=== PATIENT | female | born 1935 | race Caucasian/White ===

== ENCOUNTER → 2016-12-27 | Outpatient (CLI) | payer OTHER ==
[~2016-12-27] MED LIST: ASPI81TA28 PO; CALC500C3 PO; CALC500C73 PO; CEPH500C2 PO; CITA10SO PO; CYAN500T13 PO; FIBER PO; LANS30TA3 PO; LEVO100T7 PO; LEVO112T4 PO; MULT1CHW18 PO; PANT40TA PO; POLY335019 PO; [UNRECOGNIZED DRUG - OTHER] PO
== END | disposition home or self-care (01) ==
LOC: C.LABSPEC 12:51
PROVIDERS: ATTEND Dermatology
DX: H61.001 Unspecified perichondritis of right external ear (principal)

== ENCOUNTER → 2017-01-01 | Outpatient (CLI) | payer OTHER ==
[2017-01-01 17:48] LABS: ALB/GLOB RATIO 0.9 (0.9-2); ALKALINE PHOSPHATASE 86 U/L (45-117); ALT/SGPT 33 U/L (12-78); AST/SGOT 24 U/L (15-37); BLOOD UREA NITROGEN 14 mg/dl (7-18); BUN/CREATININE RATIO 16.1 (10-20); CALCIUM 9.2 mg/dl (8.5-10.1); CARBON DIOXIDE 31 mmol/L (21-32); CHLORIDE 103 mmol/L (98-107); CREATININE 0.89 mg/dl (0.60-1.20); GLUCOSE 82 mg/dl (70-99); HDL CHOLESTEROL 47 mg/dl; POTASSIUM 4.1 mmol/L (3.5-5.1); SODIUM 140 mmol/L (136-145)
[2017-01-01 18:00] LABS: CHOLESTEROL 200 mg/dl (0-200); CHOLESTEROL/HDL RATIO 4.3; LDL CHOLESTEROL CALCULATED 111 mg/dl; THYROID STIMULATING HORMONE 0.716 uIu/ml (0.300-4.500); TRIGLYCERIDES 208 mg/dl (0-150); VERY LOW DENSITY LIPOPROT CALC 42 mg/dl
[2017-01-02 06:46] LABS: ESTIMATED AVERAGE GLUCOSE 123 mg/dl; HA1C FLAG Normal (Normal)
== END | disposition home or self-care (01) ==
LOC: C.LABBFT 14:17
PROVIDERS: ATTEND Internal Medicine
DX: E03.9 Hypothyroidism, unspecified (principal); Z13.220 Encounter for screening for lipoid disorders; R20.0 Anesthesia of skin; I65.29 Occlusion and stenosis of unspecified carotid artery; R73.01 Impaired fasting glucose; Z13.6 Encounter for screening for cardiovascular disorders

== ENCOUNTER 2017-02-16 08:42 | Emergency (ER) | payer OTHER ==
[~2017-02-16] VITALS: Ht 154.9 cm; Wt 69.0 kg
[~2017-02-16 08:42] MED LIST changes: -CALC500C73 PO; -CEPH500C2 PO; -FIBER PO; -LEVO100T7 PO; -POLY335019 PO
[2017-02-16 08:49] VITALS: TEMP 36.5; Ht 154.9 cm; Wt 69.0 kg
[2017-02-16] MEDS ORDERED: POLY335019 PO (09:17)
[2017-02-16] MEDS ORDERED: CALC500C73 PO (09:17)
[2017-02-16] MEDS ORDERED: LEVO100T7 PO (09:17)
[2017-02-16] MEDS ORDERED: FIBER PO (09:17)
[2017-02-16 09:40] LABS: BASO % 0.3 %; BASO ABS # 0.02 K/uL (0-0.2); COMPLETE YES; EOS % 0.7 %; HEMATOCRIT 38.6 % (37-47); IG% 0.4 %; LYMPH ABS # 1.43 K/uL (1.2-3.4); MEAN CELL VOLUME 90.8 fL (80-100); MEAN CORPUSCULAR HEMOGLOBIN 30.8 pg (25-34); MEAN CORPUSCULAR HGB CONC 33.9 g/dl (32-36); MEAN PLATELET VOLUME 10.1 fL (7.4-10.4); MONO % 8.1 %; NEUT % 70.5 %; PLATELET COUNT 246 K/uL (130-400); RED BLOOD COUNT 4.25 M/uL (4.2-5.4); WHITE BLOOD COUNT 7.15 K/uL (4.8-10.8)
--- NOTE | 2017-02-16 09:48 | DIAGNOSTIC IMAGING REPORT ---
RIGHT ANKLE 3 VIEWS HISTORY: R ankle pain and swelling Right COMPARISON: None. FINDINGS: There is no fracture or dislocation. Lateral soft tissue swelling. No radiopaque foreign bodies. IMPRESSION: No fractures. Electronically signed by: Omkar Oscar M.D. 02/16/2017 9:47 AM Dictated Date/Time: 02/16/2017 9:46 AM
[2017-02-16 09:57] LABS: BUN/CREATININE RATIO 15.5 (10-20); C-REACTIVE PROTEIN 0.52 mg/dl (0-0.29); CREATININE 0.94 mg/dl (0.60-1.20); POTASSIUM 3.9 mmol/L (3.5-5.1); URIC ACID 4.5 mg/dl (2.6-7.2)
[2017-02-16 10:01] LABS: CALCIUM 9.1 mg/dl (8.5-10.1)
[2017-02-16] MEDS ORDERED: CEPH500C2 PO (10:31)
[2017-02-16 10:49] VITALS: BP 123/73; PULSE 92; O2SAT 95
--- NOTE | 2017-02-16 16:58 | EMERGENCY ROOM VISIT NOTE ---
ED Visit Note First contact with patient: 09:02 Chief Complaint: Right ankle pain. History of Present Illness: Ms. Carter is an 81-year-old white female who ambulates into the ED accompanied by her daughter complaining of right lateral ankle pain. Historically patient reports she has lower extremity neuropathy for many years. Patient reports she noticed some mild discomfort over the lateral aspect of the right ankle yesterday and noted some mild swelling. Today she reports she woke and the pain was much more severe, the swelling has increased and now the lateral ankle is erythematous. She has difficulty describing her pain but reports there is a base pain that worsens with weightbearing and ambulation. At rest she rates her discomfort 5/10 and with weightbearing ambulation she rates her discomfort 9/10. Her pain is nonradiating. Additionally her pain worsens with palpation over the lateral malleolus. She has not identified any alleviating factors related to the pain. She has not taken any medications for pain prior to arrival at the hospital. She has no worsening of her neuropathy in the foot. She denies any recent trauma to the best of her knowledge and she has not had no significant injuries, surgeries or diseases of her ankle. She denies fevers, chills, sweats, other skin eruptions, other skin color changes, upper respiratory tract symptoms, cough, wheezing, shortness of breath , chest pain, palpitations, orthopnea, decreased appetite, nausea, vomiting, abdominal pain, other extremity pain, previous clots, claudication, cramping, palpitations, recent surgery/inactivity/extended travel. Review of Systems: As noted above in history of present illness. All body systems were reviewed and found to be negative as noted above. Past Medical History: Unspecified stomach disorder, frequent urination, status post tonsillectomy, appendectomy, cholecystectomy and cervical cancer. Current Medications: Medications Dose Route/Sig Max Daily Dose Days Date Category Dose Instructions Miralax (Polyethylene Glycol 3350) 1 Pow Pow 17 Gm PO ONCE-TWICE DAILY 02/16/17 Reported Fiber Laxative (Fiber) Ea 1 Tab PO DAILY 02/16/17 Reported Levothyroxine Sodium 100 Mcg Tab 100 Mcg PO 4XWK 02/16/17 Reported Calcium (Calcium Carbonate) 500 Mg Chw 500 Mg PO DAILY 02/16/17 Reported Prevacid Solutab (Lansoprazole) 30 Mg Tab 30 Mg PO DAILY 11/15/15 Rx Vitamin B12 500MCG (Cyanocobalamin) 500 Mcg Tab 500 Mcg PO DAILY 11/15/15 Reported Levothyroxine Sodium 112 Mcg Tab 1 Tab PO 3XWK 90 11/15/15 Reported FRIDAY, FRIDAY, AND FRIDAY Aspirin Ec (Aspirin) 81 Mg Tab 81 Mg PO DAILY 11/15/15 Reported Multivitamin Gummies Adul (Multiple Vitamins W/ Minerals) 1 Chw Chw 1 Cplt PO DAILY 05/12/14 Reported Citalopram Hydrobromide 10 Mg/5 Ml Olive 2.5 Ml PO HS 05/12/14 Reported Allergies to Medications: Erythromycin. Social History: Patient is not currently employed; she feels safe in her home environment; she denies tobacco and alcohol use. Physical Examination: Vital Signs: Date Time Temp Pulse Resp B/P (MAP) Pulse Ox O2 Delivery O2 Flow Rate FiO2 02/16/17 10:49 92 18 123/73 95 02/16/17 08:49 36.5 91 17 127/72 95 Room Air GENERAL: 81-year-old female in mild to moderate distress due to pain, nontoxic- appearing, afebrile and hemodynamically stable. NEUROLOGICAL: Awake, alert and oriented to person, place and time. Answering questions appropriately and following commands. Good hand eye coordination. SKIN: Warm, dry and pink. HEENT: Atraumatic and normocephalic. PERRLA. Sclera white and conjunctiva pink. No drainage from naris. Oral cavity moist and pink. Pharynx is nonerythematous or edematous. Speech normal. No lymphadenopathy. Trachea midline. No jugular venous distention. BACK: No tenderness over the bony spine. No CVA tenderness. THORAX: Lungs sounds are clear to auscultation and equal bilaterally with symmetrical chest wall. No wheezing, rales or rhonchi. No crepitus, tenderness , subcutaneous air or deformities noted. HEART: Regular rate and rhythm. No gallops, rubs or murmurs are appreciated. ABDOMEN: Flat, soft and nontender. Positive bowel sounds in all quadrants. No guarding, rigidity or organomegaly. RIGHT LOWER EXTREMITY: No gross bony deformity. No tenderness in the hip, thigh , knee or lower leg. Moderate tenderness over the lateral malleolus with erythema and edema. Minimal tenderness over the ligamentous structures inferior and posterior to the malleolus. In the patient's area of erythema the foot does feel hot but didn't skin does not appear cellulitic. There is no lymphangitis. Decreased range of motion primarily with dorsiflexion due to pain. No ligamentous laxity was noted but she had a significant amount of pain with inversion. Skin was warm and pink and capillary refill is brisk. Distal pulses were intact. She had difficulty recognizing light touch because of her neuropathy. No calf tenderness or cords. ED Course: Patient is assessed as noted above. Patient's medication list was reviewed by myself. Laboratory Testing: Test 02/16/17 09:25 Range/Units White Blood Count 7.15 4.8-10.8 K/uL Red Blood Count 4.25 4.2-5.4 M/uL Hemoglobin 13.1 12.0-16.0 g/dL Hematocrit 38.6 37-47 % Mean Corpuscular Volume 90.8 80-100 fL Mean Corpuscular Hemoglobin 30.8 25-34 pg Mean Corpuscular Hemoglobin Concent 33.9 32-36 g/dl Platelet Count 246 130-400 K/uL Mean Platelet Volume 10.1 7.4-10.4 fL Neutrophils (%) (Auto) 70.5 % Lymphocytes (%) (Auto) 20.0 % Monocytes (%) (Auto) 8.1 % Eosinophils (%) (Auto) 0.7 % Basophils (%) (Auto) 0.3 % Neutrophils # (Auto) 5.04 1.4-6.5 K/uL Lymphocytes # (Auto) 1.43 1.2-3.4 K/uL Monocytes # (Auto) 0.58 0.11-0.59 K/uL Eosinophils # (Auto) 0.05 0-0.5 K/uL Basophils # (Auto) 0.02 0-0.2 K/uL RDW Standard Deviation 42.0 36.4-46.3 fL RDW Coefficient of Variation 12.7 11.5-14.5 % Immature Granulocyte % (Auto) 0.4 % Immature Granulocyte # (Auto) 0.03 0.00-0.02 K/uL Erythrocyte Sedimentation Rate 14 0-21 mm/hr Sodium Level 139 136-145 mmol/L Potassium Level 3.9 3.5-5.1 mmol/L Chloride Level 104 98-107 mmol/L Carbon Dioxide Level 28 21-32 mmol/L Anion Gap 7.0 3-11 mmol/L Blood Urea Nitrogen 15 7-18 mg/dl Creatinine 0.94 0.60-1.20 mg/dl Est Creatinine Clear Calc Drug Dose 41.0 ml/min Estimated GFR () 65.5 Estimated GFR (Non- 56.5 BUN/Creatinine Ratio 15.5 10-20 Random Glucose 128 70-99 mg/dl Uric Acid 4.5 2.6-7.2 mg/dl Calcium Level 9.1 8.5-10.1 mg/dl C-Reactive Protein 0.52 0-0.29 mg/dl Right Ankle X-Rays: Was read by myself and the radiologist and shows no acute fractures or dislocations. No foreign body. Mild soft tissue swelling over the lateral aspect of the ankle. Patient was offered pain medications and refused. Patient was reassessed multiple times during her stay in the emergency department. Patient's redness and swelling were demarcated with a pen line Patient was placed in a postop shoe and instructed on achieves. Patient's case was reviewed with Dr. Chan; we agreed on diagnostic approach, treatment, disposition and plan. Patient and daughter were educated about mor's findings and instructed on her treatment plan; they verbalizes understanding and agreement with this plan. Clinical Impression: Right ankle swelling and erythema. Possible cellulitis. Decision-Making: Initially my differential diagnosis I considered cellulitis, ankle sprain, gout, early contusion, fracture and other causes. Disposition: Patient discharged home in stable condition accompanied by her daughter; prior to departure she was reassessed and subjectively reported she was feeling better and rated her discomfort 4/10. Plan: Patient was encouraged use 600 mg of ibuprofen every 6 hours as needed for pain ; she was encouraged to take this medication with food and stop for stomach pain or indigestion. Patient was prescribed Keflex 500 mg 4 times a day for 10 days. Comfort measures were discussed with the patient including full elevation, postop shoe use. Patient was encouraged to follow-up with her PCP for recheck in 36-48 hours; she was encouraged return the ED if she was not able to obtain a follow-up visit and that time. PA Patient return the ED sooner for worsening pain, increasing redness/swelling, red streaking, fevers or any new/concerning symptoms.
== END 2017-02-16 10:51 | disposition home or self-care (01) ==
LOC: C.EDB 08:43 → C.EDA 10:51
DX: M25.471 Effusion, right ankle (principal); G62.9 Polyneuropathy, unspecified; Z90.49 Acquired absence of other specified parts of digestive tract; Z85.41 Personal history of malignant neoplasm of cervix uteri; Z79.82 Long term (current) use of aspirin; Z79.899 Other long term (current) drug therapy; L53.9 Erythematous condition, unspecified

== ENCOUNTER → 2017-04-08 | Outpatient (CLI) | payer OTHER ==
[~2017-04-08] MED LIST changes: -CALC500C3 PO; +CALC500C73 PO; +FIBER PO; +LEVO100T7 PO; -PANT40TA PO; +POLY335019 PO; -[UNRECOGNIZED DRUG - OTHER] PO
--- NOTE | 2017-04-08 09:30 | DIAGNOSTIC IMAGING REPORT ---
LEFT HAND MIN 3 VIEWS ROUTINE, LEFT WRIST MIN 3 VIEWS ROUTINE CLINICAL HISTORY: S69.92XA Injury of wrist, [id number]. Left hand and left wrist pain. COMPARISON STUDY: None. FINDINGS: Soft tissue swelling within the left wrist. The bones are osteopenic. Severe degenerative changes at the STT and first carpometacarpal joints. Mild osteoarthritis within the DIP and PIP joints. No fracture or dislocation. IMPRESSION: Soft tissue swelling within the left wrist. No acute fracture or dislocation within the left hand or left wrist. Electronically signed by: Omkar Oscar M.D. 04/08/2017 9:28 AM Dictated Date/Time: 04/08/2017 9:26 AM
--- NOTE | 2017-04-08 09:30 | DIAGNOSTIC IMAGING REPORT ---
LEFT HAND MIN 3 VIEWS ROUTINE, LEFT WRIST MIN 3 VIEWS ROUTINE CLINICAL HISTORY: S69.92XA Injury of wrist, [id number]. Left hand and left wrist pain. COMPARISON STUDY: None. FINDINGS: Soft tissue swelling within the left wrist. The bones are osteopenic. Severe degenerative changes at the STT and first carpometacarpal joints. Mild osteoarthritis within the DIP and PIP joints. No fracture or dislocation. IMPRESSION: Soft tissue swelling within the left wrist. No acute fracture or dislocation within the left hand or left wrist. Electronically signed by: Omkar Oscar M.D. 04/08/2017 9:28 AM Dictated Date/Time: 04/08/2017 9:26 AM
== END | disposition home or self-care (01) ==
LOC: C.RAD1850 09:06
PROVIDERS: ATTEND Internal Medicine
DX: S69.92XA Unspecified injury of left wrist, hand and finger(s), initial encounter (principal); X58.XXXA Exposure to other specified factors, initial encounter

== ENCOUNTER 2017-07-11 10:08 | Emergency (ER) | payer OTHER ==
[~2017-07-11] VITALS: Ht 154.9 cm; Wt 66.4 kg
[2017-07-11 10:15] VITALS: O2SAT 94
[2017-07-11 10:26] VITALS: TEMP 36.4; Ht 154.9 cm; Wt 66.4 kg
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
[2017-07-11 11:06] LABS: BASO % 0.1 %; BASO ABS # 0.01 K/uL (0-0.2); COMPLETE YES; EOS % 0.6 %; HEMATOCRIT 38.6 % (37-47); IG% 0.4 %; LYMPH % 12.2 %; LYMPH ABS # 1.04 K/uL (1.2-3.4); MEAN CORPUSCULAR HEMOGLOBIN 30.7 pg (25-34); MEAN CORPUSCULAR HGB CONC 33.7 g/dl (32-36); MEAN PLATELET VOLUME 9.6 fL (7.4-10.4); NEUT % 80.7 %; PLATELET COUNT 231 K/uL (130-400); RED BLOOD COUNT 4.24 M/uL (4.2-5.4); WHITE BLOOD COUNT 8.49 K/uL (4.8-10.8)
[2017-07-11 11:28] LABS: BUN/CREATININE RATIO 17.1 (10-20); CALCIUM 9.1 mg/dl (8.5-10.1); CREATININE 0.78 mg/dl (0.60-1.20); POTASSIUM 4.2 mmol/L (3.5-5.1)
[2017-07-11 12:40] VITALS: BP 160/83; PULSE 66; O2SAT 98
== END 2017-07-11 12:41 | disposition home or self-care (01) ==
LOC: EDBD 10:08 → C.EDA 10:12
DX: G43.809 Other migraine, not intractable, without status migrainosus (principal); E86.0 Dehydration; K57.30 Diverticulosis of large intestine without perforation or abscess without bleeding; K58.9 Irritable bowel syndrome, unspecified; M81.0 Age-related osteoporosis without current pathological fracture; Z79.82 Long term (current) use of aspirin

== ENCOUNTER → 2017-07-18 | Outpatient (CLI) | payer OTHER ==
[2017-07-18 12:25] LABS: ESTIMATED AVERAGE GLUCOSE 114 mg/dl; HA1C FLAG Normal (Normal)
[2017-07-18 12:40] LABS: ALT/SGPT 23 U/L (12-78); AST/SGOT 18 U/L (15-37); BLOOD UREA NITROGEN 11 mg/dl (7-18); BUN/CREATININE RATIO 12.7 (10-20); CALCIUM 9.3 mg/dl (8.5-10.1); CARBON DIOXIDE 30 mmol/L (21-32); CHLORIDE 102 mmol/L (98-107); CREATININE 0.86 mg/dl (0.60-1.20); GLUCOSE 113 mg/dl (70-99); POTASSIUM 4.9 mmol/L (3.5-5.1); SODIUM 136 mmol/L (136-145)
[2017-07-18 12:50] LABS: ALKALINE PHOSPHATASE 81 U/L (45-117)
== END | disposition home or self-care (01) ==
LOC: C.LABBFT 10:15
PROVIDERS: ATTEND Internal Medicine
DX: Z00.00 Encounter for general adult medical examination without abnormal findings (principal); E03.9 Hypothyroidism, unspecified; R73.01 Impaired fasting glucose; R42 Dizziness and giddiness

== ENCOUNTER → 2017-08-22 | Outpatient (CLI) | payer OTHER ==
[~2017-08-22] MED LIST changes: +HYDR1SOL10 PO; +OPTIRAY 320 IV PRN; +PRLUDL5 PO
--- NOTE | 2017-08-22 13:15 | DIAGNOSTIC IMAGING REPORT ---
CT OF THE ABDOMEN AND PELVIS WITH CONTRAST CLINICAL HISTORY: Epigastric abdominal pain. COMPARISON STUDY: CT of the abdomen and pelvis November 15, 2015 per TECHNIQUE: Following IV administration of 93 mL of Optiray-320, axial images of the abdomen and pelvis were obtained from the lung bases to the proximal femurs. Images were reviewed in the axial, sagittal, and coronal planes. IV contrast was administered without complication. A dose lowering technique was utilized adhering to the principles of ALARA. CT DOSE: 353.55 mGy.cm FINDINGS: No pneumatosis, free air or portal venous gas is present. The heart is mildly enlarged. The liver, spleen, adrenal glands and pancreas are unremarkable as is the left kidney. There is a cyst within the upper pole the right kidney. There is no biliary ductal dilatation status post cholecystectomy. The appendix is surgically absent. There is no evidence for a bowel obstruction. This extensive sigmoid diverticulosis without evidence for acute diverticulitis. No ascites is present. There is no abscess. No abdominal or pelvic lymphadenopathy is present. There is moderate atherosclerotic plaque of the abdominal aorta. There is plaque at the origin of the celiac axis however this vessel appears patent. There is also plaque at the origin of the superior mesenteric artery with apparent severe stenosis at the origin of this vessel. The inferior mesenteric artery is patent. There is no aneurysmal dilatation. There is no dissection. IMPRESSION: 1. 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 No significant stenosis of the celiac axis. Patent BRO. A CTA of the abdomen could be obtained. 2. Extensive sigmoid diverticulosis without evidence for acute diverticulitis. 3. No bowel obstruction. No bowel wall thickening. Electronically signed by: Ean Quiroz M.D. 08/22/2017 1:13 PM Dictated Date/Time: 08/22/2017 10:00 AM
== END | disposition home or self-care (01) ==
LOC: C.CTS 09:21
PROVIDERS: ATTEND Internal Medicine
DX: R10.13 Epigastric pain (principal); I70.0 Atherosclerosis of aorta; K57.30 Diverticulosis of large intestine without perforation or abscess without bleeding

== ENCOUNTER 2017-09-01 17:39 | Emergency (ER) | payer OTHER ==
[~2017-09-01] VITALS: Ht 154.9 cm; Wt 66.8 kg
[~2017-09-01 17:39] MED LIST changes: -HYDR1SOL10 PO; -OPTIRAY 320 IV PRN; -PRLUDL5 PO
[2017-09-01 17:50] VITALS: TEMP 36.5; Ht 154.9 cm; Wt 66.8 kg
[2017-09-01] MEDS ORDERED: DEXAMETHASONE SOD INJ 4 MG/ML VIAL IM STA (18:03)
[2017-09-01] MEDS ORDERED: KETOROLAC TROMETHAMINE 60 MG/2 ML VIAL IM STA (18:03)
[2017-09-01] MEDS ORDERED: HYDROCODONE/APAP 2.5MG/108MG ELIX 5 ML UDP PO STA (18:03)
[2017-09-01] MEDS ORDERED: HYDROCODONE/APAP ELIX 60ML HOME PACK PO ONE (18:15)
--- NOTE | 2017-09-01 19:28 | DIAGNOSTIC IMAGING REPORT ---
CERVICAL SPINE 5 VIEWS CLINICAL HISTORY: Neck pain. FINDINGS: AP, lateral, bilateral oblique, and odontoid views of the cervical spine are compared to study dated 09/09/2011. The skeletal structures are osteopenic. There is no radiographic evidence of fracture or subluxation. The odontoid process and lateral masses appear intact on the open mouth view. Productive degenerative change is noted at the atlantodental articulation. The spinolaminar line is preserved. Vertebral body height is maintained throughout the cervical spine. There is straightening of cervical lordosis with mild reversal centered at C4-C5. Minimal anterolisthesis is seen at C4-C5. Alignment is otherwise preserved. Small anterior osteophytes are seen throughout. Advanced disc space narrowing with endplate sclerosis is seen at C5-C6. Mild to moderate disc space narrowing is seen at the remaining cervical levels. Tiny posterior disc osteophyte complexes at C4-C5 and C5-C6 may contribute to mild acquired compromise of the central canal. Multilevel facet arthropathy is noted. Mild multilevel neural foraminal stenosis is seen bilaterally. The prevertebral soft tissues are within normal limits. Partially imaged apical lung parenchyma appears clear. Atherosclerotic calcification is noted in the thoracic aorta. IMPRESSION: 1. No acute bony abnormality is seen involving the cervical spine. 2. Osteopenia and multilevel spondylosis as discussed above. Dictated: 09/01/2017 7:09 PM Transcribed: 09/01/2017 7:27 PM Joseluis Electronically signed by: Asael Espinoza M.D. 09/01/2017 7:33 PM Dictated Date/Time: 09/01/2017 7:09 PM
[2017-09-01] MEDS ORDERED: HYDR1SOL28 PO (19:51)
[2017-09-01] MEDS ORDERED: PRED1SOL12 PO (19:51)
[2017-09-01 19:53] VITALS: PULSE 75; O2SAT 95
[2017-09-01 20:03] VITALS: BP 160/89
--- NOTE | 2017-09-01 20:07 | EMERGENCY ROOM VISIT NOTE ---
History Report prepared by Clyde: Shanna Shah Under the Supervision of: Dr. Ramirez Kelley M.D. First contact with patient: 17:52 Chief Complaint: ARM PAIN Stated Complaint: PINCHED NERVE IN R ARM AND SHOULDER History of Present Illness The patient is a 82 year old female who presents to the Emergency Room with complaints of constant right arm pain beginning Friday, 5 days ago. The patients pain starts in her right hand and radiates to her right shoulder. She describes her pain as throbbing. The patient notes that when she tilts her head to the right her pain worsens and when she tilts her head to the left her pain is relieved. The patient denies any loss of strength. She denies any chest pain , shortness of breath, fevers, swelling to extremities, recent falls or injuries. The patient took children's ibuprofen about an two hours ago. She denies any numbness to her right arm. The patient states she cannot swallow any pills. Source of History: patient Onset: 5 days ago Position: arm (right) Quality: other (throbbing) Timing: constant Modifying Factors (Worsening): other (tilting head to right) Modifying Factors (Relieving): other (tilting head to left) Associated Symptoms: No fevers, No chest pain, No SOB, No weakness, No numbness Review of Systems See HPI for pertinent positives & negatives. A total of 10 systems reviewed and were otherwise negative. Past Medical & Surgical Medical Problems: (1) Diverticulosis Colon (W/O Ment Of Hemorrhage) (2) Irritable Bowel Syndrome (3) Multilevel degenerative disc disease (4) Osteoporosis Nos Family History Patient reports no known family medical history. Social History Smoking Status: Never Smoker Alcohol Use: none Marital Status: Housing Status: lives with family Occupation Status: retired Current/Historical Medications Scheduled Aspirin (Aspirin Ec), 81 MG PO DAILY Calcium Carbonate (Calcium), 500 MG PO DAILY Citalopram Hydrobromide (Citalopram Hydrobromide), 5 ML PO HS Cyanocobalamin (Vitamin B12 500MCG), 500 MCG PO DAILY Fiber Laxative (Fiber Laxative), 1 TAB PO DAILY Lansoprazole (Prevacid Solutab), 30 MG PO DAILY Levothyroxine Sodium (Levothyroxine Sodium), 1 TAB PO 3XWK Levothyroxine Sodium (Levothyroxine Sodium), 100 MCG PO 4XWK Multiple Vitamins W/ Minerals (Multivitamin Gummies Adul), 1 CPLT PO DAILY Polyethylene Glycol 3350 (Miralax), 17 GM PO Q2D Prednisolone (Prelone 15MG/5ML), 20 ML PO DAILY Scheduled PRN Hydrocodone-Acetaminophen (Hydrocodone/Acetami 7.5/325MG 15ML), 5 ML PO Q4 PRN for Pain Allergies Coded Allergies: Erythromycin (Verified Adverse Reaction, Unknown, MYCIN DRUGS-YEAST INFECTIONS, 09/01/17) Physical Exam Vital Signs Date Time Temp Pulse Resp B/P (MAP) Pulse Ox O2 Delivery O2 Flow Rate FiO2 09/01/17 19:53 75 18 176/105 95 Room Air 09/01/17 17:50 36.5 85 16 161/90 96 Room Air Physical Exam Constitutional: Vital signs reviewed. Eyes: Pupils are equal round reactive to light. Conjunctiva are noninjected. ENT: Pharynx is clear without erythema or exudate. Mucous membranes are moist. Neck supple without meningeal signs. No midline tenderness to Cervical spine. Respiratory: Clear to auscultation bilaterally. Breath sounds are equal bilaterally. Cardiovascular: Regular rate and rhythm. No rubs or gallops. GI: Soft, nondistended and nontender. Bowel sounds are present. Musculoskeletal: No swelling or erythema to right upper extremity. Positive Spurling test on the right side. Integumentary: No cyanosis. No erythema or signs of cellulitis to the right arm. Neurological: The patient is awake and alert. No focal deficits. Normal motor and sensation throughout all major nerve distribution in the upper extremities. Psychiatric: Normal affect. Medical Decision & Procedures ER Provider Diagnostic Interpretation: Radiology results as stated below per my review and the radiologist's interpretation: CERVICAL SPINE 5 VIEWS FINDINGS: AP, lateral, bilateral oblique, and odontoid views of the cervical spine are compared to study dated 09/09/2011. The skeletal structures are osteopenic. There is no radiographic evidence of fracture or subluxation. The odontoid process and lateral masses appear intact on the open mouth view. Productive degenerative change is noted at the atlantodental articulation. The spinolaminar line is preserved. Vertebral body height is maintained throughout the cervical spine. There is straightening of cervical lordosis with mild reversal centered at C4-C5. Minimal anterolisthesis is seen at C4-C5. Alignment is otherwise preserved. Small anterior osteophytes are seen throughout. Advanced disc space narrowing with endplate sclerosis is seen at C5-C6. Mild to moderate disc space narrowing is seen at the remaining cervical levels. Tiny posterior disc osteophyte complexes at C4-C5 and C5-C6 may contribute to mild acquired compromise of the central canal. Multilevel facet arthropathy is noted. Mild multilevel neural foraminal stenosis is seen bilaterally. The prevertebral soft tissues are within normal limits. Partially imaged apical lung parenchyma appears clear. Atherosclerotic calcification is noted in the thoracic aorta. IMPRESSION: 1. No acute bony abnormality is seen involving the cervical spine. 2. Osteopenia and multilevel spondylosis as discussed above. Dictated: 09/01/2017 7:09 PM Transcribed: 09/01/2017 7:27 PM Joseluis Electronically signed by: Asael Espinoza M.D. Medications Administered Medications (Trade) Dose Ordered Sig/Denise Route Start Time Stop Time Status Last Admin Dose Admin Dexamethasone Sodium Phosphate (Decadron Inj) 10 mg NOW STAT IM 09/01/17 18:03 09/01/17 18:05 DC 09/01/17 18:43 10 MG Ketorolac Tromethamine (Toradol Inj) 10 mg NOW STAT IM 09/01/17 18:03 09/01/17 18:05 DC 09/01/17 18:44 10 MG Acetaminophen/ Hydrocodone Bitart (Lortab Elixir) 5 ml ONE STAT PO 09/01/17 18:03 09/01/17 18:05 DC 09/01/17 18:45 5 ML Acetaminophen/ Hydrocodone Bitart (Hydrocod/Apap Elix 7.5/325MG/ 15ML Home Pack) 1 homepack UD ONCE PO 09/01/17 18:15 09/01/17 18:16 DC 09/01/17 18:45 1 HOMEPACK ED Course 1754: The patient was evaluated in room C4. A complete history and physical exam was performed. 1802: Ordered Lortab Elixir 5 ml PO, Toradol Inj 10 mg IM, Decadron Inj 10 mg IM. 1814: Ordered Hydrocodone Bitart/Acetaminophen 1 homepack PO. 1944: I reviewed the patient's test results and medication instructions with her. She is resting comfortably. 1958: Upon reevaluation, the patient appeared to have improvement of her symptoms. I discussed mor's findings with the patient. She verbalized agreement of the treatment plan. The patient was discharged home. Medical Decision This is an 82-year-old female presents with pain in her right arm and shoulder. Differential diagnosis includes intervertebral disc disease, cervical radiculopathy, strain, DVT, infection. I did perform a limited focused review of portions of the patient's old chart on the electronic medical record. The patient had an x-ray of her cervical spine in 2011 which showed multilevel intervertebral disc disease. I did evaluate the patient as noted above. The patient is presenting with pain from her right shoulder into her hand. She states it's worse when she flexes her neck to the right and better when she flexes away toward the left side. On examination she does have a positive Spurling test. Her symptoms are consistent with intervertebral disc disease with radicular symptoms. I did treat the patient with IM Toradol and Decadron. She was also given Lortab elixir as she is unable to swallow pills. I did order and personally review the patient's cervical spine x-rays as described above. She does have intervertebral disc disease as described above. I did reassess patient. She is feeling much better. I did discuss the test results with the patient. I did recommend follow with her doctor for further evaluation and referral to physical therapy. She was given a prescription for Prelone as well as Lortab elixir. She was given precautions regarding his medications. She was given return instructions as outlined below and discharged in good condition. [place] Drug Monitoring Program Search Results: patient reviewed within database, no issues identified Medication Reconcilliation Current Medication List: was personally reviewed by me Blood Pressure Screening Patient's blood pressure: Elevated blood pressure Blood pressure disposition: Referred to PCP Impression Primary Impression: Cervical radiculopathy Scribe Attestation The scribe's documentation has been prepared under my direct and personally reviewed by me in its entirety. I confirm that the note above accurately reflects all work, treatment, procedures, and medical decision making performed by me. Departure Information Dispostion Home / Self-Care Prescriptions Prednisolone (PRELONE 15MG/5ML) 15 Mg/5 Ml Syrp 20 ML PO DAILY for 5 Days, #100 ML Prov: Rmairez Kelley M.D. 09/01/17 Hydrocodone-Acetaminophen (HYDROCODONE/ACETAMI 7.5/325MG 15ML) 1 Olive Olive 5 ML PO Q4 Y for Pain, #150 ML Prov: Ramirez Kelley M.D. 09/01/17 Referrals Tammie Quiroz M.D. (PCP) Forms HOME CARE DOCUMENTATION FORM, IMPORTANT VISIT INFORMATION Patient Instructions ED Cervical Radiculopathy, [facility] Additional Instructions You have been examined and treated today on an emergency basis only. This is not a substitute for, or an effort to provide, complete comprehensive medical care. It is impossible to recognize and treat all injuries or illnesses in a single emergency department visit. It is therefore important that you follow up closely with your physician. Call as soon as possible for an appointment. Return for worsening symptoms or if you develop fever, chest pain, shortness of breath, loss of control of your bowel or bladder, numbness or weakness to your arms, or any other concerning symptoms.
[2018-02-08] MEDS ORDERED: MECL-91 PO (18:06)
== END 2017-09-01 20:04 | disposition home or self-care (01) ==
LOC: C.EDB 17:40 → C.EDC 20:04
DX: M54.12 Radiculopathy, cervical region (principal); M50.30 Other cervical disc degeneration, unspecified cervical region; K57.30 Diverticulosis of large intestine without perforation or abscess without bleeding; K58.9 Irritable bowel syndrome, unspecified; M81.0 Age-related osteoporosis without current pathological fracture; Z79.82 Long term (current) use of aspirin

== ENCOUNTER → 2017-09-17 | Outpatient (CLI) | payer OTHER ==
[~2017-09-17] MED LIST changes: +HYDR1SOL10 PO
[2017-09-17 17:43] LABS: BLOOD UREA NITROGEN 12 mg/dl (7-18); CREATININE 0.82 mg/dl (0.60-1.20)
== END | disposition home or self-care (01) ==
LOC: C.LABBFT 13:16
PROVIDERS: ATTEND Physician Assistant
DX: Z00.00 Encounter for general adult medical examination without abnormal findings (principal); I63.9 Cerebral infarction, unspecified; R42 Dizziness and giddiness

== ENCOUNTER → 2017-09-22 | Outpatient (CLI) | payer OTHER ==
[~2017-09-22] MED LIST changes: +GADAVIST IV PRN
--- NOTE | 2017-09-22 12:04 | DIAGNOSTIC IMAGING REPORT ---
MRA OF THE NECK WITH AND WITHOUT CONTRAST CLINICAL HISTORY: Lacunar infarction. Vertigo. Carotid artery plaque. COMPARISON STUDY: None. TECHNIQUE: Unenhanced and contrast-enhanced MRA of the neck was performed. Injection of 6.5 mL of Gadavist IV was uneventful. NASCET criteria were utilized to estimate the degree of carotid stenosis. FINDINGS: The origins of the great vessels are patent. There is tortuosity of the proximal left vertebral artery. There is no evidence for dissection within the major vasculature of the neck. The bilateral common carotid arteries are patent. The right internal carotid artery is patent. There is mild stenosis of approximately 30% at the origin of the left internal carotid. The vessel measures 3 mm in caliber at the vessel origin and 4 mm distally. IMPRESSION: 1. 30% stenosis of the proximal left internal carotid artery. 2. No additional stenoses within the major vessels of the neck. Electronically signed by: Ean Quiroz M.D. 09/22/2017 12:03 PM Dictated Date/Time: 09/22/2017 11:46 AM
== END | disposition home or self-care (01) ==
LOC: C.MRI 10:45
PROVIDERS: ATTEND Physician Assistant
DX: I65.29 Occlusion and stenosis of unspecified carotid artery (principal); I63.9 Cerebral infarction, unspecified; R42 Dizziness and giddiness

== ENCOUNTER 2017-11-27 16:59 | Inpatient (IN) | payer OTHER ==
[~2017-11-27] VITALS: Ht 154.9 cm; Wt 65.0 kg
[~2017-11-27 16:59] MED LIST changes: -GADAVIST IV PRN
[2017-11-27] MEDS ORDERED: VRP40 PO ×2 (17:30→17:32)
--- NOTE | 2017-11-27 17:36 | EMERGENCY ROOM VISIT NOTE ---
History Report prepared by Clyde: Eric Corrales Under the Supervision of: Dr. Suresh Hoover M.D. First contact with patient: 17:09 Chief Complaint: SYNCOPE Stated Complaint: PASSED OUT-DR LUNA REFFERED Nursing Triage Summary: patient to Ed via triage, referred by primary, reports syncopal episode this morning, states "they wanted maybe a heart monitor, and to check my left shoulder" History of Present Illness The patient is an 82 year old female who presents to the Emergency Room with complaints of a syncopal episode that occurred this morning. She states that she passed out while she was taking her medications at home, and she fell to the floor. The patient says that she did not hit her head on the fall, and denies any headaches. The patient states that did bang her left shoulder however. She says that she was told by Dr. Reyes of [facility] to come here for evaluation, as it may be heart related. The patient notes that she has been nauseous today. She denies any vomiting, chest pain, shortness of breath, or abdominal pain. The patient's family adds that the patient has been very unsteady recently, and has had multiple falls. The stated she had a similar syncopal episode in September but never sought any treatment for it. The patient says that she takes Verapamil, 81 mg Aspirin, and a thyroid medication daily. She is not on any other blood thinners. Per the patient's family, the patient has noticed left leg swelling for about a week or so ever since she started the Verapamil. She notes no cardiac history or any recent travels. The patient lives alone. Source of History: patient, family Onset: This morning Position: other (global) Quality: other (syncope) Timing: other (episode) Associated Symptoms: + LOC, + nausea, No headache, No chest pain, No SOB, No vomiting, No abdominal pain Note: Left leg swelling for a week or so. Review of Systems See HPI for pertinent positives and negatives. A total of ten systems were reviewed and were otherwise negative. Past Medical & Surgical Medical Problems: (1) Diverticulosis Colon (W/O Ment Of Hemorrhage) (2) Irritable Bowel Syndrome (3) Multilevel degenerative disc disease (4) Osteoporosis Nos Family History Patient reports no known family medical history. Social History Smoking Status: Never Smoker Alcohol Use: none Marital Status: Housing Status: lives with family Occupation Status: retired Current/Historical Medications Scheduled Aspirin (Aspirin Ec), 81 MG PO DAILY Calcium Carbonate (Calcium), 500 MG PO DAILY Cyanocobalamin (Vitamin B12 500MCG), 500 MCG PO DAILY Fiber Laxative (Fiber Laxative), 1 TAB PO DAILY Lansoprazole (Prevacid Solutab), 30 MG PO DAILY Levothyroxine Sodium (Levothyroxine Sodium), 1 TAB PO 3XWK Levothyroxine Sodium (Levothyroxine Sodium), 100 MCG PO 4XWK Multiple Vitamins W/ Minerals (Multivitamin Gummies Adul), 1 CPLT PO DAILY Polyethylene Glycol 3350 (Miralax), 17 GM PO Q2D Verapamil (Calan), 40 MG PO BID Allergies Coded Allergies: Erythromycin (Verified Adverse Reaction, Unknown, MYCIN DRUGS-YEAST INFECTIONS, 11/27/17) Physical Exam Vital Signs Date Time Temp Pulse Resp B/P (MAP) Pulse Ox O2 Delivery O2 Flow Rate FiO2 11/27/17 20:50 82 18 152/91 95 Room Air 11/27/17 20:47 76 20 161/97 95 Room Air 75 156/95 82 152/91 11/27/17 19:08 83 18 151/81 95 Room Air 11/27/17 18:01 72 11/27/17 17:05 36.7 79 20 154/80 95 Room Air Physical Exam Physical Exam GENERAL: She is oriented to person, place, and time. She appears well- developed and well-nourished. She does not appear distressed. ____ HENT: Exam performed. Head: Normocephalic and atraumatic. Right Ear: External ear normal. No mastoid tenderness. Left Ear: External ear normal. No mastoid tenderness. Mouth/Throat: The oropharynx is clear and moist. No trismus in the jaw. No dental abscesses or uvula swelling. No oropharyngeal exudate or tonsillar abscesses. ____ EYES: Conjunctivae and EOM are normal. Pupils are equal, round, and reactive to light. Right eye exhibits no discharge. Left eye exhibits no discharge. No scleral icterus. ____ NECK: Normal range of motion. Neck supple. No JVD present. No spinous process tenderness present. No carotid bruit present. No rigidity. No tracheal deviation and normal range of motion present. No Brudzinski's sign and no Kernig 's sign noted. ____ CV: Normal rate, regular rhythm, normal heart sounds and intact distal pulses. There is no peripheral edema. Palpable radial pulses bue. ____ PULM/CHEST: Effort normal and breath sounds normal. No respiratory distress. No stridor. She has no wheezes. She has no rales. Chest Wall: She exhibits no tenderness. ____ ABD: The abdomen is soft. Bowel sounds are normal. She has no distension. No mass is present. There is no tenderness. There is no rebound, no guarding, no Morales's sign and no tenderness at McBurney's point. Rovsig negative MUSC/SKEL: Normal range of motion. Swelling to left lower extremity, calf, and pain on palpation of left popliteal area. Palpable DP pulses bilateral lower extremities. LYMPH: No cervical adenopathy. ____ NEURO: She is alert and oriented to person, place, and time. She has normal strength. No cranial nerve deficit or sensory deficit. Coordination and gait normal. GCS eye subscore is 4. GCS verbal subscore is 5. GCS motor subscore is 6. Cerebellar tests wnl. ____ SKIN: Skin is warm and dry. She is not diaphoretic. ____ PSYCH: She has a normal mood and affect. She behavior is normal. Judgment and thought content normal. ____ Medical Decision & Procedures ER Provider Diagnostic Interpretation: Radiology results as stated below per my review and radiologist interpretation: L SHOULDER MIN 2 VIEWS ROUTINE CLINICAL HISTORY: 82 years-old Female presenting with L shoulder pain. TECHNIQUE: Internal rotation, external rotation, Grashey views of the left shoulder were obtained. COMPARISON: 05/23/2015. FINDINGS: Glenohumeral and acromioclavicular joints congruent. No advanced degenerative change. Calcification projects in the region of the rotator cuff tendon. No acute fracture or malalignment. No deformity of the humeral head. No radiographic soft tissue abnormality. Visualized portion of the thorax demonstrates atherosclerosis of the aortic arch. IMPRESSION: 1. No acute osseous injury. 2. Calcification in the region of the rotator cuff suggest calcific tendinitis. Electronically signed by: Kun James M.D. 11/27/2017 8:08 PM Dictated Date/Time: 11/27/2017 8:07 PM L VENOUS DOPP LOWER EXT UNILAT CLINICAL HISTORY: 82 years-old Female presenting with r/o dvt, chest pain, clinical concern for pulmonary embolus. TECHNIQUE: Real-time grayscale and color and spectral Doppler ultrasound imaging of the veins of the left lower extremity was performed. Compression and augmentation were also utilized. COMPARISON: None. FINDINGS: Left: Common femoral vein: Patent. Greater saphenous vein: Patent. Deep femoral vein: Patent. Femoral vein: Patent. Popliteal vein: Patent. Calf veins: Patent. Other: None. IMPRESSION: No evidence of deep venous thrombosis. Electronically signed by: Kun James M.D. 11/27/2017 7:50 PM Dictated Date/Time: 11/27/2017 7:49 PM HEAD WITHOUT CONTRAST (CT) CLINICAL HISTORY: 82 years-old Female presenting with syncope. TECHNIQUE: Multidetector CT imaging of the head was performed without the use of intravenous contrast. IV contrast: None. A dose lowering technique was used consistent with the principles of ALARA (as low as reasonably achievable). COMPARISON: 05/12/2014. CT DOSE (mGy.cm): The estimated cumulative dose is 638.56 mGycm. FINDINGS: Ironer Hand topogram: Unremarkable. Proportional ventricular and sulcal prominence, likely age-related parenchymal volume loss. Periventricular and subcortical white matter hypoattenuation, nonspecific but likely indicative of chronic small vessel ischemic change. No mass effect or midline shift. No hemorrhage or acute territorial infarct. No extra-axial fluid collection. Paranasal sinuses and mastoid air cells clear. Calvarium intact. IMPRESSION: 1. Chronic small vessel ischemic change. No acute intracranial abnormality. Electronically signed by: Kun James M.D. 11/27/2017 7:06 PM Dictated Date/Time: 11/27/2017 7:05 PM CHEST 2 VIEWS ROUTINE CLINICAL HISTORY: 82 years-old Female presenting with syncope. TECHNIQUE: PA and lateral views of the chest were obtained. COMPARISON: CTA of the chest performed earlier the same day. FINDINGS: Atherosclerosis of aortic arch. Cardiac silhouette mildly enlarged. No focal opacity. No large effusion or pneumothorax. Osteopenia suspected. Upper abdomen normal. IMPRESSION: 1. No acute cardiopulmonary disease. Electronically signed by: Kun James M.D. 11/27/2017 8:07 PM Dictated Date/Time: 11/27/2017 8:06 PM CERVICAL SPINE W/O CLINICAL HISTORY: 82 years-old Female presenting with syncope. TECHNIQUE: Multidetector CT of the cervical spine was performed without the use of intravenous contrast. IV contrast: None. A dose lowering technique was used consistent with the principles of ALARA (as low as reasonably achievable). COMPARISON: Plain radiographs of the cervical spine from 09/01/2017. One CT DOSE (mGy.cm): The estimated cumulative dose is 396.30 mGycm. FINDINGS: Ironer Hand topogram: Unremarkable. Straightening of normal cervical lordosis likely positional and related to degenerative change. No acute fracture or subluxation. Multilevel degenerative changes evidenced by disc osteophyte complexes at C4-5 through C6-7, most severe at C5-6. Facet arthropathy noted to varying degrees at multiple levels. No osseous spinal canal narrowing. Varying degrees of osseous neural foraminal narrowing most significantly at C5-6. Skull base intact. Paraspinal soft tissues within normal limits allowing for noncontrast technique. Lung bases clear. IMPRESSION: 1. No acute osseous injury of the cervical spine. 2. Multilevel degenerative changes. Electronically signed by: Kun James M.D. 11/27/2017 7:11 PM Dictated Date/Time: 11/27/2017 7:08 PM ABDOMEN LIMITED (US) CLINICAL HISTORY: 82 years-old Female presenting with syncope r/o AAA. TECHNIQUE: Real-time grayscale and color and spectral Doppler ultrasound imaging of the abdominal aorta and iliac arteries was performed. COMPARISON: CT from 08/22/2017. FINDINGS: Proximal aorta: Atherosclerosis. Transverse dimension 2.5 x 2.3 cm. Mid aorta: Atherosclerosis. Transverse dimension 2.0 x 2.0 cm. Distal aorta: Atherosclerosis. Transverse dimension 1.6 x 1.8 cm. Right iliac artery: Atherosclerosis. Transverse dimension 0.8 x 0.9 cm. Left iliac artery: Atherosclerosis. Transverse dimension 1.0 x 1.0 cm. IMPRESSION: 1. No evidence of abdominal aortic aneurysm. Electronically signed by: Kun James M.D. 11/27/2017 7:52 PM Dictated Date/Time: 11/27/2017 7:50 PM (CHEST FOR PE) ANGIO WITH CLINICAL HISTORY: 82 years-old Female presenting with chest pain, clinical concern for pulmonary embolus, syncope. TECHNIQUE: Multidetector CT angiography of the chest was performed after administration of intravenous contrast. 3-D volumetric and/or maximum intensity projection (MIP) images were subsequently reconstructed for review. IV contrast: 93 mL of Optiray 320. A dose lowering technique was used consistent with the principles of ALARA (as low as reasonably achievable). COMPARISON: None. CT DOSE (mGy.cm): The estimated cumulative dose is 519.38 mGycm. FINDINGS: Ironer Hand topogram: Cholecystectomy clips. Cardiomegaly. Pulmonary vasculature: The study is adequate for assessment of the pulmonary vascular tree. Eccentric pulmonary embolus in the distal right interlobar pulmonary artery, which extends into the segmental pulmonary arteries of the right lower lobe. This may be associated with a web. This has an appearance that is more consistent with a chronic embolus. Eccentric embolus also evident in several subsegmental branches to the left lower lobe. No convincing evidence of acute pulmonary emboli. Main pulmonary artery is not enlarged. No flattening of the interventricular septum. No intracardiac filling defect. Reflux of contrast into the intrahepatic IVC. Remaining chest: On soft tissue windows, normal thyroid and thoracic inlet. Few subcentimeter lymph nodes in the prevascular and precarinal regions of the mediastinum as well as subcentimeter lymph nodes in the bilateral jaylen, likely reactive. Atherosclerosis of the aorta. Significant irregularity of the origin of the left subclavian artery secondary to noncalcified atherosclerotic plaque are this results in less than 50% stenosis of the proximal 1 to 2 cm. Mild multichamber enlargement of the heart. Coronary artery calcification. No pericardial or pleural effusion. Suggestion of enlarged lymph nodes in the ester hepatis (series 4 image 1). On lung windows, Biapical reticular opacities likely scarring. Minimal scattered sites of scarring noted elsewhere. Minimal dependent changes likely atelectasis. Airways patent. On bone windows, degenerative changes of the spine. IMPRESSION: 1. 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 No CT evidence of right heart strain. No convincing evidence of acute pulmonary emboli. 2. Suggestion of upper abdominal lymphadenopathy. Further evaluation with contrast-enhanced CT of abdomen and pelvis recommended on a nonurgent basis. 3. Mild cardiomegaly. Electronically signed by: Kun James M.D. 11/27/2017 7:33 PM Dictated Date/Time: 11/27/2017 7:26 PM Laboratory Results 11/27/17 18:05 Red Blood Count 4.31, Mean Corpuscular Volume 89.6, Mean Corpuscular Hemoglobin 30.2, Mean Corpuscular Hemoglobin Concent 33.7, Mean Platelet Volume 9.8, Neutrophils (%) (Auto) 65.9, Lymphocytes (%) (Auto) 22.5, Monocytes (%) (Auto) 10.5, Eosinophils (%) (Auto) 0.5, Basophils (%) (Auto) 0.3, Neutrophils # (Auto ) 5.00, Lymphocytes # (Auto) 1.71, Monocytes # (Auto) 0.80, Eosinophils # (Auto ) 0.04, Basophils # (Auto) 0.02 11/27/17 18:05 Test 11/27/17 18:05 White Blood Count 7.59 K/uL (4.8-10.8) Red Blood Count 4.31 M/uL (4.2-5.4) Hemoglobin 13.0 g/dL (12.0-16.0) Hematocrit 38.6 % (37-47) Mean Corpuscular Volume 89.6 fL (80-100) Mean Corpuscular Hemoglobin 30.2 pg (25-34) Mean Corpuscular Hemoglobin Concent 33.7 g/dl (32-36) Platelet Count 259 K/uL (130-400) Mean Platelet Volume 9.8 fL (7.4-10.4) Neutrophils (%) (Auto) 65.9 % Lymphocytes (%) (Auto) 22.5 % Monocytes (%) (Auto) 10.5 % Eosinophils (%) (Auto) 0.5 % Basophils (%) (Auto) 0.3 % Neutrophils # (Auto) 5.00 K/uL (1.4-6.5) Lymphocytes # (Auto) 1.71 K/uL (1.2-3.4) Monocytes # (Auto) 0.80 K/uL (0.11-0.59) Eosinophils # (Auto) 0.04 K/uL (0-0.5) Basophils # (Auto) 0.02 K/uL (0-0.2) RDW Standard Deviation 40.5 fL (36.4-46.3) RDW Coefficient of Variation 12.4 % (11.5-14.5) Immature Granulocyte % (Auto) 0.3 % Immature Granulocyte # (Auto) 0.02 K/uL (0.00-0.02) Prothrombin Time 9.9 SECONDS (9.0-12.0) Prothromb Time International Ratio 0.9 (0.9-1.1) Activated Partial Thromboplast Time 22.9 SECONDS (21.0-31.0) Partial Thromboplastin Ratio 0.9 D-Dimer 1590 ug/L FEU (0-500) Anion Gap 6.0 mmol/L (3-11) Est Creatinine Clear Calc Drug Dose 40.7 ml/min Estimated GFR () 84.1 Estimated GFR (Non- 72.5 BUN/Creatinine Ratio 20.6 (10-20) Calcium Level 9.5 mg/dl (8.5-10.1) Troponin I < 0.015 ng/ml (0-0.045) Laboratory results reviewed by me ECG Per My Interpretation Indication: syncope Rate (beats per minute): 73 Rhythm: sinus rhythm Findings: other (WV, QRS, and QTC intervals within normal limits, no ST elevation or ST depression) ED Course 1726: The patient was evaluated in room C9. A complete history and physical exam was performed. 2030: EKG labs and imaging within normal limits. I reevaluated the patient and discussed with her and her family that the imaging is negative, and her labs are within normal limits. The patient, her family, and myself are concerned because this is the patient's second syncopal episode within the last few months. She has never had an echo or carotid US. She has also never had a cardiac workup. She is willing to stay in the hospital for a syncope workup, and will hospitalized to [facility]. They were notified about the patient. Medical Decision EKG labs and imaging within normal limits. I reevaluated the patient and discussed with her and her family that the imaging is negative, and her labs are within normal limits. The patient, her family, and myself are concerned because this is the patient's second syncopal episode within the last few months. She has never had an echo or carotid US. She has also never had a cardiac workup. She is willing to stay in the hospital for a syncope workup, and will hospitalized to the [facility] hospitalist service. They were notified about the patient. Medication Reconcilliation Current Medication List: was personally reviewed by me Blood Pressure Screening Patient's blood pressure: Elevated blood pressure Blood pressure disposition: Elevated BP felt to be situational Impression Primary Impression: Syncope Additional Impression: Collapse Scribe Attestation The scribe's documentation has been prepared under my direction and personally reviewed by me in its entirety. I confirm that the note above accurately reflects all work, treatment, procedures, and medical decision making performed by me. The chart was completed utilizing [employer] Speech voice recognition software. Grammatical errors, random word insertions, pronoun errors, and incomplete sentences are an occasional consequence of this system due to software limitations, ambient noise, and hardware issues. Any formal questions or concerns about the content, text, or information contained within the body of this dictation should be directly addressed to the physician for clarification. Departure Information Dispostion Being Evaluated By Hospitalist Referrals Tammie Quiroz M.D. (PCP) Patient Instructions My [facility] Health Problem Qualifiers Primary Impression: Syncope Syncope type: unspecified Qualified Codes: R55 - Syncope and collapse
[2017-11-27 18:19] LABS: BASO % 0.3 %; BASO ABS # 0.02 K/uL (0-0.2); EOS % 0.5 %; EOS ABS # 0.04 K/uL (0-0.5); HEMATOCRIT 38.6 % (37-47); IG# 0.02 K/uL (0.00-0.02); LYMPH % 22.5 %; LYMPH ABS # 1.71 K/uL (1.2-3.4); MEAN CELL VOLUME 89.6 fL (80-100); MEAN CORPUSCULAR HEMOGLOBIN 30.2 pg (25-34); MEAN CORPUSCULAR HGB CONC 33.7 g/dl (32-36); MEAN PLATELET VOLUME 9.8 fL (7.4-10.4); MONO % 10.5 %; NEUT % 65.9 %; PLATELET COUNT 259 K/uL (130-400); RED CELL DISTRIBUTION WIDTH CV 12.4 % (11.5-14.5); RED CELL DISTRIBUTION WIDTH SD 40.5 fL (36.4-46.3); WHITE BLOOD COUNT 7.59 K/uL (4.8-10.8)
[2017-11-27 18:38] LABS: INR 0.9 (0.9-1.1); PTT PATIENT 22.9 SECONDS (21.0-31.0)
[2017-11-27 18:41] LABS: BLOOD UREA NITROGEN 16 mg/dl (7-18); CALCIUM 9.5 mg/dl (8.5-10.1); CARBON DIOXIDE 27 mmol/L (21-32); CREATININE 0.76 mg/dl (0.60-1.20); GLUCOSE 96 mg/dl (70-99); POTASSIUM 4.1 mmol/L (3.5-5.1); SODIUM 135 mmol/L (136-145)
[2017-11-27] MEDS ORDERED: OPTIRAY 320 IV PRN (19:00)
--- NOTE | 2017-11-27 19:08 | DIAGNOSTIC IMAGING REPORT ---
HEAD WITHOUT CONTRAST (CT) CLINICAL HISTORY: 82 years-old Female presenting with syncope. TECHNIQUE: Multidetector CT imaging of the head was performed without the use of intravenous contrast. IV contrast: None. A dose lowering technique was used consistent with the principles of ALARA (as low as reasonably achievable). COMPARISON: 05/12/2014. CT DOSE (mGy.cm): The estimated cumulative dose is 638.56 mGycm. FINDINGS: Extrusion Press Supervisor topogram: Unremarkable. Proportional ventricular and sulcal prominence, likely age-related parenchymal volume loss. Periventricular and subcortical white matter hypoattenuation, nonspecific but likely indicative of chronic small vessel ischemic change. No mass effect or midline shift. No hemorrhage or acute territorial infarct. No extra-axial fluid collection. Paranasal sinuses and mastoid air cells clear. Calvarium intact. IMPRESSION: 1. Chronic small vessel ischemic change. No acute intracranial abnormality. Electronically signed by: Kun James M.D. 11/27/2017 7:06 PM Dictated Date/Time: 11/27/2017 7:05 PM
--- NOTE | 2017-11-27 19:12 | DIAGNOSTIC IMAGING REPORT ---
CERVICAL SPINE W/O CLINICAL HISTORY: 82 years-old Female presenting with syncope. TECHNIQUE: Multidetector CT of the cervical spine was performed without the use of intravenous contrast. IV contrast: None. A dose lowering technique was used consistent with the principles of ALARA (as low as reasonably achievable). COMPARISON: Plain radiographs of the cervical spine from 09/01/2017. One CT DOSE (mGy.cm): The estimated cumulative dose is 396.30 mGycm. FINDINGS: Auto Inspector topogram: Unremarkable. Straightening of normal cervical lordosis likely positional and related to degenerative change. No acute fracture or subluxation. Multilevel degenerative changes evidenced by disc osteophyte complexes at C4-5 through C6-7, most severe at C5-6. Facet arthropathy noted to varying degrees at multiple levels. No osseous spinal canal narrowing. Varying degrees of osseous neural foraminal narrowing most significantly at C5-6. Skull base intact. Paraspinal soft tissues within normal limits allowing for noncontrast technique. Lung bases clear. IMPRESSION: 1. No acute osseous injury of the cervical spine. 2. Multilevel degenerative changes. Electronically signed by: Kun James M.D. 11/27/2017 7:11 PM Dictated Date/Time: 11/27/2017 7:08 PM
--- NOTE | 2017-11-27 19:35 | DIAGNOSTIC IMAGING REPORT ---
ADDENDUM Corrected impression #2: No evidence of upper abdominal lymphadenopathy. The previously noted abnormality correlates with vascular structures when compared with contrast-enhanced CT of the abdomen and pelvis from 08/22/2017. This was discussed with the nurse practitioner over the phone. Electronically signed by: Kun James M.D. 12/01/2017 3:18 PM Dictated Date/Time: 12/01/2017 3:17 PM ORIGINAL REPORT (CHEST FOR PE) ANGIO WITH CLINICAL HISTORY: 82 years-old Female presenting with chest pain, clinical concern for pulmonary embolus, syncope. TECHNIQUE: Multidetector CT angiography of the chest was performed after administration of intravenous contrast. 3-D volumetric and/or maximum intensity projection (MIP) images were subsequently reconstructed for review. IV contrast: 93 mL of Optiray 320. A dose lowering technique was used consistent with the principles of ALARA (as low as reasonably achievable). COMPARISON: None. CT DOSE (mGy.cm): The estimated cumulative dose is 519.38 mGycm. FINDINGS: Logistics And Planning Manager topogram: Cholecystectomy clips. Cardiomegaly. Pulmonary vasculature: The study is adequate for assessment of the pulmonary vascular tree. Eccentric pulmonary embolus in the distal right interlobar pulmonary artery, which extends into the segmental pulmonary arteries of the right lower lobe. This may be associated with a web. This has an appearance that is more consistent with a chronic embolus. Eccentric embolus also evident in several subsegmental branches to the left lower lobe. No convincing evidence of acute pulmonary emboli. Main pulmonary artery is not enlarged. No flattening of the interventricular septum. No intracardiac filling defect. Reflux of contrast into the intrahepatic IVC. Remaining chest: On soft tissue windows, normal thyroid and thoracic inlet. Few subcentimeter lymph nodes in the prevascular and precarinal regions of the mediastinum as well as subcentimeter lymph nodes in the bilateral jaylen, likely reactive. Atherosclerosis of the aorta. Significant irregularity of the origin of the left subclavian artery secondary to noncalcified atherosclerotic plaque are this results in less than 50% stenosis of the proximal 1 to 2 cm. Mild multichamber enlargement of the heart. Coronary artery calcification. No pericardial or pleural effusion. Suggestion of enlarged lymph nodes in the ester hepatis (series 4 image 1). On lung windows, Biapical reticular opacities likely scarring. Minimal scattered sites of scarring noted elsewhere. Minimal dependent changes likely atelectasis. Airways patent. On bone windows, degenerative changes of the spine. IMPRESSION: 1. 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 No CT evidence of right heart strain. No convincing evidence of acute pulmonary emboli. 2. Suggestion of upper abdominal lymphadenopathy. Further evaluation with contrast-enhanced CT of abdomen and pelvis recommended on a nonurgent basis. 3. Mild cardiomegaly. Electronically signed by: Kun James M.D. 11/27/2017 7:33 PM Dictated Date/Time: 11/27/2017 7:26 PM
--- NOTE | 2017-11-27 19:51 | DIAGNOSTIC IMAGING REPORT ---
L VENOUS DOPP LOWER EXT UNILAT CLINICAL HISTORY: 82 years-old Female presenting with r/o dvt, chest pain, clinical concern for pulmonary embolus. TECHNIQUE: Real-time grayscale and color and spectral Doppler ultrasound imaging of the veins of the left lower extremity was performed. Compression and augmentation were also utilized. COMPARISON: None. FINDINGS: Left: Common femoral vein: Patent. Greater saphenous vein: Patent. Deep femoral vein: Patent. Femoral vein: Patent. Popliteal vein: Patent. Calf veins: Patent. Other: None. IMPRESSION: No evidence of deep venous thrombosis. Electronically signed by: Kun James M.D. 11/27/2017 7:50 PM Dictated Date/Time: 11/27/2017 7:49 PM
--- NOTE | 2017-11-27 19:53 | DIAGNOSTIC IMAGING REPORT ---
ABDOMEN LIMITED (US) CLINICAL HISTORY: 82 years-old Female presenting with syncope r/o AAA. TECHNIQUE: Real-time grayscale and color and spectral Doppler ultrasound imaging of the abdominal aorta and iliac arteries was performed. COMPARISON: CT from 08/22/2017. FINDINGS: Proximal aorta: Atherosclerosis. Transverse dimension 2.5 x 2.3 cm. Mid aorta: Atherosclerosis. Transverse dimension 2.0 x 2.0 cm. Distal aorta: Atherosclerosis. Transverse dimension 1.6 x 1.8 cm. Right iliac artery: Atherosclerosis. Transverse dimension 0.8 x 0.9 cm. Left iliac artery: Atherosclerosis. Transverse dimension 1.0 x 1.0 cm. IMPRESSION: 1. No evidence of abdominal aortic aneurysm. Electronically signed by: Kun James M.D. 11/27/2017 7:52 PM Dictated Date/Time: 11/27/2017 7:50 PM
--- NOTE | 2017-11-27 20:08 | DIAGNOSTIC IMAGING REPORT ---
CHEST 2 VIEWS ROUTINE CLINICAL HISTORY: 82 years-old Female presenting with syncope. TECHNIQUE: PA and lateral views of the chest were obtained. COMPARISON: CTA of the chest performed earlier the same day. FINDINGS: Atherosclerosis of aortic arch. Cardiac silhouette mildly enlarged. No focal opacity. No large effusion or pneumothorax. Osteopenia suspected. Upper abdomen normal. IMPRESSION: 1. No acute cardiopulmonary disease. Electronically signed by: Kun James M.D. 11/27/2017 8:07 PM Dictated Date/Time: 11/27/2017 8:06 PM
--- NOTE | 2017-11-27 20:10 | DIAGNOSTIC IMAGING REPORT ---
L SHOULDER MIN 2 VIEWS ROUTINE CLINICAL HISTORY: 82 years-old Female presenting with L shoulder pain. TECHNIQUE: Internal rotation, external rotation, Grashey views of the left shoulder were obtained. COMPARISON: 05/23/2015. FINDINGS: Glenohumeral and acromioclavicular joints congruent. No advanced degenerative change. Calcification projects in the region of the rotator cuff tendon. No acute fracture or malalignment. No deformity of the humeral head. No radiographic soft tissue abnormality. Visualized portion of the thorax demonstrates atherosclerosis of the aortic arch. IMPRESSION: 1. No acute osseous injury. 2. Calcification in the region of the rotator cuff suggest calcific tendinitis. Electronically signed by: Kun James M.D. 11/27/2017 8:08 PM Dictated Date/Time: 11/27/2017 8:07 PM
[2017-11-27] MEDS ORDERED: ACETAMINOPHEN 325 MG TAB PO PRN (23:00)
[2017-11-28] VITALS (7 sets, daily range): BP systolic 114–156; BP diastolic 62–78; PULSE 73–95; TEMP 36.3–36.8; O2SAT 94–96; Ht 154.9 cm; Wt 65.0 kg
[2017-11-28] MEDS ORDERED: ENOXAPARIN 60 MG/0.6 ML SYR SQ SCH (02:00)
--- NOTE | 2017-11-28 04:50 | History and Physical ---
History & Physical Date & Time of Service: Nov 28, 2017 at 04:31 Chief Complaint: Syncope Primary Care Physician: Tammie Quiroz M.D. History of Present Illness Source: patient Patient is an 82yo C female with history of TIA presenting with episode of syncope. She states that she was standing at the counter in her kitchen this AM around 0730 with a bottle of medication in her hands then she woke up on the floor. She denies CP/palpitations/SOB/AMS or weakness preceding or following the event. No tongue biting or incontinence. She did land on her left shoulder and elbow which is now bruised and painful. She thinks she was out maybe 5-10 minutes. She felt fine after the episode except some mild nausea. No additional complaints today. Past Medical/Surgical History Medical Problems: 1. Ocular migraine 2. TIA 3. Neuropathy Surgical Problems: (1) History of appendectomy (2) History of cholecystectomy (3) History of hysterectomy (4) History of tonsillectomy Family History Patient reports no known family medical history. Social History Smoking Status: Never Smoker Smokeless Tobacco Use: No Alcohol Use: none Drug Use: none Marital Status: Housing status: lives alone Occupational Status: retired Immunizations History of Tetanus Vaccine?: Yes History of Pneumococcal: Yes History of Hepatitis B Vaccine: No Allergies Coded Allergies: Erythromycin (Verified Adverse Reaction, Unknown, MYCIN DRUGS-YEAST INFECTIONS, 11/27/17) Home Medications Scheduled Aspirin (Aspirin Ec), 81 MG PO DAILY Calcium Carbonate (Calcium), 500 MG PO DAILY Cyanocobalamin (Vitamin B12 500MCG), 500 MCG PO DAILY Fiber Laxative (Fiber Laxative), 1 TAB PO DAILY Lansoprazole (Prevacid Solutab), 30 MG PO DAILY Levothyroxine Sodium (Levothyroxine Sodium), 1 TAB PO 3XWK Levothyroxine Sodium (Levothyroxine Sodium), 100 MCG PO 4XWK Multiple Vitamins W/ Minerals (Multivitamin Gummies Adul), 1 CPLT PO DAILY Polyethylene Glycol 3350 (Miralax), 17 GM PO Q2D Verapamil (Calan), 40 MG PO BID Review of Systems Constitutional: No fever, No chills, No sweats, No fatigue Eyes: No worsening of vision, No eye pain ENT: No tinnitus Respiratory: No cough, No sputum, No wheezing, No shortness of breath, No dyspnea on exertion Cardiovascular: No chest pain, No palpitations Abdomen: No pain, No nausea, No vomiting, No diarrhea Genitourinary - Female: No dysuria Neurologic: + balance problems, No memory loss, No paralysis, No weakness, No numbness/tingling Physical Exam Vital Signs Date Time Temp Pulse Resp B/P (MAP) Pulse Ox O2 Delivery O2 Flow Rate FiO2 11/28/17 03:39 36.6 95 19 129/77 (94) 96 Room Air 11/28/17 01:45 36.7 85 16 141/75 95 Room Air 11/28/17 01:43 36.7 85 16 141/75 11/28/17 01:05 77 15 137/69 95 11/28/17 00:29 77 15 137/69 95 Room Air 11/28/17 00:13 79 11/27/17 22:30 84 18 151/80 96 Room Air 11/27/17 20:50 82 18 152/91 95 Room Air 11/27/17 20:47 76 20 161/97 95 Room Air 75 156/95 82 152/91 11/27/17 19:08 83 18 151/81 95 Room Air 11/27/17 18:01 72 11/27/17 17:05 36.7 79 20 154/80 95 Room Air General Appearance: WD/WN, no apparent distress Head: normocephalic, atraumatic Eyes: normal inspection, PERRL, EOMI, sclerae normal ENT: normal ENT inspection, hearing grossly normal, pharynx normal Neck: supple, no adenopathy, thyroid normal, no JVD, no carotid bruits Respiratory/Chest: chest non-tender, lungs clear, normal breath sounds, no respiratory distress, no accessory muscle use Cardiovascular: regular rate, rhythm, no edema, no gallop, no JVD, no murmur Abdomen/GI: normal bowel sounds, non tender, soft, no organomegaly Extremities/Musculoskelatal: normal inspection, no calf tenderness Neurologic/Psych: paradi operator II-XII nml as tested, no motor/sensory deficits, alert, normal mood/affect, oriented x 3 Skin: normal color, warm/dry, no rash Diagnostics Laboratory Results Results Past 24 Hours Test 11/27/17 18:05 Range/Units White Blood Count 7.59 4.8-10.8 K/uL Red Blood Count 4.31 4.2-5.4 M/uL Hemoglobin 13.0 12.0-16.0 g/dL Hematocrit 38.6 37-47 % Mean Corpuscular Volume 89.6 80-100 fL Mean Corpuscular Hemoglobin 30.2 25-34 pg Mean Corpuscular Hemoglobin Concent 33.7 32-36 g/dl Platelet Count 259 130-400 K/uL Mean Platelet Volume 9.8 7.4-10.4 fL Neutrophils (%) (Auto) 65.9 % Lymphocytes (%) (Auto) 22.5 % Monocytes (%) (Auto) 10.5 % Eosinophils (%) (Auto) 0.5 % Basophils (%) (Auto) 0.3 % Neutrophils # (Auto) 5.00 1.4-6.5 K/uL Lymphocytes # (Auto) 1.71 1.2-3.4 K/uL Monocytes # (Auto) 0.80 0.11-0.59 K/uL Eosinophils # (Auto) 0.04 0-0.5 K/uL Basophils # (Auto) 0.02 0-0.2 K/uL RDW Standard Deviation 40.5 36.4-46.3 fL RDW Coefficient of Variation 12.4 11.5-14.5 % Immature Granulocyte % (Auto) 0.3 % Immature Granulocyte # (Auto) 0.02 0.00-0.02 K/uL Prothrombin Time 9.9 9.0-12.0 SECONDS Prothromb Time International Ratio 0.9 0.9-1.1 Activated Partial Thromboplast Time 22.9 21.0-31.0 SECONDS Partial Thromboplastin Ratio 0.9 D-Dimer 1590 0-500 ug/L FEU Sodium Level 135 136-145 mmol/L Potassium Level 4.1 3.5-5.1 mmol/L Chloride Level 102 98-107 mmol/L Carbon Dioxide Level 27 21-32 mmol/L Anion Gap 6.0 3-11 mmol/L Blood Urea Nitrogen 16 7-18 mg/dl Creatinine 0.76 0.60-1.20 mg/dl Est Creatinine Clear Calc Drug Dose 40.7 ml/min Estimated GFR () 84.1 Estimated GFR (Non- 72.5 BUN/Creatinine Ratio 20.6 10-20 Random Glucose 96 70-99 mg/dl Calcium Level 9.5 8.5-10.1 mg/dl Troponin I < 0.015 0-0.045 ng/ml Diagnostic Radiology (CHEST FOR PE) ANGIO WITH CLINICAL HISTORY: 82 years-old Female presenting with chest pain, clinical concern for pulmonary embolus, syncope. TECHNIQUE: Multidetector CT angiography of the chest was performed after administration of intravenous contrast. 3-D volumetric and/or maximum intensity projection (MIP) images were subsequently reconstructed for review. IV contrast: 93 mL of Optiray 320. A dose lowering technique was used consistent with the principles of ALARA (as low as reasonably achievable). COMPARISON: None. CT DOSE (mGy.cm): The estimated cumulative dose is 519.38 mGycm. FINDINGS: Motel Keeper topogram: Cholecystectomy clips. Cardiomegaly. Pulmonary vasculature: The study is adequate for assessment of the pulmonary vascular tree. Eccentric pulmonary embolus in the distal right interlobar pulmonary artery, which extends into the segmental pulmonary arteries of the right lower lobe. This may be associated with a web. This has an appearance that is more consistent with a chronic embolus. Eccentric embolus also evident in several subsegmental branches to the left lower lobe. No convincing evidence of acute pulmonary emboli. Main pulmonary artery is not enlarged. No flattening of the interventricular septum. No intracardiac filling defect. Reflux of contrast into the intrahepatic IVC. Remaining chest: On soft tissue windows, normal thyroid and thoracic inlet. Few subcentimeter lymph nodes in the prevascular and precarinal regions of the mediastinum as well as subcentimeter lymph nodes in the bilateral jaylen, likely reactive. Atherosclerosis of the aorta. Significant irregularity of the origin of the left subclavian artery secondary to noncalcified atherosclerotic plaque are this results in less than 50% stenosis of the proximal 1 to 2 cm. Mild multichamber enlargement of the heart. Coronary artery calcification. No pericardial or pleural effusion. Suggestion of enlarged lymph nodes in the ester hepatis (series 4 image 1). On lung windows, Biapical reticular opacities likely scarring. Minimal scattered sites of scarring noted elsewhere. Minimal dependent changes likely atelectasis. Airways patent. On bone windows, degenerative changes of the spine. IMPRESSION: 1. 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 No CT evidence of right heart strain. No convincing evidence of acute pulmonary emboli. 2. Suggestion of upper abdominal lymphadenopathy. Further evaluation with contrast-enhanced CT of abdomen and pelvis recommended on a nonurgent basis. 3. Mild cardiomegaly. Electronically signed by: Kun James M.D. 11/27/2017 7:33 PM Dictated Date/Time: 11/27/2017 7:26 PM ABDOMEN LIMITED (US) CLINICAL HISTORY: 82 years-old Female presenting with syncope r/o AAA. TECHNIQUE: Real-time grayscale and color and spectral Doppler ultrasound imaging of the abdominal aorta and iliac arteries was performed. COMPARISON: CT from 08/22/2017. FINDINGS: Proximal aorta: Atherosclerosis. Transverse dimension 2.5 x 2.3 cm. Mid aorta: Atherosclerosis. Transverse dimension 2.0 x 2.0 cm. Distal aorta: Atherosclerosis. Transverse dimension 1.6 x 1.8 cm. Right iliac artery: Atherosclerosis. Transverse dimension 0.8 x 0.9 cm. Left iliac artery: Atherosclerosis. Transverse dimension 1.0 x 1.0 cm. IMPRESSION: 1. No evidence of abdominal aortic aneurysm. [~ rep ct add3]] CERVICAL SPINE W/O CLINICAL HISTORY: 82 years-old Female presenting with syncope. TECHNIQUE: Multidetector CT of the cervical spine was performed without the use of intravenous contrast. IV contrast: None. A dose lowering technique was used consistent with the principles of ALARA (as low as reasonably achievable). COMPARISON: Plain radiographs of the cervical spine from 09/01/2017. One CT DOSE (mGy.cm): The estimated cumulative dose is 396.30 mGycm. FINDINGS: Motel Keeper topogram: Unremarkable. Straightening of normal cervical lordosis likely positional and related to degenerative change. No acute fracture or subluxation. Multilevel degenerative changes evidenced by disc osteophyte complexes at C4-5 through C6-7, most severe at C5-6. Facet arthropathy noted to varying degrees at multiple levels. No osseous spinal canal narrowing. Varying degrees of osseous neural foraminal narrowing most significantly at C5-6. Skull base intact. Paraspinal soft tissues within normal limits allowing for noncontrast technique. Lung bases clear. IMPRESSION: 1. No acute osseous injury of the cervical spine. 2. Multilevel degenerative changes. CHEST 2 VIEWS ROUTINE CLINICAL HISTORY: 82 years-old Female presenting with syncope. TECHNIQUE: PA and lateral views of the chest were obtained. COMPARISON: CTA of the chest performed earlier the same day. FINDINGS: Atherosclerosis of aortic arch. Cardiac silhouette mildly enlarged. No focal opacity. No large effusion or pneumothorax. Osteopenia suspected. Upper abdomen normal. IMPRESSION: 1. No acute cardiopulmonary disease. Electronically signed by: Kun James M.D. 11/27/2017 8:07 PM Dictated Date/Time: 11/27/2017 8:06 PM HEAD WITHOUT CONTRAST (CT) CLINICAL HISTORY: 82 years-old Female presenting with syncope. TECHNIQUE: Multidetector CT imaging of the head was performed without the use of intravenous contrast. IV contrast: None. A dose lowering technique was used consistent with the principles of ALARA (as low as reasonably achievable). COMPARISON: 05/12/2014. CT DOSE (mGy.cm): The estimated cumulative dose is 638.56 mGycm. FINDINGS: Motel Keeper topogram: Unremarkable. Proportional ventricular and sulcal prominence, likely age-related parenchymal volume loss. Periventricular and subcortical white matter hypoattenuation, nonspecific but likely indicative of chronic small vessel ischemic change. No mass effect or midline shift. No hemorrhage or acute territorial infarct. No extra-axial fluid collection. Paranasal sinuses and mastoid air cells clear. Calvarium intact. IMPRESSION: 1. Chronic small vessel ischemic change. No acute intracranial abnormality. L VENOUS DOPP LOWER EXT UNILAT CLINICAL HISTORY: 82 years-old Female presenting with r/o dvt, chest pain, clinical concern for pulmonary embolus. TECHNIQUE: Real-time grayscale and color and spectral Doppler ultrasound imaging of the veins of the left lower extremity was performed. Compression and augmentation were also utilized. COMPARISON: None. FINDINGS: Left: Common femoral vein: Patent. Greater saphenous vein: Patent. Deep femoral vein: Patent. Femoral vein: Patent. Popliteal vein: Patent. Calf veins: Patent. Other: None. IMPRESSION: No evidence of deep venous thrombosis. L SHOULDER MIN 2 VIEWS ROUTINE CLINICAL HISTORY: 82 years-old Female presenting with L shoulder pain. TECHNIQUE: Internal rotation, external rotation, Grashey views of the left shoulder were obtained. COMPARISON: 05/23/2015. FINDINGS: Glenohumeral and acromioclavicular joints congruent. No advanced degenerative change. Calcification projects in the region of the rotator cuff tendon. No acute fracture or malalignment. No deformity of the humeral head. No radiographic soft tissue abnormality. Visualized portion of the thorax demonstrates atherosclerosis of the aortic arch. IMPRESSION: 1. No acute osseous injury. 2. Calcification in the region of the rotator cuff suggest calcific tendinitis. EKG The study demonstrates normal sinus rhythm at 73bpm, normal axis and intervals, nonspecific TW changes Impression Assessment and Plan 82yo C female presenting after syncopal event at home. No prodrome. Workup negative thus far 1. Syncope - etiology unclear. -cardiac monitor technician -Echocardiogram -Carotid duplex ultrasound -Trend cardiac enzymes x 3 sets -Consideration of imaging posterior circulation - vertebrobasilar insufficiency -PT/OT evaluation 2. CT Chest consistent with chronic pulmonary embolism -Anticoagulation with Lovenox -Pulmonary consult in AM, will need outpatient workup 3. Hypothyroidism - stable -Continue Synthroid 4. Hyperlipidemia - stable -Continue Lipitor 5. F/E/N - Heplock. Monitor electrolytes and replete as needed. AHA diet as tolerated 6. Code - Full per discussion with patient 7. Ppx - patient on full dose Lovenox for chronic PE, Prevacid 8. Dispo - Admit Advanced Directives Existing Power of Rubber Press Operator: No Resuscitation Status Full VTE Prophylaxis Will order VTE Prophylaxis: Yes Reason for no VTE drug order: Treatment not indicated Reason no Mechanical VTE Order: Treatment not indicated
--- NOTE | 2017-11-28 06:37 | DIAGNOSTIC IMAGING REPORT ---
CAROTID DOPPLER NECK ART HISTORY: Mental status change syncope COMPARISON: None. TECHNIQUE: Real-time, grayscale, and color Doppler sonography of the carotid arteries was performed. Imaging reviewed in the transverse and longitudinal planes. All measurements were calculated based on NASCET criteria. FINDINGS: Antegrade flow is seen in the bilateral vertebral arteries. The brachial pressures are hemodynamically similar. Moderate plaque formation bilaterally The peak systolic velocity within the right ICA is 83. The right systolic ratio is 1.2. The peak systolic velocity within the left ICA is 77. The left systolic ratio is 0.9. IMPRESSION: No hemodynamically significant stenosis seen within the carotid arteries. Moderate plaque formation bilaterally. The above report was generated using voice recognition software. It may contain grammatical, syntax or spelling errors. Electronically signed by: Jacobo Burektt M.D. 11/28/2017 6:36 AM Dictated Date/Time: 11/28/2017 6:35 AM
[2017-11-28] MEDS ORDERED: LEVOTHYROXINE 112 MCG TAB PO SCH (07:00)
[2017-11-28] MEDS: LANSOPRAZOLE SOLUTAB 30 MG PO SCH (08:33)
[2017-11-28] MEDS: CITALOPRAM 20 MG TAB PO SCH (08:53)
[2017-11-28] MEDS: ATORVASTATIN 40 MG TAB PO SCH (08:54)
[2017-11-28] MEDS: CYANOCOBALAMIN 500 MCG TAB (VIT B-12) PO SCH (08:54)
[2017-11-28] MEDS: VERAPAMIL HCL 40 MG TAB PO SCH ×2 (08:55→21:22)
[2017-11-28] MEDS ORDERED: APIXABAN 2.5 MG TAB PO ONE (12:29)
--- NOTE | 2017-11-28 12:51 | ECHOCARDIOGRAM REPORT ---
*NOTICE TO RECEIVING CONSTITUTION PARTY AGENCY This information is strictly Confidential and protected under [place] law. [place] law prohibits you from making any further disclosure of this information unless further disclosure is expressly permitted by the written consent of the person to whom it pertains or is authorized by law. A general authorization for the release of medical or other information is not sufficient for this purpose. Hospital accepts no responsibility if the information is made available to any other person, INCLUDING THE PATIENT. Interpretation Summary * Name: REBECA SALINAS Study Date: 11/28/2017 11:04 AM BP: 156/77 mmHg * Patient Location: [facility]\S\N284\S\2 HR: 86 * : 1935 (M/d/yyyy) Gender: Female Height: 61 in * Age: 82 yrs Ethnicity: CA Weight: 145 lb * Ordering Physician: Jennifer Teixeira * Referring Physician: Aric Reyes. * Performed By: Mara Archer RCS * * Reason For Study: SYNCOPE * BSA: 1.6 m2 * -- Conclusions -- * The left ventricle is normal in size. * There is moderate concentric left ventricular hypertrophy. * The left ventricular wall motion is normal. * Ejection Fraction = 60-65%. * Grade I diastolic dysfunction, (abnormal relaxation pattern). * There is no significant valvular disease Procedure Details * A complete two-dimensional transthoracic echocardiogram was performed (2D, M-mode, Doppler and color flow Doppler). Left Ventricle * The left ventricle is normal in size. * There is moderate concentric left ventricular hypertrophy. * Left ventricular systolic function is normal. * Ejection Fraction = 60-65%. * The left ventricular wall motion is normal. Right Ventricle * The right ventricle is normal in size and function. Atria * The left atrial size is normal. * Right atrial size is normal. * No ASD detected; PFO is not assessed. Mitral Valve * The mitral valve anatomy is normal. * There is no mitral valve stenosis. * There is trace mitral regurgitation. Tricuspid Valve * The tricuspid valve anatomy is normal. * There is no tricuspid stenosis. * There is trace tricuspid regurgitation. * Doppler findings do not suggest pulmonary hypertension. Aortic Valve * The aortic valve is trileaflet. * No hemodynamically significant valvular aortic stenosis. * No aortic regurgitation is present. Pulmonic Valve * The pulmonic valve is not well visualized. Great Vessels * The aortic root is normal size. Pericardium/Pleural * There is no pericardial effusion. Great Vessels * Normal inferior vena cava diameter and respiratory variation suggests normal central venous pressure. Left Ventricular Diastolic Function * Grade I diastolic dysfunction, (abnormal relaxation pattern). MMode 2D Measurements and Calculations IVSd 1.3 cm IVSs 1.5 cm LVIDd 4.0 cm LVIDs 3.0 cm LVPWd 1.2 cm LVPWs 1.6 cm IVS/LVPW 1.1 FS 24.5 % EDV(Teich) 70.1 ml ESV(Teich) 35.7 ml EF(Teich) 49.1 % EDV(cubed) 64.1 ml ESV(cubed) 27.6 ml EF(cubed) 56.9 % % IVS thick 14.5 % % LVPW thick 37.4 % LV mass(C)d 175.8 grams LV mass(C)dI 106.7 grams/m\S\2 LV mass(C)s 171.4 grams LV mass(C)sI 104.0 grams/m\S\2 SV(Teich) 34.4 ml SI(Teich) 20.9 ml/m\S\2 SV(cubed) 36.5 ml SI(cubed) 22.1 ml/m\S\2 Ao root diam 3.1 cm Ao root area 7.6 cm\S\2 ACS 1.9 cm LA dimension 3.3 cm LA/Ao 1.1 LVOT diam 2.0 cm LVOT area 3.1 cm\S\2 LVAd ap4 28.3 cm\S\2 LVLd ap4 7.5 cm EDV(MOD-sp4) 88.8 ml EDV(sp4-el) 91.0 ml LVAs ap4 20.6 cm\S\2 LVLs ap4 6.9 cm ESV(MOD-sp4) 50.8 ml ESV(sp4-el) 52.0 ml EF(MOD-sp4) 42.8 % EF(sp4-el) 42.9 % LVAd ap2 24.0 cm\S\2 LVLd ap2 7.3 cm EDV(MOD-sp2) 65.6 ml EDV(sp2-el) 67.6 ml LVAs ap2 14.6 cm\S\2 LVLs ap2 6.1 cm ESV(MOD-sp2) 30.2 ml ESV(sp2-el) 29.8 ml EF(MOD-sp2) 53.9 % EF(sp2-el) 56.0 % LVLd %diff -3.33 % EDV(MOD-bp) 77.9 ml LVLs %diff -14.17 % ESV(MOD-bp) 41.6 ml EF(MOD-bp) 46.6 % SV(MOD-sp4) 38.0 ml SI(MOD-sp4) 23.1 ml/m\S\2 SV(MOD-sp2) 35.4 ml SI(MOD-sp2) 21.5 ml/m\S\2 SV(MOD-bp) 36.3 ml SI(MOD-bp) 22.1 ml/m\S\2 SV(sp4-el) 39.0 ml SI(sp4-el) 23.7 ml/m\S\2 SV(sp2-el) 37.8 ml SI(sp2-el) 23.0 ml/m\S\2 Doppler Measurements and Calculations MV E max sharon 42.1 cm/sec MV A max sharon 103.5 cm/sec MV E/A 0.41 MV P1/2t max sharon 53.5 cm/sec MV P1/2t 99.2 msec MVA(P1/2t) 2.2 cm\S\2 MV dec slope 157.9 cm/sec\S\2 MV dec time 0.51 sec Ao V2 max 101.7 cm/sec Ao max PG 4.1 mmHg Ao max PG (full) 2.4 mmHg JASMIN(V,A) 2.0 cm\S\2 JASMIN(V,D) 2.0 cm\S\2 LV V1 max PG 1.7 mmHg LV V1 max 65.8 cm/sec PA V2 max 92.3 cm/sec PA max PG 3.4 mmHg PI max sharon 185.5 cm/sec PI max PG 13.8 mmHg PI dec slope 206.3 cm/sec\S\2 PI P1/2t 263.3 msec TR max sharon 257.6 cm/sec
--- NOTE | 2017-11-28 13:06 | Hospitalist Progress Note ---
Hospitalist Progress Note Date of Service Nov 28, 2017. Subjective Pt evaluation today including: conversation w/ patient, conversation w/ family (son and daughter at bedside ), physical exam, lab review, review of studies, review of inpatient medication list Voiding: no voiding problems Patient sitting at bedside. Feeling well. Eating and drinking OK. Discussed PE finding on CT Patient/family agreeable to anticoagulation. States she has difficulty w/ swallowing pills. Verapamil is OK because it is tiny. Discussed w/ pharmacy, Eliquis same size. Patient willing to try Eliquis w/ applesauce. CM checked copay- < $40 per month, patient agreeable to cost. Does not remember syncopal episode yesterday. Woke up on kitchen floor. No bowel/bladder incontinence. No presyncopal s/s. Happened a few months ago. Thought to be due to low blood sugars. Patient states she has to wait to eat with taking Synthroid medications. 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 Patient denies any fever, chills, sweats, lightheadedness, dizziness, vision changes, CP, palpitations, edema, SOB, wheezing, cough, abdominal pain, nausea, vomiting, diarrhea, urinary symptoms, melena, numbness/tingling, weakness, muscle/joint pain, anxiety/depression, active bleeding, or new skin discoloration/changes. Medications Current Inpatient Medications Medications (Trade) Dose Ordered Sig/Denise Route Start Time Stop Time Status Last Admin Dose Admin Ioversol (Optiray 320) 111 ml UD PRN IV 11/27/17 19:00 12/01/17 18:59 Cyanocobalamin (Vitamin B-12 Tab) 500 mcg DAILY PO 11/28/17 09:00 12/28/17 08:59 Lansoprazole (Prevacid Solutab) 30 mg DAILY PO 11/28/17 09:00 12/28/17 08:59 11/28/17 08:33 30 MG Levothyroxine Sodium (Synthroid Tab) 100 mcg SuTuThSa@0700 PO 11/29/17 07:00 12/29/17 06:59 Levothyroxine Sodium (Synthroid Tab) 112 mcg MoWeFr@0700 PO 11/28/17 07:00 12/28/17 06:59 11/28/17 06:27 112 MCG Verapamil HCl (Isoptin Tab) 40 mg BID PO 11/28/17 09:00 12/28/17 08:59 11/28/17 08:55 40 MG Citalopram Hydrobromide (celeXA TAB) 10 mg QAM PO 11/28/17 09:00 12/28/17 08:59 Acetaminophen (Tylenol Tab) 650 mg Q4H PRN PO 11/27/17 23:00 12/27/17 22:59 Atorvastatin Calcium (Lipitor Tab) 40 mg QAM PO 11/28/17 09:00 12/28/17 08:59 Apixaban (Eliquis Tab) 5 mg BID PO 11/28/17 21:00 12/28/17 20:59 Objective Vital Signs Date Time Temp Pulse Resp B/P (MAP) Pulse Ox O2 Delivery O2 Flow Rate FiO2 11/28/17 12:26 Room Air 11/28/17 09:56 94 22 126/69 (88) 94 Room Air 86 114/73 (87) 76 120/74 (89) 156/77 (103) 11/28/17 08:59 Room Air 11/28/17 07:17 36.8 73 20 146/78 (100) 96 11/28/17 04:00 Room Air 11/28/17 03:39 36.6 95 19 129/77 (94) 96 Room Air 11/28/17 01:45 36.7 85 16 141/75 95 Room Air 11/28/17 01:43 36.7 85 16 141/75 11/28/17 01:05 77 15 137/69 95 11/28/17 00:29 77 15 137/69 95 Room Air 11/28/17 00:13 79 11/27/17 22:30 84 18 151/80 96 Room Air 11/27/17 20:50 82 18 152/91 95 Room Air 11/27/17 20:47 76 20 161/97 95 Room Air 75 156/95 82 152/91 11/27/17 19:08 83 18 151/81 95 Room Air 11/27/17 18:01 72 11/27/17 17:05 36.7 79 20 154/80 95 Room Air Physical Exam General Appearance: no apparent distress Eyes: normal inspection, PERRL ENT: hearing grossly normal Neck: supple Respiratory/Chest: lungs clear, normal breath sounds, no respiratory distress, no accessory muscle use Cardiovascular: regular rate, rhythm Abdomen: normal bowel sounds, non tender, soft Extremities: no pedal edema, no calf tenderness Neurologic/Psychiatric: no motor/sensory deficits, alert, normal mood/affect, oriented x 3 Skin: normal color, warm/dry, no rash Laboratory Results Last 24 Hours Test 11/27/17 18:05 11/28/17 04:47 11/28/17 10:40 White Blood Count 7.59 K/uL Red Blood Count 4.31 M/uL Hemoglobin 13.0 g/dL Hematocrit 38.6 % Mean Corpuscular Volume 89.6 fL Mean Corpuscular Hemoglobin 30.2 pg Mean Corpuscular Hemoglobin Concent 33.7 g/dl Platelet Count 259 K/uL Mean Platelet Volume 9.8 fL Neutrophils (%) (Auto) 65.9 % Lymphocytes (%) (Auto) 22.5 % Monocytes (%) (Auto) 10.5 % Eosinophils (%) (Auto) 0.5 % Basophils (%) (Auto) 0.3 % Neutrophils # (Auto) 5.00 K/uL Lymphocytes # (Auto) 1.71 K/uL Monocytes # (Auto) 0.80 K/uL Eosinophils # (Auto) 0.04 K/uL Basophils # (Auto) 0.02 K/uL RDW Standard Deviation 40.5 fL RDW Coefficient of Variation 12.4 % Immature Granulocyte % (Auto) 0.3 % Immature Granulocyte # (Auto) 0.02 K/uL Prothrombin Time 9.9 SECONDS Prothromb Time International Ratio 0.9 Activated Partial Thromboplast Time 22.9 SECONDS Partial Thromboplastin Ratio 0.9 D-Dimer 1590 ug/L FEU Sodium Level 135 mmol/L Potassium Level 4.1 mmol/L Chloride Level 102 mmol/L Carbon Dioxide Level 27 mmol/L Anion Gap 6.0 mmol/L Blood Urea Nitrogen 16 mg/dl Creatinine 0.76 mg/dl Est Creatinine Clear Calc Drug Dose 40.7 ml/min Estimated GFR () 84.1 Estimated GFR (Non- 72.5 BUN/Creatinine Ratio 20.6 Random Glucose 96 mg/dl Calcium Level 9.5 mg/dl Troponin I < 0.015 ng/ml < 0.015 ng/ml < 0.015 ng/ml Assessment and Plan 82 y/o C female presenting after syncopal event at home. No prodrome. 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, unknown etiology: - Admitted to tele for cardiac monitoring- episodes of sinus tach, PVCs/PACs - Trend cardiac enzymes- negative - ECHO- preserved EF, grade I diastolic dysfunction, no wall abnormalities - Carotid US- negative for stenosis - Head CT unremarkable - CXR negative for infection; UA pending - Orthostatic BPs negative - ?arrhythmia- consider outpatient cardiac monitoring CT Chest consistent w/ chronic pulmonary embolism: - Negative BLE Doppler - No evidence of R heart strain on CT or ECHO - Lovenox 50 mg SQ BID- transition to PO Eliquis 5 mg BID - Discussed risk/benefits with family/patient- agreeable to anticoagulation Vestibular migraines: Continue Verapamil Hypothyroidism- TSH WNL: Continue Synthroid HLD, h/o TIA: - Continue Lipitor - Will stop ASA w/ starting Eliquis Anxiety: Continue Citalopram daily GERD: Continue Prevacid DVT prophylaxis: Lovenox SQ BID Code status: LEVEL I, FULL Dispo: From home- PT/OT and CM consulted
--- NOTE | 2017-11-28 19:32 | DIAGNOSTIC IMAGING REPORT ---
MRI OF THE BRAIN COMBO CLINICAL HISTORY: Syncope. COMPARISON STUDY: CT of the brain dated 11/27/2017. TECHNIQUE: MRI of the brain was performed utilizing various T1 and T2-weighted sequences in the axial, sagittal, and coronal planes. Contrast-enhanced sequences were acquired following the administration of 6.5 cc of Gadavist. The examination is modestly degraded by motion artifact. FINDINGS: Brain parenchyma: There are age-related involutional changes noting moderate confluent subcortical and periventricular microangiopathic disease. There is no hemorrhage or mass effect. There is no restricted diffusion to suggest acute ischemia. No enhancing mass lesion is identified on the postcontrast images. Gonzalez-white matter differentiation is preserved. No extra-axial fluid collection is seen. The cerebellar tonsils are normal in configuration. Ventricles, sulci, and cisterns: Prominent secondary to involutional change. Pituitary and sella: Partially of the sella is incidentally noted. Intracranial vasculature: Normal flow voids are maintained at the skull base. Orbits: The bony orbits are grossly intact. Orbital contents are normal in appearance noting bilateral ocular lens implants. Sinuses and mastoids: Clear. Calvarium: Unremarkable. Cervical cord: Partially visualized cervical spinal cord is normal in morphology and signal intensity. IMPRESSION: Senescent changes as above with no acute intracranial abnormality. Electronically signed by: Asael Espinoza M.D. 11/28/2017 7:31 PM Dictated Date/Time: 11/28/2017 7:27 PM
[2017-11-28] MEDS: APIXABAN 2.5 MG TAB PO SCH (21:22)
[2017-11-28] MEDS: POLYETHYLENE (MIRALAX) 17 GM PACK PO SCH (22:07)
[2017-11-29] VITALS (7 sets, daily range): BP systolic 108–152; BP diastolic 63–76; PULSE 71–95; TEMP 36.5–37; O2SAT 94–97
[2017-11-29 06:31] LABS: ALBUMIN 3.2 gm/dl (3.4-5.0); CALCIUM 8.7 mg/dl (8.5-10.1); CREATININE 0.8 mg/dl (0.60-1.20); POTASSIUM 4.1 mmol/L (3.5-5.1)
[2017-11-29 06:34] LABS: TOTAL PROTEIN 6.5 gm/dl (6.4-8.2)
[2017-11-29] MEDS ORDERED: LEVOTHYROXINE 100 MCG TAB PO SCH (07:00)
[2017-11-29] MEDS: VERAPAMIL HCL 40 MG TAB PO SCH (08:02)
[2017-11-29] MEDS: POLYETHYLENE (MIRALAX) 17 GM PACK PO SCH (08:02)
[2017-11-29] MEDS: APIXABAN 2.5 MG TAB PO SCH (08:02)
[2017-11-29] MEDS: CYANOCOBALAMIN 500 MCG TAB (VIT B-12) PO SCH (08:02)
[2017-11-29] MEDS: LANSOPRAZOLE SOLUTAB 30 MG PO SCH (08:02)
[2017-11-29] MEDS: CITALOPRAM 20 MG TAB PO SCH (08:05)
[2017-11-29] MEDS: ATORVASTATIN 40 MG TAB PO SCH (08:06)
[2017-11-29] MEDS ORDERED: LPT40 PO (10:48)
[2017-11-29] MEDS ORDERED: ELQ25 PO (10:48)
[2017-11-29] MEDS ORDERED: CLX20 PO (10:48)
--- NOTE | 2017-11-29 10:50 | Discharge Instructions ---
Discharge Instructions Date of Service Nov 29, 2017. Admission Reason for Admission: Syncope Discharge Discharge Diagnosis / Problem: (1) Syncope VTE Date & Time Date of VTE Diagnosis: Nov 27, 2017 Time of VTE Diagnosis: 19:26 Discharge Goals Goal(s): Decrease discomfort, Improve function, Increase independence, Improve disease control, Improve nutritional status, Learn about illness, Diagnostic testing, Therapeutic intervention, Prevent Disease Progression, Specific goals Activity Recommendations Activity Limitations: resume your previous activity Lifting Limitations: none Exercise/Sports Limitations: none . Instructions / Follow-Up Instructions / Follow-Up you have Syncope, unknown etiology: you have chronic pulmonary embolism: you have hx of Vestibular migraines: Continue Verapamil your brain MRI unremarkable we are giving you Eliquis 5 mg BID, watch for signs of bleeding - you need to follow up with your primary care physician in 1 week, - take medication as instructed, never overdose or any misuse, or take with alcohol, because misuse of medicine may cause organ damage or , call your primary care physician if have questions of medicaitons. - call your primary care physician OR go to local emergency room if has any fever/chill, chest pain, shortness of breathing, nausea/vomiting/abdominal pain , facial droop/slurry speech/local weakness, or if has any questions. - fall precaution - diet as instructed - you need to follow up with your subspecialist Medication Instructions: Your condition is typically treated with an anticoagulant. Anticoagulants will thin your blood to help prevent new clots. * You should take her medication exactly as directed. * Never skip a dose. * Never take a double dose. If you miss a dose, take it as soon as you remember. Call your Primary Care doctor if you experience any of the following: * Swelling or Pain in your leg * Sudden, continuous pain deep in a muscle * Pain that worsens when you are active or when you stand still for a long time * Chest Pain * Sudden Shortness of Breath * Rapid or pounding heart beat * Fainting * Dizziness * Cough with blood or bloody sputum * Sweating more than normal * Bruises * Heavy or uncontrolled bleeding * Blood in your urine, stool or vomit * Black or tarry stools Caring for Your Self at Home: * Avoid sitting, standing or lying down for long periods without moving your legs and feet * When traveling by car, stop to get out and move around at least once every 3 hours * On long airplane, train or bus rides, get up and move around when possible * If you can't get up, wiggle your toes and tighten your calves to keep your blood moving Follow Up: It is important for you to keep your follow up appointments with your medical provider. Current Hospital Diet Patient's current hospital diet: Regular Diet Discharge Diet Recommended Diet: AHA Diet (Heart Healthy) Pending Studies Studies pending at discharge: no Laboratory Results Meds Administered (Past 24Hrs) Medications (Trade) Dose Ordered Sig/Denise Route Start Time Stop Time Status Last Admin Dose Admin Cyanocobalamin (Vitamin B-12 Tab) 500 mcg DAILY PO 11/28/17 09:00 12/28/17 08:59 11/29/17 08:02 500 MCG Lansoprazole (Prevacid Solutab) 30 mg DAILY PO 11/28/17 09:00 12/28/17 08:59 11/29/17 08:02 30 MG Levothyroxine Sodium (Synthroid Tab) 100 mcg SuTuThSa@0700 PO 11/29/17 07:00 12/29/17 06:59 11/29/17 06:37 100 MCG Levothyroxine Sodium (Synthroid Tab) 112 mcg MoWeFr@0700 PO 11/28/17 07:00 12/28/17 06:59 11/28/17 06:27 112 MCG Verapamil HCl (Isoptin Tab) 40 mg BID PO 11/28/17 09:00 12/28/17 08:59 11/29/17 08:02 40 MG Enoxaparin Sodium (Lovenox Inj) 50 mg Q12H SQ 11/28/17 02:00 11/28/17 12:34 DC 11/28/17 03:25 50 MG Apixaban (Eliquis Tab) 5 mg BID PO 11/28/17 21:00 12/28/17 20:59 11/29/17 08:02 5 MG Apixaban (Eliquis Tab) 5 mg 1229 ONCE PO 11/28/17 12:29 11/28/17 12:48 DC 11/28/17 14:24 5 MG Polyethylene (Miralax Powder Packet) 17 gm DAILY PO 11/29/17 09:00 12/29/17 08:59 11/28/17 22:07 17 GM Medical Emergencies . Who to Call and When: Medical Emergencies: If at any time you feel your situation is an emergency, please call 911 immediately. . Non-Emergent Contact Non-Emergency issues call your: Primary Care Provider . . "Provider Documentation" section prepared by Darren Harrison. .
--- NOTE | 2017-11-29 14:39 | Discharge Summary ---
Discharge Summary Date of Service Nov 29, 2017. Discharge Summary Admission Date: Nov 28, 2017 at 00:41 Discharge Date: Nov 29, 2017 Discharge Disposition: Home Principal Diagnosis: Syncope, subacute PE, Problems/Secondary Diagnoses: Asymptomatic tachycardia in the cardiac monitoring Immunizations: History of Tetanus Vaccine?: Yes History of Pneumococcal: Yes History of Hepatitis B Vaccine: No Medication Reconciliation New Medications: Apixaban (Eliquis) 2.5 Mg Tab 5 MG PO BID for 30 Days, #120 TAB Atorvastatin (Lipitor) 40 Mg Tab 40 MG PO QAM for 30 Days, #30 TAB Citalopram (Citalopram Hydrobromide) 20 Mg Tab 10 MG PO QAM for 30 Days, #15 TAB Continued Medications: Calcium Carbonate (Calcium) 500 Mg Chw 500 MG PO DAILY Cyanocobalamin (Vitamin B12 500MCG) 500 Mcg Tab 500 MCG PO DAILY, TAB Fiber Laxative (Fiber Laxative) Ea 1 TAB PO DAILY Lansoprazole (Prevacid Solutab) 30 Mg Tab 30 MG PO DAILY, #30 TAB 0 Refills Levothyroxine Sodium (Levothyroxine Sodium) 112 Mcg Tab 1 TAB PO 3XWK for 90 Days, TAB 3 Refills FRIDAY, FRIDAY, AND FRIDAY Levothyroxine Sodium (Levothyroxine Sodium) 100 Mcg Tab 100 MCG PO 4XWK, #90 Multiple Vitamins W/ Minerals (Multivitamin Gummies Adul) 1 Chw Chw 1 CPLT PO DAILY Polyethylene Glycol 3350 (Miralax) 1 Pow Pow 17 GM PO Q2D, #255 GM Verapamil (Calan) 40 Mg Tab 40 MG PO BID, TAB Discontinued Medications: Aspirin (Aspirin Ec) 81 Mg Tab 81 MG PO DAILY Discharge Exam Was having tachycardia episodes in nighttime and this morning when up to brushing Teeth, which was asymptomatic, Otherwise sitting up to chair, up and walk without any dizziness, no any episodes of syncope Review of Systems: Constitutional: No fever, No chills, No sweats, No weight loss, No weakness , No fatigue, No problem reported Eyes: No worsening of vision, No eye pain, No redness, No discharge, No diplopia, No problem reported ENT: No hearing loss, No unusual epistaxis, No nasal symptoms, No sore throat, No tinnitus, No dental problems, No trouble swallowing, No problem reported Respiratory: No cough, No sputum, No wheezing, No shortness of breath, No dyspnea on exertion, No dyspnea at rest, No hemoptysis, No problem reported Cardiovascular: No chest pain, No orthopnea, No PND, No edema, No claudication, No palpitations, No problem reported Abdomen: No pain, No nausea, No vomiting, No diarrhea, No constipation, No GI bleeding, No problem reported Musculoskeletal: No joint pain, No muscle pain, No swelling, No calf pain, No problem reported Genitourinary - Female: No dysuria, No urinary frequency, No urinary urgency , No urinary incontinence, No urinary retention, No hematuria, No dysmenorrhea, No menorrhagia, No metrorrhagia, No rash, No vaginal bleeding, No vaginal discharge, No vaginal itching, No vulvodynia, No , No problem reported Neurologic: No memory loss, No paralysis, No weakness, No numbness/tingling , No vertigo, No balance problems, No problem reported Endocrine: No fatigue, No excessive thirst, No excessive urination, No problem reported Hematologic / Lymphatic: No abnormal bleeding/bruising, No clotting problems , No swollen lymph nodes, No night sweats, No problem reported Integumentary: No rash, No itch, No new/changing skin lesions, No color change, No bleeding, No problem reported Physical Exam: General Appearance: WD/WN, no apparent distress Eyes: normal inspection, PERRL ENT: normal ENT inspection, hearing grossly normal Neck: supple, no adenopathy Respiratory/Chest: chest non-tender, no respiratory distress, no accessory muscle use, + decreased breath sounds Cardiovascular: regular rate, rhythm, no edema, no gallop, no JVD, no murmur , normal peripheral pulses Abdomen / GI: normal bowel sounds, non tender, soft, no organomegaly, no pulsatile mass Extremities: normal inspection, no calf tenderness, normal capillary refill , no pedal edema, normal range of motion Neurologic/Psychiatric: integrity analyst II-XII nml as tested, no motor/sensory deficits , alert, normal mood/affect, normal reflexes, oriented x 3 Skin: normal color, warm/dry, no rash Hospital Course 82 y/o C female presenting after syncopal event at home. No prodrome. 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, CT Chest consistent w/ chronic pulmonary embolism: hx of Vestibular migraines: Continue Verapamil hx of Hypothyroidism- TSH WNL: Continue Synthroid Continue telemetry, Trend cardiac enzymes- negative , ECHO- preserved EF, grade I diastolic dysfunction, no wall abnormalities , Carotid US- negative for stenosis, Head CT unremarkable, CXR negative for infection; UA pending, Orthostatic BPs negative, Brain MRI studies was unremarkable change Lovenox 50 mg SQ BID to PO Eliquis 5 mg BID, Discussed risk/benefits with family/patient- agreeable to anticoagulation , Has detailed discussion with patient and daughter about the etiology of syncope , could be cardiac related, echo was done there was some mild changes such as grade I diastolic dysfunction, no wall abnormalities , etc, I recommended to follow-up with PCP in 3-5 days, Holter monitor if needed and referral to cardiology if needed, I told patient not drive before seen and cleared by primary care physician, fall precaution, they understand and agreed Instructions / Follow-Up you have Syncope, unknown etiology: you have chronic pulmonary embolism: you have hx of Vestibular migraines: Continue Verapamil your brain MRI unremarkable we are giving you Eliquis 5 mg BID, watch for signs of bleeding - you need to follow up with your primary care physician in 1 week, - take medication as instructed, never overdose or any misuse, or take with alcohol, because misuse of medicine may cause organ damage or , call your primary care physician if have questions of medicaitons. - call your primary care physician OR go to local emergency room if has any fever/chill, chest pain, shortness of breathing, nausea/vomiting/abdominal pain , facial droop/slurry speech/local weakness, or if has any questions. - fall precaution - diet as instructed - you need to follow up with your subspecialist you was having tachycardia in the cardiac monitoring, your echocardiogram showed : " There is moderate concentric left ventricular hypertrophy." and "Grade I diastolic dysfunction" I recommend to be see by PCP in 3-5 days, and referral applications processor for Holter monitor and further eval and treatment, don't drive before seeing by pcp. Total Time Spent: Greater than 30 minutes This includes examination of the patient, discharge planning, medication reconciliation, and communication with other providers. Discharge Instructions Please refer to the electronic Patient Visit Report (Discharge Instructions) for additional information. Additional Copies To Tammie Quiroz M.D.
== END 2017-11-29 13:02 | disposition home or self-care (01) | DRG 176 ==
LOC: C.EDB 17:01 → C.MED 11-28 00:41 → ENRESERV 11-28 00:54
PROVIDERS: ADMIT Internal Medicine; ATTEND Internal Medicine
DX: I27.82 Chronic pulmonary embolism (principal); R55 Syncope and collapse; S40.012A Contusion of left shoulder, initial encounter; R00.0 Tachycardia, unspecified; I51.7 Cardiomegaly; R44.9 Unspecified symptoms and signs involving general sensations and perceptions; E03.9 Hypothyroidism, unspecified; E78.5 Hyperlipidemia, unspecified; G43.809 Other migraine, not intractable, without status migrainosus; F41.9 Anxiety disorder, unspecified; M81.0 Age-related osteoporosis without current pathological fracture; Z51.81 Encounter for therapeutic drug level monitoring; Z79.899 Other long term (current) drug therapy; Z79.82 Long term (current) use of aspirin; Z91.81 History of falling; Z86.73 Personal history of transient ischemic attack (TIA), and cerebral infarction without residual deficits; Z87.19 Personal history of other diseases of the digestive system; Z88.1 Allergy status to other antibiotic agents; W18.39XA Other fall on same level, initial encounter; Y92.000 Kitchen of unspecified non-institutional (private) residence as the place of occurrence of the external cause; Y99.8 Other external cause status

== ENCOUNTER 2018-01-16 17:33 | Emergency (ER) | payer OTHER ==
[~2018-01-16] VITALS: Ht 152.4 cm; Wt 68.0 kg
[~2018-01-16 17:33] MED LIST changes: -ASPI81TA28 PO; -CITA10SO PO; +CLX20 PO; +ELQ25 PO; -HYDR1SOL10 PO; +LPT40 PO; +VRP40 PO
[2018-01-16 17:37] VITALS: TEMP 36.4; Ht 152.4 cm; Wt 68.0 kg
--- NOTE | 2018-01-16 17:51 | EMERGENCY ROOM VISIT NOTE ---
History Report prepared by Clyde: Jim Love Under the Supervision of: Dr. Suresh Hoover M.D. First contact with patient: 17:41 Chief Complaint: HEAD INJURY (MINOR) Stated Complaint: FELL-BUMP ON HEAD History of Present Illness The patient is a 82 year old female who presents to the Emergency Room with complaints of an episode of a head injury that occurred prior to arrival. The patient states that she was weeding when she tripped and fell on the stone on the ground. She states that she did hit her head. 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 She denies syncope, head pain, neck pain, nausea, vomiting, blurry vision, chest pain, and shortness of breath. 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 A total of ten systems were reviewed and were otherwise negative. Past Medical & Surgical Medical Problems: (1) Diverticulosis Colon (W/O Ment Of Hemorrhage) (2) Irritable Bowel Syndrome (3) Multilevel degenerative disc disease (4) Osteoporosis Nos Family History Patient reports no known family medical history. Social History Smoking Status: Former Smoker Alcohol Use: none Drug Use: none Marital Status: Housing Status: lives with family Occupation Status: retired Current/Historical Medications Scheduled Apixaban (Eliquis), 5 MG PO BID Atorvastatin (Lipitor), 40 MG PO QAM Calcium Carbonate (Calcium), 500 MG PO DAILY Citalopram (Citalopram Hydrobromide), 10 MG PO QAM Cyanocobalamin (Vitamin B12 500MCG), 500 MCG PO DAILY Fiber Laxative (Fiber Laxative), 1 TAB PO DAILY Lansoprazole (Prevacid Solutab), 30 MG PO DAILY Levothyroxine Sodium (Levothyroxine Sodium), 1 TAB PO 3XWK Levothyroxine Sodium (Levothyroxine Sodium), 100 MCG PO 4XWK Multiple Vitamins W/ Minerals (Multivitamin Gummies Adul), 1 CPLT PO DAILY Polyethylene Glycol 3350 (Miralax), 17 GM PO Q2D Verapamil (Calan), 40 MG PO BID Allergies Coded Allergies: Erythromycin (Verified Adverse Reaction, Unknown, MYCIN DRUGS-YEAST INFECTIONS, 11/27/17) Physical Exam Vital Signs Date Time Temp Pulse Resp B/P (MAP) Pulse Ox O2 Delivery O2 Flow Rate FiO2 01/16/18 19:02 82 18 161/85 97 01/16/18 17:37 36.4 89 18 154/87 97 Room Air Physical Exam Physical Exam GENERAL: She is oriented to person, place, and time. She appears well- developed and well-nourished. She does not appear distressed. ____ HENT: Exam performed. Head: Normocephalic and atraumatic. Right Ear: External ear normal. No mastoid tenderness. Left Ear: External ear normal. No mastoid tenderness. Mouth/Throat: The oropharynx is clear and moist. No trismus in the jaw. No dental abscesses or uvula swelling. No oropharyngeal exudate or tonsillar abscesses. ____ EYES: Conjunctivae and EOM are normal. Pupils are equal, round, and reactive to light. Right eye exhibits no discharge. Left eye exhibits no discharge. No scleral icterus. ____ NECK: Normal range of motion. Neck supple. No JVD present. No spinous process tenderness present. No carotid bruit present. No rigidity. No tracheal deviation and normal range of motion present. No Brudzinski's sign and no Kernig 's sign noted. ____ CV: Normal rate, regular rhythm, normal heart sounds and intact distal pulses. There is no peripheral edema. Palpable radial pulses bue. ____ PULM/CHEST: Effort normal and breath sounds normal. No respiratory distress. No stridor. She has no wheezes. She has no rales. Chest Wall: She exhibits no tenderness. ____ ABD: The abdomen is soft. Bowel sounds are normal. She has no distension. No mass is present. There is no tenderness. There is no rebound, no guarding, no Morales's sign and no tenderness at McBurney's point. Rovsig negative MUSC/SKEL: Normal range of motion. There is no peripheral edema, tenderness or deformity. LYMPH: No cervical adenopathy. ____ NEURO: She is alert and oriented to person, place, and time. She has normal strength. No cranial nerve deficit or sensory deficit. Coordination and gait normal. GCS eye subscore is 4. GCS verbal subscore is 5. GCS motor subscore is 6. Cerebellar tests wnl. ____ SKIN: Skin is warm and dry. She is not diaphoretic. ____ PSYCH: She has a normal mood and affect. Her behavior is normal. Judgment and thought content normal. ____ Medical Decision & Procedures ER Provider Diagnostic Interpretation: Radiology results as stated below per my review and radiologist interpretation: CT HEAD WITHOUT CONTRAST (CT) CLINICAL HISTORY: Head trauma. Patient on anticoagulants. COMPARISON STUDY: 11/27/2017 TECHNIQUE: Axial CT of the brain is performed from the vertex to the skull base. IV contrast was not administered for this examination. A dose lowering technique was utilized adhering to the principles of ALARA. CT DOSE: 537.48 mGy.cm FINDINGS: No intra or extra-axial mass lesions are visualized. There is no CT evidence of acute cortical infarction. There is no evidence of midline shift. There is no acute hemorrhage. No calvarial fractures are visualized. There are patchy white matter hypodensities likely on a small vessel basis. There is no evidence of pathologic ventricular dilatation. There is no evidence of acute sinusitis IMPRESSION: No acute intracranial findings Electronically signed by: Herman Powell M.D. 01/16/2018 6:31 PM Dictated Date/Time: 01/16/2018 6:30 PM ED Course 1741: The patient was evaluated in room C03. A complete history and physical exam was performed. 1900: I reevaluated the patient. She is stable. She is not complaining of a headache, nausea, or vomiting. Her exam and CT were WNL. The patient is discharged on stable condition. I instructed the patient to hold off on her Eliquis tonight and to continue her medication tomorrow morning. DISCHARGE - Plan of care discussed with patient and questions answered. The patient was given both verbal and printed discharge instructions. The patient verbalized understanding and ability to comply. The patient is to seek outpatient follow up as noted in the discharge instructions. The patient verbalized understanding and ability to comply. The patient is discharged in stable condition. The patient was instructed to return for worsening symptoms. Medical Decision She is stable. She is not complaining of a headache, nausea, or vomiting. Her exam and CT were WNL. The patient is discharged on stable condition. I instructed the patient to hold off on her Eliquis tonight and to continue her medication tomorrow morning. DISCHARGE - Plan of care discussed with patient and questions answered. The patient was given both verbal and printed discharge instructions. The patient verbalized understanding and ability to comply. The patient is to seek outpatient follow up as noted in the discharge instructions. The patient verbalized understanding and ability to comply. The patient is discharged in stable condition. The patient was instructed to return for worsening symptoms. Medication Reconcilliation Current Medication List: was personally reviewed by me Blood Pressure Screening Patient's blood pressure: Elevated blood pressure Blood pressure disposition: Referred to PCP Impression Primary Impression: Closed head injury Additional Impression: Fall Scribe Attestation The scribe's documentation has been prepared under my direction and personally reviewed by me in its entirety. I confirm that the note above accurately reflects all work, treatment, procedures, and medical decision making performed by me. The chart was completed utilizing [employer] Speech voice recognition software. Grammatical errors, random word insertions, pronoun errors, and incomplete sentences are an occasional consequence of this system due to software limitations, ambient noise, and hardware issues. Any formal questions or concerns about the content, text, or information contained within the body of this dictation should be directly addressed to the physician for clarification. Departure Information Dispostion Home / Self-Care Referrals Tammie Quiroz M.D. (PCP) Forms HOME CARE DOCUMENTATION FORM, IMPORTANT VISIT INFORMATION Patient Instructions ED Head Injury Closed, Falls Prevent Home, My [facility] Additional Instructions Hold your evening dose of Eliquis tonight. Return to the emergency department if you develop fever greater than 100.4, severe headache, nausea, change in vision, vomiting. Problem Qualifiers Primary Impression: Closed head injury Encounter type: initial encounter Qualified Codes: S09.90XA - Unspecified injury of head, initial encounter Additional Impression: Fall Encounter type: initial encounter Qualified Codes: W19.XXXA - Unspecified fall, initial encounter
--- NOTE | 2018-01-16 18:32 | DIAGNOSTIC IMAGING REPORT ---
CT HEAD WITHOUT CONTRAST (CT) CLINICAL HISTORY: Head trauma. Patient on anticoagulants. COMPARISON STUDY: 11/27/2017 TECHNIQUE: Axial CT of the brain is performed from the vertex to the skull base. IV contrast was not administered for this examination. A dose lowering technique was utilized adhering to the principles of ALARA. CT DOSE: 537.48 mGy.cm FINDINGS: No intra or extra-axial mass lesions are visualized. There is no CT evidence of acute cortical infarction. There is no evidence of midline shift. There is no acute hemorrhage. No calvarial fractures are visualized. There are patchy white matter hypodensities likely on a small vessel basis. There is no evidence of pathologic ventricular dilatation. There is no evidence of acute sinusitis IMPRESSION: No acute intracranial findings Electronically signed by: Herman Powell M.D. 01/16/2018 6:31 PM Dictated Date/Time: 01/16/2018 6:30 PM
[2018-01-16 19:02] VITALS: BP 161/85; PULSE 82; O2SAT 97
== END 2018-01-16 19:00 | disposition home or self-care (01) ==
LOC: C.EDB 17:35 → C.EDC 19:00
DX: S09.90XA Unspecified injury of head, initial encounter (principal); W18.09XA Striking against other object with subsequent fall, initial encounter; Y93.H2 Activity, gardening and landscaping; K58.9 Irritable bowel syndrome, unspecified; M81.0 Age-related osteoporosis without current pathological fracture; Z87.891 Personal history of nicotine dependence; Z79.01 Long term (current) use of anticoagulants; Z79.899 Other long term (current) drug therapy; Z88.1 Allergy status to other antibiotic agents

== ENCOUNTER → 2018-04-23 | Outpatient (CLI) | payer OTHER ==
[~2018-04-23] MED LIST changes: -LPT40 PO; +MECL-91 PO; -VRP40 PO
--- NOTE | 2018-04-23 13:04 | DIAGNOSTIC IMAGING REPORT ---
L-SPINE MIN 4 VIEWS ROUTINE CLINICAL HISTORY: 82 years-old Female presenting with LOW BACK PAIN. TECHNIQUE: Frontal, bilateral oblique, lateral, and coned in lateral views of the lumbar spine were obtained. COMPARISON: 03/25/[address] of the abdomen and pelvis from 08/22/2017. FINDINGS: No scoliosis. Vertebral bodies maintain normal height and alignment. Mild multilevel intervertebral disc height loss. Vacuum disc phenomenon may be present at L3-4 and L4-5. Anterior and posterior osteophytosis noted primarily in the mid to lower lumbar spine. Facet arthropathy noted in the mid to lower lumbar spine with suspected osseous neural foraminal narrowing from L2-3 through L5-S1. No compression deformity or subluxation. Hemangioma again suggested in the L3 vertebral body. Cholecystectomy clips. Nonobstructive bowel gas pattern. IMPRESSION: 1. Multilevel degenerative changes of the lumbar spine with multilevel osseous neural foraminal narrowing suspected. 2. No radiographic evidence of acute osseous injury. Electronically signed by: Kun James M.D. 04/23/2018 1:03 PM Dictated Date/Time: 04/23/2018 12:57 PM
== END | disposition home or self-care (01) ==
LOC: C.RAD1850 12:20
PROVIDERS: ATTEND Internal Medicine
DX: M54.5 Low back pain (principal)

== ENCOUNTER 2019-09-11 15:18 | Inpatient (IN) ==
[2019-09-11] MEDS ORDERED: LIDOCAINE 5% 1 PATCH TD STA (15:49)
[2019-09-11] MEDS ORDERED: ONDANSETRON INJ 2 MG/ML 2 ML VIAL IV STA (15:51)
[2019-09-11] MEDS: HYDROmorphone INJ 0.5 MG/0.5 ML SYR IV PRN ×2 (16:21→18:14)
--- NOTE | 2019-09-11 16:22 | XRay Report ---
XR chest 1V portable CLINICAL HISTORY: weakness COMPARISON STUDY: Chest CT May 13, 2019. Chest radiograph July 18, 2019. FINDINGS: Incidental note is made of suspected calcific tendinitis the right rotator cuff. The lung v olumes are diminished. Mild bibasilar opacity favors atelectasis. There is no pneumothorax or pleural effusion. There is mild enlargement of the cardiac silhouette which is accentuated on this exam. The re is no evidence for pulmonary edema. IMPRESSION: Low lung volumes. Bibasilar opacities favor atelectasis. ACT 112: Negative or not required by law. Electronically signed by: Ean Quiroz M.D. 09/11/2019 4:21 PM
[2019-09-11 16:39] LABS: Basophils # (auto) 0.02 K/uL (0-0.2); Basophils % (auto) 0.3 %; Eosinophils # (auto) 0.06 K/uL (0-0.5); Eosinophils % (auto) 0.9 %; Hematocrit (blood only) 35.3 % (37-47); Hemoglobin 11.8 g/dL (12.0-16.0); Immature Granulocytes # (auto) 0.05 K/uL (0.00-0.02); Immature Granulocytes % (auto) 0.8 %; Lymphocytes # (auto) 1.25 K/uL (1.2-3.4); Lymphocytes % (auto) 18.9 %; Mean Corpuscular Hemoglobin 30.3 pg (25-34); Mean Corpuscular Hgb Conc 33.4 g/dL (32-36); Mean Corpuscular Volume 90.5 fL (80-100); Mean Platelet Volume 9.2 fL (7.4-10.4); Monocytes % (auto) 10.6 %; Neutrophils # (auto) 4.54 K/uL (1.4-6.5); Neutrophils % (auto) 68.5 %; Platelet Count 314 K/uL (130-400); RDW Coefficient of Variation 13.7 % (11.5-14.5); RDW Standard Deviation 44.8 fL (36.4-46.3); White Blood Count 6.62 K/uL (4.8-10.8)
[2019-09-11 16:43] LABS: Alanine Aminotransferase 27 U/L (12-78); Albumin Level 3.1 gm/dl (3.4-5.0); Aspartate Aminotransferase 20 U/L (15-37); Blood Urea Nitrogen 10 mg/dl (7-18); Calcium 9.1 mg/dl (8.5-10.1); Carbon Dioxide 29 mmol/L (21-32); Chloride 95 mmol/L (98-107); Est GFR (African American) 81.6; Est GFR (Non-African American) 70.4; Glucose 142 mg/dl (70-99); Potassium 4.1 mmol/L (3.5-5.1); Sodium 130 mmol/L (136-145)
--- NOTE | 2019-09-11 16:45 | CT Scan Report ---
CT OF THE LUMBAR SPINE CLINICAL HISTORY: T12 pain, L5 pain COMPARISON STUDY: Lumbar spine CT September 02, 2019. TECHNIQUE: Helical axial images of the lumbar spine were obtained. Sagittal and coronal reconstruct ions were viewed. Automated exposure control was utilized for the study. A dose lowering technique was utilized adhering to the principles of ALARA. FINDINGS: For purposes of numbering on this exam, the L5-S1 disc space is assigned to axial image 289 of 262. Note is made of a T12 compression fracture which was shown on CT of September 02, 2019. Vertebr al body height loss has mildly increased, now 30%. There is 3 mm of retropulsion. No additional fract ures are identified on this exam. Hematoma within L3 is again noted. Moderate to severe multilevel de generative disc disease and severe multilevel facet arthrosis is noted. The central canal and neural foramen are suboptimally assessed by CT. Mild prevertebral infiltration at the T12 level is again not ed. There is no hydronephrosis. The sacroiliac joints are intact. IMPRESSION: 1. No acute lumbar spine fracture or subluxation. 2. Redemonstration of a T12 compression fracture, shown on CT of September 02, 2019. Mild increase in ve rtebral body height loss with minimal retropulsion. 3. Moderate multilevel degenerative changes within the lumbar spine. ACT 112: Negative or not required by law. Electronically signed by: Ean Quiroz M.D. 09/11/2019 4:43 PM
--- NOTE | 2019-09-11 16:48 | CT Scan Report ---
CT pelvis wo con CLINICAL HISTORY: Low back pain. COMPARISON STUDY: CT of the abdomen and pelvis September 02, 2019. TECHNIQUE: Axial images of the pelvis were obtained without IV contrast. Sagittal and coronal reconst ructions were viewed. Automated exposure control was utilized for the study. A dose lowering techniq ue was utilized adhering to the principles of ALARA. FINDINGS: The sacroiliac joints and symphysis pubis are intact. There is no acute fracture or osseous lesion within the pelvis or the hips. No pelvic hematoma is present. There is no lymphadenopathy wit hin the pelvis. There is extensive sigmoid diverticulosis. There is no evidence for acute diverticuli tis within visualized portions of the colon. IMPRESSION: No acute fracture within the pelvis or hips. ACT 112: Negative or not required by law. Electronically signed by: Ean Quiroz M.D. 09/11/2019 4:47 PM
[2019-09-11 16:54] LABS: Albumin Globulin Ratio 0.8 (0.9-2); Alkaline Phosphatase 111 U/L (45-117); Bilirubin,Total 0.4 mg/dl (0.2-1); Creatine Kinase 100 U/L (26-192); Globulin 3.8 gm/dl (2.5-4.0); Total Protein 6.9 gm/dl (6.4-8.2); Troponin I < 0.015 ng/ml (0-0.045)
[2019-09-11 17:06] LABS: T4 Free Thyroxine 1.41 ng/dl (0.8-1.6)
[2019-09-11] MEDS ORDERED: ACETAMINOPHEN 500 MG TAB PO STA (18:02)
--- NOTE | 2019-09-11 18:44 | History & Physical Report ---
Date of Service September 11, 2019 Assessment & Plan (1) Ambulatory dysfunction: (2) Intractable back pain: (3) T12 compression fracture: Mrs. 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 Admit to tele continue pain management with Tylenol #3 (pt taking 1/2 tab at home and tolerating w/o vestibular sx will try full tab) lidocaine patch ICE TID IV dilaudid 0.25 q4hr prn SEVERE pain only - tolerated in ED consult PT/OT, case management consult Dr. Prabhakar to discuss further management due to worsening of sx/comp fx She does have pain management appt with Dr. Russell 09/14/2019 hold PPI for now in setting of recent comp fx/low sodium obtain vit D in am (4) Superior mesenteric artery stenosis: POD #2 IR arteriogram with stent placement in superior mesenteric artery secondary to stenosis on 09/09/[address] Cartagena continue plavix (5) Hyponatremia: Na 130 today check urine/serum NA studies to determine etiology ? if med related, not on diuretic, possible PPI (6) Hypothyroidism: Continue levothyroxine (7) Vestibular migraine: Continue verapamil Currently denies dizziness or vertigo sensation (8) Oropharyngeal dysphagia: Chronic No acute issue Patient can tolerate regular diet, bite size (9) DVT prophylaxis: Eliquis Disposition: Admit to telemetry, patient likely need acute rehab or subacute rehab placement Follow-up: PCP Dr. Schwartz upon discharge Patient was seen and examined in collaboration Dr. Dumont, please see addendum History of Present Illness Chief Complaint: Intractable back pain x1 day. Primary Care Provider: Larry Schwartz Mrs. 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 Daughter is at bedside. She was last seen in ED on 09/02/2019 status post fall and was found to have subsequent T12 compression fracture. She noted that she was trying to come down some stairs when she missed the last step falling down, striking back of head. Since being seen at ED she was hospitalized at [facility] on 09/09/2019 for elective IR arteriogram with stent placement in superior mesenteric artery due to mesenteric artery stenosis. She remains on Plavix and Eliquis post surgery, otherwise tolerated procedure well. Since being discharged home she been complaining of intractable back pain, difficulty ambulating due to pain. She was prescribed Tylenol 3 which mildly improved symptoms. Pain is located in lower back, directly in the middle, nonradiating, described as a, "constant ache." Denies any improvement with heat and/or ice. Overall feels symptoms have been worsening since initial presentation. No further falls. She denies any numbness or tingling in lower extremities, weakness of lower extremities, bowel or bladder incontinence. She denies any fever, chills, sweats, lightheadedness, dizziness, chest pain, shortness of breath or palpitation, cough, hemoptysis, nausea, vomiting, abdominal pain. She has been taking MiraLAX daily to avoid constipation in fear of back pain. Due to history of vestibular migraine she has difficulty tolerating narcotics. Specifically she knows she does not tolerate tramadol and oxycodone. Denies any difficulty with Tylenol 3 or IV Dilaudid this been given in ED so far. Per daughter she is scheduled to see pain management Dr. russell on 09/14/2019. In ED lumbar spine CT did reveal prior T12 compression fracture with increase in vertebral height loss and minimal retropulsion, moderate DDD. Pelvis CT was unremarkable. Chest x-ray revealed bibasilar atelectasis but otherwise no acute abnormality. Lab work notable for H&H 11.8 and 35.3, sodium 130, glucose 122, TSH 8.56, free T4 WNL. She did receive IV Dilaudid and lidocaine patch while in ED. Mild improvement in symptoms. Allergies Allergy/AdvReac Type Severity Reaction Status Date / Time erythromycin base AdvReac Intermediate MYCIN Verified 09/11/19 17:23 DRUGS-YEAST INFECTIONS tramadol AdvReac Intermediate vestibular Verified 09/11/19 18:51 sx adhesive tape AdvReac PEELING OF Unverified 09/11/19 17:23 SKIN Home Medications Home Medications Medication Instructions Recorded Confirmed Type cyanocobalamin (vitamin B-12) 500 mcg PO QAM 10/05/18 09/11/19 History [Vitamin B-12] levothyroxine 100 mcg PO SUTUTHSA 10/05/18 09/11/19 History levothyroxine 112 mcg PO MOWEFR 10/05/18 09/11/19 History verapamil 40 mg PO QID 12/06/18 09/11/19 History cholecalciferol (vitamin D3) 2,000 unit PO QAM 05/03/19 09/11/19 History [Vitamin D3] apixaban 2.5 mg tablet 2.5 mg PO BID #60 tab 05/07/19 09/11/19 Rx polyethylene glycol 3350 [Miralax] 17 g PO HS 06/24/19 09/11/19 History acetaminophen [Children's Tylenol] 160 mg PO QID PRN 08/08/19 09/11/19 History acetaminophen-codeine 1 tab PO Q4H PRN 09/02/19 09/11/19 History calcium carbonate-vitamin D3 1 tab PO DAILY 09/02/19 09/11/19 History clopidogrel 75 mg PO QAM 09/02/19 09/11/19 History pantoprazole 40 mg PO QAM 09/02/19 09/11/19 History lidocaine 1 patch TOPICAL DAILY 09/11/19 09/11/19 History Past Med/Surg History Medical History (Updated 09/11/19 @ 21:07 by Sae Paige MD) Abdominal pain (Acute) Anxiety Cervical cancer at age 29--sx Depression Difficulty swallowing History of gastric ulcer Hypothyroidism On anticoagulant therapy eliquis daily Oropharyngeal dysphagia Osteoarthritis Pulmonary embolism reason for eliquis Tinnitus of both ears Transient ischemic attack (TIA) 2013--follows with Dr. Zapata--no deficits Vertigo (Acute) Vestibular migraine reason for verapamil Surgical History History of adenoidectomy History of appendectomy (Acute) History of bilateral cataract extraction History of cholecystectomy (Acute) History of colonoscopy History of hysterectomy (Acute) History of tonsillectomy History of tooth extraction Family History Son Family history of diabetes mellitus Social History Preferred Language: [place] Communication Ability: Effective Cleaning Matron Required: No Beliefs That Will Affect Care: None marital status: / Current Living Situation: Alone current occupational status: retired Feels Safe at Home: Yes Safety Concerns: Feels Safe At This Time Smoking Status: Never smoker Second Hand Exposure: Yes ( smoked/father smoked) ; Hx Alcohol Use: No Hx Substance Use: No Review of Systems Review of Systems: All systems reviewed & are unremarkable except as noted in HPI & below Physical Exam Physical Exam: Constitutional: WD/WN, elderly, female, lying in left lateral decubitus position, vitals as above, and noticeable pain, pleasant, conversing easily Head: Normocephalic, Atraumatic Eyes: PERRL, conjunctivae normal, anicteric sclerae ENMT: external ear and nose normal, oropharynx normal Neck: trachea midline, no thyromegaly normal visual inspection Respiratory: Decreased inspiratory effort secondary to pain, lungs clear to auscultation, with bibasilar crackles, no wheeze or rhonchi. No accessory muscle use Cardiovascular: RRR, no murmur, no edema, left upper extremity with significant ecchymosis, vessels: no JVD or carotid bruit Chest: normal inspection of chest Abdomen: normal bowel sounds, soft, nontender, no hepatosplenomegaly Musculoskeletal: no cyanosis or clubbing, extremities motor strength 5/5 , pain to palpation low back in area of T12 Skin: no rashes, warm and dry normal turgor Neurologic: PERRL, EOMI, accommodation nl, no face palsy, no dysarthria CN's II-XI intact bilaterally and moves all extremities Psychiatric: A+Ox3, euthymic affect Lymphatic: no cervical or axillary lymphadenopathy : deferred Results & Data Vital Signs (Past 12 Hours) Vital Signs Temp Pulse Pulse Resp BP BP Pulse Ox 09/11/19 16:53 90 18 144/81 H 91 09/11/19 15:39 95 09/11/19 15:31 36.8 C 91 H 16 133/76 95 Laboratory Results Short CBC 09/11/19 Range/Units 16:15 WBC 6.62 (4.8-10.8) K/uL Hgb 11.8 L (12.0-16.0) g/dL Hct 35.3 L (37-47) % Plt Count 314 (130-400) K/uL BMP 09/11/19 16:15 Sodium 130 L Potassium 4.1 Chloride 95 L Carbon Dioxide 29 BUN 10 Creatinine 0.77 Glucose 142 H Calcium 9.1 Cardiac Enzymes 09/11/19 Range/Units 16:15 Total Creatine Kinase 100 (26-192) U/L Troponin I < 0.015 (0-0.045) ng/ml Liver Function 09/11/19 Range/Units 16:15 Total Bilirubin 0.4 (0.2-1) mg/dl AST 20 (15-37) U/L ALT 27 (12-78) U/L Alkaline Phosphatase 111 (45-117) U/L Albumin 3.1 L (3.4-5.0) gm/dl Diagnostic Findings CXR: IMPRESSION: Low lung volumes. Bibasilar opacities favor atelectasis. Lumbar Spine CT: IMPRESSION: 1. No acute lumbar spine fracture or subluxation. 2. Redemonstration of a T12 compression fracture, shown on CT of September 02, 2019. Mild increase in vertebral body height loss with minimal retropulsion. 3. Moderate multilevel degenerative changes within the lumbar spine. Pelvis CT: FINDINGS: The sacroiliac joints and symphysis pubis are intact. There is no acute fracture or osseous lesion within the pelvis or the hips. No pelvic hematoma is present. There is no lymphadenopathy within the pelvis. There is extensive sigmoid diverticulosis. There is no evidence for acute diverticulitis within visualized portions of the colon. IMPRESSION: No acute fracture within the pelvis or hips. Code Status & VTE Plan VTE Prophylaxis Plan VTE Prophylaxis will be ordered: Yes Supervising Physician Co-Signing Physician Notes HISTORY: Record reviewed. Patient interviewed and examined. Care coordinated with Cailin Keller PA-C. Please refer to her documentation for complete history. Briefly, 84-year-old female with history of pulmonary embolism, vestibular migraine, SMA stenosis. She fell couple weeks ago and suffered compression fracture of T12. Experiencing ongoing severe low back pain and difficulty ambulating despite outpatient measures. EXAM: General- no distress Lungs- clear to auscultation; no respiratory distress Cardiovascular- RRR; no JVD; no pretibial edema Abdomen- + bowel sounds, soft, nontender Back- no spinal / paraspinal tenderness (after 2 doses of hydromorphone) Extremities- no cyanosis; no calf tenderness Neuro- alert, oriented; motor strength lower extremities grossly intact Skin- warm & dry DATA: Hemoglobin 11.8, white count 6620, platelet count 314,000. Sodium 130, potassium 4.1, chloride 95, carbon dioxide 29, BUN 10, creatinine 0.77, random glucose 142. Other lab studies as noted. Chest x-ray showed bibasilar opacities, probable atelectasis. CT lumbar spine demonstrated T12 compression fracture, slightly worse compared to 09/02/2019. Multilevel degenerative changes also noted. CT of pelvis did not show any apparent fracture within the pelvis or hips. EKG performed at 1613 reviewed and showed normal sinus rhythm at 90/minute, no acute changes. ASSESSMENT AND PLAN: T12 compression fraction with persistent severe pain and difficulty ambulating. Intolerant of tramadol and other analgesics. Tolerates low dose of codeine. Better relief of pain with hydromorphone 0.25 mg IV in ED. Has been utilizing lidocaine patch. Titrate analgesics. Check vitamin D level. Continue calcium and vitamin D supplementation. PT/OT evaluations. Consult Ortho Spine. Please refer to ALONSO Keller's documentation for discussion of other issues. (1) T12 compression fracture Encounter type: initial encounter Qualified Code(s): S22.080A - Wedge compression fracture of T11-T12 vertebra, initial encounter for closed fracture
[2019-09-11] MEDS ORDERED: HYDROmorphone INJ 0.5 MG/0.5 ML SYR IV PRN (20:39)
[2019-09-11] MEDS ORDERED: POLYETHYLENE (MIRALAX) 17 GM PACK PO SCH ×2 (20:39→21:00)
[2019-09-11] MEDS ORDERED: ONDANSETRON INJ 2 MG/ML 2 ML VIAL IV PRN (20:39)
[2019-09-11] MEDS ORDERED: MAGNESIUM HYDROXIDE SUSP 30 ML UDC PO PRN (20:39)
[2019-09-11] MEDS ORDERED: ALUMINUM/MAGNESIUM SUSP 30 ML UDC PO PRN (20:39)
--- NOTE | 2019-09-11 21:08 | Emergency Department Note ---
Entered by Katherine Haines acting as a scribe for Sae Paige MD History of Present Illness General Chief complaint: Back Injury/Pain Stated complaint: T12 FRACTURE PAIN LEVEL 9-10 Time Seen by Provider: 09/11/19 15:38 Source: family (daughter) History of Present Illness Onset (ago): day(s) 10 Location: back Pain Consistency: + other (worsening) Maximum Pain Intensity: 10 Relieved By: + none Associated symptoms: + denies other symptoms (abdominal pain and rashes) and + other (lower back pain) The patient is a 84 year old F who presents to the Emergency Room with complaints of worsening back pain that started 10 days ago. The majority of the HPI was provided by the patients daughter. She states that the patient fell twice last week and fractured her vertebrae. The patient adds that she is currently experiencing lower back pain. She notes that she spoke with the patients PCP who recommended she bring the patient to the ED to get an orthospine evaluation and long-term placement. She states that the patient was previously prescribed Chilcoot for her pain. She adds that the patient has not been taking it due to it worsening her history of vestibular migraines. She notes that the patient now takes codeine and Tylenol. She states that the patient recently had gastric bypass surgery. She adds that the patient just got home yesterday. She notes that she brought the patient into the ED today because the patient told her that she could not move due to her pain. She patient denies experiencing any abdominal pain and rashes. Home Medications Home Medications Medication Instructions Recorded Confirmed Type cyanocobalamin (vitamin B-12) 500 mcg PO QAM 10/05/18 09/11/19 History [Vitamin B-12] levothyroxine 100 mcg PO SUTUTHSA 10/05/18 09/11/19 History levothyroxine 112 mcg PO MOWEFR 10/05/18 09/11/19 History verapamil 40 mg PO QID 12/06/18 09/11/19 History cholecalciferol (vitamin D3) 2,000 unit PO QAM 05/03/19 09/11/19 History [Vitamin D3] apixaban 2.5 mg tablet 2.5 mg PO BID #60 tab 05/07/19 09/11/19 Rx polyethylene glycol 3350 [Miralax] 17 g PO HS 06/24/19 09/11/19 History acetaminophen [Children's Tylenol] 160 mg PO QID PRN 08/08/19 09/11/19 History acetaminophen-codeine 1 tab PO Q4H PRN 09/02/19 09/11/19 History calcium carbonate-vitamin D3 1 tab PO DAILY 09/02/19 09/11/19 History clopidogrel 75 mg PO QAM 09/02/19 09/11/19 History pantoprazole 40 mg PO QAM 09/02/19 09/11/19 History lidocaine 1 patch TOPICAL DAILY 09/11/19 09/11/19 History Allergies Allergy/AdvReac Type Severity Reaction Status Date / Time erythromycin base AdvReac Intermediate MYCIN Verified 09/11/19 17:23 DRUGS-YEAST INFECTIONS tramadol AdvReac Intermediate vestibular Verified 09/11/19 18:51 sx adhesive tape AdvReac PEELING OF Unverified 09/11/19 17:23 SKIN Past Med/Surg History Medical History (Updated 09/11/19 @ 21:07 by Sae Paige MD) Abdominal pain (Acute) Anxiety Cervical cancer at age 29--sx Depression Difficulty swallowing History of gastric ulcer Hypothyroidism On anticoagulant therapy eliquis daily Oropharyngeal dysphagia Osteoarthritis Pulmonary embolism reason for eliquis Tinnitus of both ears Transient ischemic attack (TIA) 2013--follows with Dr. 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 and A total of 10 systems reviewed and were otherwise negative Physical Exam Vital Signs Vital Signs - 24 hr 09/11/19 15:31 09/11/19 15:39 09/11/19 16:53 Temperature 36.8 C Temperature Source Oral Pulse Rate 91 H Pulse Rate [Finger] 90 Pulse Rhythm Regular Pulse Strength Normal Respiratory Rate 16 18 Respiratory Effort / Characteristics Non-Labored Non-Labored Spontaneous Respiratory Depth Normal Normal Respiratory Pattern Regular Regular Blood Pressure 133/76 Blood Pressure [Right Arm] 144/81 H Blood Pressure Mean 95 Blood Pressure Mean [Right Arm] 102 Blood Pressure Position Sitting Pulse Oximetry 95 95 91 Oxygen Delivery Method Room Air Room Air Room Air Sepsis Recent Fever Within 48 Hours No Sepsis Action Taken by Nursing No Action Required GENERAL: Awake, alert, well-appearing, in no acute distress HENT: Normocephalic, atraumatic. Oropharynx unremarkable. EYES: Normal conjunctiva. Sclera non-icteric. NECK: Supple. No nuchal rigidity. FROM. No JVD. RESPIRATORY: Clear to auscultation. CARDIAC: Regular rate, normal rhythm. Extremities warm and well perfused. Pulses equal. ABDOMEN: Soft, non-distended. No tenderness to palpation. No rebound or guarding. No masses. RECTAL: Deferred. MUSCULOSKELETAL: Chest examination reveals no tenderness. The back is s ymmetrical on inspection. There is tenderness to the L5 S1 area, midline of the spine. There is no CVA tenderness to palpation. No joint edema. LOWER EXTREMITIES: Calves are equal size bilaterally and non-tender. No edema. No discoloration. NEURO: Normal sensorium. No sensory or motor deficits noted. SKIN: No rash or jaundice noted. Course Course 1541: The patient was evaluated in room C1B. A complete history and physical exam was performed. 1728: I reviewed the patient's case with Dr. Dumont, [facility]ist. He will evaluate the patient for further management. Administered Medications Discontinued Medications Acetaminophen (Tylenol) 1,000 mg PO NOW STA Stop: 09/11/19 18:03 Last Admin: 09/11/19 18:20 Dose: 1,000 mg Documented by: [id number] Hydromorphone HCl (Dilaudid) 0.25 mg IV Q15M PRN PRN Reason: Pain Stop: 09/25/19 15:50 Last Admin: 09/11/19 18:14 Dose: 0.25 mg Documented by: [id number] Admin: 09/11/19 16:21 Dose: 0.25 mg Documented by: [id number] Lidocaine (Lidoderm 5%) 1 patch TD NOW STA Stop: 09/11/19 15:50 Last Admin: 09/11/19 16:21 Dose: 1 patch Documented by: [id number] Miscellaneous (Remove Lidoderm Patch) 1 ea N/A DAILY@2100 [facility] Stop: 10/11/19 20:59 Last Admin: 09/11/19 17:19 Dose: Not Given Documented by: [id number] Ondansetron HCl (Zofran) 4 mg IV NOW STA Stop: 09/11/19 15:52 Last Admin: 09/11/19 16:21 Dose: 4 mg Documented by: [id number] Medical Decision Making Differential Diagnosis Differential Diagnosis includes but is not limited to dehydration, stroke, anemia, hypoglycemia, hyponatremia, hypernatremia, urinary tract infection, pneumonia, bronchitis, sepsis, gastroenteritis, additional abdominal pathology, metabolic abnormalities and infections. Medical Records Attestation: I reviewed the patient's medical records. Home Medications Current Medication List: was personally reviewed by me Laboratory Data Attestation: I reviewed the patient's lab results. Result diagrams: 09/11/19 16:15 09/11/19 16:15 Lab Results 09/11/19 09/11/19 09/11/19 Range/Units 16:15 16:15 16:15 WBC 6.62 (4.8-10.8) K/uL RBC 3.90 L (4.2-5.4) M/uL Hgb 11.8 L (12.0-16.0) g/dL Hct 35.3 L (37-47) % MCV 90.5 (80-100) fL MCH 30.3 (25-34) pg MCHC 33.4 (32-36) g/dL RDW Std Deviation 44.8 (36.4-46.3) fL RDW Coeff of Bety 13.7 (11.5-14.5) % Plt Count 314 (130-400) K/uL MPV 9.2 (7.4-10.4) fL Immature Gran % (Auto) 0.8 % Neut % (Auto) 68.5 % Lymph % (Auto) 18.9 % [place] % (Auto) 10.6 % Eos % (Auto) 0.9 % Baso % (Auto) 0.3 % Immature Gran # (Auto) 0.05 H (0.00-0.02) K/uL Neut # (Auto) 4.54 (1.4-6.5) K/uL Lymph # (Auto) 1.25 (1.2-3.4) K/uL [place] # (Auto) 0.70 H (0.11-0.59) K/uL Eos # (Auto) 0.06 (0-0.5) K/uL Baso # (Auto) 0.02 (0-0.2) K/uL Sodium 130 L (136-145) mmol/L Potassium 4.1 (3.5-5.1) mmol/L Chloride 95 L (98-107) mmol/L Carbon Dioxide 29 (21-32) mmol/L Anion Gap 6.0 (3-11) BUN 10 (7-18) mg/dl Creatinine 0.77 (0.6-1.2) mg/dl Est Cr Clr Drug Dosing Not Reportable Est GFR ( Amer) 81.6 Est GFR (Non-Af Amer) 70.4 BUN/Creatinine Ratio 13.0 (10-20) Glucose 142 H (70-99) mg/dl Osmolality 276 L (280-300) mOsm/kg Calcium 9.1 (8.5-10.1) mg/dl Total Bilirubin 0.4 (0.2-1) mg/dl AST 20 (15-37) U/L ALT 27 (12-78) U/L Alkaline Phosphatase 111 (45-117) U/L Total Creatine Kinase 100 (26-192) U/L Troponin I < 0.015 (0-0.045) ng/ml Total Protein 6.9 (6.4-8.2) gm/dl Albumin 3.1 L (3.4-5.0) gm/dl Globulin 3.8 (2.5-4.0) gm/dl Albumin/Globulin Ratio 0.8 L (0.9-2) TSH 8.560 H (0.300-4.500) uIu/ml Free T4 1.41 (0.8-1.6) ng/dl Imaging Data Radiologist's Impression: Radiology results as stated below per my review and the radiologist's interpretation: XR chest 1V portable CLINICAL HISTORY: weakness COMPARISON STUDY: Chest CT May 13, 2019. Chest radiograph July 18, 2019. FINDINGS: Incidental note is made of suspected calcific tendinitis the right rotator cuff. The lung volumes are diminished. Mild bibasilar opacity favors atelectasis. There is no pneumothorax or pleural effusion. There is mild enlargement of the cardiac silhouette which is accentuated on this exam. There is no evidence for pulmonary edema. IMPRESSION: Low lung volumes. Bibasilar opacities favor atelectasis. ACT 112: Negative or not required by law. Electronically signed by: Ean Quiroz M.D. 09/11/2019 4:[address] OF THE LUMBAR SPINE CLINICAL HISTORY: T12 pain, L5 pain COMPARISON STUDY: Lumbar spine CT September 02, 2019. TECHNIQUE: Helical axial images of the lumbar spine were obtained. Sagittal an d coronal reconstructions were viewed. Automated exposure control was utilized for the study. A dose lowering technique was utilized adhering to the principles of ALARA. FINDINGS: For purposes of numbering on this exam, the L5-S1 disc space is assigned to axial image 289 of 262. Note is made of a T12 compression fracture which was shown on CT of September 02, 2019. Vertebral body height loss has mildly increased, now 30%. There is 3 mm of retropulsion. No additional fractures are identified on this exam. Hematoma within L3 is again noted. Moderate to severe multilevel degenerative disc disease and severe multilevel facet arthrosis is noted. The central canal and neural foramen are suboptimally assessed by CT. Mild prevertebral infiltration at the T12 level is again noted. There is no hydronephrosis. The sacroiliac joints are intact. IMPRESSION: 1. No acute lumbar spine fracture or subluxation. 2. Redemonstration of a T12 compression fracture, shown on CT of September 02, 2019. Mild increase in vertebral body height loss with minimal retropulsion. 3. Moderate multilevel degenerative changes within the lumbar spine. ACT 112: Negative or not required by law. Electronically signed by: Ean Quiroz M.D. 09/11/2019 4:[address] pelvis wo con CLINICAL HISTORY: Low back pain. COMPARISON STUDY: CT of the abdomen and pelvis September 02, 2019. TECHNIQUE: Axial images of the pelvis were obtained without IV contrast. Sagittal and coronal reconstructions were viewed. Automated exposure control was utilized for the study. A dose lowering technique was utilized adhering to the principles of ALARA. FINDINGS: The sacroiliac joints and symphysis pubis are intact. There is no acute fracture or osseous lesion within the pelvis or the hips. No pelvic hematoma is present. There is no lymphadenopathy within the pelvis. There is extensive sigmoid diverticulosis. There is no evidence for acute diverticulitis within visualized portions of the colon. IMPRESSION: No acute fracture within the pelvis or hips. ACT 112: Negative or not required by law. Electronically signed by: Ean Quiroz M.D. 09/11/2019 4:47 PM ECG Data Attestation: I personally reviewed and interpreted this ECG as follows: Indication: + back/shoulder pain Rate (beats per minute): 90 Rhythm: + normal sinus ECG [place]: + Normal ECG ST segments: no ST depression and no ST elevation ECG Findings: + Other (QTc 435) Comparison ECG Date: from (06/13/19) Change: no significant change Blood Pressure Blood Pressure Findings: Elevated blood pressure Blood Pressure Disposition: further management by hospitalist MDM Narrative This is an 84-year-old female who presents emergency department complaining of severe back pain. Using shared medical decision making with the patient and family patient was sent for CAT scan of the pelvis as well as spine. This is shows worsening of the T12 compression fracture. The patient's daughter would like her admitted to the hospital. Patient was given Dilaudid here for pain. Repeat examination revealed improvement the patient's symptoms. I did discuss the case with the hospitalist service who did agree to admit the patient. Patient family were in agreement with the treatment plan. Impression & Plan Fall, T12 compression fracture, Intractable back pain Discharge Plan Visit Data *Final* Discharge Date/Time: 09/11/19 19:57 Chief Complaint: Back Injury/Pain Stated Complaint: T12 FRACTURE PAIN LEVEL 9-10 ED Provider: Sae Paige Discharge Problem: Fall, T12 compression fracture, Intractable back pain Patient Disposition: Admitted As Inpatient Discharge Instructions Interventions: ED Discharge Assessment Last Done: 09/11/19 19:57 Discharge Problem: Fall Qualifiers: Encounter type: subsequent encounter Qualified Code(s): W19.XXXD - Unspecified fall, subsequent encounter T12 compression fracture Qualifiers: Encounter type: initial encounter Qualified Code(s): S22.080A - Wedge compression fracture of T11-T12 vertebra, initial encounter for closed fracture The scribe's documentation has been prepared under my direction and personally reviewed by me in its entirety. I confirm that the note above accurately reflects all work, treatment, procedures, and medical decision making performed by me.
[2019-09-11] MEDS: APIXABAN 2.5 MG TAB PO SCH (21:52)
[2019-09-11] MEDS: VERAPAMIL HCL 40 MG TAB PO SCH (21:53)
[2019-09-12] MEDS: ACETAMINOPHEN W/CODEINE #3 1 TAB PO PRN ×5 (00:39→21:10)
[2019-09-12 01:00] LABS: Appearance Urine Clear (Clear); Bilirubin Urine Negative (Negative); Blood Urine Negative (Negative); Color Urine Yellow; Glucose Urine UA Negative (Negative); Ketones Urine Negative (Negative); Leukocyte Esterase Urine Negative (Negative); Nitrite Urine Negative (Negative); Protein Urine Negative (Negative); Specific Gravity Urine 1.006 (1.000-1.030); Urobilinogen Urine Negative (Negative); pH Urine 6.5 (4.5-7.5)
[2019-09-12] MEDS: LEVOTHYROXINE SODIUM 100 MCG TABLET PO SCH (05:49)
--- NOTE | 2019-09-12 06:07 | Electrocardiogram Report ---
Test Reason : Blood Pressure : / mmHG Vent. Rate : 090 BPM Atrial Rate : 090 BPM P-R Int : 182 ms QRS Dur : 078 ms QT Int : 356 ms P-R-T Axes : 060 -02 009 degrees QTc Int : 435 ms Normal sinus rhythm Normal ECG When compared with ECG of 13-JUN-2019 06:29, No significant change was found Confirmed by Richie Cervantes ([id number]) on 09/12/2019 6:07:08 AM Referred By: Stephan Tejeda Confirmed By:Richie Cervantes
[2019-09-12 06:18] LABS: Hematocrit (blood only) 35.7 % (37-47); Hemoglobin 12.1 g/dL (12.0-16.0); Mean Corpuscular Hemoglobin 30.3 pg (25-34); Mean Corpuscular Hgb Conc 33.9 g/dL (32-36); Mean Corpuscular Volume 89.5 fL (80-100); Platelet Count 290 K/uL (130-400); RDW Coefficient of Variation 13.4 % (11.5-14.5); RDW Standard Deviation 43.9 fL (36.4-46.3); Red Blood Count 3.99 M/uL (4.2-5.4); White Blood Count 5.77 K/uL (4.8-10.8)
[2019-09-12 06:55] LABS: BUN Creatinine Ratio 11.1 (10-20); Calcium 9.5 mg/dl (8.5-10.1); Creatinine Clr Calc Pharmacy 55.7 ml/min; Est GFR (African American) 92.9; Est GFR (Non-African American) 80.2; Potassium 4.1 mmol/L (3.5-5.1)
[2019-09-12] MEDS: VERAPAMIL HCL 40 MG TAB PO SCH ×4 (08:13→19:35)
[2019-09-12] MEDS: CLOPIDOGREL BISULFATE 75 MG TAB PO SCH (08:13)
[2019-09-12] MEDS: CYANOCOBALAMIN 500 MCG TABLET (VITAMIN B-12) PO SCH (08:13)
[2019-09-12] MEDS: APIXABAN 2.5 MG TAB PO SCH ×2 (08:14→19:36)
[2019-09-12] MEDS: CALCIUM 600MG + VIT D 400 IU TAB PO SCH (08:14)
[2019-09-12] MEDS: LIDOCAINE 5% 1 PATCH TD SCH (08:14)
[2019-09-12] MEDS: CHOLECALCIFEROL 1,000 UNITS TAB PO SCH (08:14)
--- NOTE | 2019-09-12 08:42 | Hospitalist Progress Note ---
Date of Service September 12, 2019 Assessment & Plan (1) Ambulatory dysfunction: (2) Intractable back pain: (3) T12 compression fracture: -Mrs. 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 -continue pain management with Tylenol #3 (pt taking 1/2 tab at home and tolerating w/o vestibular sx will try full tab) -lidocaine patch -Ice TID -IV dilaudid 0.25 q4hr prn SEVERE pain only - tolerated in ED -consult PT/OT, case management management -patient and daughter's expectation is for patient to go get physical rehabilitation at center such as [facility] -admitting hospitalist team placed consult for Dr. Prabhakar to discuss further management due to worsening of sx/comp fx -Patient does have outpatient pain management appt with Dr. Hatfield 09/14/2019 -hold PPI for now in setting of recent comp fx/low sodium -Vitamin D levels pending (4) Superior mesenteric artery stenosis: -s/p IR arteriogram with stent placement in superior mesenteric artery secondary to stenosis on 09/09/[address] Cartagena -continue plavix (5) Hyponatremia: -admission serum sodium 130 serum sodium on 09/12/2019 is 132, continue to trend (6) Hypothyroidism: Continue levothyroxine (7) Vestibular migraine: -Continue verapamil -Currently denies dizziness or vertigo sensation (8) Oropharyngeal dysphagia: -Chronic -able to eat the diet in the hospital (can tolerate regular diet, bite size) (9) DVT prophylaxis: -Marie Daughter [phone] Subjective lower back with pain medication patch. no point tenderness of the back on my exam. patient able to sit up and eat the breakfast. patient reports back pain and concerned that she will not be able to lay down on her own without assistance. patient's daughter also on the phone so she could listen in. Patient does not have pain besides the lower back. no shortness of breath. breathing on room air. no chest pain. no palpitations. denies problems with urination or with bowel movements. patient reports minimal ambulation at home recently Review of Systems Review of Systems: All systems reviewed & are unremarkable except as noted in HPI & below Physical Exam Constitutional: WD/WN, vitals as above Eyes: PERRL, conjunctivae normal, anicteric sclerae EOM intact bilaterally ENMT: external ear and nose normal, oropharynx normal Neck: trachea midline, no thyromegaly normal visual inspection Respiratory: normal respiratory effort, lungs clear to auscultation normal respiratory effort Cardiovascular: Rate/Rhythm: regular rate and regular rhythm Gastrointestinal (Abdomen): normal bowel sounds, soft, nontender, no hepatosplenomegaly Musculoskeletal: Head/Neck/Chest: normocephalic and head atraumatic lower back with pain medication patch. no point tenderness of the back on my exam. patient able to sit up and eat the breakfast. patient reports back pain and concerned that she will not be able to lay down on her own without assistance Neurologic: PERRL, EOMI, accommodation nl, no face palsy, no dysarthria moves all extremities Psychiatric: A+Ox3, euthymic affect Results & Data Vital Signs (Past 12 Hours) Vital Signs Temp Pulse Pulse Resp BP Pulse Ox Pulse Ox 09/12/19 08:19 36.8 C 84 16 130/70 97 09/12/19 03:51 37 C 64 18 131/70 96 09/11/19 23:02 36.7 C 91 H 16 118/65 96 09/11/19 22:22 95 H 09/11/19 21:19 36.4 C L 96 H 16 145/75 H 93 09/11/19 21:14 91 H 09/11/19 20:39 91 (1) T12 compression fracture Encounter type: initial encounter Qualified Code(s): S22.080A - Wedge compression fracture of T11-T12 vertebra, initial encounter for closed fracture
[2019-09-12] MEDS ORDERED: SODIUM CHLORIDE 0.9% 1000ML 1,000 ML IV SCH (09:45)
[2019-09-12] MEDS: POLYETHYLENE (MIRALAX) 17 GM PACK PO SCH ×2 (10:09→19:40)
[2019-09-12] MEDS: OXYCODONE HCL IR 5 MG TAB (IMMEDIATE RELEASE) PO PRN (11:37)
[2019-09-12] MEDS ORDERED: POLYETHYLENE (MIRALAX) 17 GM PACK ONE (19:37)
[2019-09-13] MEDS: ACETAMINOPHEN W/CODEINE #3 1 TAB PO PRN ×3 (04:15→17:33)
[2019-09-13] MEDS: HYDROmorphone INJ 0.5 MG/0.5 ML SYR IV PRN ×3 (06:04→22:05)
[2019-09-13] MEDS: LEVOTHYROXINE SODIUM 112 MCG TABLET PO SCH (06:05)
[2019-09-13 07:00] LABS: BUN Creatinine Ratio 8.5 (10-20); Calcium 9.1 mg/dl (8.5-10.1); Creatinine Clr Calc Pharmacy 54.9 ml/min; Est GFR (African American) 92.4; Est GFR (Non-African American) 79.8; Potassium 4.3 mmol/L (3.5-5.1)
[2019-09-13] MEDS: VERAPAMIL HCL 40 MG TAB PO SCH ×4 (09:03→20:26)
[2019-09-13] MEDS: APIXABAN 2.5 MG TAB PO SCH ×2 (09:04→20:27)
[2019-09-13] MEDS: CLOPIDOGREL BISULFATE 75 MG TAB PO SCH (09:04)
[2019-09-13] MEDS: CYANOCOBALAMIN 500 MCG TABLET (VITAMIN B-12) PO SCH (09:05)
[2019-09-13] MEDS: CHOLECALCIFEROL 1,000 UNITS TAB PO SCH (09:05)
[2019-09-13] MEDS: POLYETHYLENE (MIRALAX) 17 GM PACK PO SCH ×2 (09:11→21:07)
[2019-09-13] MEDS: CALCIUM 600MG + VIT D 400 IU TAB PO SCH (09:12)
[2019-09-13] MEDS: LIDOCAINE 5% 1 PATCH TD SCH (09:16)
--- NOTE | 2019-09-13 09:30 | Orthopedic Consultation ---
Date of Consultation September 13, 2019 Assessment & Plan (1) T12 compression fracture: I discussed with this patient and her daughter regarding her fracture. She may be a candidate for a T12 kyphoplasty however we can only proceed with this if she were able to stop her Plavix and Eliquis. She is recently had a stent placed I am not sure this would be possible. Nevertheless we will move forward with a TLSO brace to be worn when she is up and ambulating. Once this is available I suggest we initiate more physical therapy with the prospect of possible rehab placement. Present on Admission?: Yes History of Present Illness Reason for Consultation: Back pain Attending Physician: Saurav Gold MD History of Present Illness This is a 84-year-old female who presents with significant thoracolumbar back pain secondary to a T12 compression fracture. This began September 02. U nfortunately is quite limiting in nature. She is status post superior mesenteric artery stent placement and is on Plavix as well as Eliquis. Her daughter is at the bedside during our discussion today. Again activity exacerbates her pain. She is reasonably comfortable at rest. She is walking very short distances secondary to discomfort. She denies any bowel bladder loss or leg pain. Allergies Allergy/AdvReac Type Severity Reaction Status Date / Time erythromycin base AdvReac Intermediate MYCIN Verified 09/11/19 17:23 DRUGS-YEAST INFECTIONS tramadol AdvReac Intermediate vestibular Verified 09/11/19 18:51 sx adhesive tape AdvReac PEELING OF Unverified 09/11/19 17:23 SKIN Home Medications Home Medications Medication Instructions Recorded Confirmed Type cyanocobalamin (vitamin B-12) 500 mcg PO QAM 10/05/18 09/11/19 History [Vitamin B-12] levothyroxine 100 mcg PO SUTUTHSA 10/05/18 09/11/19 History levothyroxine 112 mcg PO MOWEFR 10/05/18 09/11/19 History verapamil 40 mg PO QID 12/06/18 09/11/19 History cholecalciferol (vitamin D3) 2,000 unit PO QAM 05/03/19 09/11/19 History [Vitamin D3] apixaban 2.5 mg tablet 2.5 mg PO BID #60 tab 05/07/19 09/11/19 Rx polyethylene glycol 3350 [Miralax] 17 g PO HS 06/24/19 09/11/19 History acetaminophen [Children's Tylenol] 160 mg PO QID PRN 08/08/19 09/11/19 History acetaminophen-codeine 1 tab PO Q4H PRN 09/02/19 09/11/19 History calcium carbonate-vitamin D3 1 tab PO DAILY 09/02/19 09/11/19 History clopidogrel 75 mg PO QAM 09/02/19 09/11/19 History pantoprazole 40 mg PO QAM 09/02/19 09/11/19 History lidocaine 1 patch TOPICAL DAILY 09/11/19 09/11/19 History Patient History Medical History (Updated 09/11/19 @ 21:07 by Sae Paige MD) Abdominal pain (Acute) Anxiety Cervical cancer at age 29--sx Depression Difficulty swallowing History of gastric ulcer Hypothyroidism On anticoagulant therapy eliquis daily Oropharyngeal dysphagia Osteoarthritis Pulmonary embolism reason for eliquis Tinnitus of both ears Transient ischemic attack (TIA) 2013--follows with Dr. Zapata--no deficits Vertigo (Acute) Vestibular migraine reason for verapamil Surgical History History of adenoidectomy History of appendectomy (Acute) History of bilateral cataract extraction History of cholecystectomy (Acute) History of colonoscopy History of hysterectomy (Acute) History of tonsillectomy History of tooth extraction Family History Son Family history of diabetes mellitus Social History Preferred Language: Uzbek Communication Ability: Effective Health Care Legal Assistant Required: No Beliefs That Will Affect Care: None marital status: / Current Living Situation: Alone current occupational status: retired Feels Safe at Home: Yes Safety Concerns: Feels Safe At This Time Smoking Status: Never smoker Second Hand Exposure: Yes ( smoked/father smoked) ; Hx Alcohol Use: No Hx Substance Use: No Physical Exam Physical Exam: Patient is in bed. She is regional strength testing lower extremities. Is able to sit up reasonably well. She does have pain to percussion over the thoracolumbar region. No abnormal skin markings. Results & Data Vital Signs (Past 12 Hours) Vital Signs Temp Pulse Resp BP Pulse Ox 09/13/19 07:25 36.6 C 84 16 148/76 H 97 09/12/19 23:10 36.8 C 82 16 131/67 95 (1) T12 compression fracture Encounter type: initial encounter Qualified Code(s): S22.080A - Wedge compression fracture of T11-T12 vertebra, initial encounter for closed fracture
--- NOTE | 2019-09-13 14:52 | Hospitalist Progress Note ---
Date of Service September 13, 2019 Assessment & Plan (1) Ambulatory dysfunction: (2) Intractable back pain: (3) T12 compression fracture: -Mrs. 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 -lidocaine patch -Ice as needed and prn pain medications -PT/OT evaluations, case management management -admitting hospitalist team placed consult for Dr. Prabhakar to discuss further management due to worsening of sx/comp fx; he has ordered back brace for patient -Vitamin D levels normal as 88 ng/ml -upgraded from observation status to full admission status primarily for ambulation and mobility issues; hopefully patient's mobility can be improved when working with physical therapy services with back brace (4) Superior mesenteric artery stenosis: -s/p IR arteriogram with stent placement in superior mesenteric artery secondary to stenosis on 09/09/[address] Cartagena -continue plavix (5) Hyponatremia: -admission serum sodium 130 serum sodium on 09/12/2019 is 132, continue to trend (6) Hypothyroidism: -06/28/2019 TSH was 11; the TSH 8.5 with normal free T4 on09/12/2019 -Continue current levothyroxine (7) Vestibular migraine: -Continue verapamil -Currently denies dizziness or vertigo sensation (8) Oropharyngeal dysphagia: -Chronic -able to eat the diet in the hospital (can tolerate regular diet, bite size) (9) DVT prophylaxis: -Marie Daughter [phone] Subjective Patient seen and examined. awaiting further therapy evaluations. no vomiting. generally tolerating the pain of the back. mobility is the main issue as she is mostly in the bed. breathing on room air. no shortness of breath. no chest pain. no vomiting. no dizziness. no headache Review of Systems Review of Systems: All systems reviewed & are unremarkable except as noted in HPI & below Physical Exam Constitutional: WD/WN, vitals as above Eyes: PERRL, conjunctivae normal, anicteric sclerae EOM intact bilaterally ENMT: external ear and nose normal, oropharynx normal Neck: trachea midline, no thyromegaly normal visual inspection Respiratory: normal respiratory effort, lungs clear to auscultation normal respiratory effort Cardiovascular: Rate/Rhythm: regular rate and regular rhythm Gastrointestinal (Abdomen): normal bowel sounds, soft, nontender, no hepatosplenomegaly Musculoskeletal: Head/Neck/Chest: normocephalic and head atraumatic lidocaine patch on lower back Neurologic: PERRL, EOMI, accommodation nl, no face palsy, no dysarthria moves all extremities Psychiatric: A+Ox3, euthymic affect Results & Data Vital Signs (Past 12 Hours) Vital Signs Temp Pulse Resp BP Pulse Ox 09/13/19 07:25 36.6 C 84 16 148/76 H 97 (1) T12 compression fracture Encounter type: initial encounter Qualified Code(s): S22.080A - Wedge compression fracture of T11-T12 vertebra, initial encounter for closed fracture
[2019-09-13] MEDS: OXYCODONE HCL IR 5 MG TAB (IMMEDIATE RELEASE) PO PRN (23:29)
[2019-09-14] MEDS: LEVOTHYROXINE SODIUM 100 MCG TABLET PO SCH (05:58)
[2019-09-14] MEDS: VERAPAMIL HCL 40 MG TAB PO SCH ×4 (08:21→20:28)
[2019-09-14] MEDS: CHOLECALCIFEROL 1,000 UNITS TAB PO SCH (08:22)
[2019-09-14] MEDS: CLOPIDOGREL BISULFATE 75 MG TAB PO SCH (08:22)
[2019-09-14] MEDS: APIXABAN 2.5 MG TAB PO SCH ×2 (08:22→20:28)
[2019-09-14] MEDS: CYANOCOBALAMIN 500 MCG TABLET (VITAMIN B-12) PO SCH (08:22)
[2019-09-14] MEDS: CALCIUM 600MG + VIT D 400 IU TAB PO SCH (08:23)
[2019-09-14] MEDS: LIDOCAINE 5% 1 PATCH TD SCH (08:30)
[2019-09-14] MEDS: POLYETHYLENE (MIRALAX) 17 GM PACK PO SCH ×2 (08:33→20:28)
[2019-09-14] MEDS: ACETAMINOPHEN W/CODEINE #3 1 TAB PO PRN ×2 (09:50→16:00)
--- NOTE | 2019-09-14 16:39 | Hospitalist Progress Note ---
Date of Service September 14, 2019 Assessment & Plan (1) Ambulatory dysfunction: (2) Intractable back pain: (3) T12 compression fracture: -Mrs. 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 -lidocaine patch -Ice as needed and prn pain medications -PT/OT evaluations, case management management -admitting hospitalist team placed consult for Dr. Prabhakar to discuss further management due to worsening of sx/comp fx; he has ordered back brace for patient -Vitamin D levels normal as 88 ng/ml -07/14/2020: upgraded from observation status to full admission status primarily for ambulation and mobility issues; hopefully patient's mobility can be improved when working with physical therapy services with back brace -07/15/2020: Patient reports lower back pain but has not been in distress while being on bed. she apparently had been assessed by therapy services with back brace and because she tires easily, patient is recommended to go to physical rehabilitation center versus senior living after hospital stay. manager finance is working on insurance authorization. (4) Superior mesenteric artery stenosis: -s/p IR arteriogram with stent placement in superior mesenteric artery secondary to stenosis on 09/09/[address] Cartagena before this hospital stay -left upper extremity bruising was present on point of admission as apparently this was the access site for the vascular procedure -continue plavix -Ice on the arm as needed, IV access site removed from left wrist to prevent any new bruising issues of left upper extremity. if peripheral IV needed, it could be placed on right upper extremity (5) Hyponatremia: -admission serum sodium 130 serum sodium is more consistently around 132 since (6) Hypothyroidism: -06/28/2019 TSH was 11; the TSH 8.5 with normal free T4 on09/12/2019 -Continue current levothyroxine (7) Vestibular migraine: -Continue verapamil -Currently denies dizziness or vertigo sensation (8) Oropharyngeal dysphagia: -Chronic -able to eat the diet in the hospital (can tolerate regular diet, bite size) (9) DVT prophylaxis: -Marie Daughter [phone] Subjective Patient reports lower back pain but has not been in distress while being on bed. she apparently had been assessed by therapy services with back brace and because she tires easily, patient is recommended to go to physical rehabilitation center versus senior living after hospital stay. manager finance is working on insurance authorization. no chest pain. no shortness of breath. breathing on room air. no abdominal pain. no vomiting. no nausea. no headache. no dizziness. Review of Systems Review of Systems: All systems reviewed & are unremarkable except as noted in HPI & below Physical Exam Constitutional: WD/WN, vitals as above Eyes: PERRL, conjunctivae normal, anicteric sclerae EOM intact bilaterally ENMT: external ear and nose normal, oropharynx normal Neck: trachea midline, no thyromegaly normal visual inspection Respiratory: normal respiratory effort, lungs clear to auscultation Cardiovascular: Rate/Rhythm: regular rate and regular rhythm Gastrointestinal (Abdomen): normal bowel sounds, soft, nontender, no hepatosplenomegaly Musculoskeletal: Head/Neck/Chest: normocephalic and head atraumatic Neurologic: PERRL, EOMI, accommodation nl, no face palsy, no dysarthria moves all extremities Psychiatric: A+Ox3, euthymic affect Results & Data Vital Signs (Past 12 Hours) Vital Signs Temp Pulse Pulse Resp BP Pulse Ox 09/14/19 15:27 36.9 C 94 H 18 126/66 91 09/14/19 13:02 92 H 150/75 H 09/14/19 08:20 84 143/73 H 09/14/19 07:22 36.7 C 82 16 125/68 96 (1) T12 compression fracture Encounter type: initial encounter Qualified Code(s): S22.080A - Wedge compression fracture of T11-T12 vertebra, initial encounter for closed fracture
[2019-09-14] MEDS: OXYCODONE HCL IR 5 MG TAB (IMMEDIATE RELEASE) PO PRN ×2 (18:38→22:07)
[2019-09-15] MEDS: LEVOTHYROXINE SODIUM 112 MCG TABLET PO SCH (05:37)
[2019-09-15] MEDS: ACETAMINOPHEN W/CODEINE #3 1 TAB PO PRN ×2 (07:26→13:03)
[2019-09-15] MEDS: VERAPAMIL HCL 40 MG TAB PO SCH ×2 (07:29→12:27)
[2019-09-15] MEDS: CHOLECALCIFEROL 1,000 UNITS TAB PO SCH (08:43)
[2019-09-15] MEDS: CLOPIDOGREL BISULFATE 75 MG TAB PO SCH (08:43)
[2019-09-15] MEDS: APIXABAN 2.5 MG TAB PO SCH (08:44)
[2019-09-15] MEDS: POLYETHYLENE (MIRALAX) 17 GM PACK PO SCH (08:44)
[2019-09-15] MEDS: CYANOCOBALAMIN 500 MCG TABLET (VITAMIN B-12) PO SCH (08:44)
[2019-09-15] MEDS: CALCIUM 600MG + VIT D 400 IU TAB PO SCH (08:44)
[2019-09-15] MEDS: LIDOCAINE 5% 1 PATCH TD SCH (08:50)
--- NOTE | 2019-09-15 11:36 | Hospitalist Progress Note ---
Date of Service September 15, 2019 Assessment & Plan (1) Ambulatory dysfunction: (2) Intractable back pain: (3) T12 compression fracture: -Mrs. 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 -lidocaine patch -Ice as needed and prn pain medications -PT/OT evaluations, case management management -admitting hospitalist team placed consult for Dr. Prabhakar to discuss further management due to worsening of sx/comp fx; he has ordered back brace for patient -Vitamin D levels normal as 88 ng/ml -07/14/2020: upgraded from observation status to full admission status primarily for ambulation and mobility issues; hopefully patient's mobility can be improved when working with physical therapy services with back brace -07/15/2020: Patient reports lower back pain but has not been in distress while being on bed. she apparently had been assessed by therapy services with back brace and because she tires easily, patient is recommended to go to physical rehabilitation center versus snf after hospital stay. manager support services is working on insurance authorization. 07/16/2020: (patient should wear TLSO brace when sitting up and ambulating Patient is discharged to [facility] group home facility for physical rehabilitation pain medications and bowel movement [place] [address] phone number as this is the preferred pharmacy for [facility]. -acetaminophen 325 mg every 6 hours as needed for mild pain or fever (20 tablets prescribed) -acetaminophen-codeine (300mg/30 mg) as 0.5 mg every 4 hours as needed for moderate pain (12 tablets prescribed) -oxycodone 5 mg every 8 hours as needed for severe pain (12 tablets prescribed) -senna daily , colace twice a day for 10 days serum sodium on admission is 130, then chitra as 132. Patient had bruise of left upper extremity prior to hospital admission because of recent history of vascular procedure and currently on apixaban (Eliquis) and clopidogral (Plavix) Patient will need routine comprehensive metabolic panel and CBC labs performed in 1 week after hospital discharge Clinic follow ups 09/22/2019 11:20 AM Provider Stephan Zapata MD Department Neurology [facility] 09/23/2019 2:00 PM Provider Larry Schwartz MD Department [facility] 10/22/2019 8:30 AM Provider THANIA [facility] [place] Department Vascular Lab [facility] 10/22/2019 9:30 AM Provider Charles Cartagena MD Department Vascular Surg [facility]) (4) Superior mesenteric artery stenosis: -s/p IR arteriogram with stent placement in superior mesenteric artery secondary to stenosis on 09/09/[address] Cartagena before this hospital stay -left upper extremity bruising was present on point of admission as apparently this was the access site for the vascular procedure -continue clopidogral (Plavix); apixaban (Eliquis) (5) Hyponatremia: -admission serum sodium 130 serum sodium is more consistently around 132 since (6) Hypothyroidism: -06/28/2019 TSH was 11; the TSH 8.5 with normal free T4 on09/12/2019 -Continue current levothyroxine (7) Vestibular migraine: -Continue verapamil -Currently denies dizziness or vertigo sensation (8) Oropharyngeal dysphagia: -Chronic -able to eat the diet in the hospital (can tolerate regular diet, bite size) (9) DVT prophylaxis: -Marie Daughter [phone] Discharge diagnosis: Ambulatory dysfunction; Intractable back pain; T12 compression fracture; Hyponatremia; Superior mesenteric artery stenosis (s/p IR arteriogram with stent placement in superior mesenteric artery secondary to stenosis on 09/09/2019 prior to this admission) Subjective Patient seen and examined. no acute distress. not in severe pain. generally resting on the bed. breathing comfortably. no shortness of breath. her daughter at the bedside and we discussed discharge plans to [facility] Review of Systems Review of Systems: All systems reviewed & are unremarkable except as noted in HPI & below Physical Exam Constitutional: WD/WN, vitals as above Eyes: PERRL, conjunctivae normal, anicteric sclerae EOM intact bilaterally ENMT: external ear and nose normal, oropharynx normal Neck: trachea midline, no thyromegaly normal visual inspection Respiratory: normal respiratory effort, lungs clear to auscultation normal respiratory effort Cardiovascular: Rate/Rhythm: regular rate and regular rhythm Gastrointestinal (Abdomen): normal bowel sounds, soft, nontender, no hepatosplenomegaly Musculoskeletal: Head/Neck/Chest: normocephalic and head atraumatic Extremities: + upper extremity abnormal to inspection (left upper extremity bruising) Neurologic: PERRL, EOMI, accommodation nl, no face palsy, no dysarthria moves all extremities Psychiatric: A+Ox3, euthymic affect Results & Data Vital Signs (Past 12 Hours) Vital Signs Temp Pulse Resp BP Pulse Ox 09/15/19 07:28 36.3 C L 89 16 142/79 H 94 (1) T12 compression fracture Encounter type: initial encounter Qualified Code(s): S22.080A - Wedge compression fracture of T11-T12 vertebra, initial encounter for closed fracture
--- NOTE | 2019-09-15 11:42 | Discharge Summary ---
Date of Service September 15, 2019 Admission HPI Per Admitting Provider Mrs. 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 Daughter is at bedside. She was last seen in ED on 09/02/2019 status post fall and was found to have subsequent T12 compression fracture. She noted that she was trying to come down some stairs when she missed the last step falling down, striking back of head. Since being seen at ED she was hospitalized at [facility] on 09/09/2019 for elective IR arteriogram with stent placement in superior mesenteric artery due to mesenteric artery stenosis. She remains on Plavix and Eliquis post surgery, otherwise tolerated procedure well. Since being discharged home she been complaining of intractable back pain, difficulty ambulating due to pain. She was prescribed Tylenol 3 which mildly improved symptoms. Pain is located in lower back, directly in the middle, nonradiating, described as a, "constant ache." Denies any improvement with heat and/or ice. Overall feels symptoms have been worsening since initial presentation. No further falls. She denies any numbness or tingling in lower extremities, weakness of lower extremities, bowel or bladder incontinence. She denies any fever, chills, sweats, lightheadedness, dizziness, chest pain, shortness of breath or palpitation, cough, hemoptysis, nausea, vomiting, abdominal pain. She has been taking MiraLAX daily to avoid constipation in fear of back pain. Due to history of vestibular migraine she has difficulty tolerating narcotics. Specifically she knows she does not tolerate tramadol and oxycodone. Denies any difficulty with Tylenol 3 or IV Dilaudid this been given in ED so far. Per daughter she is scheduled to see pain management Dr. russell on 09/14/2019. In ED lumbar spine CT did reveal prior T12 compression fracture with increase in vertebral height loss and minimal retropulsion, moderate DDD. Pelvis CT was unremarkable. Chest x-ray revealed bibasilar atelectasis but otherwise no acute abnormality. Lab work notable for H&H 11.8 and 35.3, sodium 130, glucose 122, TSH 8.56, free T4 WNL. She did receive IV Dilaudid and lidocaine patch while in ED. Mild improvement in symptoms. Admission Exam Per Admitting Provider Constitutional: WD/WN, elderly, female, lying in left lateral decubitus position, vitals as above, and noticeable pain, pleasant, conversing easily Head: Normocephalic, Atraumatic Eyes: PERRL, conjunctivae normal, anicteric sclerae ENMT: external ear and nose normal, oropharynx normal Neck: trachea midline, no thyromegaly normal visual inspection Respiratory: Decreased inspiratory effort secondary to pain, lungs clear to auscultation, with bibasilar crackles, no wheeze or rhonchi. No accessory muscle use Cardiovascular: RRR, no murmur, no edema, left upper extremity with significant ecchymosis, vessels: no JVD or carotid bruit Chest: normal inspection of chest Abdomen: normal bowel sounds, soft, nontender, no hepatosplenomegaly Musculoskeletal: no cyanosis or clubbing, extremities motor strength 5/5 , pain to palpation low back in area of T12 Skin: no rashes, warm and dry normal turgor Neurologic: PERRL, EOMI, accommodation nl, no face palsy, no dysarthria CN's II-XI intact bilaterally and moves all extremities Psychiatric: A+Ox3, euthymic affect Lymphatic: no cervical or axillary lymphadenopathy : deferred Principal Diagnosis Ambulatory dysfunction; Intractable back pain; T12 compression fracture; Hyponatremia; Superior mesenteric artery stenosis (s/p IR arteriogram with stent placement in superior mesenteric artery secondary to stenosis on 09/09/2019 prior to this admission) Discharge Exam Constitutional WD/WN, vitals as above Eyes PERRL, conjunctivae normal, anicteric sclerae EOM intact bilaterally ENMT external ear and nose normal, oropharynx normal Neck trachea midline, no thyromegaly normal visual inspection Respiratory normal respiratory effort, lungs clear to auscultation normal respiratory effort Cardiovascular Rate/Rhythm: regular rate and regular rhythm Gastrointestinal (Abdomen) normal bowel sounds, soft, nontender, no hepatosplenomegaly Musculoskeletal Head/Neck/Chest: normocephalic and head atraumatic Extremities: + upper extremity abnormal to inspection (left upper extremity bruising) Neurologic PERRL, EOMI, accommodation nl, no face palsy, no dysarthria moves all extremities Psychiatric A+Ox3, euthymic affect Discharge Data Allergies Allergy/AdvReac Type Severity Reaction Status Date / Time erythromycin base AdvReac Intermediate MYCIN Verified 09/11/19 17:23 DRUGS-YEAST INFECTIONS tramadol AdvReac Intermediate vestibular Verified 09/11/19 18:51 sx adhesive tape AdvReac PEELING OF Unverified 09/11/19 17:23 SKIN Consultations 09/11/19 17:26 ED Decision to Admit Stat 09/11/19 20:39 Consult Case Management - Discharge Planning Routine Consult Orthopedic Surgery Routine Ordered Studies 09/11/19 15:49 CT lumbar spine wo con Stat CT pelvis wo con Stat Hospital Course (1) Ambulatory dysfunction: (2) Intractable back pain: (3) T12 compression fracture: -Mrs. 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 -lidocaine patch -Ice as needed and prn pain medications -PT/OT evaluations, case management management -admitting hospitalist team placed consult for Dr. Prabhakar to discuss further management due to worsening of sx/comp fx; he has ordered back brace for patient -Vitamin D levels normal as 88 ng/ml -07/14/2020: upgraded from observation status to full admission status primarily for ambulation and mobility issues; hopefully patient's mobility can be improved when working with physical therapy services with back brace -07/15/2020: Patient reports lower back pain but has not been in distress while being on bed. she apparently had been assessed by therapy services with back br josy and because she tires easily, patient is recommended to go to physical rehabilitation center versus halfway after hospital stay. manager development is working on insurance authorization. 07/16/2020: (patient should wear TLSO brace when sitting up and ambulating Patient is discharged to [facility] nursing facility for physical rehabilitation pain medications and bowel movement [facility] [place] [address] phone number as this is the preferred pharmacy for [facility]. -acetaminophen 325 mg every 6 hours as needed for mild pain or fever (20 tablets prescribed) -acetaminophen-codeine (300mg/30 mg) as 0.5 mg every 4 hours as needed for moderate pain (12 tablets prescribed) -oxycodone 5 mg every 8 hours as needed for severe pain (12 tablets prescribed) -5 lidocaine patches -senna daily , colace twice a day for 10 days serum sodium on admission is 130, then chitra as 132. Patient had bruise of left upper extremity prior to hospital admission because of recent history of vascular procedure and currently on apixaban (Eliquis) and clopidogral (Plavix) Patient will need routine comprehensive metabolic panel and CBC labs performed in 1 week after hospital discharge Clinic follow ups 09/22/2019 11:20 AM Provider Stephan Zapata MD Department Neurology [facility] 09/23/2019 2:00 PM Provider Larry Schwartz MD Department [facility] 10/22/2019 8:30 AM Provider THANIA Tee [facility] [facility] 10/22/2019 9:30 AM Provider Charles Cartagena MD Department Vascular Surg [facility]) (4) Superior mesenteric artery stenosis: -s/p IR arteriogram with stent placement in superior mesenteric artery secondary to stenosis on 09/09/[address] Cartagena before this hospital stay -left upper extremity bruising was present on point of admission as apparently this was the access site for the vascular procedure -continue clopidogral (Plavix); apixaban (Eliquis) (5) Hyponatremia: -admission serum sodium 130 serum sodium is more consistently around 132 since (6) Hypothyroidism: -06/28/2019 TSH was 11; the TSH 8.5 with normal free T4 on09/12/2019 -Continue current levothyroxine (7) Vestibular migraine: -Continue verapamil -Currently denies dizziness or vertigo sensation (8) Oropharyngeal dysphagia: -Chronic -able to eat the diet in the hospital (can tolerate regular diet, bite size) (9) DVT prophylaxis: -Marie Daughter [phone] Discharge diagnosis: Ambulatory dysfunction; Intractable back pain; T12 compression fracture; Hyponatremia; Superior mesenteric artery stenosis (s/p IR arteriogram with stent placement in superior mesenteric artery secondary to stenosis on 09/09/2019 prior to this admission) Total Time Total Time Spent Total Time Spent (In Minutes): 40 minutes Total Time Includes: Examination of the Patient, Discharge Planning, Medication Reconciliation and Communication With Other Providers Discharge Plan Discharge Items Patient Disposition: Home - Self-Care Reason For Visit: INTRACTABLE PAIN, COMPRESSION FX, AMBULATORY DYSFU Discharge Diagnosis: Ambulatory dysfunction; Intractable back pain; T12 compression fracture; Hyponatremia; Superior mesenteric artery stenosis (s/p IR arteriogram with stent placement in superior mesenteric artery secondary to stenosis on 09/09/2019 prior to this admission) Condition on Discharge: Good Activity: Per Instructions section Weightbearing: Full weightbearing Non-emergency contact: Primary Care Provider Call non-emergency contact if: you have any medication questions Follow-up/Referrals: Larry Schwartz [Other] Diet: Heart Healthy Diet Texture: Dental soft (bite-sized) Addtl Attending Provider Instructions: patient should wear TLSO brace when sitting up and ambulating Patient is discharged to [facility] for physical rehabilitation pain medications and bowel movement medications [place] [address] phone number as this is the preferred pharmacy for [facility]. -acetaminophen 325 mg every 6 hours as needed for mild pain or fever (20 tablets prescribed) -acetaminophen-codeine (300mg/30 mg) as 0.5 mg every 4 hours as needed for mod erate pain (12 tablets prescribed) -oxycodone 5 mg every 8 hours as needed for severe pain (12 tablets prescribed) -5 lidocaine patches -senna daily , colace twice a day for 10 days serum sodium on admission is 130, then chitra as 132. Patient had bruise of left upper extremity prior to hospital admission because of recent history of vascular procedure and currently on apixaban (Eliquis) and clopidogral (Plavix) Patient will need routine comprehensive metabolic panel and CBC labs performed in 1 week after hospital discharge Clinic follow ups 09/22/2019 11:20 AM Provider Stephan Zapata MD Department Neurology [facility] 09/23/2019 2:00 PM Provider Larry Schwartz MD Department [facility] 10/22/2019 8:30 AM Provider THANIA USTee [facility] Department Vascular Lab [facility] 10/22/2019 9:30 AM Provider Charles Cartagena MD Department Vascular Surg [facility] Pending Studies at Discharge: No Stand-Alone Forms: My [facility], Smoking Cessation Medications and DC Order Prescriptions: New lidocaine 5 % Adhesive Patch,Medicated 1 patch transdermal QAM 5 Days Qty: 5 RF: 0 oxycodone 5 mg Tablet 5 mg PO Q8H PRN (Reason: severe pain) 4 Days Qty: 12 RF: 0 acetaminophen 325 mg tablet 325 mg PO Q6H PRN (Reason: mild pain or fever) 5 Days Qty: 20 RF: 0 acetaminophen-codeine 300-30 mg Tablet 0.5 tab PO Q4H PRN (Reason: moderate pain) 4 Days Qty: 12 RF: 0 senna 8.6 mg capsule 8.6 mg PO DAILY 10 Days Qty: 10 RF: 0 docusate sodium [Colace] 100 mg capsule 100 mg PO BID 10 Days Qty: 20 RF: 0 Continued apixaban 2.5 mg tablet 2.5 mg PO BID Qty: 60 RF: 5 levothyroxine 100 mcg tablet 100 mcg PO SUTUTHSA RF: 0 cyanocobalamin (vitamin B-12) [Vitamin B-12] 500 mcg Tablet 500 mcg PO QAM RF: 0 levothyroxine 112 mcg tablet 112 mcg PO MOWEFR RF: 0 verapamil 40 mg tablet 40 mg PO QID RF: 0 polyethylene glycol 3350 [Miralax] 17 gram Powder In Packet 17 g PO HS RF: 0 calcium carbonate-vitamin D3 600 mg(1,500mg) -400 unit Tablet,Chewable 1 tab PO DAILY RF: 0 clopidogrel 75 mg Tablet 75 mg PO QAM RF: 0 pantoprazole 40 mg Tablet,Delayed Release (Dr/Ec) 40 mg PO QAM RF: 0 cholecalciferol (vitamin D3) [Vitamin D3] 1,000 unit Tablet,Chewable 2,000 unit PO QAM RF: 0 lidocaine 5 % Adhesive Patch,Medicated 1 patch TOPICAL DAILY RF: 0 Discontinued acetaminophen-codeine 300-30 mg tablet 1 tab PO Q4H PRN (Reason: Pain) RF: 0 Children's Tylenol 160 mg Tablet,Chewable 160 mg PO QID PRN (Reason: Pain) RF: 0 Discharge Orders: Discharge Order (Routine); Ordered 09/15/19 Ordered By: Saurav Gold Admission Data Admit Date/Time: 09/13/19 14:51 Attending Provider: Kimberlyn Calderon Admit Provider: Stephan Dumont Primary Care Provider: Larry Schwartz Other Providers: [facility] ; Stephan Dumont ; Osman Prabhakar ; [place],[facility] ; [place] Supervising Physician Co-Signing Physician Notes HISTORY: Record reviewed. Patient interviewed and examined. Care coordinated with Cailin Keller PA-C. Please refer to her documentation for complete history. Briefly, 84-year-old female with history of pulmonary embolism, vestibular migraine, SMA stenosis. She fell couple weeks ago and suffered compression fracture of T12. Experiencing ongoing severe low back pain and difficulty ambulating despite outpatient measures. EXAM: General- no distress Lungs- clear to auscultation; no respiratory distress Cardiovascular- RRR; no JVD; no pretibial edema Abdomen- + bowel sounds, soft, nontender Back- no spinal / paraspinal tenderness (after 2 doses of hydromorphone) Extremities- no cyanosis; no calf tenderness Neuro- alert, oriented; motor strength lower extremities grossly intact Skin- warm & dry DATA: Hemoglobin 11.8, white count 6620, platelet count 314,000. Sodium 130, potassium 4.1, chloride 95, carbon dioxide 29, BUN 10, creatinine 0.77, random glucose 142. Other lab studies as noted. Chest x-ray showed bibasilar opacities, probable atelectasis. CT lumbar spine demonstrated T12 compression fracture, slightly worse compared to 09/02/2019. Multilevel degenerative changes also noted. CT of pelvis did not show any apparent fracture within the pelvis or hips. EKG performed at 1613 reviewed and showed normal sinus rhythm at 90/minute, no acute changes. ASSESSMENT AND PLAN: T12 compression fraction with persistent severe pain and difficulty ambulating. Intolerant of tramadol and other analgesics. Tolerates low dose of codeine. Better relief of pain with hydromorphone 0.25 mg IV in ED. Has been utilizing lidocaine patch. Titrate analgesics. Check vitamin D level. Continue calcium and vitamin D supplementation. PT/OT evaluations. Consult Ortho Spine. Please refer to ALONSO Keller's documentation for discussion of other issues.
== END 2019-09-15 14:25 | DRG 542 ==
LOC: ED 15:18 → 2N 15:18 → SUATTDRO 18:35 → 2N 19:57 → 3W 09-12 10:32 → SUATTDRO 09-13 14:51

== ENCOUNTER 2019-09-24 20:25 | Observation (INO) ==
[2019-09-24 20:56] LABS: Basophils # (auto) 0.02 K/uL (0-0.2); Basophils % (auto) 0.4 %; Eosinophils # (auto) 0.05 K/uL (0-0.5); Hematocrit (blood only) 39.2 % (37-47); Hemoglobin 13.1 g/dL (12.0-16.0); Immature Granulocytes # (auto) 0.04 K/uL (0.00-0.02); Immature Granulocytes % (auto) 0.8 %; Lymphocytes # (auto) 1.19 K/uL (1.2-3.4); Lymphocytes % (auto) 23.3 %; Mean Corpuscular Hemoglobin 30.3 pg (25-34); Mean Corpuscular Hgb Conc 33.4 g/dL (32-36); Mean Corpuscular Volume 90.7 fL (80-100); Mean Platelet Volume 9.2 fL (7.4-10.4); Monocytes # (auto) 0.66 K/uL (0.11-0.59); Monocytes % (auto) 12.9 %; Neutrophils # (auto) 3.14 K/uL (1.4-6.5); Neutrophils % (auto) 61.6 %; Platelet Count 385 K/uL (130-400); RDW Coefficient of Variation 13.8 % (11.5-14.5); RDW Standard Deviation 45.8 fL (36.4-46.3); Red Blood Count 4.32 M/uL (4.2-5.4)
[2019-09-24 21:11] LABS: Appearance Urine Clear (Clear); Bilirubin Urine Negative (Negative); Blood Urine Trace (Negative); Color Urine Yellow; Glucose Urine UA Negative (Negative); Ketones Urine Negative (Negative); Leukocyte Esterase Urine Negative (Negative); Nitrite Urine Negative (Negative); Protein Urine Negative (Negative); Specific Gravity Urine 1.005 (1.000-1.030); Urobilinogen Urine Negative (Negative); pH Urine 7.5 (4.5-7.5)
[2019-09-24] MEDS ORDERED: ONDANSETRON INJ 2 MG/ML 2 ML VIAL IV STA (21:11)
[2019-09-24] MEDS ORDERED: HYDROmorphone INJ 0.5 MG/0.5 ML SYR IV STA (21:11)
[2019-09-24 21:13] LABS: Albumin Level 3.6 gm/dl (3.4-5.0); Calcium 9.2 mg/dl (8.5-10.1); Creatinine Clr Calc Pharmacy 51.5 ml/min; Est GFR (African American) 88.5; Est GFR (Non-African American) 76.4
[2019-09-24 21:15] LABS: Bilirubin,Total 0.3 mg/dl (0.2-1); Globulin 3.7 gm/dl (2.5-4.0); Total Protein 7.3 gm/dl (6.4-8.2)
[2019-09-24 21:26] LABS: Bacteria Urine Automated Negative (Negative); Cast Urine Automated 0 /lpf (0-5); RBC Urine Automated 0-4 /hpf (0-4)
[2019-09-24] MEDS ORDERED: OPTIRAY 320 125ml IV PRN (21:31)
--- NOTE | 2019-09-24 22:21 | CT Scan Report ---
CT angio abdomen pelvis w con HISTORY: mid abd pain, recent SMA stent TECHNIQUE: Multiaxial CT images of the abdomen and pelvis were performed following the use of intrave nous contrast to evaluate the major arterial structures. Maximal intensity projection images were als o obtained. COMPARISON STUDY: Abdomen and pelvis CT 09/02/2019. FINDINGS: No change in the mild superior endplate compression deformity at T12. The visualized lung b ases are essentially clear. No pneumoperitoneum. No pneumatosis. Subtle nodular contour to the liver. This suggests early cirrhosis. No hepatic or splenic masses. Prior cholecystectomy. Normal pancreas. Bilateral cortical renal thinning. This is likely age-related. No hydronephrosis. No retroperitoneal lymphadenopathy. Normal bladder. The uterus is surgically absent. Extensive colonic diverticulosis. No evidence for diverticulitis. No bowel wall thickening or obstruction. Mild calcified plaque within the tortuous abdominal aorta. No evidence for an abdominal aortic aneury sm or dissection. The iliac arteries are widely patent. Mild focal narrowing of approximately 30% at the takeoff of the celiac artery. The hepatic, splenic, and left gastric arteries are patent. There i s a proximal stent within the superior mesenteric artery which is widely patent. No stenosis, occlusi on, or dissection within the superior mesenteric or inferior mesenteric arteries. There are single bi lateral renal arteries which demonstrate a slightly beaded appearance but remain patent. This favors fibromuscular dysplasia. IMPRESSION: 1. A proximal stent within the superior mesenteric artery which is patent. 2. 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 3. The remaining mesenteric vessels are patent. 4. There are single bilateral renal arteries which demonstrate a slightly beaded appearance but remai n patent. This favors fibromuscular dysplasia. 5. Slightly nodular contour to the liver suggestive of early cirrhosis. 6. Cholecystectomy. 7. No bowel wall thickening or obstruction. 8. Colonic diverticulosis. ACT 112: Negative or not required by law. Electronically signed by: Omkar Oscar M.D. 09/24/2019 10:19 PM
[2019-09-24] MEDS ORDERED: fentaNYL citrate 100 MCG/2 ML VIAL IV STA (22:56)
[2019-09-24] MEDS ORDERED: SODIUM CHLORIDE 0.9% 1000ML 1,000 ML IV STA (22:56)
--- NOTE | 2019-09-24 23:32 | Emergency Department Note ---
Entered by Mary Puri acting as a scribe for Stephan Moody MD ED Provider Note CHIEF COMPLAINT: abdominal pain HISTORY OF PRESENT ILLNESS: The patient is a 84 year old female who presents to the Emergency Room with complaints of abdominal pain that began yesterday.The patient had a mesenteric artery stent placed on the about 2 weeks ago, which is where most of her pain is. The patients abdominal pain started yesterday, and worsened today. She describes the pain as a tightness in her abdomen. [facility] sees the patient, and the nurse came this morning and took a urine sample. The results came back positive for a UTI, and the patient was started on Keflex around 1700 today. Pt denies LOC, headache, fevers, chills, diaphoresis, visual changes, neck pain, chest pain, breathing difficulties, nausea, vomiting, back pain, melena, hematochezia, urinary symptoms, numbness, weakness, lymphadenopathy, rash, or other complaints. REVIEW OF SYSTEMS: See HPI for pertinent positives and negatives. A total of ten systems were reviewed and were otherwise negative. PMHx/PSHx: Mesenteric stent Appendectomy Cholecystectomy Cervical cancer SOCIAL HISTORY: Patient lives at home. PHYSICAL EXAM: GENERAL: Awake, alert, uncomfortable-appearing. HENT: Normocephalic, atraumatic. Oropharynx unremarkable. EYES: PERRL. Normal conjunctiva. Sclera non-icteric. NECK: Inspection normal. Non-tender. Supple. No nuchal rigidity. FROM. No masses. RESPIRATORY: Clear to auscultation. No wheezes. No rales. Normal respiratory effort. CARDIAC: Normal rate. Normal rhythm. No murmurs. No rubs. Extremities warm and well perfused. Pulses equal. No JVD. GI: Epigastric tenderness. Soft, non-distended. No rebound or guarding. No masses. RECTAL: Deferred. MUSCULOSKELETAL: Atraumatic. Chest examination reveals no tenderness. The back is symmetrical on inspection without obvious abnormality. There is no CVA tenderness to palpation. No joint edema. LOWER EXTREMITIES: Calves are equal size bilaterally and non-tender. No edema. No discoloration. NEURO: Normal sensorium. No sensory or motor deficits noted. SKIN: No rash or jaundice noted. EMERGENCY DEPARTMENT COURSE: 2102: Past medical records reviewed. The patient was evaluated in room B09, and a complete history and physical examination were performed. 5: I updated and rechecked on the patient, who is not feeling any better. [facility]. The patient and daughter were agreeable. 2330: I spoke to [facility]. David[facility], who agreed to take over care of the patient. The patient is agreeable with this plan and will be evaluated f or further treatment. MEDICAL DECISION MAKING: Prior records/ancillary studies reviewed. Triage Nursing notes reviewed and agree them. Additional history obtained from the patient's daughter. The patient's history was concerning for abdominal pain. Differential diagnosis: Etiologies such as appendicitis, diverticulitis, PUD, biliary pathology, UTI, pancreatitis, obstruction, mesenteric ischemia, aortic pathology, infections, inflammatory bowel disease, renal colic, cardiac sources, as well as others were entertained. Physical examination findings: As above. ER treatment provided: Saline hydration IV Dilaudid IV fentanyl IV Zofran On reassessment the patient felt minimally better. Diagnostics interpreted by me: ECG: Normal without ischemia. The labs revealed an unremarkable CBC and chemistry panel. LFTs and lipase negative. Urinalysis negative lactate normal. Imaging studies: CT scan of the abdomen pelvis angiography was performed. Blood vessels patent. Fibromuscular dysplasia noted in renal arteries but patent. No intra-abdominal pathology noted otherwise. The patient feels generally ill. She has unexplained upper abdominal discomfort . Given her symptomatology without an obvious diagnosis I discussed treatment in the hospital. Patient and family were in agreement as she felt too ill to go home. Consultation: [facility] The case was discussed and diagnostics were reviewed. The patient was evaluated in the ER for further treatment. IMPRESSION: Upper Abdominal pain Generalized malaise PLAN: Admit The scribe's documentation has been prepared under my direction and personally reviewed by me in its entirety. I confirm that the note above accurately reflects all work, treatment, procedures, and medical decision making performed by me. Impression & Plan Upper abdominal pain, Malaise Past Med/Surg History Medical History Abdominal pain (Acute) Anxiety Cervical cancer at age 29--sx Depression Difficulty swallowing History of gastric ulcer Hypothyroidism On anticoagulant therapy eliquis daily Oropharyngeal dysphagia Osteoarthritis Pulmonary embolism reason for eliquis Tinnitus of both ears Transient ischemic attack (TIA) 2014--follows with Dr. Zapata--no deficits Vertigo (Acute) Vestibular migraine reason for verapamil Surgical History History of adenoidectomy History of appendectomy (Acute) History of bilateral cataract extraction History of cholecystectomy (Acute) History of colonoscopy History of hysterectomy (Acute) History of tonsillectomy History of tooth extraction Family History Son Family history of diabetes mellitus Social History Preferred Language: Dominican Communication Ability: Effective Design Draftsman Required: No Beliefs That Will Affect Care: None marital status: / Current Living Situation: Alone current occupational status: retired Feels Safe at Home: Yes Smoking Status: Former smoker Second Hand Exposure: Yes ( smoked/father smoked) ; Hx Alcohol Use: No Hx Substance Use: No Results & Data Vital Signs Vital Signs - 24 hr 09/24/19 20:25 09/24/19 20:38 09/24/19 21:00 Temperature 36.4 C L Temperature Source Oral Pulse Rate 88 83 86 Pulse Rate [Right] Pulse Rhythm Regular Pulse Rhythm [Right] Pulse Strength Normal Pulse Strength [Right] Respiratory Rate 18 14 20 Respiratory Effort / Characteristics Non-Labored Spontaneous Respiratory Depth Normal Respiratory Pattern Regular Blood Pressure 172/101 H 170/94 H 163/100 H Blood Pressure [Right Arm] Blood Pressure Mean 124 121 119 Blood Pressure Mean [Right Arm] Blood Pressure Position Lying Pulse Oximetry 95 Oxygen Delivery Method Room Air Sepsis Recent Fever Within 48 Hours Yes Sepsis New/Unexplained Change in Mental Status No Sepsis Action Taken by Nursing No Action Required 09/24/19 22:22 09/24/19 22:30 09/24/19 23:09 Temperature Temperature Source Pulse Rate 86 90 Pulse Rate [Right] 87 Pulse Rhythm Pulse Rhythm [Right] Regular Pulse Strength Pulse Strength [Right] Normal Respiratory Rate 27 H 12 16 Respiratory Effort / Characteristics Non-Labored Spontaneous Respiratory Depth Normal Respiratory Pattern Blood Pressure 174/92 H 140/85 Blood Pressure [Right Arm] 150/83 H Blood Pressure Mean 121 98 Blood Pressure Mean [Right Arm] 105 Blood Pressure Position Pulse Oximetry 94 Oxygen Delivery Method Room Air Sepsis Recent Fever Within 48 Hours Sepsis New/Unexplained Change in Mental Status Sepsis Action Taken by [facility] Medications Current Medication List: was personally reviewed by me Laboratory Data Attestation: I reviewed the patient's lab results. Result diagrams: 09/24/19 20:20 09/24/19 20:20 Lab Results 09/24/19 09/24/19 09/24/19 Range/Units 20:20 20:20 20:34 WBC 5.10 (4.8-10.8) K/uL RBC 4.32 (4.2-5.4) M/uL Hgb 13.1 (12.0-16.0) g/dL Hct 39.2 (37-47) % MCV 90.7 (80-100) fL MCH 30.3 (25-34) pg MCHC 33.4 (32-36) g/dL RDW Std Deviation 45.8 (36.4-46.3) fL RDW Coeff of Bety 13.8 (11.5-14.5) % Plt Count 385 (130-400) K/uL MPV 9.2 (7.4-10.4) fL Immature Gran % (Auto) 0.8 % Neut % (Auto) 61.6 % Lymph % (Auto) 23.3 % [place] % (Auto) 12.9 % Eos % (Auto) 1.0 % Baso % (Auto) 0.4 % Immature Gran # (Auto) 0.04 H (0.00-0.02) K/uL Neut # (Auto) 3.14 (1.4-6.5) K/uL Lymph # (Auto) 1.19 L (1.2-3.4) K/uL [place] # (Auto) 0.66 H (0.11-0.59) K/uL Eos # (Auto) 0.05 (0-0.5) K/uL Baso # (Auto) 0.02 (0-0.2) K/uL Sodium 131 L (136-145) mmol/L Potassium 4.0 (3.5-5.1) mmol/L Chloride 97 L (98-107) mmol/L Carbon Dioxide 29 (21-32) mmol/L Anion Gap 5.0 (3-11) BUN 14 (7-18) mg/dl Creatinine 0.72 (0.6-1.2) mg/dl Est Cr Clr Drug Dosing 51.5 ml/min Est GFR ( Amer) 88.5 Est GFR (Non-Af Amer) 76.4 BUN/Creatinine Ratio 19.0 (10-20) Glucose 111 H (70-99) mg/dl Lactate (0.4-2.0) mmol/L Calcium 9.2 (8.5-10.1) mg/dl Total Bilirubin 0.3 (0.2-1) mg/dl AST 16 (15-37) U/L ALT 24 (12-78) U/L Alkaline Phosphatase 116 (45-117) U/L Total Protein 7.3 (6.4-8.2) gm/dl Albumin 3.6 (3.4-5.0) gm/dl Globulin 3.7 (2.5-4.0) gm/dl Albumin/Globulin Ratio 1.0 (0.9-2) Lipase 194 (73-393) U/L Urine Color Yellow Urine Appearance Clear (Clear) Urine pH 7.5 (4.5-7.5) Ur Specific [place] 1.005 (1.000-1.030) Urine Protein Negative (Negative) Urine Glucose (UA) Negative (Negative) Urine Ketones Negative (Negative) Urine Blood Trace H (Negative) Urine Nitrite Negative (Negative) Urine Bilirubin Negative (Negative) Urine Urobilinogen Negative (Negative) Ur Leukocyte Esterase Negative (Negative) Urine WBC (Auto) 1-5 (0-5) /hpf Urine RBC (Auto) 0-4 (0-4) /hpf U Hyaline Cast (Auto) 0 (0-5) /lpf U Epithel Cells (Auto) 5-10 H (0-5) /lpf Urine Bacteria (Auto) Negative (Negative) 09/24/19 Range/Units 21:36 WBC (4.8-10.8) K/uL RBC (4.2-5.4) M/uL Hgb (12.0-16.0) g/dL Hct (37-47) % MCV (80-100) fL MCH (25-34) pg MCHC (32-36) g/dL RDW Std Deviation (36.4-46.3) fL RDW Coeff of Bety (11.5-14.5) % Plt Count (130-400) K/uL MPV (7.4-10.4) fL Immature Gran % (Auto) % Neut % (Auto) % Lymph % (Auto) % [place] % (Auto) % Eos % (Auto) % Baso % (Auto) % Immature Gran # (Auto) (0.00-0.02) K/uL Neut # (Auto) (1.4-6.5) K/uL Lymph # (Auto) (1.2-3.4) K/uL [place] # (Auto) (0.11-0.59) K/uL Eos # (Auto) (0-0.5) K/uL Baso # (Auto) (0-0.2) K/uL Sodium (136-145) mmol/L Potassium (3.5-5.1) mmol/L Chloride (98-107) mmol/L Carbon Dioxide (21-32) mmol/L Anion Gap (3-11) BUN (7-18) mg/dl Creatinine (0.6-1.2) mg/dl Est Cr Clr Drug Dosing ml/min Est GFR ( Amer) Est GFR (Non-Af Amer) BUN/Creatinine Ratio (10-20) Glucose (70-99) mg/dl Lactate 1.5 (0.4-2.0) mmol/L Calcium (8.5-10.1) mg/dl Total Bilirubin (0.2-1) mg/dl AST (15-37) U/L ALT (12-78) U/L Alkaline Phosphatase (45-117) U/L Total Protein (6.4-8.2) gm/dl Albumin (3.4-5.0) gm/dl Globulin (2.5-4.0) gm/dl Albumin/Globulin Ratio (0.9-2) Lipase (73-393) U/L Urine Color Urine Appearance (Clear) Urine pH (4.5-7.5) Ur Specific [place] (1.000-1.030) Urine Protein (Negative) Urine Glucose (UA) (Negative) Urine Ketones (Negative) Urine Blood (Negative) Urine Nitrite (Negative) Urine Bilirubin (Negative) Urine Urobilinogen (Negative) Ur Leukocyte Esterase (Negative) Urine WBC (Auto) (0-5) /hpf Urine RBC (Auto) (0-4) /hpf U Hyaline Cast (Auto) (0-5) /lpf U Epithel Cells (Auto) (0-5) /lpf Urine Bacteria (Auto) (Negative) Administered Medications Sodium Chloride (Nss 1000ml) 1,000 mls @ 125 mls/hr IV .Q8H STA Stop: 09/25/19 06:55 Last Admin: 09/24/19 23:09 Dose: 125 mls/hr Documented by: [id number] Ioversol (Optiray 320 125ml) 115 ml IV ONCE PRN PRN Reason: Interaction Checking Stop: 09/28/19 21:30 Last Admin: 09/24/19 21:32 Dose: 1 ml Documented by: [id number] Discontinued Medications Fentanyl Citrate (Fentanyl Citrate) 25 mcg IV NOW STA Stop: 09/24/19 22:57 Last Admin: 09/24/19 23:09 Dose: 25 mcg Documented by: [id number] Hydromorphone HCl (Dilaudid) 0.25 mg IV NOW STA Stop: 09/24/19 21:12 Last Admin: 09/24/19 21:28 Dose: 0.25 mg Documented by: [id number] Ondansetron HCl (Zofran) 4 mg IV NOW STA Stop: 09/24/19 21:12 Last Admin: 09/24/19 21:28 Dose: 4 mg Documented by: [id number] Imaging Data Radiologist's Impression: Radiology results as stated below per my review and the radiologist's interpretation: CT angio abdomen pelvis w con HISTORY: mid abd pain, recent SMA stent TECHNIQUE: Multiaxial CT images of the abdomen and pelvis were performed following the use of intravenous contrast to evaluate the major arterial structures. Maximal intensity projection images were also obtained. COMPARISON STUDY: Abdomen and pelvis CT 09/02/2019. FINDINGS: No change in the mild superior endplate compression deformity at T12. The visualized lung bases are essentially clear. No pneumoperitoneum. No pneumatosis. Subtle nodular contour to the liver. This suggests early cirrhosis. No hepatic or splenic masses. Prior cholecystectomy. Normal pancreas. Bilateral cortical renal thinning. This is likely age-related. No hydronephrosis. No retroperitoneal lymphadenopathy. Normal bladder. The uterus is surgically absent. Extensive colonic diverticulosis. No evidence for diverticulitis. No bowel wall thickening or obstruction. Mild calcified plaque within the tortuous abdominal aorta. No evidence for an abdominal aortic aneurysm or dissection. The iliac arteries are widely patent. Mild focal narrowing of approximately 30% at the takeoff of the celiac artery. The hepatic, splenic, and left gastric arteries are patent. There is a proximal stent within the superior mesenteric artery which is widely patent. No stenosis, occlusion, or dissection within the superior mesenteric or inferior mesenteric arteries. There are single bilateral renal arteries which demonstrate a slightly beaded appearance but remain patent. This favors fibromuscular dysplasia. IMPRESSION: 1. A proximal stent within the superior mesenteric artery which is patent. 2. 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 3. The remaining mesenteric vessels are patent. 4. There are single bilateral renal arteries which demonstrate a slightly beaded appearance but remain patent. This favors fibromuscular dysplasia. 5. Slightly nodular contour to the liver suggestive of early cirrhosis. 6. Cholecystectomy. 7. No bowel wall thickening or obstruction. 8. Colonic diverticulosis. ACT 112: Negative or not required by law. Electronically signed by: Omkar Oscar M.D. 09/24/2019 10:19 PM ECG Data Attestation: I personally reviewed and interpreted this ECG as follows: Indication: + abdominal pain Rate (beats per minute): 82 Rhythm: normal sinus ECG Intervals/blocks: + Normal QRS ECG [place]: + Normal ECG ST segments: no ST depression and no ST elevation ECG Findings: no PACs and no PVCs Blood Pressure Blood Pressure Findings: Elevated blood pressure Blood Pressure Disposition: further management by hospitalist Discharge Plan Visit Data Chief Complaint: Abdominal Pain Stated Complaint: uti,abd pain ED Provider: Stephan Moody Discharge Problem: Upper abdominal pain, Malaise Forms Stand Alone Forms: My [facility] Prescriptions Prescriptions: No Action apixaban 2.5 mg tablet 2.5 mg PO BID Qty: 60 RF: 5 levothyroxine 100 mcg tablet 100 mcg PO 4XWK RF: 0 cyanocobalamin (vitamin B-12) [Vitamin B-12] 500 mcg Tablet 500 mcg PO QAM RF: 0 levothyroxine 112 mcg tablet 112 mcg PO 3XWK RF: 0 verapamil 40 mg tablet 40 mg PO QID RF: 0 polyethylene glycol 3350 [Miralax] 17 gram Powder In Packet 17 g PO HS PRN (Reason: Constipation) RF: 0 clopidogrel 75 mg Tablet 75 mg PO QAM RF: 0 pantoprazole 40 mg Tablet,Delayed Release (Dr/Ec) 40 mg PO QAM RF: 0 lidocaine 5 % Adhesive Patch,Medicated 1 patch TOPICAL QAM RF: 0 acetaminophen [Tylenol] 325 mg Tablet 650 mg PO Q6H PRN (Reason: Pain) RF: 0 cephalexin 250 mg capsule 250 mg PO TID RF: 0 oxycodone 5 mg tablet 2.5 mg PO Q4H PRN (Reason: Pain) RF: 0 cholecalciferol (vitamin D3) [Vitamin D3] 2,000 unit Tablet 2,000 unit PO QAM RF: 0 calcium-vitamin D3-vitamin K [Viactiv] 650 mg-12.5 mcg-40 mcg Tablet,Chewable 2 tab PO QAM RF: 0 docusate sodium [Colace] 100 mg capsule 100 mg PO BID PRN (Reason: Constipation) RF: 0 The scribe's documentation has been prepared under my direction and personally reviewed by me in its entirety. I confirm that the note above accurately reflects all work, treatment, procedures, and medical decision making performed by me.
[2019-09-25] MEDS ORDERED: DOCUSATE SODIUM 100 MG CAP PO PRN (00:58)
[2019-09-25] MEDS ORDERED: D5W AND NSS 1,000 ML IV SCH ×2 (00:58→13:00)
[2019-09-25] MEDS ORDERED: ACETAMINOPHEN 325 MG TAB PO PRN (00:58)
[2019-09-25] MEDS ORDERED: POLYETHYLENE (MIRALAX) 17 GM PACK PO PRN (00:58)
[2019-09-25] MEDS ORDERED: VERAPAMIL HCL 40 MG TAB PO STA (01:24)
[2019-09-25] MEDS ORDERED: PNEUMOCOCCAL POLYSACCHARIDES 25 MCG/0.5 ML VIAL/SYR IM ONE (01:42)
[2019-09-25] MEDS ORDERED: PNEUMOCOCCAL ADMINISTRATION CHARGE ONE (01:42)
--- NOTE | 2019-09-25 01:47 | History and Physical Report ---
DATE OF ADMISSION: 09/25/2019 CHIEF COMPLAINT: Abdominal pain. 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 Also she recently had a fall and T12 compression fractures, on pain medications, and was discharged to [facility] on 06/15/2020, was discharged back home on this Friday. The patient's daughter is living with the patient currently. She is walking with a walker. Yesterday night, the patient had low-grade fever and was sweating and not able to micturate. The home health nurse came on Friday morning and she did a straight catheterization and urine sample was taken and it was thought to be having UTI and started on Keflex and first dose was taken at 5:00 p.m., but since straight cath was done, she is able to micturate herself now.But since after eating lunch, she again developed severe abdominal pain in the upper abdomen, no radiation, very severe, which prompted her daughter to bring her to the hospital. The patient was given fentanyl and Dilaudid in the ER. Currently, pain is under control. She says pain is only 3/10 in severity currently. CTA of the abdomen and pelvis was done which shows the proximal stent within the superior mesenteric artery is patent. No other acute findings. The patient was feeling very weak today, not able to ambulate as per daughter and she feels the weakness is coming from the head to the toe. Currently, hemodynamics are stable, afebrile in the ER. Denies any headache, no blurred vision, no earache, no runny nose, no sore throat, no difficulty swallowing. No cough, no chest pain, no shortness of breath, no nausea, no vomiting. She is somewhat constipated, uses stool softeners. Denies any blood in the stools or black stools, but daughter is not sure about it. No burning micturition, no hematuria. No swelling in the legs, no rash. ALLERGIES: ADHESIVE TAPE, ERYTHROMYCIN BASE, AND TRAMADOL. PAST MEDICAL HISTORY: As mentioned above. PAST SURGICAL HISTORY: Colonoscopy, EGD with endoscopic ultrasound, status post stent to the SMA, laparoscopic cholecystectomy, tonsillectomy. MEDICATIONS: The patient is currently on Keflex 250 mg p.o. t.i.d. for 10 days, Colace 100 mg p.o. b.i.d., oxycodone 2.5 mg p.o. q. 4 hours p.r.n., Eliquis 2.5 mg p.o. b.i.d., Plavix 75 mg p.o. daily, Tylenol p.r.n., verapamil 40 mg p.o. q.i.d., lidocaine patch daily, Protonix 40 mg p.o. daily, MiraLax 17 g daily, levothyroxine alternating with 100 mcg and 112 mcg, vitamin D 2000 units p.o. daily, vitamin B12 1000 mcg p.o. daily, calcium carbonate 1 tablet daily. FAMILY HISTORY: No family history on file. SOCIAL HISTORY: Former smoker, quit 3 years ago. No alcohol use, no drug use. currently. She generally lives alone, but currently since she was discharged from [facility], daughter is living with her. REVIEW OF SYSTEMS: As per HPI. Rest of the review of systems negative. PHYSICAL EXAMINATION: GENERAL: The patient is old and frail, not in acute distress. VITAL SIGNS: Temperature 36.4, pulse 87, respiratory rate 16, blood pressure 150/83, oxygen 94% on room air. HEENT: No pallor, no icterus. Pupils equal, round, and reactive to light. NECK: No JVD, no neck masses, no carotid bruit. CARDIOVASCULAR: S1, S2 heard, regular rate and rhythm, no murmur, no gallop. RESPIRATORY SYSTEM: Normal AP diameter. No accessory muscle use. No wheezing, no crackles. ABDOMEN: Soft, bowel sounds present. Mild epigastric tenderness, no guarding, no rigidity, no distention. CENTRAL NERVOUS SYSTEM: Alert and awake. Obeys simple commands, answers simple questions. Moves extremities. EXTREMITIES: No edema, no erythema. LABORATORY DATA: WBC 5.1, hemoglobin 13.1, hematocrit 39.2, platelets 385. Sodium 131, potassium 4, chloride 97, bicarbonate 29, BUN 14, creatinine 0.72, serum glucose 111, lactate 1.5, calcium 9.2, total bilirubin 0.3, AST 16, ALT 24, alkaline phosphatase 176, lipase 194. Urinalysis, trace for blood. IMAGING DATA: CTA of the abdomen and pelvis showed a proximal stent within the superior mesenteric artery, which is patent. 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 Remaining mesenteric vessels are patent. There are single bilateral renal arteries, which demonstrated slightly beaded appearance, but remain patent. This favors fibromuscular dysplasia. Slightly ricardo contour of liver suggestive of early cirrhosis, cholecystectomy. No bowel wall thickening or obstruction. Colonic diverticulosis. EKG: Shows normal sinus rhythm at a rate of 82, no significant change was found. ASSESSMENT AND PLAN: This is an 84-year-old female who presents with abdominal pain. 1. Abdominal pain. Recently had a stent placed on [facility] at [place] on 09/09/2019. On the CAT scan, the stent is patent. Yesterday, daughter is stating that she had some fever and sweating and home health nurse did a straight cath and urine sample. There is a question of UTI and was started on Keflex. Right now, UA looks fine. She already received a dose of Keflex. Will continue the Keflex. Will continue the antibiotics until the final cultures are back and I think the pain could be from her urinary tract infection, but because of recent stent placement, we will consult GI for further recommendations. Will continue her home pain medications for now. We will keep her n.p.o. until seen by GI and start on IV D5 normal saline at 80 mL per hour and monitor. 2. Recent compression fracture, continue her home pain medications. PT and OT when stable. 3. Chronic hyponatremia, sodium of 131. We will follow the labs. 4. Hypothyroidism. Continue home Synthroid. 5. Vestibular migraine, on verapamil. 6. Oropharyngeal dysphagia, recently had EGD and dilatation Currently able to eat regular diet. Will start diet when patient able to take po.. 7. fibromuscular dysplasia of the kidneys on ct scan. Followup with PCP. 8.Early cirrhosis. On ct scan. Followup. 9.. Deep venous thrombosis prophylaxis, on Eliquis. DISPOSITION: Observation in medical floor. PT and OT prior to discharge. Social service to help with discharge planning. Level 1. Code status DNR as per discussion with daughter and the patient. MTDD
[2019-09-25] MEDS: OXYCODONE HCL IR 5 MG TAB (IMMEDIATE RELEASE) PO PRN ×2 (01:56→08:21)
[2019-09-25] MEDS: ONDANSETRON INJ 2 MG/ML 2 ML VIAL IV PRN ×3 (01:56→14:37)
[2019-09-25] MEDS: cephALEXin 250 MG CAP PO SCH ×4 (01:56→20:48)
[2019-09-25 05:45] LABS: Basophils # (auto) 0.02 K/uL (0-0.2); Basophils % (auto) 0.4 %; Eosinophils # (auto) 0.06 K/uL (0-0.5); Eosinophils % (auto) 1.2 %; Hematocrit (blood only) 36.9 % (37-47); Hemoglobin 12.5 g/dL (12.0-16.0); Immature Granulocytes # (auto) 0.05 K/uL (0.00-0.02); Lymphocytes # (auto) 1.31 K/uL (1.2-3.4); Lymphocytes % (auto) 25.1 %; Mean Corpuscular Hemoglobin 30.6 pg (25-34); Mean Corpuscular Hgb Conc 33.9 g/dL (32-36); Mean Corpuscular Volume 90.4 fL (80-100); Mean Platelet Volume 8.9 fL (7.4-10.4); Monocytes # (auto) 0.65 K/uL (0.11-0.59); Monocytes % (auto) 12.5 %; Neutrophils # (auto) 3.12 K/uL (1.4-6.5); Neutrophils % (auto) 59.8 %; Platelet Count 316 K/uL (130-400); RDW Standard Deviation 45.7 fL (36.4-46.3); Red Blood Count 4.08 M/uL (4.2-5.4); White Blood Count 5.21 K/uL (4.8-10.8)
[2019-09-25 06:04] LABS: BUN Creatinine Ratio 14.3 (10-20); Est GFR (Non-African American) 79.4; Magnesium 2.1 mg/dl (1.8-2.4); Potassium 4.1 mmol/L (3.5-5.1)
[2019-09-25] MEDS: LEVOTHYROXINE SODIUM 100 MCG TABLET PO SCH (06:21)
[2019-09-25] MEDS: APIXABAN 2.5 MG TAB PO SCH ×2 (08:21→20:48)
[2019-09-25] MEDS: CALCIUM 600MG + VIT D 400 IU TAB PO SCH (08:22)
[2019-09-25] MEDS: CYANOCOBALAMIN 500 MCG TABLET (VITAMIN B-12) PO SCH (08:22)
[2019-09-25] MEDS: PANTOprazole 40 MG TAB PO SCH (08:22)
[2019-09-25] MEDS: CLOPIDOGREL BISULFATE 75 MG TAB PO SCH (08:22)
[2019-09-25] MEDS: VERAPAMIL HCL 40 MG TAB PO SCH ×4 (08:22→20:49)
[2019-09-25] MEDS: LIDOCAINE 5% 1 PATCH TD SCH (08:23)
[2019-09-25] MEDS: CHOLECALCIFEROL 1,000 UNITS 25 MCG TAB PO SCH (08:23)
[2019-09-25] MEDS ORDERED: HYDROmorphone INJ 0.5 MG/0.5 ML SYR IV PRN (12:12)
[2019-09-25] MEDS ORDERED: HYDROmorphone INJ 0.5 MG/0.5 ML SYR IV STA (12:12)
[2019-09-25] MEDS ORDERED: OXYCODONE HCL IR 5 MG TAB (IMMEDIATE RELEASE) PO PRN (12:13)
--- NOTE | 2019-09-25 12:27 | XRay Report ---
KUB CLINICAL HISTORY: Generalized abdominal pain. FINDINGS: An AP, portable, supine abdominal radiograph is correlated with abdominal CT dated 0. There is a nonobstructed abdominal bowel gas pattern noting mild colonic fecal retention. No evide nce of intraperitoneal free air is seen on this supine examination. Cholecystectomy clips are noted i n the right upper quadrant. There are no abnormal abdominal calcifications. Phleboliths are present i n the pelvis. The skeletal structures are osteopenic and appear intact. Lumbosacral spondylosis is ob served. IMPRESSION: Nonobstructed abdominal bowel gas pattern. Electronically signed by: Asael Espinoza M.D. 09/25/2019 12:26 PM
--- NOTE | 2019-09-25 12:41 | Hospitalist Progress Note ---
Date of Service September 25, 2019 Assessment & Plan (1) Upper abdominal pain: -This is an 84-year-old female who presents with upper abdominal pain -presented to ED on 08/24/2020 evening and admitted on 09/25/2019 by nocturnalist -09/25/2019 day time hospitalist assessment: Patient seen and examined this AM with daughter at bedside and patient sullen in appearance because of hunger pangs as she was made empirically non per oral as per admitting medical doctor who requested gastroenterology consult recommendation. Day time hospitalist noted no obvious abnormalities on admission CT abdomen and gave patient clear liquid diet. Subsequently nurse reported that patient complained of acute pain 15 minutes after the meal. Daughter also at bedside and alarmed as well. When medical doctor examined the patient she did not appear to be in distress. She was hold on to the bed rails because she said it kept her safe from feeling like she would fall off the bed but not because of abdominal cramps. On exam again, the abdomen soft and non tender to palpation. 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 on but that these symptoms appeared to return 3 days ago -KUB performed on 09/25/2019 after this hospital example of abdominal pain shows Nonobstructed abdominal bowel gas pattern -given the general lack of structural abnormality to explain for the pain, patient may have functional pain from problems of gut motility; versus spasms; versus a pain from a mesenteric ischemia as less likely given recent stents without complications and also hemodynamical stability -modified patient's pain medications, adding ranitidine to pantoprazole, return to NPO for now -await gastroenterology recommendations Early Cirrhosis on CT scan 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 -unclear whether these are incidental findings or relate to GI symptoms suspected urinary tract infection -patient's daughter reported a body temperature prior to admission as 99 degrees F because she reports that normally patient's body temperature is 97 F -hospital doctor explained to family that this does not meet a fever criteria -as per admitting physician patient had outpatient straight cath recently and though it is not clear as to the results of the urine analysis, she was empirically started on Keflex as outpatient -admission urine analysis is normal, but admitting physician continued Keflex anyways -agree to continue Keflex for 3 to 5 days today as urinary antibiotics already started -but do no think that even if patient has confirmed urinary tract infection that it would relate to upper abdomen pain etiology Oropharyngeal dysphagia -recently had EGD and dilatation -wonder if patient may be having esophageal spasms with meals. will continue to observe Vestibular migraine -no migraines currently -on verapamil. Chronic hyponatremia -admission sodium of 131, follow serum sodium levels Hypothyroidism -Continue home Synthroid chronic T12 compression fracture -PT/OT when stable. Deep venous thrombosis prophylaxis, on Eliquis. Code status DNR/DNI Subjective Patient seen and examined this AM with daughter at bedside and patient sullen in appearance because of hunger pangs as she was made empirically non per oral as per admitting medical doctor who requested gastroenterology consult recommendation. Day time hospitalist noted no obvious abnormalities on admission CT abdomen and gave patient clear liquid diet. Subsequently nurse reported that patient complained of acute pain 15 minutes after the meal. Daughter also at bedside and alarmed as well. When medical doctor examined the patient she did not appear to be in distress. She was hold on to the bed rails because she said it kept her safe from feeling like she would fall off the bed but not because of abdominal cramps. On exam again, the abdomen soft and non tender to palpation. 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 on but that these symptoms appeared to return 3 days ago Review of Systems Review of Systems: All systems reviewed & are unremarkable except as noted in HPI & below Physical Exam Eyes: PERRL, conjunctivae normal, anicteric sclerae EOM intact bilaterally ENMT: external ear and nose normal, oropharynx normal Neck: normal visual inspection Respiratory: normal respiratory effort, lungs clear to auscultation Cardiovascular: Rate/Rhythm: regular rate and regular rhythm Gastrointestinal (Abdomen): normal bowel sounds, soft, nontender, no hepatosplenomegaly Musculoskeletal: Head/Neck/Chest: normocephalic and head atraumatic Neurologic: PERRL, EOMI, accommodation nl, no face palsy, no dysarthria Psychiatric: Orientation: alert Results & Data Vital Signs (Past 12 Hours) Vital Signs Temp Pulse Pulse Resp BP BP Pulse Ox 09/25/19 11:54 37.0 C 89 16 121/67 95 09/25/19 07:29 36.8 C 88 18 144/75 H 94 09/25/19 01:00 36.5 C 99 H 16 166/89 H 94 09/25/19 00:40 94 H 16 150/84 H 98
[2019-09-25] MEDS: DICYCLOMINE HCL 10 MG CAP PO SCH ×2 (14:37→20:47)
[2019-09-25] MEDS ORDERED: LORazepam 0.5 MG TAB PO STA (17:27)
[2019-09-25] MEDS ORDERED: MICONAZOLE NITRATE POWDER 43 GM EXT PRN (17:41)
--- NOTE | 2019-09-25 20:13 | Electrocardiogram Report ---
Test Reason : Blood Pressure : / mmHG Vent. Rate : 082 BPM Atrial Rate : 082 BPM P-R Int : 174 ms QRS Dur : 078 ms QT Int : 368 ms P-R-T Axes : 067 032 021 degrees QTc Int : 429 ms Normal sinus rhythm Low voltage QRS Borderline ECG When compared with ECG of 11-SEP-2019 16:13, No significant change was found Confirmed by Cory Colindres ([id number]) on 09/25/2019 8:12:44 PM Referred By: REFERRED SELF Confirmed By:Epifanio Colindres
--- NOTE | 2019-09-25 22:00 | Consultation Report ---
DATE OF CONSULTATION: 09/25/2019 I was asked by Dr. David to consult on this woman for evaluation of abdominal pain. HISTORY OF PRESENT ILLNESS: The patient is an 84-year-old with her daughter at the bedside and has history of chronic abdominal pain. Her current abdominal pain is upper abdomen and has been ongoing since November. She has had an extensive workup including upper and lower endoscopies recently that have not revealed any sinister pathology to explain her pain. She had a mesenteric artery stent placed in [place] in the superior mesenteric artery because of a stenosis that was concerning as a cause of her pain, this was done on 09/09/2019. This has not helped her symptoms. There have been some complaints also of some chronic constipation, though the patient has had a bowel movement recently. She has no fevers. She is currently resting comfortably on pain medications. PAST MEDICAL HISTORY: I reviewed her medications and her past medical history and her past medical history is significant for what is already mentioned as well as history of pulmonary embolism, on Eliquis, history of anxiety, depression, hypothyroidism, oropharyngeal dysphagia, osteoarthritis, vertigo, migraines. OUTPATIENT MEDICATIONS: Include Colace, oxycodone, Eliquis, Plavix, Tylenol p.r.n., verapamil, Protonix, MiraLax p.r.n., levothyroxine, and vitamins. ALLERGIES: SHE IS ALLERGIC TO TRAMADOL, ERYTHROMYCIN, AND ADHESIVE TAPE. SOCIAL HISTORY: Significant for being a former smoker who stopped about 3 years ago and she denies alcohol use. FAMILY HISTORY: She has no significant family history of gastrointestinal disease. REVIEW OF SYSTEMS: As above. Otherwise she denies any recent change in vision or hearing. She has had no recent productive cough. She has no recent exertional symptoms or exertional chest pain. She has had no shortness of breath. There has been no hair loss or heat or cold intolerance. She does have some chronic back pain, but no new joint pains. She denies any joint swelling. She has no dysuria. She has had no history of recent seizures. There is no history of bruising or nosebleeds. PHYSICAL EXAMINATION: GENERAL: Reveals a woman lying in bed with daughter at the bedside. VITAL SIGNS: Most recent blood pressure is 121/67, pulse is 89, temperature is 37. SKIN: Anicteric. EYES: Show anicteric sclerae. MOUTH: Dry but clear of lesions. NECK: Supple. CHEST: Clear. HEART: Regular. ABDOMEN: Soft with good bowel sounds. She has some mild tenderness to deep palpation but no rebound or no masses. EXTREMITIES: Warm with fair distal pulses. NEUROLOGIC: She is alert and oriented x3 and grossly intact. LABORATORY DATA: Recent labs from this admission show a hemoglobin of 12.5, normal white blood cell count of 5. Liver enzymes are normal. Lipase is normal at 194. IMAGING DATA: Recent KUB showed a nonobstructive bowel gas pattern and CAT scan of the abdomen and pelvis showed a proximal stent that is patent in the superior mesenteric artery. No other sinister pathology was seen. IMPRESSION AND PLAN: An 84-year-old woman with chronic abdominal pain and extensive GI workup. I do not think she needs any reimaging or endoscopy at this point. I would recommend trying to improve her bowel movements, this may help. A trial of Bentyl may be of benefit as well since this might be bowel spasm. Also consider pain that might be from radiating neuropathy from her back as also a possible cause. I would advance her diet as she tolerates. She can follow up with her regular providers as an outpatient.
[2019-09-26] MEDS: ACETAMINOPHEN 325 MG TAB PO PRN ×2 (04:21→11:16)
[2019-09-26] MEDS: LEVOTHYROXINE SODIUM 100 MCG TABLET PO SCH (06:00)
[2019-09-26] MEDS: CHOLECALCIFEROL 1,000 UNITS 25 MCG TAB PO SCH (08:24)
[2019-09-26] MEDS: CYANOCOBALAMIN 500 MCG TABLET (VITAMIN B-12) PO SCH (08:25)
[2019-09-26] MEDS: PANTOprazole 40 MG TAB PO SCH (08:25)
[2019-09-26] MEDS: CALCIUM 600MG + VIT D 400 IU TAB PO SCH (08:25)
[2019-09-26] MEDS: cephALEXin 250 MG CAP PO SCH ×2 (08:25→13:56)
[2019-09-26] MEDS: CLOPIDOGREL BISULFATE 75 MG TAB PO SCH (08:25)
[2019-09-26] MEDS: VERAPAMIL HCL 40 MG TAB PO SCH ×2 (08:26→12:23)
[2019-09-26] MEDS: APIXABAN 2.5 MG TAB PO SCH (08:26)
[2019-09-26] MEDS: DICYCLOMINE HCL 10 MG CAP PO SCH ×2 (08:54→13:56)
[2019-09-26] MEDS: LIDOCAINE 5% 1 PATCH TD SCH (09:05)
--- NOTE | 2019-09-26 13:49 | Hospitalist Progress Note ---
Date of Service September 26, 2019 Assessment & Plan (1) Upper abdominal pain: Upper abdominal pain (Gastrointestinal dysmotility or spasms) -This is an 84-year-old female who presents with upper abdominal pain -presented to ED on 08/24/2020 evening and admitted on 09/25/2019 by nocturnalist -09/25/2019 day time hospitalist assessment: Patient seen and examined this AM with daughter at bedside and patient sullen in appearance because of hunger pangs as she was made empirically non per oral as per admitting medical doctor who requested gastroenterology consult recommendation. Day time hospitalist noted no obvious abnormalities on admission CT abdomen and gave patient clear liquid diet. Subsequently nurse reported that patient complained of acute pain 15 minutes after the meal. Daughter also at bedside and alarmed as well. When medical doctor examined the patient she did not appear to be in distress. She was hold on to the bed rails because she said it kept her safe from feeling like she would fall off the bed but not because of abdominal cramps. On exam again, the abdomen soft and non tender to palpation. 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 Plummer 09/25/2019: An 84-year-old woman with chronic abdominal pain and extensive GI workup. I do not think she needs any reimaging or endoscopy at this point. I would recommend trying to improve her bowel movements, this may help. A trial of Bentyl may be of benefit as well since this might be bowel spasm. Also consider pain that might be from radiating neuropathy from her back as also a possible cause. I would advance her diet as she tolerates. She can follow up with her regular providers as an outpatient." -discharge medication of Dicyclomine (Bentyl) 10 mg three times a day (for 5 days) sent to [facility] [address] [place] [address] -upcoming scheduled appointments 09/27/2019 7:00 PM Provider Larry Schwartz MD Department [facility] 09/29/2019 1:20 PM Provider Larry Schwartz MD Department [facility] 10/22/2019 8:30 AM Provider THANIA [place] [facility] [place] [facility] 10/22/2019 9:30 AM Provider Charles Cartagena MD Department Vascular Surg [facility] History of Oropharyngeal dysphagia -EGD and dilatation around June 2019 -esophageal spasms is possible, on trial of Bentyl Early Cirrhosis on CT scan 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) however patient has normal liver function enzymes and normal renal function suspected urinary tract infection but is ruled out (outpatient 09/25/2019 results as urine cultures of LESS THAN 10,000 COLONIES/ML MIXED NORMAL KVNG and normal urine analysis on hospital admission) -patient's daughter reported a body temperature prior to admission as 99 degrees F because she reports that normally patient's body temperature is 97 F -hospital doctor explained to family that this does not meet a fever criteria -as per admitting physician patient had outpatient straight cath recently and though it is not clear as to the results of the urine analysis, she was empirically started on Keflex as outpatient -admission urine analysis is normal, but admitting physician continued Keflex. -outpatient 09/25/2019 results as urine cultures of LESS THAN 10,000 COLONIES/ML MIXED NORMAL KVNG. no further urinary tract antibiotics needed on discharge Vestibular migraine -no migraines currently -on verapamil. Chronic hyponatremia -admission sodium of 131 -serum sodium 134 on 09/26/2019 likely because patient got IV fluids on this hospital stay Hypothyroidism -Continue home Synthroid chronic T12 compression fracture -previously admitted to physical therapy center and discharged home -patient is encourage to continue ambulation as tolerated at home Deep venous thrombosis prophylaxis, on Eliquis. 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 Patient's diet was advanced to full liquid diet. no chest pain. no shortness of breath. no vomiting. no dizziness. no lightheadedness. patient continued Bentyl with the meals. Had lengthy discussion with patient and patient's daughter about hospital workup to date and outpatient follow ups Review of Systems Review of Systems: All systems reviewed & are unremarkable except as noted in HPI & below Physical Exam Eyes: PERRL, conjunctivae normal, anicteric sclerae EOM intact bilaterally ENMT: external ear and nose normal, oropharynx normal Neck: normal visual inspection Respiratory: normal respiratory effort, lungs clear to auscultation Cardiovascular: Rate/Rhythm: regular rate and regular rhythm Gastrointestinal (Abdomen): normal bowel sounds, soft, nontender, no hepatosplenomegaly Musculoskeletal: Head/Neck/Chest: normocephalic and head atraumatic Neurologic: PERRL, EOMI, accommodation nl, no face palsy, no dysarthria Psychiatric: Orientation: alert Results & Data Vital Signs (Past 12 Hours) Vital Signs Temp Pulse Resp BP Pulse Ox 09/26/19 07:42 36.7 C 86 16 124/72 95
--- NOTE | 2019-09-26 13:59 | Discharge Summary ---
Date of Service September 26, 2019 Admission HPI Per Admitting Provider DATE OF ADMISSION: 09/25/2019 CHIEF COMPLAINT: Abdominal pain. 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 Also she recently had a fall and T12 compression fractures, on pain medications, and was discharged to [facility] on 06/15/2020, was discharged back home on this Friday. The patient's daughter is living with the patient currently. She is walking with a walker. Yesterday night, the patient had low-grade fever and was sweating and not able to micturate. The [facility] nurse came on Friday morning and she did a straight catheterization and urine sample was taken and it was thought to be having UTI and started on Keflex and first dose was taken at 5:00 p.m., but since straight cath was done, she is able to micturate herself now.But since after eating lunch, she again developed severe abdominal pain in the upper abdomen, no radiation, very severe, which prompted her daughter to bring her to the hospital. The patient was given fentanyl and Dilaudid in the ER. Currently, pain is under control. She says pain is only 3/10 in severity currently. CTA of the abdomen and pelvis was done which shows the proximal stent within the superior mesenteric artery is patent. No other acute findings. The patient was feeling very weak today, not able to ambulate as per daughter and she feels the weakness is coming from the head to the toe. Currently, hemodynamics are stable, afebrile in the ER. Denies any headache, no blurred vision, no earache, no runny nose, no sore throat, no difficulty swallowing. No cough, no chest pain, no shortness of breath, no nausea, no vomiting. She is somewhat constipated, uses stool softeners. Denies any blood in the stools or black stools, but daughter is not sure about it. No burning micturition, no hematuria. No swelling in the legs, no rash. ALLERGIES: ADHESIVE TAPE, ERYTHROMYCIN BASE, AND TRAMADOL. PAST MEDICAL HISTORY: As mentioned above. PAST SURGICAL HISTORY: Colonoscopy, EGD with endoscopic ultrasound, status post stent to the SMA, laparoscopic cholecystectomy, tonsillectomy. MEDICATIONS: The patient is currently on Keflex 250 mg p.o. t.i.d. for 10 days, Colace 100 mg p.o. b.i.d., oxycodone 2.5 mg p.o. q. 4 hours p.r.n., Eliquis 2.5 mg p.o. b.i.d., Plavix 75 mg p.o. daily, Tylenol p.r.n., verapamil 40 mg p.o. q.i.d., lidocaine patch daily, Protonix 40 mg p.o. daily, MiraLax 17 g daily, levothyroxine alternating with 100 mcg and 112 mcg, vitamin D 2000 units p.o. daily, vitamin B12 1000 mcg p.o. daily, calcium carbonate 1 tablet daily. FAMILY HISTORY: No family history on file. SOCIAL HISTORY: Former smoker, quit 3 years ago. No alcohol use, no drug use. currently. She generally lives alone, but currently since she was discharged from [facility], daughter is living with her. Admission Exam Per Admitting Provider GENERAL: The patient is old and frail, not in acute distress. VITAL SIGNS: Temperature 36.4, pulse 87, respiratory rate 16, blood pressure 150/83, oxygen 94% on room air. HEENT: No pallor, no icterus. Pupils equal, round, and reactive to light. NECK: No JVD, no neck masses, no carotid bruit. CARDIOVASCULAR: S1, S2 heard, regular rate and rhythm, no murmur, no gallop. RESPIRATORY SYSTEM: Normal AP diameter. No accessory muscle use. No wheezing, no crackles. ABDOMEN: Soft, bowel sounds present. Mild epigastric tenderness, no guarding, no rigidity, no distention. CENTRAL NERVOUS SYSTEM: Alert and awake. Obeys simple commands, answers simple questions. Moves extremities. EXTREMITIES: No edema, no erythema. Principal Diagnosis Upper abdominal pain (Gastrointestinal dysmotility or spasms) incidental findings on imaging of (Early Cirrhosis on CT scan, Fibromuscular dysplasia of the kidneys on CT scan) however patient has normal liver function enzymes and normal renal function suspected urinary tract infection but is ruled out (outpatient 09/25/2019 results as urine cultures of LESS THAN 10,000 COLONIES/ML MIXED NORMAL KVNG and normal urine analysis on hospital admission) Chronic hyponatremia Hypothyroidism chronic T12 compression fracture Discharge Exam Eyes PERRL, conjunctivae normal, anicteric sclerae EOM intact bilaterally ENMT external ear and nose normal, oropharynx normal Neck normal visual inspection Respiratory normal respiratory effort, lungs clear to auscultation Cardiovascular Rate/Rhythm: regular rate and regular rhythm Gastrointestinal (Abdomen) normal bowel sounds, soft, nontender, no hepatosplenomegaly Musculoskeletal Head/Neck/Chest: normocephalic and head atraumatic Neurologic PERRL, EOMI, accommodation nl, no face palsy, no dysarthria Psychiatric Orientation: alert Discharge Data Allergies Allergy/AdvReac Type Severity Reaction Status Date / Time adhesive tape AdvReac Intermediate PEELING OF Verified 09/24/19 22:48 SKIN erythromycin base AdvReac Intermediate MYCIN Verified 09/11/19 17:23 DRUGS-YEAST INFECTIONS tramadol AdvReac Intermediate vestibular Verified 09/11/19 18:51 sx Consultations 09/24/19 22:58 ED Decision to Admit Stat 09/25/19 00:58 Consult Case Management - Discharge Planning Routine Consult Gastroenterology Routine Ordered Studies 09/24/19 21:05 CT angio abdomen pelvis w con Stat Hospital Course (1) Upper abdominal pain: Upper abdominal pain (Gastrointestinal dysmotility or spasms) -This is an 84-year-old female who presents with upper abdominal pain -presented to ED on 08/24/2020 evening and admitted on 09/25/2019 by nocturnalist -09/25/2019 day time hospitalist assessment: Patient seen and examined this AM with daughter at bedside and patient sullen in appearance because of hunger pangs as she was made empirically non per oral as per admitting medical doctor who requested gastroenterology consult recommendation. Day time hospitalist noted no obvious abnormalities on admission CT abdomen and gave patient clear liquid diet. Subsequently nurse reported that patient complained of acute pain 15 minutes after the meal. Daughter also at bedside and alarmed as well. When medical doctor examined the patient she did not appear to be in distress. She was hold on to the bed rails because she said it kept her safe from feeling like she would fall off the bed but not because of abdominal cramps. On exam again, the abdomen soft and non tender to palpation. 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 Plummer 09/25/2019: An 84-year-old woman with chronic abdominal pain and extensive GI workup. I do not think she needs any reimaging or endoscopy at this point. I would recommend trying to improve her bowel movements, this may help. A trial of Bentyl may be of benefit as well since this might be bowel spasm. Also consider pain that might be from radiating neuropathy from her back as also a possible cause. I would advance her diet as she tolerates. She can follow up with her regular providers as an outpatient." -discharge medication of Dicyclomine (Bentyl) 10 mg three times a day (for 5 days) sent to [facility] [place] [address] -upcoming scheduled appointments 09/27/2019 7:00 PM Provider Larry Schwartz MD Department [facility] 09/29/2019 1:20 PM Provider Larry Schwartz MD Department [facility] 10/22/2019 8:30 AM Provider THANIA [place] [facility] [place] [facility] 10/22/2019 9:30 AM Provider Charles Cartagena MD Department Vascular Surg [facility] History of Oropharyngeal dysphagia -EGD and dilatation around June 2019 -esophageal spasms is possible, on trial of Bentyl Early Cirrhosis on CT scan 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) however patient has normal liver function enzymes and normal renal function suspected urinary tract infection but is ruled out (outpatient 09/25/2019 results as urine cultures of LESS THAN 10,000 COLONIES/ML MIXED NORMAL KVNG and normal urine analysis on hospital admission) -patient's daughter reported a body temperature prior to admission as 99 degrees F because she reports that normally patient's body temperature is 97 F -hospital doctor explained to family that this does not meet a fever criteria -as per admitting physician patient had outpatient straight cath recently and though it is not clear as to the results of the urine analysis, she was empirically started on Keflex as outpatient -admission urine analysis is normal, but admitting physician continued Keflex. -outpatient 09/25/2019 results as urine cultures of LESS THAN 10,000 COLONIES/ML MIXED NORMAL KVNG. no further urinary tract antibiotics needed on discharge Vestibular migraine -no migraines currently -on verapamil. Chronic hyponatremia -admission sodium of 131 -serum sodium 134 on 09/26/2019 likely because patient got IV fluids on this hospital stay Hypothyroidism -Continue home Synthroid chronic T12 compression fracture -previously admitted to physical therapy center and discharged home -patient is encourage to continue ambulation as tolerated at home Deep venous thrombosis prophylaxis, on Eliquis. Code status DNR/DNI Discharge Diagnosis Upper abdominal pain (Gastrointestinal dysmotility or spasms) incidental findings on imaging of (Early Cirrhosis on CT scan, Fibromuscular dysplasia of the kidneys on CT scan) however patient has normal liver function enzymes and normal renal function suspected urinary tract infection but is ruled out (outpatient 09/25/2019 results as urine cultures of LESS THAN 10,000 COLONIES/ML MIXED NORMAL KVNG and normal urine analysis on hospital admission) Chronic hyponatremia Hypothyroidism chronic T12 compression fracture Total Time Total Time Spent Total Time Spent (In Minutes): 40 minutes Total Time Includes: Examination of the Patient, Discharge Planning, Medication Reconciliation and Communication With Other Providers Discharge Plan Discharge Items Patient Disposition: Home - Home Health Services Reason For Visit: ABDOMINAL PAIN Discharge Diagnosis: Upper abdominal pain (Gastrointestinal dysmotility or spasms) incidental findings on imaging of (Early Cirrhosis on CT scan, Fibromuscular dysplasia of the kidneys on CT scan) however patient has normal liver function enzymes and normal renal function suspected urinary tract infection but is ruled out (outpatient 09/25/2019 results as urine cultures of LESS THAN 10,000 COLONIES/ML MIXED NORMAL KVNG and normal urine analysis on hospital admission) Chronic hyponatremia Hypothyroidism chronic T12 compression fracture Condition on Discharge: Good Activity: Resume your previous activity Non-emergency contact: Primary Care Provider Call non-emergency contact if: you have any medication questions Follow-up/Referrals: Larry Schwartz MD [Primary Care Provider] - Diet: Full liquid Diet Comment: advance to solid diet as tolerated at home Sam Attending Provider Instructions: discharge medication of Dicyclomine (Bentyl) 10 mg three times a day (for 5 days) sent to [facility] [place] [address] upcoming scheduled appointments 09/27/2019 7:00 PM Provider Larry Schwartz MD Department [facility] 09/29/2019 1:20 PM Provider Larry Schwartz MD Department [facility] 10/22/2019 8:30 AM Provider THANIA Tee [facility] [place] [facility] 10/22/2019 9:30 AM Provider Charles Cartagena MD Department Vascular Surg [facility] Sam Deckhand Clam Dredge Provider Instructions: As per gastroenterology Dr. Plummer 09/25/2019: An 84-year-old woman with chronic abdominal pain and extensive GI workup. I do not think she needs any reimaging or endoscopy at this point. I would recommend trying to improve her bowel movements, this may help. A trial of Bentyl may be of benefit as well since this might be bowel spasm. Also consider pain that might be from radiating neuropathy from her back as also a possible cause. I would advance her diet as she tolerates. She can follow up with her regular providers as an outpatient." Pending Studies at Discharge: No Stand-Alone Forms: My [facility] [employer], Smoking Cessation Medications and DC Order Prescriptions: New dicyclomine 10 mg Capsule 10 mg PO TID 5 Days Qty: 15 RF: 0 Continued apixaban 2.5 mg tablet 2.5 mg PO BID Qty: 60 RF: 5 levothyroxine 100 mcg tablet 100 mcg PO 4XWK RF: 0 cyanocobalamin (vitamin B-12) [Vitamin B-12] 500 mcg Tablet 500 mcg PO QAM RF: 0 levothyroxine 112 mcg tablet 112 mcg PO 3XWK RF: 0 verapamil 40 mg tablet 40 mg PO QID RF: 0 polyethylene glycol 3350 [Miralax] 17 gram Powder In Packet 17 g PO HS PRN (Reason: Constipation) RF: 0 clopidogrel 75 mg Tablet 75 mg PO QAM RF: 0 pantoprazole 40 mg Tablet,Delayed Release (Dr/Ec) 40 mg PO QAM RF: 0 lidocaine 5 % Adhesive Patch,Medicated 1 patch TOPICAL QAM RF: 0 acetaminophen [Tylenol] 325 mg Tablet 650 mg PO Q6H PRN (Reason: Pain) RF: 0 oxycodone 5 mg tablet 2.5 mg PO Q4H PRN (Reason: Pain) RF: 0 cholecalciferol (vitamin D3) [Vitamin D3] 2,000 unit Tablet 2,000 unit PO QAM RF: 0 calcium-vitamin D3-vitamin K [Viactiv] 650 mg-12.5 mcg-40 mcg Tablet,Chewable 2 tab PO QAM RF: 0 docusate sodium [Colace] 100 mg capsule 100 mg PO BID PRN (Reason: Constipation) RF: 0 Discontinued cephalexin 250 mg capsule 250 mg PO TID RF: 0 Discharge Orders: Discharge Order (Routine); Ordered 09/26/19 Ordered By: Saurav Gold Admission Data Admit Date/Time: 09/25/19 00:11 Attending Provider: Saurav Gold Admit Provider: Jeremy David Primary Care Provider: Larry Schwartz Other Providers: Jeremy David ; Ritesh Plummer ; [facility]
[2019-09-27] MEDS ORDERED: LEVOTHYROXINE SODIUM 112 MCG TABLET PO SCH (06:30)
== END 2019-09-26 14:32 | disposition home health service (06) ==
LOC: ED 20:25 → 2N 20:25

== ENCOUNTER 2020-06-18 12:30 | Inpatient (IN) ==
--- NOTE | 2020-06-18 13:28 | Emergency Department Note ---
History of Present Illness General Chief complaint: Weakness Time Seen by Provider: 06/18/20 13:07 Source: patient, family (Daughter who is at the bedside) and old records reviewed Mode of arrival: EMS Limitations: no limitations History of Present Illness This patient is an 84-year-old female who is brought in by EMS after she has had increasing weakness and functional decline over the last week or so. Is been getting progressively worse. She is been seen by her doctor and had a negative urine culture back on June 09. She also had a TSH recently that was 14.1 they increased her Synthroid from 112 mcg to 125 on Friday. She has been a little more disoriented at times but no fever or chills she does tend to fall frequently and she is chronically dizzy and she is fallen about 2 or 3 times this month but no head trauma. She is on both Plavix and Coumadin as she has had a history of mesenteric stent as well as a PE in the past. She has no current chest pain or shortness of breath. Her appetite has been decreased which is atypical for her she is not been eating. She has had normal bowel most without blood or melena. No fever chills or headache no known exposure to Covid and she is not left the house. Home Medications Home Medications Medication Instructions Recorded Confirmed Type levothyroxine 112 mcg PO QAM 10/05/18 06/18/20 History polyethylene glycol 3350 [Miralax] 17 g PO QAM 06/24/19 06/18/20 History clopidogrel 75 mg PO QDD 09/02/19 06/18/20 History dicyclomine 10 mg PO Q6 PRN 09/30/19 06/18/20 History lansoprazole 30 mg PO QDL 11/03/19 06/18/20 History apixaban [Eliquis] 2.5 mg PO BID 11/05/19 06/18/20 History ondansetron 4 mg PO Q8H PRN 03/02/20 06/18/20 History calcium carbonate [Tums 500] 1,000 mg PO DAILY PRN 06/18/20 06/18/20 History cyanocobalamin (vitamin B-12) 500 mcg PO QDD 06/18/20 06/18/20 History [Vitamin B-12] Allergies Allergy/AdvReac Type Severity Reaction Status Date / Time adhesive tape AdvReac Intermediate PEELING OF Verified 06/18/20 15:47 SKIN cefdinir AdvReac Intermediate Migraine Verified 06/18/20 15:47 erythromycin base AdvReac Intermediate MYCIN Verified 06/18/20 15:47 DRUGS-YEAST INFECTIONS tramadol AdvReac Intermediate MAKES Verified 06/18/20 15:47 HEADACHS WORSE--vestibular sx Past Med/Surg History Medical History Abdominal pain Ambulatory dysfunction Anxiety Cervical cancer at age 29--sx Closed head injury Depression Difficulty swallowing DVT prophylaxis Fall History of gastric ulcer Hyponatremia Hypothyroidism Intractable back pain Malaise On anticoagulant therapy eliquis daily Oropharyngeal dysphagia Osteoarthritis Pulmonary embolism reason for eliquis Superior mesenteric artery stenosis T12 compression fracture Tinnitus of both ears Transient ischemic attack (TIA) 2013--follows with Dr. Zapata--no deficits Upper abdominal pain Vertigo Vertigo Vestibular migraine reason for verapamil Surgical History History of adenoidectomy History of appendectomy History of bilateral cataract extraction History of cholecystectomy History of colonoscopy History of hysterectomy History of tonsillectomy History of tooth extraction Family History Son Family history of diabetes mellitus Social History Smoking Status: Former smoker Second Hand Exposure: Yes ( smoked/father smoked); Hx Alcohol Use: No Hx Substance Use: No Preferred Language: Estonian Communication Ability: Effective Nonfarm Animal 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 Required: No Beliefs That Will Affect Care: None marital status: / Current Living Situation: Alone Current Living Situation Comment: daughter recently staying with, RN, aide, PT/OT in 2x week started current occupational status: retired Feels Safe at Home: Yes Assistive Devices: Walker Review of Systems A total of 10 systems reviewed and were otherwise negative Physical Exam Vital Signs Vital Signs - 24 hr 06/18/20 12:30 06/18/20 12:38 06/18/20 13:00 Temperature 37.0 C Temperature Source Oral Pulse Rate 100 H 98 H 101 H Pulse Rate from SpO2 Sensor 92 H 103 H Pulse Rhythm Respiratory Rate 16 18 25 H Respiratory Effort / Characteristics Non-Labored Spontaneous Respiratory Depth Normal Respiratory Pattern Regular Blood Pressure 135/66 135/66 149/95 H Blood Pressure Mean 89 80 106 Pulse Oximetry 96 96 96 Oxygen Delivery Method Room Air Sepsis Recent Fever Within 48 Hours No Sepsis New/Unexplained Change in Mental Status No Sepsis Action Taken by Nursing No Action Required 06/18/20 13:30 06/18/20 14:00 06/18/20 15:06 Temperature Temperature Source Pulse Rate 100 H 98 H 126 H Pulse Rate from SpO2 Sensor 107 H 100 H 126 H Pulse Rhythm Regular Respiratory Rate 21 24 26 H Respiratory Effort / Characteristics Respiratory Depth Respiratory Pattern Blood Pressure 137/99 157/76 H 166/106 H Blood Pressure Mean 114 106 123 Pulse Oximetry 95 95 96 Oxygen Delivery Method Room Air Sepsis Recent Fever Within 48 Hours Sepsis New/Unexplained Change in Mental Status Sepsis Action Taken by Nursing 06/18/20 15:30 Temperature Temperature Source Pulse Rate 108 H Pulse Rate from SpO2 Sensor 109 H Pulse Rhythm Respiratory Rate 17 Respiratory Effort / Characteristics Respiratory Depth Respiratory Pattern Blood Pressure 144/104 H Blood Pressure Mean 112 Pulse Oximetry 95 Oxygen Delivery Method Sepsis Recent Fever Within 48 Hours Sepsis New/Unexplained Change in Mental Status Sepsis Action Taken by Nursing General: Well developed well nourished in no acute distress, breathing comfortably on room air. Normal speech. She is alert to person and place but does not know the date. HEENT: Normal cephalic atraumatic. Pupils are equal round and reactive to light. Extraocular movements are intact. Oropharynx is pink with moist mucous membranes. No swelling of the mouth lips or tongue. Neck: Supple with a midline trachea. No meningeal signs or stiffness, no JVD or bruits. No Stridor. Chest: Clear to auscultation bilaterally. No wheezes or rhonchi. No increased work of breathing. Heart: Regular rate and rhythm without murmurs or gallops. Abdomen: Soft nontender, nondistended without rebound guarding or rigidity. Extremities: No cyanosis clubbing or edema. No calf tenderness or assymetry Spine/Back. Non tender to palpation. No CVA tenderness Skin: Good turgor without rashes. Neurologic exam: Cranial nerves two through 12 are intact. Motor and sensation are intact and symmetrical throughout. No focal numbness or weakness but she seems diffusely weak Course Administered Medications Discontinued Medications Sodium Chloride (Nss) 500 mls @ 999 mls/hr IV .Q31M PENNIE Stop: 06/18/20 14:00 Last Infusion: 06/18/20 14:34 Dose: 0 mls/hr Documented by: [id number] Admin: 06/18/20 13:55 Dose: 999 mls/hr Documented by: [id number] Medical Decision Making Differential Diagnosis Dehydration, sepsis, electrolyte or metabolic abnormality, UTI, intracranial process, hypothyroidism, medication side effect, normal pressure hydrocephalus, Medical Records Attestation: I reviewed the patient's medical records. Home Medications Current Medication List: was personally reviewed by me Laboratory Data Attestation: I reviewed the patient's lab results. Result diagrams: 06/18/20 13:52 06/18/20 13:52 Lab Results 06/18/20 06/18/20 06/18/20 Range/Units 13:52 13:52 13:52 WBC 5.54 (4.8-10.8) K/uL RBC 4.69 (4.2-5.4) M/uL Hgb 13.9 (12.0-16.0) g/dL Hct 41.6 (37-47) % MCV 88.7 (80-100) fL MCH 29.6 (25-34) pg MCHC 33.4 (32-36) g/dL RDW Std Deviation 46.0 (36.4-46.3) fL RDW Coeff of Bety 14.1 (11.5-14.5) % Plt Count 314 (130-400) K/uL MPV 9.7 (7.4-10.4) fL Immature Gran % (Auto) 0.2 % Neut % (Auto) 66.0 % Lymph % (Auto) 20.2 % [place] % (Auto) 13.0 % Eos % (Auto) 0.4 % Baso % (Auto) 0.2 % Neut # (Auto) 3.66 (1.4-6.5) K/uL Lymph # (Auto) 1.12 L (1.2-3.4) K/uL [place] # (Auto) 0.72 H (0.11-0.59) K/uL Eos # (Auto) 0.02 (0-0.5) K/uL Baso # (Auto) 0.01 (0-0.2) K/uL Immature Gran # (Auto) 0.01 (0.00-0.02) K/uL PT 10.9 (9.0-12.0) Seconds INR 1.0 (0.9-1.1) Sodium 135 L (136-145) mmol/L Potassium 3.9 (3.5-5.1) mmol/L Chloride 102 (98-107) mmol/L Carbon Dioxide 27 (21-32) mmol/L Anion Gap 7.0 (3-11) BUN 10 (7-18) mg/dl Creatinine 0.95 (0.6-1.2) mg/dl Est Cr Clr Drug Dosing 38.2 ml/min Est GFR ( Amer) 63.3 Est GFR (Non-Af Amer) 54.6 BUN/Creatinine Ratio 10.1 (10-20) Glucose 103 H (70-99) mg/dl Calcium 9.9 (8.5-10.1) mg/dl Total Bilirubin 0.6 (0.2-1) mg/dl AST 15 (15-37) U/L ALT 21 (12-78) U/L Alkaline Phosphatase 87 (45-117) U/L Troponin I < 0.015 (0-0.045) ng/ml Total Protein 7.0 (6.4-8.2) gm/dl Albumin 3.1 L (3.4-5.0) gm/dl Globulin 3.9 (2.5-4.0) gm/dl Albumin/Globulin Ratio 0.8 L (0.9-2) TSH 6.890 H (0.300-4.500) uIu/ml Free T4 1.51 (0.8-1.6) ng/dl Urine Color Urine Appearance (Clear) Urine pH (4.5-7.5) Ur Specific [place] (1.000-1.030) Urine Protein (Negative) Urine Glucose (UA) (Negative) Urine Ketones (Negative) Urine Blood (Negative) Urine Nitrite (Negative) Urine Bilirubin (Negative) Urine Urobilinogen (Negative) Ur Leukocyte Esterase (Negative) Urine WBC (Auto) (0-5) /hpf Urine RBC (Auto) (0-4) /hpf U Hyaline Cast (Auto) (0-5) /lpf U Epithel Cells (Auto) (0-5) /lpf Urine Bacteria (Auto) (Negative) 06/18/20 Range/Units 13:52 WBC (4.8-10.8) K/uL RBC (4.2-5.4) M/uL Hgb (12.0-16.0) g/dL Hct (37-47) % MCV (80-100) fL MCH (25-34) pg MCHC (32-36) g/dL RDW Std Deviation (36.4-46.3) fL RDW Coeff of Bety (11.5-14.5) % Plt Count (130-400) K/uL MPV (7.4-10.4) fL Immature Gran % (Auto) % Neut % (Auto) % Lymph % (Auto) % [place] % (Auto) % Eos % (Auto) % Baso % (Auto) % Neut # (Auto) (1.4-6.5) K/uL Lymph # (Auto) (1.2-3.4) K/uL [place] # (Auto) (0.11-0.59) K/uL Eos # (Auto) (0-0.5) K/uL Baso # (Auto) (0-0.2) K/uL Immature Gran # (Auto) (0.00-0.02) K/uL PT (9.0-12.0) Seconds INR (0.9-1.1) Sodium (136-145) mmol/L Potassium (3.5-5.1) mmol/L Chloride (98-107) mmol/L Carbon Dioxide (21-32) mmol/L Anion Gap (3-11) BUN (7-18) mg/dl Creatinine (0.6-1.2) mg/dl Est Cr Clr Drug Dosing ml/min Est GFR ( Amer) Est GFR (Non-Af Amer) BUN/Creatinine Ratio (10-20) Glucose (70-99) mg/dl Calcium (8.5-10.1) mg/dl Total Bilirubin (0.2-1) mg/dl AST (15-37) U/L ALT (12-78) U/L Alkaline Phosphatase (45-117) U/L Troponin I (0-0.045) ng/ml Total Protein (6.4-8.2) gm/dl Albumin (3.4-5.0) gm/dl Globulin (2.5-4.0) gm/dl Albumin/Globulin Ratio (0.9-2) TSH (0.300-4.500) uIu/ml Free T4 (0.8-1.6) ng/dl Urine Color Yellow Urine Appearance Cloudy A (Clear) Urine pH 7.0 (4.5-7.5) Ur Specific [place] 1.019 (1.000-1.030) Urine Protein Negative (Negative) Urine Glucose (UA) Negative (Negative) Urine Ketones Negative (Negative) Urine Blood Negative (Negative) Urine Nitrite Negative (Negative) Urine Bilirubin Negative (Negative) Urine Urobilinogen Negative (Negative) Ur Leukocyte Esterase Negative (Negative) Urine WBC (Auto) 0 (0-5) /hpf Urine RBC (Auto) 5-10 H (0-4) /hpf U Hyaline Cast (Auto) 0 (0-5) /lpf U Epithel Cells (Auto) 5-10 H (0-5) /lpf Urine Bacteria (Auto) Negative (Negative) Imaging Data Attestation: I personally reviewed and interpreted this imaging study as follows: My Impression: Chest x-ray: No acute infiltrate, failure, pneumothorax upon my interpretation Radiologist's Impression: CT SCAN OF THE BRAIN WITHOUT IV CONTRAST CLINICAL HISTORY: Generalized weakness. COMPARISON STUDY: CT of the brain dated 03/17/2020. TECHNIQUE: Unenhanced axial CT scan of the brain is performed from the vertex to the skull base. A dose lowering technique was utilized adhering to the principles of ALARA. CT DOSE: 537.48 mGy.cm FINDINGS: Brain parenchyma: There are age-related involutional changes noting moderate to advanced confluent subcortical and periventricular microangiopathic change. There is no hemorrhage, mass effect, or evidence of acute territorial ischemia by CT criteria. Gonzalez-white matter differentiation is preserved. No extra-axial fluid collection is seen. Ventricles, sulci, cisterns: Prominent secondary to involutional change. Intracranial vasculature: There is atherosclerotic calcification of the cavernous carotid arteries. Calvarium: Unremarkable. Sinuses and mastoids: The visualized paranasal sinuses are clear. The mastoid air cells are well pneumatized. Orbits: The bony orbits are grossly intact. There are bilateral ocular lens im plants. IMPRESSION: Senescent changes as above with no hemorrhage, mass effect, or evidence of acute territorial ischemia by CT criteria. SINGLE VIEW CHEST CLINICAL HISTORY: Generalized weakness. FINDINGS: An AP, portable, upright chest radiograph is compared to study dated 03/02/2020. Correlation is made with chest CT dated 05/13/2019. The examination is degraded by portable technique and patient rotation. The heart is mildly enlarged noting atherosclerotic calcification of the thoracic aorta. The pulmonary vasculature is noncongested. Chronic interstitial thickening is similar to previous. There is mild bibasilar atelectasis. The lungs and pleural spaces are otherwise clear. No pneumothorax is seen. The skeletal structures are osteopenic. The bony thorax is grossly intact. IMPRESSION: Cardiomegaly with no active disease in the chest. ECG Data Attestation: I personally reviewed and interpreted this ECG as follows: Indication: + weakness Rate (beats per minute): 99 Rhythm: + normal sinus ECG Intervals/blocks: + Normal QRS, + Normal QT and + Normal KS ECG Belden: + Normal ECG ST segments: + Normal ST segments ECG Findings: + PACs; no PVCs Comparison ECG Date: from Change: no significant change MDM Narrative This patient comes in as described above. She was placed in room C9. She has had progressive weakness over the last week or so. She is otherwise nonfocal and has nothing that would indicate an acute stroke within the last 24 hours. She has multiple things to consider given the fact that she has been recently hypothyroid that could certainly be playing a role here she may be dehydrated this certainly concern for infection. She is on 2 different blood thinners so I did scan her head as well. She is on no blood or melena in her stool. IV access was established. She was hydrated with a IV normal saline bolus. multiple blood testing was obtained, EKG, chest x-ray, head CT were obtained as well as urinalysis and culture. She was reassessed frequently. CAT scan of her head was unremarkable. Chest x-ray does not show any findings to suggest congestive heart failure pneumonia or pneumothorax. EKG does not suggest significant arrhythmia or acute coronary syndrome. Troponin is not elevated. She is nursing of electrolyte or metabolic abnormalities. Her TSH is coming down but is still elevated. Hypothyroidism is likely causing some of her symptoms but she is diffusely weak and I do not think can go home safely she is on anticoagulation as well. She would be a fall risk. The daughter does not feel safe taking her home. I did consult Dr. Ybarra saw her in the ER for these measures. Continuous cardiac monitoring. An order was placed in the EMR for continuous cardiac monitoring. The patient was noted to be in normal sinus rhythm with a rate of 95. Impression & Plan Weakness, Hypothyroidism, Acute dehydration, Ambulatory dysfunction, senior living (current) use of anticoagulants Discharge Plan Visit Data Chief Complaint: Weakness ED Provider: Star Yusuf Discharge Problem: Weakness, Hypothyroidism, Acute dehydration, Ambulatory dysfunction, senior living (current) use of anticoagulants Patient Disposition: Admitted As Inpatient Discharge Instructions Interventions: ED Discharge Assessment Last Done: 06/18/20 16:35 Discharge Problem: Hypothyroidism Qualifiers: Hypothyroidism type: unspecified Qualified Code(s): E03.9 - Hypothyroidism, unspecified
[2020-06-18] MEDS ORDERED: SODIUM CHLORIDE 0.9% 500 ML IV SCH (13:30)
[2020-06-18 14:04] LABS: Basophils # (auto) 0.01 K/uL (0-0.2); Basophils % (auto) 0.2 %; Eosinophils # (auto) 0.02 K/uL (0-0.5); Eosinophils % (auto) 0.4 %; Hematocrit (blood only) 41.6 % (37-47); Hemoglobin 13.9 g/dL (12.0-16.0); Immature Granulocytes # (auto) 0.01 K/uL (0.00-0.02); Immature Granulocytes % (auto) 0.2 %; Lymphocytes # (auto) 1.12 K/uL (1.2-3.4); Lymphocytes % (auto) 20.2 %; Mean Corpuscular Hemoglobin 29.6 pg (25-34); Mean Corpuscular Hgb Conc 33.4 g/dL (32-36); Mean Corpuscular Volume 88.7 fL (80-100); Mean Platelet Volume 9.7 fL (7.4-10.4); Monocytes # (auto) 0.72 K/uL (0.11-0.59); Neutrophils # (auto) 3.66 K/uL (1.4-6.5); Platelet Count 314 K/uL (130-400); RDW Coefficient of Variation 14.1 % (11.5-14.5); Red Blood Count 4.69 M/uL (4.2-5.4); White Blood Count 5.54 K/uL (4.8-10.8)
[2020-06-18 14:10] LABS: Appearance Urine Cloudy (Clear); Bacteria Urine Automated Negative (Negative); Bilirubin Urine Negative (Negative); Blood Urine Negative (Negative); Cast Urine Automated 0 /lpf (0-5); Color Urine Yellow; Glucose Urine UA Negative (Negative); Ketones Urine Negative (Negative); Leukocyte Esterase Urine Negative (Negative); Nitrite Urine Negative (Negative); Protein Urine Negative (Negative); Specific Gravity Urine 1.019 (1.000-1.030); Urobilinogen Urine Negative (Negative); WBC Urine Automated 0 /hpf (0-5)
[2020-06-18 14:14] LABS: Prothrombin Time 10.9 Seconds (9.0-12.0)
--- NOTE | 2020-06-18 14:24 | CT Scan Report ---
CT SCAN OF THE BRAIN WITHOUT IV CONTRAST CLINICAL HISTORY: Generalized weakness. COMPARISON STUDY: CT of the brain dated 03/17/2020. TECHNIQUE: Unenhanced axial CT scan of the brain is performed from the vertex to the skull base. A do se lowering technique was utilized adhering to the principles of ALARA. CT DOSE: 537.48 mGy.cm FINDINGS: Brain parenchyma: There are age-related involutional changes noting moderate to advanced confluent s ubcortical and periventricular microangiopathic change. There is no hemorrhage, mass effect, or evide nce of acute territorial ischemia by CT criteria. Gonzalez-white matter differentiation is preserved. No extra-axial fluid collection is seen. Ventricles, sulci, cisterns: Prominent secondary to involutional change. Intracranial vasculature: There is atherosclerotic calcification of the cavernous carotid arteries. Calvarium: Unremarkable. Sinuses and mastoids: The visualized paranasal sinuses are clear. The mastoid air cells are well pneu matized. Orbits: The bony orbits are grossly intact. There are bilateral ocular lens implants. IMPRESSION: Senescent changes as above with no hemorrhage, mass effect, or evidence of acute territor ial ischemia by CT criteria. ACT 112: Negative or not required by law. Electronically signed by: Asael Espinoza M.D. 06/18/2020 2:23 PM
[2020-06-18 14:31] LABS: Alanine Aminotransferase 21 U/L (12-78); Albumin Level 3.1 gm/dl (3.4-5.0); Aspartate Aminotransferase 15 U/L (15-37); BUN Creatinine Ratio 10.1 (10-20); Blood Urea Nitrogen 10 mg/dl (7-18); Calcium 9.9 mg/dl (8.5-10.1); Carbon Dioxide 27 mmol/L (21-32); Chloride 102 mmol/L (98-107); Creatinine Clr Calc Pharmacy 38.2 ml/min; Est GFR (African American) 63.3; Est GFR (Non-African American) 54.6; Glucose 103 mg/dl (70-99); Potassium 3.9 mmol/L (3.5-5.1); Sodium 135 mmol/L (136-145)
[2020-06-18 14:42] LABS: Albumin Globulin Ratio 0.8 (0.9-2); Alkaline Phosphatase 87 U/L (45-117); Bilirubin,Total 0.6 mg/dl (0.2-1); Globulin 3.9 gm/dl (2.5-4.0); Troponin I < 0.015 ng/ml (0-0.045)
--- NOTE | 2020-06-18 14:52 | XRay Report ---
SINGLE VIEW CHEST CLINICAL HISTORY: Generalized weakness. FINDINGS: An AP, portable, upright chest radiograph is compared to study dated 03/02/2020. Correlation is made with chest CT dated 05/13/2019. The examination is degraded by portable technique and patient rotation. The heart is mildly enlarged noting atherosclerotic calcification of the thoracic aorta. Th e pulmonary vasculature is noncongested. Chronic interstitial thickening is similar to previous. Ther e is mild bibasilar atelectasis. The lungs and pleural spaces are otherwise clear. No pneumothorax is seen. The skeletal structures are osteopenic. The bony thorax is grossly intact. IMPRESSION: Cardiomegaly with no active disease in the chest. ACT 112: Negative or not required by law. Electronically signed by: Asael Espinoza M.D. 06/18/2020 2:50 PM
[2020-06-18 14:54] LABS: T4 Free Thyroxine 1.51 ng/dl (0.8-1.6)
--- NOTE | 2020-06-18 15:44 | History & Physical Report ---
Date of Service June 18, 2020 Assessment & Plan (1) Weakness: (2) Hypothyroidism: (3) Hyponatremia: (4) Malaise: She will be placed on outpatient medications were appropriate, PT OT eval and treat, case management for placement. ROS-No Headache, No Visual Changes, No Nausea, No Vomiting, No Fever, No Chills, No Neck Pain or Stiffness, No Chest Pain, No Palpitations, No SOB, No KAY, No Cough, No Sputum, No Wheezing, No Abdominal Pain, No Diarrhea, No Hematemesis, No Hemoptysis, No Unexpected Weight Loss, No Flank pain, No Melena, No Hematochezia, No Frequency, No Urgency, No Burning, No Hematuria, No Rashes, No Diaphoresis. Appetite is decreased, complains of weakness Physical Exam Gen-AAO x 3, NAD, Afebrile Head-NCAT, EOMI, PERRLA, Anicteric Sclera, No Posterior Pharyngeal Erythema Neck-Supple, No JVD, No Thyromegaly, No Masses, No LAD, No Bruits Lungs-Clear to Auscultation Bilaterally, No Rales, No Rhonchi, No Wheezing, No Crepitus Chest-No S4, +S1, +S2, No S3, No Murmurs, No Rubs, No Gallops, No Ectopy Abdomen-Soft, Bowel Sounds Present, Non Tender, Non Distended, No Hepatomegaly, No Splenomegaly, No Palpable Masses, No Rebound, No Rigidity, No Guarding Musculoskeletal-Full Range of Motion Bilaterally, No CVAT Extremities-No Cyanosis, No Clubbing, No Edema Nuero-Cranial Nerves II-XII grossly intact, Motor WNL, DTRs WNL, Strength WNL, Non Focal Psych-Normal Mood History of Present Illness Chief Complaint: Weakness Primary Care Provider: Larry Schwartz MD 84-year-old female with a past medical history of hypothyroidism, close head injury, vertigo, back pain, ambulatory dysfunction, superior mesenteric artery stenosis, vestibular migraines, vertigo, multilevel degenerative disc disease, who comes in secondary to weakness. She was recently seen by Dr. Doll who placed her on thyroid medicine for a TSH of 14. Daughter complains the patient is very weak and she is not able to take care of her home. This is most likely from the hypothyroidism so she will be placed under observation have PT and OT see her. Allergies Allergy/AdvReac Type Severity Reaction Status Date / Time adhesive tape AdvReac Intermediate PEELING OF Verified 03/17/20 21:07 SKIN cefdinir AdvReac Intermediate Migraine Verified 03/17/20 21:07 erythromycin base AdvReac Intermediate MYCIN Verified 03/17/20 21:07 DRUGS-YEAST INFECTIONS tramadol AdvReac Intermediate MAKES Verified 03/17/20 21:07 HEADACHS WORSE--vestibular sx Home Medications Home Medications Medication Instructions Recorded Confirmed Type levothyroxine 112 mcg PO DAILY 10/05/18 03/17/20 History polyethylene glycol 3350 [Miralax] 17 g PO DAILY 06/24/19 03/17/20 History clopidogrel 75 mg PO QAM 09/02/19 03/17/20 History dicyclomine 10 mg PO Q6 PRN 09/30/19 03/17/20 History lansoprazole 30 mg PO DAILY 11/03/19 03/17/20 History apixaban [Eliquis] 2.5 mg PO BID 11/05/19 03/17/20 History ondansetron 4 mg PO Q8H PRN 03/02/20 03/17/20 History docusate sodium [Colace] 100 mg PO BID 03/17/20 03/17/20 History meclizine 12.5 mg PO TID PRN 03/17/20 03/17/20 History Past Med/Surg History Medical History Abdominal pain Ambulatory dysfunction Anxiety Cervical cancer at age 29--sx Closed head injury Depression Difficulty swallowing DVT prophylaxis Fall History of gastric ulcer Hyponatremia Hypothyroidism Intractable back pain Malaise On anticoagulant therapy eliquis daily Oropharyngeal dysphagia Osteoarthritis Pulmonary embolism reason for eliquis Superior mesenteric artery stenosis T12 compression fracture Tinnitus of both ears Transient ischemic attack (TIA) 2013--follows with Dr. Zapata--no deficits Upper abdominal pain Vertigo Vertigo Vestibular migraine reason for verapamil Surgical History History of adenoidectomy History of appendectomy History of bilateral cataract extraction History of cholecystectomy History of colonoscopy History of hysterectomy History of tonsillectomy History of tooth extraction Family History Son Family history of diabetes mellitus Social History Smoking Status: Former smoker Second Hand Exposure: Yes ( smoked/father smoked); Hx Alcohol Use: No Hx Substance Use: No Preferred Language: Cymraes Communication Ability: Effective Python Consultant Required: No Beliefs That Will Affect Care: None marital status: / Current Living Situation: Alone Current Living Situation Comment: daughter recently staying with, RN, aide, PT/OT in 2x week started current occupational status: retired Feels Safe at Home: Yes Assistive Devices: Walker Results & Data Results & Data ([facility]) Vital Signs (Past 12 Hours) Vital Signs Temp Pulse Resp BP Pulse Ox 06/18/20 14:00 98 H 24 157/76 H 95 06/18/20 13:30 100 H 21 137/99 95 06/18/20 13:00 101 H 25 H 149/95 H 96 06/18/20 12:38 98 H 18 135/66 96 06/18/20 12:30 37.0 C 100 H 16 135/66 96 Allergies adhesive tape Adverse Reaction (Intermediate, Verified 03/17/20 21:07) PEELING OF SKIN cefdinir Adverse Reaction (Intermediate, Verified 03/17/20 21:07) Migraine erythromycin base Adverse Reaction (Intermediate, Verified 03/17/20 21:07) MYCIN DRUGS-YEAST INFECTIONS tramadol Adverse Reaction (Intermediate, Verified 03/17/20 21:07) MAKES HEADACHS WORSE--vestibular sx Height/Weight/Isolation Height 5 ft Weight 71.5 kg Chemistry 06/18/20 13:52 Sodium 135 L Potassium 3.9 Chloride 102 Carbon Dioxide 27 Anion Gap 7.0 BUN 10 Creatinine 0.95 Glucose 103 H Urinalysis 06/18/20 13:52 Urine Color Yellow Urine Appearance Cloudy A Urine pH 7.0 Ur Specific [place] 1.019 Urine Protein Negative Urine Glucose (UA) Negative Urine Ketones Negative Urine Blood Negative Urine Nitrite Negative Urine Bilirubin Negative
[2020-06-18] MEDS ORDERED: DICYCLOMINE HCL 10 MG CAP PO PRN (17:26)
[2020-06-18] MEDS ORDERED: ACETAMINOPHEN 325 MG TAB PO PRN (17:26)
[2020-06-18] MEDS: DOCUSATE SODIUM 100 MG CAP PO SCH (20:46)
[2020-06-18] MEDS: APIXABAN 2.5 MG TAB PO SCH (20:46)
[2020-06-18] MEDS ORDERED: HEPARIN SOD 5,000 UNIT/0.5 ML VIAL SQ SCH (21:00)
[2020-06-19] MEDS: LEVOTHYROXINE SODIUM 125 MCG TABLET PO SCH (06:28)
[2020-06-19] MEDS ORDERED: LEVOTHYROXINE SODIUM 112 MCG TABLET PO SCH (06:30)
[2020-06-19] MEDS: POLYETHYLENE (MIRALAX) 17 GM PACK PO SCH (08:28)
[2020-06-19] MEDS: DOCUSATE SODIUM 100 MG CAP PO SCH ×2 (08:28→21:00)
[2020-06-19] MEDS: CLOPIDOGREL BISULFATE 75 MG TAB PO SCH (08:28)
[2020-06-19] MEDS: APIXABAN 2.5 MG TAB PO SCH ×2 (08:28→21:00)
[2020-06-19] MEDS: LANSOPRAZOLE 30 MG SOLTAB PO SCH (08:28)
[2020-06-19 09:15] LABS: Hematocrit (blood only) 41.3 % (37-47); Hemoglobin 13.7 g/dL (12.0-16.0); Mean Corpuscular Hemoglobin 29.5 pg (25-34); Mean Corpuscular Hgb Conc 33.2 g/dL (32-36); Mean Platelet Volume 10.1 fL (7.4-10.4); Platelet Count 347 K/uL (130-400); RDW Coefficient of Variation 14.1 % (11.5-14.5); RDW Standard Deviation 46.1 fL (36.4-46.3); Red Blood Count 4.64 M/uL (4.2-5.4); White Blood Count 5.09 K/uL (4.8-10.8)
[2020-06-19 09:23] LABS: Prothrombin Time 10.9 Seconds (9.0-12.0)
[2020-06-19 09:32] LABS: BUN Creatinine Ratio 9.7 (10-20); Calcium 9.7 mg/dl (8.5-10.1); Creatinine Clr Calc Pharmacy 39.9 ml/min; Est GFR (African American) 66.7; Est GFR (Non-African American) 57.5; Magnesium 2.1 mg/dl (1.8-2.4); Phosphorus 3.1 mg/dl (2.5-4.9); Potassium 3.8 mmol/L (3.5-5.1)
[2020-06-19 09:44] LABS: T3 Total 0.68 ng/ml (0.60-1.81); T4 Thyroxine 11.7 mcg/dl (4.5-10.9)
[2020-06-19 09:45] LABS: T3 Free 2.41 pg/ml (2.3-4.2)
--- NOTE | 2020-06-19 12:33 | Electrocardiogram Report ---
Test Reason : Blood Pressure : / mmHG Vent. Rate : 099 BPM Atrial Rate : 099 BPM P-R Int : 150 ms QRS Dur : 076 ms QT Int : 350 ms P-R-T Axes : 070 000 008 degrees QTc Int : 449 ms Poor data quality, interpretation may be adversely affected Sinus rhythm with Premature atrial complexes Abnormal ECG When compared with ECG of 05-NOV-2019 12:33, No significant change was found Confirmed by Suraj Aguilar ([id number]) on 06/19/2020 12:32:54 PM Referred By: REFERRED SELF Confirmed By:Suraj Aguilar
[2020-06-19] MEDS ORDERED: CALCIUM CARBONATE 500 MG CHEWABLE TAB PO ONE (13:29)
--- NOTE | 2020-06-19 15:04 | Hospitalist Progress Note ---
Date of Service June 19, 2020 Assessment & Plan (1) Weakness: Ambulatory Dysfunction -as per 06/18/2020 ED notes" This patient is an 84-year-old female who is brought in by EMS after she has had increasing weakness and functional decline over the last week or so. Is been getting progressively worse. She is been seen by her doctor and had a negative urine culture back on June 09. She also had a TSH recently that was 14.1 they increased her Synthroid from 112 mcg to 1 25 on Friday. She has been a little more disoriented at times but no fever or chills she does tend to fall frequently and she is chronically dizzy and she is fallen about 2 or 3 times this month but no head trauma." -her admission CT head with no stroke -06/19/2020 daytime hospitalist spoke with patient and her daughter Vero at bedside. At baseline, Vero reports that patient has trouble with memory which apparently has been chronic for about a year and a half and often has trouble finishing her sentences and off stop mid sentence. On exam, patient is very forgetful and often needed prompting from her daughter. Patient suspects patient has dementia but no formal outpatient diagnosis have been made in the past -Patient's daughter had brought patient to hospital because family could not help her stand up out of bed. Daughter also reports patient when walking may lean toward the left or even when at rest. Not apparent on physical exam while sitting up in the bed -Daughter describes that patient may have been deconditioned but there does not appear to be acute reason for patient's weakness at this time. Her hypothyroid numbers are improving (TSH of 6 is downtrended from previous double digit TSH of 14 and current free T4 is normal), patient has purewick catheter in the hospital but urine analysis is normal. patient not known to have fever and with normal WBC. But hospitalist have sent off blood cultures empirically. patient is known to have history of degenerative spine and history of T12 fracture in the past, but patient denies back pain or leg pains -monitor in the hospital; follow the PT/OT assessments (2) Hypothyroidism: -continue home dose levothyroxine History of Vestibular Migraines -as per 06/09/[address] Schwartz that patient has history of vestibular migraines and verapamil was prescribed by Neurology for prophylaxis of vestibular migraines but stopped in the past by family because of concern of side effects (3) Hyponatremia: history of hyponatremia in the past -serum sodium on admission is generally normal History of mesenteric stent -continue home dose clopidogrel History of pulmonary embolism in the past -occurred 4 to 5 years ago as per patient's daughter -continue Eliquis 2.5 mg BID History of EGD and dilatation around June 2019 History of incidental findings on imaging of (Early Cirrhosis on CT scan, Fibromuscular dysplasia of the kidneys on CT scan) in the past hospital notes in September 2019; normal renal function and liver ezymes on this presentation Daughter Vero [phone] Admission and Anticipated Discharge Date Admission Date: June 18, 2020 Subjective -06/19/2020 daytime hospitalist spoke with patient and her daughter Vero at bedside. At baseline, Vero reports that patient has trouble with memory which apparently has been chronic for about a year and a half and often has trouble finishing her sentences and off stop mid sentence. On exam, patient is very forgetful and often needed prompting from her daughter. -Patient's daughter had brought patient to hospital because family could not help her stand up out of bed. Daughter also reports patient when walking may lean toward the left or even when at rest. Not apparent on physical exam while sitting up in the bed -Daughter describes that patient may have been deconditioned but there does not appear to be acute reason for patient's weakness at this time. Her hypothyroid numbers are improving (TSH of 6 is downtrended from previous double digit TSH of 14), patient has purewick catheter in the hospital but urine analysis is normal. patient not known to have fever and with normal WBC. But hospitalist have sent off blood cultures empirically. patient is known to have history of degenerative spine and history of T12 fracture in the past, but patient denies back pain or leg pains patient denies other acute symptoms on review of systems Review of Systems Review of Systems: All systems reviewed & are unremarkable except as noted in Subjective Results & Data Results & Data ([facility]) Vital Signs (Past 12 Hours) Vital Signs Temp Pulse Resp BP Pulse Ox 06/19/20 07:25 36.8 C 97 H 16 132/81 95 (1) Hypothyroidism Hypothyroidism type: unspecified Qualified Code(s): E03.9 - Hypothyroidism, unspecified
[2020-06-19] MEDS ORDERED: SODIUM CHLORIDE 0.9% 1000ML 1,000 ML IV SCH (16:45)
[2020-06-19] MEDS ORDERED: GADOBUTROL 65ML VIAL IV ONE (17:27)
--- NOTE | 2020-06-19 20:04 | Magnetic Resonance Report ---
Brain MRI WITH AND WITHOUT CONTRAST HISTORY: Vertigo. ambulatory dysfunction TECHNIQUE: Multiplanar multisequence MRI of the brain was performed both before and after the intrave nous administration of contrast. COMPARISON STUDY: Head CT 06/18/2020. Outside hospital brain MRI 08/11/2017. FINDINGS: There is no mass, hematoma, midline shift, or acute infarct. The paranasal sinuses are mason r. The mastoid air cells are clear. The ventricles and sulci demonstrate moderate age-related involut ional changes. Patchy and scattered foci of T2 hyperintensity seen within the periventricular and sub cortical white matter are nonspecific but suggestive of moderate microvascular ischemic changes. The major vascular flow voids at the skull base are well-maintained. Old punctate lacunar infarcts seen w ithin the right basal ganglia and left cerebellar hemisphere. Small focus of increased T1 signal with in the right basal ganglia adjacent to the old lacunar infarct. This may be due to old postoperative changes or calcification. IMPRESSION: 1. No acute intracranial abnormality. 2. Moderate atrophy and microvascular ischemic changes are again noted. ACT 112: Negative or not required by law. Electronically signed by: Omkar Oscar M.D. 06/19/2020 8:03 PM
[2020-06-20] MEDS ORDERED: METOPROLOL TARTRATE 25 MG TAB PO STA
[2020-06-20] MEDS: LEVOTHYROXINE SODIUM 125 MCG TABLET PO SCH (05:30)
[2020-06-20 06:24] LABS: Basophils # (auto) 0.01 K/uL (0-0.2); Basophils % (auto) 0.1 %; Eosinophils # (auto) 0.04 K/uL (0-0.5); Eosinophils % (auto) 0.6 %; Hematocrit (blood only) 40.3 % (37-47); Hemoglobin 13.4 g/dL (12.0-16.0); Immature Granulocytes # (auto) 0.01 K/uL (0.00-0.02); Immature Granulocytes % (auto) 0.1 %; Lymphocytes # (auto) 1.02 K/uL (1.2-3.4); Lymphocytes % (auto) 14.7 %; Mean Corpuscular Hemoglobin 29.3 pg (25-34); Mean Corpuscular Hgb Conc 33.3 g/dL (32-36); Mean Corpuscular Volume 88.2 fL (80-100); Monocytes # (auto) 0.67 K/uL (0.11-0.59); Monocytes % (auto) 9.6 %; Neutrophils % (auto) 74.9 %; Platelet Count 348 K/uL (130-400); RDW Coefficient of Variation 13.8 % (11.5-14.5); RDW Standard Deviation 44.6 fL (36.4-46.3); Red Blood Count 4.57 M/uL (4.2-5.4); White Blood Count 6.95 K/uL (4.8-10.8)
[2020-06-20 06:52] LABS: Albumin Level 2.8 gm/dl (3.4-5.0); BUN Creatinine Ratio 8.6 (10-20); Calcium 8.9 mg/dl (8.5-10.1); Creatinine Clr Calc Pharmacy 47.8 ml/min; Est GFR (African American) 82.9; Est GFR (Non-African American) 71.5; Potassium 3.9 mmol/L (3.5-5.1)
[2020-06-20 06:55] LABS: Albumin Globulin Ratio 0.8 (0.9-2); Bilirubin,Total 0.8 mg/dl (0.2-1); Globulin 3.6 gm/dl (2.5-4.0); Total Protein 6.4 gm/dl (6.4-8.2)
[2020-06-20] MEDS: CLOPIDOGREL BISULFATE 75 MG TAB PO SCH (08:39)
[2020-06-20] MEDS: DOCUSATE SODIUM 100 MG CAP PO SCH ×2 (08:39→20:18)
[2020-06-20] MEDS: POLYETHYLENE (MIRALAX) 17 GM PACK PO SCH (08:39)
[2020-06-20] MEDS: APIXABAN 2.5 MG TAB PO SCH ×2 (08:39→20:18)
[2020-06-20] MEDS: LANSOPRAZOLE 30 MG SOLTAB PO SCH (08:39)
--- NOTE | 2020-06-20 14:53 | Hospitalist Progress Note ---
Date of Service June 20, 2020 Assessment & Plan (1) Ambulatory dysfunction: Uncertain cause. Neurology consulted for assistance. Recommend MRI lumbar spine which is still pending at this time. The patient is significantly fatigued and is unable to stand on her own, which is strikingly different than her ability to ambulate independently with a walker approximately 3 weeks ago. Continue current work-up to find etiology which is unclear at this time. Appreciate PT and OT's involvement as the patient tolerates. (2) Memory loss: Worsened memory issues over the last 3 weeks, associated with urinary incontinence increased fatigue, decreased appetite and ambulatory dysfunction. Uncertain if there was some baseline mild cognitive inhibition that has now worsened as opposed to some acute phenomenon. Continue to monitor. The patient is high risk for hospital induced delirium. Reorient as necessary. (3) Weakness: Gradual progression worse in the last 3 weeks. No clear underlying reversible metabolic causes such as infection or electrolyte abnormality present. No evidence of acute stroke. Right greater than left extremity weakness is present. Neurology consulted and recommended MRI lumbar spine to start. Continue PT/OT as tolerated. At this time PT has not been able to assess her secondary to significant fatigue. Of note patient also denies shortness of breath but seems to have these periods of shortness of breath. She did receive a flu vaccine around the time that she started to decline, 05/31/2020. ?reaction. Will discuss further with Neurology. (4) Hypothyroidism: recent titration of thyroid supplementation. Repeat TSH in a few weeks as outpatient. May be contributing to fatigue, ?memory loss. (5) Vestibular migraine: Patient has a known history of these. No reports of migraine at this time. 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 Continue home dose clopidogrel. Benign abdominal exam today. (7) History of pulmonary embolism: Continue Eliquis per home regimen. (8) DVT prophylaxis: Eliquis DNR Disposition-uncertain, she will need [facility] facility if unable to improve physically. Kimberlyn Calderon [facility] and Anticipated Discharge Date Admission Date: June 18, 2020 Subjective Pt unable to give ROS, she cannot remember what has been going on with her at home recently. Daughter provides history and states increased fatigue, decreased appetite, worsening confusion/memory loss in the last 3 weeks. She notes this came along with acute incontinence, also. Review of Systems Review of Systems: All systems reviewed & are unremarkable except as noted in Subjective Physical Exam Physical Exam: CONSTITUTIONAL: WNWD, vitals as above, generally fatigued. EYES: EOMI bilaterally, pupils are round and equal bilaterally, normal conjunctivae, no scleral icterus ENT: external ear and nose normal, mucous membranes moist. RESPIRATORY: clear to auscultation bilaterally, no crackles, rales or wheezes, normal respiratory effort CARDIOVASCULAR: regular rate and rhythm, S1 and 2 heard without murmurs, gallops or rubs, no JVD, no peripheral edema GASTROINTESTINAL: soft, nontender, nondistended, no guarding MUSCULOSKELETAL: brand representative strength intact bilaterally, she is able to flex both arms forward against gravity. She is unable to actively move either leg very much at all jyothi unable to move R leg. Cannot dorsiflex R foot, L foot somewhat. Plantarflexion OK bilaterally. SKIN: warm and dry NEUROLOGIC: No facial palsy, no dysarthria. CN 2-12 grossly intact, normal speech, fatigued. PSYCHIATRIC: fatigued, but able to cooperate and follow instructions with exam. Oriented to self only. Results & Data Results & Data ([facility]) Vital Signs (Past 12 Hours) Vital Signs Temp Pulse Resp BP Pulse Ox 06/20/20 07:05 36.8 C 85 17 136/81 95 06/20/20 03:55 99 H 148/84 H 94 Laboratory Results Short CBC 06/20/20 Range/Units 05:46 WBC 6.95 (4.8-10.8) K/uL Hgb 13.4 (12.0-16.0) g/dL Hct 40.3 (37-47) % Plt Count 348 (130-400) K/uL BMP 06/20/20 05:46 Sodium 133 L Potassium 3.9 Chloride 102 Carbon Dioxide 25 BUN 7 Creatinine 0.76 Glucose 116 H Calcium 8.9 Liver Function 06/20/20 Range/Units 05:46 Total Bilirubin 0.8 (0.2-1) mg/dl AST 17 (15-37) U/L ALT 21 (12-78) U/L Alkaline Phosphatase 90 (45-117) U/L Albumin 2.8 L (3.4-5.0) gm/dl Medications Administered Current Inpatient Medications Acetaminophen (Acetaminophen 325 Mg Tab) 325 mg PO Q6H PRN PRN Reason: pain/fever Stop: 07/18/20 16:59 Apixaban (Apixaban 2.5 Mg Tab) 2.5 mg PO BID [facility] Stop: 07/18/20 20:59 Last Admin: 06/20/20 08:39 Dose: 2.5 mg Documented by: Clopidogrel Bisulfate (Clopidogrel Bisulfate 75 Mg Tab) 75 mg PO QAM [facility] Stop: 07/19/20 08:59 Last Admin: 06/20/20 08:39 Dose: 75 mg Documented by: Dicyclomine HCl (Dicyclomine Hcl 10 Mg Cap) 10 mg PO Q6 PRN PRN Reason: Pain Stop: 07/18/20 17:25 Docusate Sodium (Docusate Sodium 100 Mg Cap) 100 mg PO BID [facility] Stop: 07/18/20 20:59 Last Admin: 06/20/20 08:39 Dose: Not Given Documented by: Lansoprazole (Lansoprazole 30 Mg Soltab) 30 mg PO DAILY [facility]ENNIE Stop: 07/19/20 08:59 Last Admin: 06/20/20 08:39 Dose: 30 mg Documented by: Levothyroxine Sodium (Levothyroxine Sodium 125 Mcg Tablet) 125 mcg PO DAILYBB [facility] Stop: 07/19/20 06:29 Last Admin: 06/20/20 05:30 Dose: 125 mcg Documented by: Ondansetron HCl (Ondansetron 4 Mg Od Tab) 4 mg PO Q8H PRN PRN Reason: Nausea And Vomiting Stop: 07/18/20 17:35 Polyethylene Glycol (Polyethylene (Miralax) 17 Gm Pack) 17 gm PO DAILY PENNIE Stop: 07/19/20 08:59 Last Admin: 06/20/20 08:39 Dose: 17 gm Documented by: (1) Hypothyroidism Hypothyroidism type: unspecified Qualified Code(s): E03.9 - Hypothyroidism, unspecified
--- NOTE | 2020-06-20 16:32 | Communication Note ---
Date of Service: June 20, 2020 Larissa is 84 years old is a patient of Dr. Larry Schwartz, is known to the [facility] neurology service where she has been followed for about a year now for what has been called vestibular migraines but has not responded to calcium channel blockers or any other preventative medications in the past and eventually the medications were discontinued probably 4 to 5 months ago. She may have been developing some low-grade cognitive impairment according to what I can glean from conversing with her daughter and reviewing the hospitalist progress notes but over the past several months has had a significant decline in overall function with increasing lethargy, perhaps some intermittent confusion, lower extremity weakness, frequent falls with perhaps some contusions of her buttocks and back and was found to have an elevated TSH to 14 despite having been treated for several years for hypothyroidism. This was detected I believe about a week ago and increased thyroid replacement was initiated then. Despite this he has had a continued downhill spiral and her daughter finally brought her to the hospital several days ago because of inability to continue to care for her. She is also developed some incontinence it is not clear exactly when this was but involved urine primarily and probably was present before the diagnosis of the hypothyroidism was confirmed Again despite the replacement her condition has continued to decline particular in terms of lower extremity weakness and confusion Dr. Calderon who has assumed her care is asked me to take a look at her. An MRI done today reveals some age-appropriate leukoencephalopathic changes but nothing acute and nothing that would explain her current decline on the basis of a structural disorder vascular event or an infectious process Her past medical history reveals longstanding ambulatory dysfunction of mild degree, hypothyroidism, currently B12 deficiency on replacement, history of hy ponatremia now not an issue, longstanding back pain, T12 compression fracture, and the episodic vertigo, presumptive diagnosis of vestibular migraine, prior closed head injury abdominal pain, history of cholecystectomy and appendectomy and a hysterectomy Medication list includes Eliquis calcium carbonate, Plavix, vitamin B12, dicyclomine, increasing dose of the levothyroxine, ondansetron Family history and social history are recorded on her admission notes would not be reiterated here Review of systems is positive for the lethargy cognitive impairment gait disturbance weakness primarily in lower extremities, perhaps some increased back pain, frequent falls, but otherwise does not indicate any new cardiovascular pulmonary gastrointestinal genitourinary musculoskeletal or dermatologic issues other than the incontinence and no specific new complaints referable to the head eyes ears nose and throat Laboratory studies have been largely unremarkable and there has been no evidence for urinary tract infection or pneumonitis to my knowledge. MRI studies are as recorded above. The actual images were not available for my review as yet but the report was reviewed and indicates only some age-appropriate leukoencephalopathy Exam reveals a blood pressure 112/70 pulse of 60 respirations 22 temperature is 36.6 C and O2 saturations 94% She is lethargic has a low volume speech will respond with appropriate comments at times and at other times seems to be unable to understand simple commands will squeeze my hands she will close her eyes she will attempt to move her lower extremities and actually can raise them off the bed to some degree but cannot sustain the posterior she can wiggle her toes is no real rigidity or cogwheeling no tremor cranial nerves appear to be intact with normal eye movements normal facial motility and strength normal facial sensation and I cannot induce any vertigo or complaints thereof with head movements. Reflexes are difficult to assess because of her incomplete relaxation but I do not get any reflexes at the ankles or the knees but upper extremity reflexes are also hypoactive. Toes are downgoing no Rogers signs are seen strength in the upper extremities appears to be reasonably good proximally and distally and there is no muscle atrophy but in lower extremities is very difficult to get her to cooperate particularly dorsiflexion in the feet. Plantar flexion appears to be somewhat better and proximal muscles innervated by L3-4 are difficult to assess but seem to have some function against gravity. Sensory examination is difficult she seems to be unable to appreciate her perception accurately light touch is appreciated vibration is difficult to assess Much of this could be explained on the basis of hypothyroidism and replacement is going to take some time to be come clinically evident even if adequate as one has to go slow in his age group and the effects may be delayed. It certainly could produce the confusion and the lethargy and the proximal weakness of the lower extremities. That having been said this is a woman who is also had falls as a pre-existing back issues and is now incontinent which would be somewhat unusual for hypothyroidism and I think we ought to be aware that there may be some structural disease of the lumbar spine or conceivably even higher contributing to the incontinence and the lower extremity weakness. I do not see signs of a myelopathy with extensor toe sign so I think we could probably limit our imaging at this point to the lumbar spine but would suggest we deal with and without contrast if we can based on her renal function and I am also going to get an EEG just to be sure there is no subclinical nonconvulsive seizure activity going on which might mimic a confusional state I will be discussing her case with her attending physician and will check back with her tomorrow Stephan Zapata MD
[2020-06-21] MEDS ORDERED: GADOBUTROL 65ML VIAL IV ONE (05:48)
[2020-06-21] MEDS: ONDANSETRON 4 MG OD TAB PO PRN (06:00)
--- NOTE | 2020-06-21 07:49 | Magnetic Resonance Report ---
MR lumbar spine wo/w con CLINICAL HISTORY: weakness of legs and incontinence INABILITY TO AMBULATE. TECHNIQUE: Sagittal and axial T1, T2 and STIR images were obtained. Images were acquired before and after the administration of 7.1 cc of intravenous Gadavist. COMPARISON STUDY: CT scan dated 03/13/2020 OBSERVATIONS: There is a subacute superior endplate T12 compression deformity. There is an L3 vertebral body abdoul ioma. There is an L2 vertebral body focal fatty rest/hemangioma. L1-2: No disc protrusions or extrusions. No evidence of spinal canal or neural foraminal compromise. L2-3: There is a disc bulge and left posterior lateral disc protrusion. There is minimal spinal canal narrowing. There is mild left-sided foraminal narrowing. L3-4: There is a mild circumferential disc bulge. There is no significant spinal stenosis. There is m ild bilateral foraminal narrowing L4-5: There is a circumferential disc bulge. There is minimal spinal canal narrowing. There is mild b ilateral foraminal narrowing. There is facet joint arthropathy L5-S1: No disc protrusions or extrusions. No evidence of spinal canal or neural foraminal compromise. There is facet joint arthropathy. Postcontrast images reveal no suspicious enhancing lesions. The conus medullaris and cauda equina appear normal. IMPRESSION: 1. Subacute superior endplate T12 compression fracture 2. Multilevel spondylytic changes. Disc bulge and left lateral disc protrusion at the L2-3 level. 3. Mild multilevel foraminal narrowing. 4. No evidence of high-grade spinal stenosis 5. No suspicious enhancing lesions. ACT 112: Negative or not required by law. Electronically signed by: Herman Powell M.D. 06/21/2020 7:47 AM
[2020-06-21] MEDS: LEVOTHYROXINE SODIUM 125 MCG TABLET PO SCH (08:42)
[2020-06-21] MEDS: POLYETHYLENE (MIRALAX) 17 GM PACK PO SCH (08:43)
[2020-06-21] MEDS: CLOPIDOGREL BISULFATE 75 MG TAB PO SCH (08:43)
[2020-06-21] MEDS: APIXABAN 2.5 MG TAB PO SCH ×2 (08:43→20:21)
[2020-06-21] MEDS: DOCUSATE SODIUM 100 MG CAP PO SCH ×2 (08:43→20:21)
[2020-06-21] MEDS: LANSOPRAZOLE 30 MG SOLTAB PO SCH (08:43)
--- NOTE | 2020-06-21 11:39 | Electroencephalogram ---
EEG Procedure Note Date of Service June 21, 2020 Start / End Times Start Time: 628 End Time: 06 Referring Physician Stephan Zapata MD History confusion and weakness recent diagnosis of hypothyroidism Home Medication List Home Medications Medication Instructions Recorded Confirmed Type polyethylene glycol 3350 [Miralax] 17 g PO QAM 06/24/19 06/18/20 History clopidogrel 75 mg PO QDD 09/02/19 06/18/20 History dicyclomine 10 mg PO Q6 PRN 09/30/19 06/18/20 History lansoprazole 30 mg PO QDL 11/03/19 06/18/20 History apixaban [Eliquis] 2.5 mg PO BID 11/05/19 06/18/20 History ondansetron 4 mg PO Q8H PRN 03/02/20 06/18/20 History calcium carbonate [Tums 500] 1,000 mg PO DAILY PRN 06/18/20 06/18/20 History cyanocobalamin (vitamin B-12) 500 mcg PO QDD 06/18/20 06/18/20 History [Vitamin B-12] levothyroxine 125 mcg PO DAILY 06/19/20 06/19/20 History Inpatient Medication List Apixaban (Apixaban 2.5 Mg Tab) 2.5 mg PO BID PENNIE Stop: 07/18/20 20:59 Last Admin: 06/21/20 08:43 Dose: 2.5 mg Documented by: [id number] Admin: 06/20/20 20:18 Dose: 2.5 mg Documented by: [id number] Admin: 06/20/20 08:39 Dose: 2.5 mg Documented by: [id number] Admin: 06/19/20 21:00 Dose: 2.5 mg Documented by: [id number] Admin: 06/19/20 08:28 Dose: 2.5 mg Documented by: [id number] Admin: 06/18/20 20:46 Dose: 2.5 mg Documented by: [id number] Clopidogrel Bisulfate (Clopidogrel Bisulfate 75 Mg Tab) 75 mg PO QAM PENNIE Stop: 07/19/20 08:59 Last Admin: 06/21/20 08:43 Dose: 75 mg Documented by: [id number] Admin: 06/20/20 08:39 Dose: 75 mg Documented by: [id number] Admin: 06/19/20 08:28 Dose: 75 mg Documented by: [id number] Docusate Sodium (Docusate Sodium 100 Mg Cap) 100 mg PO BID [facility] Stop: 07/18/20 20:59 Last Admin: 06/21/20 08:43 Dose: Not Given Documented by: [id number] Admin: 06/20/20 20:18 Dose: 100 mg Documented by: [id number] Admin: 06/20/20 08:39 Dose: Not Given Documented by: [id number] Admin: 06/19/20 21:00 Dose: 100 mg Documented by: [id number] Admin: 06/19/20 08:28 Dose: 100 mg Documented by: [id number] Admin: 06/18/20 20:46 Dose: Not Given Documented by: [id number] Lansoprazole (Lansoprazole 30 Mg Soltab) 30 mg PO DAILY [facility] Stop: 07/19/20 08:59 Last Admin: 06/21/20 08:43 Dose: 30 mg Documented by: [id number] Admin: 06/20/20 08:39 Dose: 30 mg Documented by: [id number] Admin: 06/19/20 08:28 Dose: 30 mg Documented by: [id number] Levothyroxine Sodium ([facility]othyroxine Sodium 125 Mcg Tablet) [facility] Stop: 07/19/20 06:29 Last Admin: 06/21/20 08:42 Dose: 125 mcg Documented by: [id number] Admin: 06/20/20 05:30 Dose: 125 mcg Documented by: [id number] Admin: 06/19/20 06:28 Dose: 125 mcg Documented by: [id number] Ondansetron HCl (Ondansetron 4 Mg Od Tab) 4 mg PO Q8H PRN PRN Reason: Nausea And Vomiting Stop: 07/18/20 17:35 Last Admin: 06/21/20 06:00 Dose: 4 mg Documented by: [id number] Polyethylene Glycol (Polyethylene (Miralax) 17 Gm Pack) 17 gm PO DAILY [facility] Stop: 07/19/20 08:59 Last Admin: 06/21/20 08:43 Dose: 17 gm Documented by: [id number] Admin: 06/20/20 08:39 Dose: 17 gm Documented by: [id number] Admin: 06/19/20 08:28 Dose: 17 gm Documented by: [id number] Discontinued Medications Calcium Carbonate (Calcium Carbonate 500 Mg Chewable Tab) 500 mg PO ONCE ONE Stop: 06/19/20 13:30 Last Admin: 06/19/20 13:40 Dose: 500 mg Documented by: [id number] Gadobutrol (Gadobutrol 65ml Vial) 7 ml IV ONCE ONE Stop: 06/19/20 17:28 Last Admin: 06/19/20 17:27 Dose: 7 ml Documented by: [id number] Gadobutrol (Gadobutrol 65ml Vial) 7.1 ml IV ONCE ONE Stop: 06/21/20 05:49 Last Admin: 06/21/20 05:31 Dose: 7.1 ml Documented by: [id number] Sodium Chloride (Nss) 500 mls @ 999 mls/hr IV .Q31M PENNIE Stop: 06/18/20 14:00 Last Infusion: 06/18/20 14:34 Dose: 0 mls/hr Documented by: [id number] Admin: 06/18/20 13:55 Dose: 999 mls/hr Documented by: [id number] Sodium Chloride (Nss 1000ml) 1,000 mls @ 60 mls/hr IV .[id number] PENNIE Stop: 06/20/20 09:24 Last Infusion: 06/20/20 10:59 Dose: 0 mls/hr Documented by: [id number] Admin: 06/19/20 18:09 Dose: 60 mls/hr Documented by: [id number] Metoprolol Tartrate (Metoprolol Tartrate 25 Mg Tab) 25 mg PO NOW STA Stop: 06/20/20 00:01 Last Admin: 06/20/20 00:38 Dose: 25 mg Documented by: [id number] Description This is a 21 electrode EEG with a single channel dedicated to limited EKG. The electrodes were placed in accordance with the International 10-20 system. This EEG was performed as a bedside recording and is of good technical quality with few or no muscle movement artifacts. Photic stimulation was performed. Drowsiness was not recorded. Simultaneously analysis of patient movement of behavior was obtained Under the conditions there is evidence for background rhythm in the upper theta lower alpha range generally running about 8 Hz maximum frequency sometimes up to 9 and about 20 to 30 V maximal amplitude in maximum and symmetric posterior head regions. Polymorphic mid to lower frequency theta activity of modest voltage is seen in a symmetrical fashion over the central head regions. Beta activity seen bifrontally Photic stimulation provokes a minimal driving response in posterior head regions No time during waking tracing is or clear evidence for potential epileptogenic activity Interpretation This EEG is mildly diffusely abnormal with generalized slowing of all background rhythms but without any lateralizing features and without any associated potentially epileptogenic activity Clinical Correlation Current tracing is consistent with a mild nonspecific generalized encephalopathy. It could easily be explictable on the basis of the known hypothyroid state in this case but can also have a wide variety of causations. Important is the fact that there are no lateralizing features which would suggest structural disease and no potential epileptogenic patterns are seen Stephan Zapata MD
--- NOTE | 2020-06-21 16:45 | Communication Note ---
Date of Service: June 21, 2020 I saw Larissa today and I am pleased that she seems more alert more conversant but still is a bit confused and has some significant short-term memory deficits that I think have probably been coming on prior to this step-off in her condition due to I assume hypothyroidism. She still has weakness in her legs but this is some degree better particularly dorsiflexion of the feet and the upper extremity strength is good but she still has significant proximal weakness of her legs and will probably need some rehabilitation Discussed her case with Dr. 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
--- NOTE | 2020-06-21 17:43 | Hospitalist Progress Note ---
Date of Service June 21, 2020 Assessment & Plan (1) Ambulatory dysfunction: Uncertain cause. Neurology consulted for assistance. Recommend MRI lumbar spine which is still pending at this time. The patient is significantly fatigued and is unable to stand on her own, which is strikingly different than her ability to ambulate independently with a walker approximately 3 weeks ago. Continue current work-up to find etiology which is unclear at this time. Appreciate PT and OT's involvement as the patient tolerates. (2) Memory loss: Worsened memory issues over the last 3 weeks, associated with urinary incontinence increased fatigue, decreased appetite and ambulatory dysfunction. Uncertain if there was some baseline mild cognitive inhibition that has now worsened as opposed to some acute phenomenon. Continue to monitor. The patient is high risk for hospital induced delirium. Reorient as necessary. (3) Weakness: Gradual progression worse in the last 3 weeks. No clear underlying reversible metabolic causes such as infection or electrolyte abnormality present. No evidence of acute stroke. Right greater than left extremity weakness is present. Neurology consulted and recommended MRI lumbar spine to start. Continue PT/OT as tolerated. At this time PT has not been able to assess her secondary to significant fatigue. Of note patient also denies shortness of breath but seems to have these periods of shortness of breath. She did receive a flu vaccine around the time that she started to decline, 05/31/2020. ?reaction. Will discuss further with Neurology. (4) Hypothyroidism: recent titration of thyroid supplementation. Repeat TSH in a few weeks as outpatient. May be contributing to fatigue, ?memory loss. (5) Vestibular migraine: Patient has a known history of these. No reports of migraine at this time. 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 Continue home dose clopidogrel. Benign abdominal exam today. (7) History of pulmonary embolism: Continue Eliquis per home regimen. (8) Osteoporosis: questionable osteoporosis with current osteoporotic fracture of vertebra from fall last year. Cont Ca/D supplementation. (9) DVT prophylaxis: Marie DNR Disposition-uncertain, she will need alf facility if unable to improve physically. DO Becca Singh hospitalist Admission and Anticipated Discharge Date Admission Date: June 20, 2020 Subjective no changes +memory issues +oriented to self only apathetic to food afebrile daughter at bedside and discussed the case and thoughts. Review of Systems Review of Systems: All systems reviewed & are unremarkable except as noted in Subjective Physical Exam Physical Exam: CONSTITUTIONAL: WNWD, vitals as above, generally fatigued. EYES: EOMI bilaterally, pupils are round and equal bilaterally, normal conjunctivae, no scleral icterus ENT: external ear and nose normal, mucous membranes moist. 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 She is unable to actively move either leg very much at all jyothi unable to move R leg. Cannot dorsiflex R foot, L foot somewhat. Plantarflexion OK bilaterally. SKIN: warm and dry NEUROLOGIC: No facial palsy, no dysarthria. CN 2-12 grossly intact, normal speech, fatigued. PSYCHIATRIC: fatigued, but able to cooperate and follow instructions with exam. Oriented to self only. Results & Data Results & Data ([facility]) Vital Signs (Past 12 Hours) Vital Signs Temp Pulse Resp BP Pulse Ox 06/21/20 07:39 36.7 C 70 16 137/80 93 Medications Administered Current Inpatient Medications Acetaminophen (Acetaminophen 325 Mg Tab) 325 mg PO Q6H PRN PRN Reason: pain/fever Stop: 07/18/20 16:59 Apixaban (Apixaban 2.5 Mg Tab) 2.5 mg PO BID [facility] Stop: 07/18/20 20:59 Last Admin: 06/21/20 08:43 Dose: 2.5 mg Documented by: Clopidogrel Bisulfate (Clopidogrel Bisulfate 75 Mg Tab) 75 mg PO QAM [facility] Stop: 07/19/20 08:59 Last Admin: 06/21/20 08:43 Dose: 75 mg Documented by: Dicyclomine HCl (Dicyclomine Hcl 10 Mg Cap) 10 mg PO Q6 PRN PRN Reason: Pain Stop: 07/18/20 17:25 Docusate Sodium (Docusate Sodium 100 Mg Cap) 100 mg PO BID [facility] Stop: 07/18/20 20:59 Last Admin: 06/21/20 08:43 Dose: Not Given Documented by: Lansoprazole (Lansoprazole 30 Mg Soltab) 30 mg PO DAILY [facility] Stop: 07/19/20 08:59 Last Admin: 06/21/20 08:43 Dose: 30 mg Documented by: Levothyroxine Sodium (Levothyroxine Sodium 125 Mcg Tablet) 125 mcg PO DAILYBB [facility] Stop: 07/19/20 06:29 Last Admin: 06/21/20 08:42 Dose: 125 mcg Documented by: Ondansetron HCl (Ondansetron 4 Mg Od Tab) 4 mg PO Q8H PRN PRN Reason: Nausea And Vomiting Stop: 07/18/20 17:35 Last Admin: 06/21/20 06:00 Dose: 4 mg Documented by: Polyethylene Glycol (Polyethylene (Miralax) 17 Gm Pack) 17 gm PO DAILY [facility] Stop: 07/19/20 08:59 Last Admin: 06/21/20 08:43 Dose: 17 gm Documented by: (1) Hypothyroidism Hypothyroidism type: unspecified Qualified Code(s): E03.9 - Hypothyroidism, unspecified
[2020-06-21] MEDS: ACETAMINOPHEN 325 MG TAB PO PRN (19:44)
[2020-06-22] MEDS: LEVOTHYROXINE SODIUM 125 MCG TABLET PO SCH (05:53)
[2020-06-22 07:15] LABS: Hemoglobin 13.4 g/dL (12.0-16.0); Mean Corpuscular Hemoglobin 29.4 pg (25-34); Mean Corpuscular Hgb Conc 33.5 g/dL (32-36); Mean Corpuscular Volume 87.7 fL (80-100); Mean Platelet Volume 9.9 fL (7.4-10.4); Platelet Count 334 K/uL (130-400); RDW Coefficient of Variation 13.7 % (11.5-14.5); RDW Standard Deviation 43.5 fL (36.4-46.3); Red Blood Count 4.56 M/uL (4.2-5.4); White Blood Count 7.87 K/uL (4.8-10.8)
[2020-06-22 07:45] LABS: Calcium 8.9 mg/dl (8.5-10.1); Est GFR (African American) 85.6; Est GFR (Non-African American) 73.9; Magnesium 2.1 mg/dl (1.8-2.4); Potassium 3.7 mmol/L (3.5-5.1)
[2020-06-22] MEDS: DOCUSATE SODIUM 100 MG CAP PO SCH ×2 (09:24→20:48)
[2020-06-22] MEDS: POLYETHYLENE (MIRALAX) 17 GM PACK PO SCH (09:26)
[2020-06-22] MEDS: APIXABAN 2.5 MG TAB PO SCH ×2 (09:26→20:49)
[2020-06-22] MEDS: LANSOPRAZOLE 30 MG SOLTAB PO SCH (09:26)
[2020-06-22] MEDS: ACETAMINOPHEN 325 MG TAB PO PRN (10:26)
[2020-06-22] MEDS: CLOPIDOGREL BISULFATE 75 MG TAB PO SCH (10:27)
[2020-06-22 12:42] LABS: Ferritin 39.6 ng/ml (8-388)
[2020-06-22] MEDS: CYANOCOBALAMIN 500 MCG TABLET (VITAMIN B-12) PO SCH (12:57)
[2020-06-22] MEDS: CALCIUM CARBONATE 1250MG TAB PO SCH ×2 (12:57→20:49)
[2020-06-22] MEDS: ASCORBIC ACID 500 MG TAB PO SCH (12:57)
[2020-06-22] MEDS: THIAMINE HCL 100 MG TAB PO SCH (12:57)
[2020-06-22] MEDS: CHOLECALCIFEROL 1,000 UNITS 25 MCG TAB PO SCH (12:57)
--- NOTE | 2020-06-22 15:08 | Fluoroscopy Report ---
FLUOROSCOPIC GUIDED LUMBAR PUNCTURE CLINICAL HISTORY: Change in mental status. Weakness and fatigue. PROCEDURE: The risks, benefits, and alternatives to the procedure is discussed with the patient who v oiced understanding. Written informed consent was obtained. The patient was placed prone on the fluor oscopy table. The lower back was prepped and draped in the usual sterile fashion. 1% lidocaine was us ed for local anesthesia. A 20-gauge spinal needle was inserted into the L4-L5 interlaminar space, and approximately 10 cc of clear colorless cerebrospinal fluid was removed. 4 spot images were saved. Th e patient tolerated the procedure well. There were no immediate complications. The patient was then r eturned to the indication floor for further observation. Fluoroscopy time: 0.6 minutes IMPRESSION: Fluoroscopic guided lumbar puncture with removal of approximately 10 cc of cerebrospinal fluid. There were no immediate complications. ACT 112: Negative or not required by law. Electronically signed by: Asael Espinoza M.D. 06/22/2020 3:06 PM
[2020-06-22 15:28] LABS: Total Protein CSF 52.5 mg/dl (15-45)
--- NOTE | 2020-06-22 15:42 | CT Scan Report ---
CHEST CT WITHOUT CONTRAST, ABDOMEN AND PELVIS CT WITHOUT CONTRAST CT DOSE: 608.25 mGycm (accession [id number]), 418.67 mGycm (accession [id number]) HISTORY: fatigue, weakness, confusion TECHNIQUE: Multiaxial CT images of the chest, abdomen and pelvis were performed without contrast. A dose lowering technique was utilized adhering to the principles of ALARA. COMPARISON STUDY: Abdomen and pelvis CT 03/02/2020. Chest CT 05/13/2019. FINDINGS: Chest CT: The heart remains mildly enlarged. No pleural or pericardial effusions. Normal esophagus. N o mediastinal or hilar lymphadenopathy. Stable bilobed nodule within the anterior mediastinum measuri ng 1.6 x 0.9 cm. Normal caliber thoracic aorta. Moderate calcified plaque within the coronary arterie s. No change in the chronic T12 superior endplate compression fracture demonstrating up to 25% loss o f height. No suspicious lytic or blastic osseous lesions. No pneumothorax. Mild biapical pleural-pare nchymal scarlike densities are again noted. The central airways are patent. Stable 3 mm subpleural no dule within the left lung base on image 168. No new focal lung consolidations to suggest pneumonia. N o evidence for pulmonary edema. Abdomen/pelvis CT: No pneumoperitoneum. No pneumatosis. No suspicious lytic or blastic osseous lesion s. Cholecystectomy. The unenhanced liver, spleen, adrenal glands, pancreas, and kidneys are unremarka ble. No hydronephrosis. No retroperitoneal lymphadenopathy. Stable ectatic abdominal aorta measuring up to 2.5 cm in diameter. This is not significantly changed. A superior mesenteric artery stent is ag ain noted. The bladder is decompressed. There is diffuse bladder wall thickening with adjacent fat st randing. Mild presacral edema. Moderate stool ball within the rectum measuring 6.4 cm in diameter. Arguelles boptimal evaluation for bowel pathology due to the lack of intravenous and oral contrast. However, th ere is no definite bowel wall thickening or obstruction. Colonic diverticulosis. No evidence for acut e diverticulitis. The appendix is not identified and likely surgically absent. Prior hysterectomy. Mi nimal edema adjacent to the aortic bifurcation has slightly progressed. This is of doubtful clinical significance. IMPRESSION: 1. Stable mild cardiomegaly. 2. Stable 1.6 x 0.9 cm bilobed anterior mediastinal nodule. 3. Chronic T12 superior endplate compression deformity, unchanged. 4. No acute process within the chest. 5. Bladder wall thickening with adjacent fat stranding. This favors a cystitis. Recommend correlation with urinalysis. 6. Mild presacral edema. 7. Moderate stool ball within the rectum. 8. Prior cholecystectomy, hysterectomy, and appendectomy. ACT 112: Negative or not required by law. Electronically signed by: Omkar Oscar M.D. 06/22/2020 3:41 PM
[2020-06-22 15:52] LABS: Appearance CSF Clear; CSF Count Tube # 2; CSF Xanthrochromic No xanthochromia; Color CSF Colorless; Red Blood Cell CSF (A) 12 /uL (0-); Red Blood Cell CSF (B) 16 /uL (0-); White Blood Cell CSF (A) 0 /uL (0-5); White Blood Cell CSF (B) 0 /uL (0-5)
--- NOTE | 2020-06-22 16:01 | Communication Note ---
Date of Service: June 22, 2020 Larissa was seen today after having undergone lumbar puncture and CT of the abdomen pelvis and chest and a search for possible [employer]PUT[employer] infection and an under lying carcinoma and all its been found is a stable anterior mediastinal lobulated mass which could be thymus but does not appeared changed from prior study done a year ago and thus far the CSF shows only a mild elevation of the protein which would certainly be consistent with a hypothyroid state. Testing for myasthenia gravis is pending along with a host of other immunologic studies. Currently the patient is exhausted from a day of testing but apparently did walk a little bit with therapy today and plans are to get her into a rehabilitation facility for period of time continue the thyroid replacement which has to be gradual in light of her age and follow her up with some point in the future probably in a month or 2 at which point the effects of thyroid replacement should really have become fairly obvious and she should improve. There may be an underlying cognitive impairment syndrome here that has been emerging but it is difficult in the setting of a pretty significant hypothyroid state and make anything of this until all of her thyroid functions are back to normal and sufficient time has elapsed for her brain and general health to have responded At this point unless there are unexpected findings on CSF analysis I think neurology can sign off and Dr. Bolaños will be on-call for the next week and could be contacted in the event of any unexpected laboratory studies are found and/or her neurologic status declines or changes significantly Stephan Zapata MD
--- NOTE | 2020-06-22 17:48 | Hospitalist Progress Note ---
Date of Service June 22, 2020 Assessment & Plan (1) Ambulatory dysfunction: Uncertain cause. MRI L spine with chronic degenerative findings only. Known T2 osteoporotic fracture is old and not contributing. There is no clear evidence of infection at this point, and no underlying metabolic or toxic abnormality which can be reversed. Other possibilities for current clinical picture include cognitive and physical decline related to progressed dementia and/or recent thyroid abnormalities. Daughter reported that patient was able to now take some steps independently to the wheelchair which is new and an improvement. Cont PT/OT as tolerated. (2) Memory loss: Worsened memory issues over the last 3 weeks, associated with urinary incontinence increased fatigue, decreased appetite and ambulatory dysfunction. Uncertain if there was some baseline mild cognitive inhibition that has now worsened as opposed to some acute phenomenon. Iron deficiency present-will replace. She is not anemic. Thyroid being replaced currently. Urine recheck in progress. The patient is high risk for hospital induced delirium. Reorient as necessary. (3) Weakness: Daughter states symptoms were present prior to her flu vaccine on 05/31. Weakness is about the same. Nurse was able to get her to walk independently a few steps today, so at least we know she is now able to do so. Reflexes were clearly present on exam today. Strength was intact throughout on lower extremities, which were more easily examined with her in the chair today. Weakness likely secondary to her profound fatigue and cognitive changes. Cont PT/OT as tolerated. (4) Hypothyroidism: recent titration of thyroid supplementation. Repeat TSH in a few weeks as outpatient. May be contributing to fatigue, ?memory loss. (5) Vestibular migraine: Patient has a known history of these. No reports of migraine at this time. Doesn't appear to be dizzy with walking. 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 Continue home dose clopidogrel. Benign abdominal exam today. (7) History of pulmonary embolism: Continue Eliquis per home regimen. (8) Osteoporosis: questionable osteoporosis with current osteoporotic fracture of vertebra. Cont Ca and vitamin D supplementation. (9) Iron deficiency: Supplemental iron started. No anemia present. Repeat level as outpatient in a few weeks. (10) DVT prophylaxis: Marie DNR Disposition-uncertain, she will need fdc facility if unable to improve physically. [facility] and Anticipated Discharge Date Admission Date: June 20, 2020 Subjective no real changes in fatigue, memory loss or disposition denies pain denies SOB or chest pain today performed CT c/a/p, repeat UA/UCx, and LP Review of Systems Review of Systems: All systems reviewed & are unremarkable except as noted in Subjective Physical Exam Physical Exam: CONSTITUTIONAL: WNWD, vitals as above, generally fatigued. EYES: pupils are round and equal bilaterally, normal conjunctivae, no scleral icterus ENT: external ear and nose normal, mucous membranes moist. 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 5/5 strength throughout, some difficulty with following instructions but no weakness detected. SKIN: warm and dry NEUROLOGIC: No facial palsy, no dysarthria. CN 2-12 grossly intact, normal speech, fatigued. PSYCHIATRIC: fatigued, but able to cooperate and follow instructions with exam. Oriented to self only. Results & Data Results & Data ([facility]) Vital Signs (Past 12 Hours) Vital Signs Temp Pulse Resp BP Pulse Ox 06/22/20 16:05 37.0 C 102 H 18 163/94 H 94 06/22/20 07:25 36.6 C 85 16 164/74 H 93 Laboratory Results Short CBC 06/22/20 Range/Units 06:48 WBC 7.87 (4.8-10.8) K/uL Hgb 13.4 (12.0-16.0) g/dL Hct 40.0 (37-47) % Plt Count 334 (130-400) K/uL BMP 06/22/20 06:48 Sodium 132 L Potassium 3.7 Chloride 100 Carbon Dioxide 26 BUN 10 Creatinine 0.74 Glucose 105 H Calcium 8.9 Cardiac Enzymes 06/22/20 Range/Units 06:48 Total Creatine Kinase 108 (26-192) U/L Medications Administered Current Inpatient Medications Acetaminophen (Acetaminophen 325 Mg Tab) 325 mg PO Q6H PRN PRN Reason: pain/fever Stop: 07/18/20 16:59 Last Admin: 06/22/20 10:26 Dose: 325 mg Documented by: Apixaban (Apixaban 2.5 Mg Tab) 2.5 mg PO BID [facility] Stop: 07/18/20 20:59 Last Admin: 06/22/20 09:26 Dose: 2.5 mg Documented by: Ascorbic Acid (Ascorbic Acid 500 Mg Tab) 500 mg PO QAM [facility] Stop: 07/22/20 12:29 Last Admin: 06/22/20 12:57 Dose: 500 mg Documented by: Calcium Carbonate (Calcium Carbonate 1250mg Tab) 1,250 mg PO BID [facility] Stop: 07/22/20 12:29 Last Admin: 06/22/20 12:57 Dose: 1,250 mg Documented by: Clopidogrel Bisulfate (Clopidogrel Bisulfate 75 Mg Tab) 75 mg PO QAM [facility] Stop: 07/19/20 08:59 Last Admin: 06/22/20 10:27 Dose: 75 mg Documented by: Cyanocobalamin (Cyanocobalamin 500 Mcg Tablet (Vitamin B-12)) 500 mcg PO QAM [facility] Stop: 07/22/20 12:29 Last Admin: 06/22/20 12:57 Dose: 500 mcg Documented by: Dicyclomine HCl (Dicyclomine Hcl 10 Mg Cap) 10 mg PO Q6 PRN PRN Reason: Pain Stop: 07/18/20 17:25 Last Admin: 06/21/20 20:21 Dose: 10 mg Documented by: Docusate Sodium (Docusate Sodium 100 Mg Cap) 100 mg PO BID [facility] Stop: 07/18/20 20:59 Last Admin: 06/22/20 09:24 Dose: Not Given Documented by: Lansoprazole (Lansoprazole 30 Mg Soltab) 30 mg PO DAILY [facility] Stop: 07/19/20 08:59 Last Admin: 06/22/20 09:26 Dose: 30 mg Documented by: Levothyroxine Sodium (Levothyroxine Sodium 125 Mcg Tablet) 125 mcg PO DAILYBB [facility] Stop: 07/19/20 06:29 Last Admin: 06/22/20 05:53 Dose: 125 mcg Documented by: Ondansetron HCl (Ondansetron 4 Mg Od Tab) 4 mg PO Q8H PRN PRN Reason: Nausea And Vomiting Stop: 07/18/20 17:35 Last Admin: 06/21/20 06:00 Dose: 4 mg Documented by: Polyethylene Glycol (Polyethylene (Miralax) 17 Gm Pack) 17 gm PO DAILY [facility] Stop: 07/19/20 08:59 Last Admin: 06/22/20 09:26 Dose: 17 gm Documented by: Thiamine HCl (Thiamine Hcl 100 Mg Tab) 100 mg PO QAM [facility] Stop: 07/22/20 12:29 Last Admin: 06/22/20 12:57 Dose: 100 mg Documented by: Vitamin D (Cholecalciferol 1,000 Units 25 Mcg Tab) 1,000 units PO QAM [facility] Stop: 07/22/20 12:29 Last Admin: 06/22/20 12:57 Dose: 1,000 units Documented by: (1) Hypothyroidism Hypothyroidism type: unspecified Qualified Code(s): E03.9 - Hypothyroidism, unspecified
[2020-06-23] MEDS: ACETAMINOPHEN 325 MG TAB PO PRN ×2 (04:48→12:00)
[2020-06-23] MEDS: LEVOTHYROXINE SODIUM 125 MCG TABLET PO SCH (04:49)
[2020-06-23] MEDS: DOCUSATE SODIUM 100 MG CAP PO SCH ×2 (09:05→20:25)
[2020-06-23] MEDS: CHOLECALCIFEROL 1,000 UNITS 25 MCG TAB PO SCH (09:06)
[2020-06-23] MEDS: LANSOPRAZOLE 30 MG SOLTAB PO SCH (09:06)
[2020-06-23] MEDS: THIAMINE HCL 100 MG TAB PO SCH (09:06)
[2020-06-23] MEDS: CYANOCOBALAMIN 500 MCG TABLET (VITAMIN B-12) PO SCH (09:06)
[2020-06-23] MEDS: APIXABAN 2.5 MG TAB PO SCH ×2 (09:07→20:24)
[2020-06-23] MEDS: POLYETHYLENE (MIRALAX) 17 GM PACK PO SCH (09:07)
[2020-06-23] MEDS: ASCORBIC ACID 500 MG TAB PO SCH (09:07)
[2020-06-23] MEDS: CALCIUM CARBONATE 1250MG TAB PO SCH ×2 (09:07→20:23)
[2020-06-23] MEDS: CLOPIDOGREL BISULFATE 75 MG TAB PO SCH (09:07)
[2020-06-23 11:34] LABS: Appearance Urine Turbid (Clear); Bacteria Urine Automated 4+ (Negative); Bilirubin Urine Negative (Negative); Blood Urine 2+ (Negative); Color Urine Yellow; Glucose Urine UA Negative (Negative); Ketones Urine Negative (Negative); Leukocyte Esterase Urine 3+ (Negative); Nitrite Urine Positive (Negative); Protein Urine Negative (Negative); Specific Gravity Urine 1.018 (1.000-1.030); Urobilinogen Urine Negative (Negative); WBC Urine Automated >30 /hpf (0-5); pH Urine 6.5 (4.5-7.5)
[2020-06-23] MEDS: predniSONE 20 MG TAB PO SCH (12:00)
[2020-06-23 13:26] LABS: Folate (Folic Acid) 10.08 ng/ml (>5.38)
[2020-06-23] MEDS: ONDANSETRON 4 MG OD TAB PO PRN (13:57)
--- NOTE | 2020-06-23 18:03 | Hospitalist Progress Note ---
Date of Service June 23, 2020 Assessment & Plan (1) Ambulatory dysfunction: Uncertain cause. MRI L spine with chronic degenerative findings only. Known T2 osteoporotic fracture is old and not contributing. There is no clear evidence of infection at this point, and no underlying metabolic or toxic abnormality which can be reversed. Other possibilities for current clinical picture include cognitive and physical decline related to progressed dementia and/or recent thyroid abnormalities. Daughter reported that patient was able to now take some steps independently to the wheelchair which is new and an improvement. strength appears improved on exam. Cont PT/OT as tolerated. (2) Memory loss: Worsened memory issues over the last 3 weeks, associated with urinary incontinence increased fatigue, decreased appetite and ambulatory dysfunction. Uncertain if there was some baseline mild cognitive inhibition that has now worsened as opposed to some acute phenomenon. Iron deficiency present-will replace. She is not anemic. Thyroid being replaced currently. Urine recheck in progress. The patient is high risk for hospital induced delirium. Reorient as necessary. (3) Weakness: Daughter states symptoms were present prior to her flu vaccine on 05/31. Weakness is about the same. Nurse was able to get her to walk independently a few steps, so she is able. Possible undiagnosed PMR--add empiric prednisone to start now, jyothi with slightly elevated CRP to >3. (4) Hypothyroidism: recent titration of thyroid supplementation. Repeat TSH in a few weeks as outpatient. May be contributing to fatigue, ?memory loss. (5) Vestibular migraine: Patient has a known history of these. No reports of migraine at this time. Doesn't appear to be dizzy with walking. 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 Continue home dose clopidogrel. Benign abdominal exam today. (7) History of pulmonary embolism: Continue Eliquis per home regimen. (8) Osteoporosis: questionable osteoporosis with current osteoporotic fracture of vertebra. Cont Ca and vitamin D supplementation. (9) Iron deficiency: Supplemental iron started. No anemia present. Repeat level as outpatient in a few weeks. (10) DVT prophylaxis: Marie DNR Disposition-uncertain, she will need senior living facility if unable to improve physically. Kimberlyn Calderon DO [facility] hospitalist Admission and Anticipated Discharge Date Admission Date: June 20, 2020 Subjective no changes fatigued weak daughter states she reports wanting to on occasion tolerating PO Review of Systems Review of Systems: All systems reviewed & are unremarkable except as noted in Subjective Physical Exam Physical Exam: CONSTITUTIONAL: WNWD, vitals as above, generally fatigued. EYES: pupils are round and equal bilaterally, normal conjunctivae, no scleral icterus ENT: external ear and nose normal, mucous membranes moist. 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 5/5 strength throughout, some difficulty with following instructions but no weakness detected. SKIN: warm and dry NEUROLOGIC: No facial palsy, no dysarthria. CN 2-12 grossly intact, normal speech, fatigued. PSYCHIATRIC: fatigued, but able to cooperate and follow instructions with exam. Oriented to self only. Results & Data Results & Data ([facility]) Vital Signs (Past 12 Hours) Vital Signs Temp Pulse Resp BP Pulse Ox 06/23/20 15:12 36.9 C 42 L 16 136/69 94 06/23/20 07:06 36.9 C 79 12 159/82 H 93 Laboratory Results Urine 06/23/20 Range/Units 11:25 Urine Color Yellow Urine Appearance Turbid A (Clear) Urine pH 6.5 (4.5-7.5) Ur Specific [place] 1.018 (1.000-1.030) Urine Protein Negative (Negative) Urine Glucose (UA) Negative (Negative) Medications Administered Current Inpatient Medications Acetaminophen (Acetaminophen 325 Mg Tab) 325 mg PO Q6H PRN PRN Reason: pain/fever Stop: 07/18/20 16:59 Last Admin: 06/23/20 12:00 Dose: 325 mg Documented by: Apixaban (Apixaban 2.5 Mg Tab) 2.5 mg PO BID [facility] Stop: 07/18/20 20:59 Last Admin: 06/23/20 09:07 Dose: 2.5 mg Documented by: Ascorbic Acid (Ascorbic Acid 500 Mg Tab) 500 mg PO QAM [facility] Stop: 07/22/20 12:29 Last Admin: 06/23/20 09:07 Dose: 500 mg Documented by: Calcium Carbonate (Calcium Carbonate 1250mg Tab) 1,250 mg PO BID [facility] Stop: 07/22/20 12:29 Last Admin: 06/23/20 09:07 Dose: 1,250 mg Documented by: Clopidogrel Bisulfate (Clopidogrel Bisulfate 75 Mg Tab) 75 mg PO QAM [facility] Stop: 07/19/20 08:59 Last Admin: 06/23/20 09:07 Dose: 75 mg Documented by: Cyanocobalamin (Cyanocobalamin 500 Mcg Tablet (Vitamin B-12)) 500 mcg PO QAM [facility] Stop: 07/22/20 12:29 Last Admin: 06/23/20 09:06 Dose: 500 mcg Documented by: Dicyclomine HCl (Dicyclomine Hcl 10 Mg Cap) 10 mg PO Q6 PRN PRN Reason: Pain Stop: 07/18/20 17:25 Last Admin: 06/21/20 20:21 Dose: 10 mg Documented by: Docusate Sodium (Docusate Sodium 100 Mg Cap) 100 mg PO BID [facility] Stop: 07/18/20 20:59 Last Admin: 06/23/20 09:05 Dose: Not Given Documented by: Ferrous Sulfate (Ferrous Sulfate 325 Mg Tab) 325 mg PO BIDM [facility] Stop: 07/23/20 16:59 Lansoprazole (Lansoprazole 30 Mg Soltab) 30 mg PO DAILY [facility] Stop: 07/19/20 08:59 Last Admin: 06/23/20 09:06 Dose: 30 mg Documented by: Levothyroxine Sodium (Levothyroxine Sodium 125 Mcg Tablet) 125 mcg PO DAILYBB [facility] Stop: 07/19/20 06:29 Last Admin: 06/23/20 04:49 Dose: 125 mcg Documented by: Ondansetron HCl (Ondansetron 4 Mg Od Tab) 4 mg PO Q8H PRN PRN Reason: Nausea And Vomiting Stop: 07/18/20 17:35 Last Admin: 06/21/20 06:00 Dose: 4 mg Documented by: Polyethylene Glycol (Polyethylene (Miralax) 17 Gm Pack) 17 gm PO DAILY [facility] Stop: 07/19/20 08:59 Last Admin: 06/23/20 09:07 Dose: 17 gm Documented by: Prednisone (Prednisone 20 Mg Tab) 20 mg PO DAILY [facility] Stop: 07/23/20 10:14 Last Admin: 06/23/20 12:00 Dose: 20 mg Documented by: Thiamine HCl (Thiamine Hcl 100 Mg Tab) 100 mg PO QAM [facility] Stop: 07/22/20 12:29 Last Admin: 06/23/20 09:06 Dose: 100 mg Documented by: Vitamin D (Cholecalciferol 1,000 Units 25 Mcg Tab) 1,[address] [facility] Stop: 07/22/20 12:29 Last Admin: 06/23/20 09:06 Dose: 1,000 units Documented by: (1) Hypothyroidism Hypothyroidism type: unspecified Qualified Code(s): E03.9 - Hypothyroidism, unspecified
[2020-06-23] MEDS: FERROUS SULFATE 325 MG TAB PO SCH (18:12)
[2020-06-24] MEDS ORDERED: POTASSIUM CHLORIDE 20 MEQ TABCR PO STA (00:20)
[2020-06-24] MEDS ORDERED: POTASSIUM CHLORIDE 40 MEQ in SODIUM CHLORIDE 0.9% 1000ML 1,000 ML IV ONE (00:45)
[2020-06-24 00:52] LABS: Basophils # (auto) 0.01 K/uL (0-0.2); Basophils % (auto) 0.2 %; Eosinophils # (auto) 0.01 K/uL (0-0.5); Eosinophils % (auto) 0.2 %; Hematocrit (blood only) 37.4 % (37-47); Immature Granulocytes # (auto) 0.03 K/uL (0.00-0.02); Immature Granulocytes % (auto) 0.5 %; Lymphocytes # (auto) 1.37 K/uL (1.2-3.4); Mean Corpuscular Hemoglobin 30.4 pg (25-34); Mean Corpuscular Hgb Conc 34.8 g/dL (32-36); Mean Corpuscular Volume 87.4 fL (80-100); Mean Platelet Volume 9.8 fL (7.4-10.4); Monocytes # (auto) 0.74 K/uL (0.11-0.59); Monocytes % (auto) 11.3 %; Neutrophils # (auto) 4.36 K/uL (1.4-6.5); Neutrophils % (auto) 66.8 %; Platelet Count 325 K/uL (130-400); RDW Coefficient of Variation 13.7 % (11.5-14.5); RDW Standard Deviation 43.4 fL (36.4-46.3); Red Blood Count 4.28 M/uL (4.2-5.4); White Blood Count 6.52 K/uL (4.8-10.8)
[2020-06-24 01:10] LABS: Partial Thromboplastin Time 29.1 Seconds (21.0-31.0)
[2020-06-24 01:17] LABS: BUN Creatinine Ratio 24.3 (10-20); Creatinine Clr Calc Pharmacy 49.7 ml/min; Est GFR (Non-African American) 75.1; Magnesium 2.2 mg/dl (1.8-2.4)
[2020-06-24] MEDS: LEVOTHYROXINE SODIUM 125 MCG TABLET PO SCH (05:16)
[2020-06-24] MEDS: CLOPIDOGREL BISULFATE 75 MG TAB PO SCH (08:14)
[2020-06-24] MEDS: ASCORBIC ACID 500 MG TAB PO SCH (08:14)
[2020-06-24] MEDS: FERROUS SULFATE 325 MG TAB PO SCH ×2 (08:14→17:29)
[2020-06-24] MEDS: APIXABAN 2.5 MG TAB PO SCH ×2 (08:14→20:03)
[2020-06-24] MEDS: predniSONE 20 MG TAB PO SCH (08:14)
[2020-06-24] MEDS: POLYETHYLENE (MIRALAX) 17 GM PACK PO SCH (08:14)
[2020-06-24] MEDS: THIAMINE HCL 100 MG TAB PO SCH (08:14)
[2020-06-24] MEDS: CYANOCOBALAMIN 500 MCG TABLET (VITAMIN B-12) PO SCH (08:14)
[2020-06-24] MEDS: CHOLECALCIFEROL 1,000 UNITS 25 MCG TAB PO SCH (08:14)
[2020-06-24] MEDS: LANSOPRAZOLE 30 MG SOLTAB PO SCH (08:14)
[2020-06-24] MEDS: CALCIUM CARBONATE 1250MG TAB PO SCH ×2 (08:15→20:03)
[2020-06-24] MEDS: DOCUSATE SODIUM 100 MG CAP PO SCH ×2 (08:18→20:02)
[2020-06-24] MEDS: ACETAMINOPHEN 325 MG TAB PO PRN (08:18)
[2020-06-24] MEDS: cefTRIAXone SODIUM 1,000 MG in DEXTROSE 5% 50 ML IV SCH (10:34)
[2020-06-24] MEDS: CALCIUM CARBONATE 500 MG CHEWABLE TAB PO PRN ×2 (10:41→19:06)
--- NOTE | 2020-06-24 17:26 | Hospitalist Progress Note ---
Date of Service June 24, 2020 Assessment & Plan (1) Metabolic encephalopathy: Finally catheterized urine sample returned and is positive. Very positive which may explain all symptoms that she has been having, and may have cause the thyroid to become abnormal. Started empiric Rocephin and will watch closely for clinical improvement. Prednisone was started out of concern for undiagnosed PMR and this has now been held. Discussed findings and thoughts with Neurology. Of note, record review revealed two outpatient UA/UCx which were negative prior to arrival. These samples were self catches. Our initial self catch sample on arrival was also negative for infection. (2) UTI (urinary tract infection): Cont Rocephin while awaiting urine culture results. (3) Ambulatory dysfunction: (4) Memory loss: (5) Weakness: (6) Hypothyroidism: recent titration of thyroid supplementation. Repeat TSH in a few weeks as outpatient. May be contributing to fatigue, ?memory loss. (7) Vestibular migraine: Patient has a known history of these. No reports of migraine at this time. Doesn't appear to be dizzy with walking. 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 Continue home dose clopidogrel. Benign abdominal exam today. (9) History of pulmonary embolism: Continue Eliquis per home regimen. (10) Osteoporosis: questionable osteoporosis with current osteoporotic fracture of vertebra. Cont Ca and vitamin D supplementation. (11) Iron deficiency: Supplemental iron started. No anemia present. Repeat level as outpatient in a few weeks. (12) DVT prophylaxis: Marie DNR Disposition-uncertain, she will need nursing home facility if unable to improve physically. will cont to monitor for clinical improvement on the abx. Kimber[facility] and Anticipated Discharge Date Admission Date: June 20, 2020 Subjective no changes in disposition +memory issues large BM this morning weakness appears to be improving with movement around the bedside. UA++ Review of Systems Review of Systems: All systems reviewed & are unremarkable except as noted in Subjective Physical Exam Physical Exam: CONSTITUTIONAL: WNWD, vitals as above, generally fatigued. EYES: pupils are round and equal bilaterally, normal conjunctivae, no scleral icterus ENT: external ear and nose normal, mucous membranes moist. 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 5/5 strength throughout, some difficulty with following instructions but no weakness detected. SKIN: warm and dry NEUROLOGIC: No facial palsy, no dysarthria. CN 2-12 grossly intact, normal speech, fatigued. PSYCHIATRIC: fatigued, but able to cooperate and follow instructions with exam. Oriented to self only. Results & Data Results & Data ([facility]) Vital Signs (Past 12 Hours) Vital Signs Temp Pulse Resp BP Pulse Ox 06/24/20 16:16 36.6 C 96 H 17 159/75 H 95 06/24/20 07:02 36.6 C 51 L 18 182/83 H 96 Laboratory Results Short CBC 06/24/20 Range/Units 00:42 WBC 6.52 (4.8-10.8) K/uL Hgb 13.0 (12.0-16.0) g/dL Hct 37.4 (37-47) % Plt Count 325 (130-400) K/uL BMP 06/24/20 00:42 Sodium 132 L Potassium 4.0 Chloride 99 Carbon Dioxide 27 BUN 18 D Creatinine 0.73 Glucose 99 Calcium 9.0 Medications Administered Current Inpatient Medications Acetaminophen (Acetaminophen 325 Mg Tab) 325 mg PO Q6H PRN PRN Reason: pain/fever Stop: 07/18/20 16:59 Last Admin: 06/24/20 08:18 Dose: 325 mg Documented by: Apixaban (Apixaban 2.5 Mg Tab) 2.5 mg PO BID [facility] Stop: 07/18/20 20:59 Last Admin: 06/24/20 08:14 Dose: 2.5 mg Documented by: Ascorbic Acid (Ascorbic Acid 500 Mg Tab) 500 mg PO QAM [facility] Stop: 07/22/20 12:29 Last Admin: 06/24/20 08:14 Dose: 500 mg Documented by: Calcium Carbonate (Calcium Carbonate 1250mg Tab) 1,250 mg PO BID [facility] Stop: 07/22/20 12:29 Last Admin: 06/24/20 08:15 Dose: 1,250 mg Documented by: Calcium Carbonate (Calcium Carbonate 500 Mg Chewable Tab) 1,000 mg PO Q6H PRN PRN Reason: Indigestion Stop: 07/24/20 10:16 Last Admin: 06/24/20 10:41 Dose: 1,000 mg Documented by: Clopidogrel Bisulfate (Clopidogrel Bisulfate 75 Mg Tab) 75 mg PO QAM [facility] Stop: 07/19/20 08:59 Last Admin: 06/24/20 08:14 Dose: 75 mg Documented by: Cyanocobalamin (Cyanocobalamin 500 Mcg Tablet (Vitamin B-12)) 500 mcg PO QAM [facility] Stop: 07/22/20 12:29 Last Admin: 06/24/20 08:14 Dose: 500 mcg Documented by: Dicyclomine HCl (Dicyclomine Hcl 10 Mg Cap) 10 mg PO Q6 PRN PRN Reason: Pain Stop: 07/18/20 17:25 Last Admin: 06/21/20 20:21 Dose: 10 mg Documented by: Docusate Sodium (Docusate Sodium 100 Mg Cap) 100 mg PO BID [facility] Stop: 07/18/20 20:59 Last Admin: 06/24/20 08:18 Dose: Not Given Documented by: Ferrous Sulfate (Ferrous Sulfate 325 Mg Tab) 325 mg PO BIDM [facility] Stop: 07/23/20 16:59 Last Admin: 06/24/20 08:14 Dose: 325 mg Documented by: Ceftriaxone Sodium 1,000 mg/ (Dextrose) 50 mls @ 100 mls/hr IV Q24H [facility]; Protocol Stop: 06/29/20 08:59 Last Infusion: 06/24/20 11:08 Dose: Infused Documented by: Lansoprazole (Lansoprazole 30 Mg Soltab) 30 mg PO DAILY [facility] Stop: 07/19/20 08:59 Last Admin: 06/24/20 08:14 Dose: 30 mg Documented by: Levothyroxine Sodium (Levothyroxine Sodium 125 Mcg Tablet) 125 mcg PO DAILYBB [facility] Stop: 07/19/20 06:29 Last Admin: 06/24/20 05:16 Dose: 125 mcg Documented by: Ondansetron HCl (Ondansetron 4 Mg Od Tab) 4 mg PO Q8H PRN PRN Reason: Nausea And Vomiting Stop: 07/18/20 17:35 Last Admin: 06/21/20 06:00 Dose: 4 mg Documented by: Polyethylene Glycol (Polyethylene (Miralax) 17 Gm Pack) 17 gm PO DAILY [facility] Stop: 07/19/20 08:59 Last Admin: 06/24/20 08:14 Dose: 17 gm Documented by: Prednisone (Prednisone 20 Mg Tab) 20 mg PO DAILY [facility] Stop: 07/23/20 10:14 Last Admin: 06/24/20 08:14 Dose: 20 mg Documented by: Thiamine HCl (Thiamine Hcl 100 Mg Tab) 100 mg PO QAM [facility] Stop: 07/22/20 12:29 Last Admin: 06/24/20 08:14 Dose: 100 mg Documented by: Vitamin D (Cholecalciferol 1,000 Units 25 Mcg Tab) 1,000 units PO QAM [facility] Stop: 07/22/20 12:29 Last Admin: 06/24/20 08:14 Dose: 1,000 units Documented by: (1) Hypothyroidism Hypothyroidism type: unspecified Qualified Code(s): E03.9 - Hypothyroidism, unspecified
[2020-06-25] MEDS: LEVOTHYROXINE SODIUM 125 MCG TABLET PO SCH (06:04)
[2020-06-25] MEDS: CALCIUM CARBONATE 1250MG TAB PO SCH ×2 (09:37→21:29)
[2020-06-25] MEDS: LANSOPRAZOLE 30 MG SOLTAB PO SCH (09:37)
[2020-06-25] MEDS: POLYETHYLENE (MIRALAX) 17 GM PACK PO SCH (09:37)
[2020-06-25] MEDS: ASCORBIC ACID 500 MG TAB PO SCH (09:37)
[2020-06-25] MEDS: APIXABAN 2.5 MG TAB PO SCH ×2 (09:37→21:29)
[2020-06-25] MEDS: FERROUS SULFATE 325 MG TAB PO SCH ×2 (09:37→18:05)
[2020-06-25] MEDS: CLOPIDOGREL BISULFATE 75 MG TAB PO SCH (09:37)
[2020-06-25] MEDS: DOCUSATE SODIUM 100 MG CAP PO SCH ×2 (09:38→21:28)
[2020-06-25] MEDS: THIAMINE HCL 100 MG TAB PO SCH (09:38)
[2020-06-25] MEDS: CHOLECALCIFEROL 1,000 UNITS 25 MCG TAB PO SCH (09:38)
[2020-06-25] MEDS: CYANOCOBALAMIN 500 MCG TABLET (VITAMIN B-12) PO SCH (09:38)
[2020-06-25] MEDS: SULFAMETHOXAZOLE/TRIMETHOPRIM DS 800/160MG TAB PO SCH ×2 (09:51→21:29)
[2020-06-25] MEDS: cefTRIAXone SODIUM 1,000 MG in DEXTROSE 5% 50 ML IV SCH (09:51)
[2020-06-25] MEDS: ONDANSETRON 4 MG OD TAB PO PRN (15:25)
[2020-06-25] MEDS: CALCIUM CARBONATE 500 MG CHEWABLE TAB PO PRN (16:25)
--- NOTE | 2020-06-25 16:48 | Hospitalist Progress Note ---
Date of Service June 25, 2020 Assessment & Plan (1) Metabolic encephalopathy: Improving after starting antibiotics for UTI (2) UTI (urinary tract infection): Pansensitive E coli. Rocephin switched to Bactrim to complete the course. (3) Memory loss: (4) Weakness: Will improve with abx treatment. Would press forward with discharge to SNF. (5) Hypothyroidism: recent titration of thyroid supplementation. Repeat TSH in a few weeks as outpatient. It is possible the UTI caused this to change slightly. (6) Vestibular migraine: Patient has a known history of these. No reports of migraine at this time. Doesn't appear to be dizzy with walking. 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 Continue home dose clopidogrel. Benign abdominal exam today. (8) History of pulmonary embolism: Continue Eliquis per home regimen. (9) Osteoporosis: questionable osteoporosis with current osteoporotic fracture of vertebra from fall last year. Cont Ca/D supplementation. (10) DVT prophylaxis: Eliquis DNR Disposition-authorizations are in place as of Friday. Would press forward with discharge to SNF or rehab tomorrow if bed available. Expect full recovery to baseline with antibiotic course but may take some time. Kimberlyn Calderon DO [facility] Hospitalist Admission and Anticipated Discharge Date Admission Date: June 20, 2020 Subjective Pt still reports fatigue but she is improved already today Instead of staring blankly ahead she is making eye contact and is more engaged in the conversation She is working with daughter to brush her teeth Oriented still to self only but improved overall ROS is limited but negative. Review of Systems Review of Systems: All systems reviewed & are unremarkable except as noted in Subjective Physical Exam Physical Exam: CONSTITUTIONAL: WNWD, vitals as above, NAD EYES: pupils are round and equal bilaterally, normal conjunctivae, no scleral icterus ENT: external ear and nose normal, mucous membranes moist. RESPIRATORY: clear to auscultation bilaterally, no crackles, rales or wheezes, normal respiratory effort CARDIOVASCULAR: regular rate and rhythm, S1 and 2 heard without murmurs, gallops or rubs, no JVD, no peripheral edema GASTROINTESTINAL: soft, nontender, nondistended MUSCULOSKELETAL: moves all extremities equally SKIN: warm and dry NEUROLOGIC: No facial palsy, no dysarthria. CN 2-12 grossly intact, normal speech, less somnolent. More engaged in the interpersonal interaction today. No gross focal deficits. PSYCHIATRIC: oriented to self only. Results & Data Results & Data ([facility]) Vital Signs (Past 12 Hours) Vital Signs Temp Pulse Resp BP Pulse Ox 06/25/20 15:32 37 C 89 16 138/78 93 06/25/20 07:27 36.4 C L 91 H 20 154/71 H 93 Medications Administered Current Inpatient Medications Acetaminophen (Acetaminophen 325 Mg Tab) 325 mg PO Q6H PRN PRN Reason: pain/fever Stop: 07/18/20 16:59 Last Admin: 06/24/20 08:18 Dose: 325 mg Documented by: Apixaban (Apixaban 2.5 Mg Tab) 2.5 mg PO BID [facility] Stop: 07/18/20 20:59 Last Admin: 06/25/20 09:37 Dose: 2.5 mg Documented by: Ascorbic Acid ([facility] 500 Mg Tab) [facility] Stop: 07/22/20 12:29 Last Admin: 06/25/20 09:37 Dose: 500 mg Documented by: Calcium Carbonate (Calcium Carbonate 1250mg Tab) 1,250 mg PO BID [facility] Stop: 07/22/20 12:29 Last Admin: 06/25/20 09:37 Dose: 1,250 mg Documented by: Calcium Carbonate (Calcium Carbonate 500 Mg Chewable Tab) 1,000 mg PO Q6H PRN PRN Reason: Indigestion Stop: 07/24/20 10:16 Last Admin: 06/25/20 16:25 Dose: 1,000 mg Documented by: Clopidogrel Bisulfate (Clopidogrel Bisulfate 75 Mg Tab) 75 mg PO [facility] Stop: 07/19/20 08:59 Last Admin: 06/25/20 09:37 Dose: 75 mg Documented by: Cyanocobalamin (Cyanocobalamin 500 Mcg Tablet (Vitamin B-12)) [facility] Stop: 07/22/20 12:29 Last Admin: 06/25/20 09:38 Dose: 500 mcg Documented by: Dicyclomine HCl (Dicyclomine Hcl 10 Mg Cap) 10 mg PO Q6 PRN PRN Reason: Pain Stop: 07/18/20 17:25 Last Admin: 06/21/20 20:21 Dose: 10 mg Documented by: Docusate Sodium (Docusate Sodium 100 Mg Cap) 100 mg PO BID [facility] Stop: 07/18/20 20:59 Last Admin: 06/25/20 09:38 Dose: Not Given Documented by: Ferrous Sulfate (Ferrous Sulfate 325 Mg Tab) 325 mg PO BIDM [facility] Stop: 07/23/20 16:59 Last Admin: 06/25/20 09:37 Dose: 325 mg Documented by: Lansoprazole (Lansoprazole 30 Mg Soltab) 30 mg PO DAILY [facility] Stop: 07/19/20 08:59 Last Admin: 06/25/20 09:37 Dose: 30 mg Documented by: Levothyroxine Sodium (Levothyroxine Sodium 125 Mcg Tablet) 125 mcg PO DAILYBB [facility] Stop: 07/19/20 06:29 Last Admin: 06/25/20 06:04 Dose: 125 mcg Documented by: Ondansetron HCl (Ondansetron 4 Mg Od Tab) 4 mg PO Q8H PRN PRN Reason: Nausea And Vomiting Stop: 07/18/20 17:35 Last Admin: 06/25/20 15:25 Dose: 4 mg Documented by: Polyethylene Glycol (Polyethylene (Miralax) 17 Gm Pack) 17 gm PO DAILY [facility] Stop: 07/19/20 08:59 Last Admin: 06/25/20 09:37 Dose: 17 gm Documented by: Prednisone (Prednisone 20 Mg Tab) 20 mg PO DAILY [facility] Stop: 07/23/20 10:14 Last Admin: 06/24/20 08:14 Dose: 20 mg Documented by: Thiamine HCl (Thiamine Hcl 100 Mg Tab) [facility] Stop: 07/22/20 12:29 Last Admin: 06/25/20 09:38 Dose: 100 mg Documented by: Trimethoprim/Sulfamethoxazole (Sulfamethoxazole/Trimethoprim Ds 800/160mg Tab) 1 tab PO Q12 [facility]; Protocol Stop: 06/30/20 09:09 Last Admin: 06/25/20 09:51 Dose: 1 tab Documented by: Vitamin D (Cholecalciferol 1,000 Units 25 Mcg Tab) 1,000 units PO QAM [facility] Stop: 07/22/20 12:29 Last Admin: 06/25/20 09:38 Dose: 1,000 units Documented by: (1) Hypothyroidism Hypothyroidism type: unspecified Qualified Code(s): E03.9 - Hypothyroidism, unspecified
[2020-06-25] MEDS ORDERED: PROMETHAZINE HCL 25 MG TAB PO PRN (17:12)
--- NOTE | 2020-06-25 21:39 | Electrocardiogram Report ---
Test Reason : Blood Pressure : / mmHG Vent. Rate : 102 BPM Atrial Rate : 102 BPM P-R Int : 158 ms QRS Dur : 082 ms QT Int : 352 ms P-R-T Axes : 065 009 016 degrees QTc Int : 458 ms Sinus tachycardia with Premature atrial complexes Otherwise normal ECG When compared with ECG of 18-JUN-2020 12:39, No significant change was found Confirmed by Richie Cervantes ([id number]) on 06/25/2020 9:38:52 PM Referred By: REFERRED SELF Confirmed By:Richie Cervantes
[2020-06-25 22:16] LABS: HSV Type 1 DNA Not Detected (Not Detected); HSV Type 1&2 DNA Source CSF; HSV Type 2 DNA Not Detected (Not Detected)
[2020-06-26] MEDS: LEVOTHYROXINE SODIUM 125 MCG TABLET PO SCH (05:46)
[2020-06-26] MEDS: SULFAMETHOXAZOLE/TRIMETHOPRIM DS 800/160MG TAB PO SCH (09:29)
[2020-06-26] MEDS: FERROUS SULFATE 325 MG TAB PO SCH ×2 (09:33→18:12)
[2020-06-26] MEDS: POLYETHYLENE (MIRALAX) 17 GM PACK PO SCH (09:33)
[2020-06-26] MEDS: LANSOPRAZOLE 30 MG SOLTAB PO SCH (09:34)
[2020-06-26] MEDS: CHOLECALCIFEROL 1,000 UNITS 25 MCG TAB PO SCH (09:34)
[2020-06-26] MEDS: ASCORBIC ACID 500 MG TAB PO SCH (09:34)
[2020-06-26] MEDS: CYANOCOBALAMIN 500 MCG TABLET (VITAMIN B-12) PO SCH (09:34)
[2020-06-26] MEDS: CLOPIDOGREL BISULFATE 75 MG TAB PO SCH (09:35)
[2020-06-26] MEDS: APIXABAN 2.5 MG TAB PO SCH ×2 (09:35→20:14)
[2020-06-26] MEDS: THIAMINE HCL 100 MG TAB PO SCH (09:35)
[2020-06-26] MEDS: CALCIUM CARBONATE 1250MG TAB PO SCH ×2 (09:36→20:14)
[2020-06-26] MEDS: DOCUSATE SODIUM 100 MG CAP PO SCH ×2 (09:37→20:14)
[2020-06-26] MEDS: CIPROFLOXACIN 500 MG TAB PO SCH ×2 (10:16→20:13)
[2020-06-26] MEDS: CALCIUM CARBONATE 500 MG CHEWABLE TAB PO PRN ×2 (10:48→18:50)
--- NOTE | 2020-06-26 16:03 | Hospitalist Progress Note ---
Date of Service June 26, 2020 Assessment & Plan (1) Metabolic encephalopathy: Improving after starting antibiotics for UTI (2) UTI (urinary tract infection): Pansensitive E coli. Rocephin switched to Bactrim to complete the course, however, she grew Pseudomonas on her culture today so switched to Cipro this morning to complete the course. (3) Memory loss: improved with antibiotic therapy (4) Weakness: Will improve with abx treatment. Would press forward with discharge to SNF. (5) Hypothyroidism: recent titration of thyroid supplementation. Repeat TSH in a few weeks as outpatient. It is possible the UTI caused this to change slightly. (6) Vestibular migraine: Patient has a known history of these. No reports of migraine at this time. Doesn't appear to be dizzy with walking. 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 Continue home dose clopidogrel. Benign abdominal exam today. (8) History of pulmonary embolism: Continue Eliquis per home regimen. (9) Osteoporosis: questionable osteoporosis with current osteoporotic fracture of vertebra from fall last year. Cont Ca/D supplementation. (10) DVT prophylaxis: Eliquis DNR Disposition-authorizations are in place as of Friday. Would press forward with discharge to SNF or rehab tomorrow if bed available. Expect full recovery to baseline with antibiotic course but may take some time. Kimberlyn Calderon DO [facility] Hospitalist Admission and Anticipated Discharge Date Admission Date: June 20, 2020 Subjective fatigued oriented to self and place today ate breakfast heartily per daughter report doing well and continues to improve. Review of Systems Review of Systems: All systems reviewed & are unremarkable except as noted in Subjective Physical Exam Physical Exam: CONSTITUTIONAL: WNWD, vitals as above, NAD EYES: pupils are round and equal bilaterally, normal conjunctivae, no scleral icterus ENT: external ear and nose normal, mucous membranes moist. RESPIRATORY: clear to auscultation bilaterally, no crackles, rales or wheezes, normal respiratory effort CARDIOVASCULAR: regular rate and rhythm, S1 and 2 heard without murmurs, gallops or rubs, no JVD, no peripheral edema GASTROINTESTINAL: soft, nontender, nondistended MUSCULOSKELETAL: moves all extremities equally. She is able to actively hold arms out in front of her, and she can bend her knees on her own. SKIN: warm and dry NEUROLOGIC: No facial palsy, no dysarthria. CN 2-12 grossly intact, normal speech, less somnolent. No gross focal deficits. PSYCHIATRIC: oriented to person and place. She knows and can verbalize now why she is in the hospital. Results & Data Results & Data ([facility]) Vital Signs (Past 12 Hours) Vital Signs Temp Pulse Resp BP Pulse Ox 06/26/20 15:11 36.8 C 85 16 138/76 95 06/26/20 07:37 36.7 C 74 18 146/72 H 93 Medications Administered Current Inpatient Medications Acetaminophen (Acetaminophen 325 Mg Tab) 325 mg PO Q6H PRN PRN Reason: pain/fever Stop: 07/18/20 16:59 Last Admin: 06/24/20 08:18 Dose: 325 mg Documented by: Apixaban (Apixaban 2.5 Mg Tab) 2.5 mg PO BID [facility] Stop: 07/18/20 20:59 Last Admin: 06/26/20 09:35 Dose: 2.5 mg Documented by: Ascorbic Acid (Ascorbic Acid 500 Mg Tab) [facility] Stop: 07/22/20 12:29 Last Admin: 06/26/20 09:34 Dose: 500 mg Documented by: Calcium Carbonate (Calcium Carbonate 1250mg Tab) 1,250 mg PO BID [facility] Stop: 07/22/20 12:29 Last Admin: 06/26/20 09:36 Dose: 1,250 mg Documented by: Calcium Carbonate (Calcium Carbonate 500 Mg Chewable Tab) 1,000 mg PO Q6H PRN PRN Reason: Indigestion Stop: 07/24/20 10:16 Last Admin: 06/26/20 10:48 Dose: 1,000 mg Documented by: Ciprofloxacin (Ciprofloxacin 500 Mg Tab) 500 mg PO BID [facility] Stop: 07/01/20 09:29 Last Admin: 06/26/20 10:16 Dose: 500 mg Documented by: Clopidogrel Bisulfate (Clopidogrel Bisulfate 75 Mg Tab) [facility] Stop: 07/19/20 08:59 Last Admin: 06/26/20 09:35 Dose: 75 mg Documented by: Cyanocobalamin (Cyanocobalamin 500 Mcg Tablet (Vitamin B-12)) [facility] Stop: 07/22/20 12:29 Last Admin: 06/26/20 09:34 Dose: 500 mcg Documented by: Dicyclomine HCl (Dicyclomine Hcl 10 Mg Cap) 10 mg PO Q6 PRN PRN Reason: Pain Stop: 07/18/20 17:25 Last Admin: 06/21/20 20:21 Dose: 10 mg Documented by: Docusate Sodium (Docusate Sodium 100 Mg Cap) 100 mg PO BID [facility] Stop: 07/18/20 20:59 Last Admin: 06/26/20 09:37 Dose: Not Given Documented by: Ferrous Sulfate (Ferrous Sulfate 325 Mg Tab) 325 mg PO BIDM [facility] Stop: 07/23/20 16:59 Last Admin: 06/26/20 09:33 Dose: 325 mg Documented by: Lansoprazole (Lansoprazole 30 Mg Soltab) 30 mg PO DAILY [facility] Stop: 07/19/20 08:59 Last Admin: 06/26/20 09:34 Dose: 30 mg Documented by: Levothyroxine Sodium (Levothyroxine Sodium 125 Mcg Tablet) 125 mcg PO DAILYBB [facility] Stop: 07/19/20 06:29 Last Admin: 06/26/20 05:46 Dose: 125 mcg Documented by: Ondansetron HCl (Ondansetron 4 Mg Od Tab) 4 mg PO Q8H PRN PRN Reason: Nausea And Vomiting Stop: 07/18/20 17:35 Last Admin: 06/25/20 15:25 Dose: 4 mg Documented by: Polyethylene Glycol (Polyethylene (Miralax) 17 Gm Pack) 17 gm PO DAILY [facility] Stop: 07/19/20 08:59 Last Admin: 06/26/20 09:33 Dose: 17 gm Documented by: Prednisone (Prednisone 20 Mg Tab) 20 mg PO DAILY [facility] Stop: 07/23/20 10:14 Last Admin: 06/24/20 08:14 Dose: 20 mg Documented by: Promethazine HCl (Promethazine Hcl 25 Mg Tab) 25 mg PO Q6H PRN PRN Reason: Nausea And Vomiting Stop: 07/25/20 17:11 Last Admin: 06/25/20 17:42 Dose: 25 mg Documented by: Thiamine HCl (Thiamine Hcl 100 Mg Tab) 100 mg PO QAM [facility] Stop: 07/22/20 12:29 Last Admin: 06/26/20 09:35 Dose: 100 mg Documented by: Vitamin D (Cholecalciferol 1,000 Units 25 Mcg Tab) 1,000 units PO QAM [facility] Stop: 07/22/20 12:29 Last Admin: 06/26/20 09:34 Dose: 1,000 units Documented by: (1) Hypothyroidism Hypothyroidism type: unspecified Qualified Code(s): E03.9 - Hypothyroidism, unspecified
[2020-06-26 16:46] LABS: Lyme DNA PCR CSF or Synovial Not detected (Not Detected); Lyme DNA Source CSF; VDRL Qualitative CSF Nonreactive (Nonreactive)
[2020-06-27] MEDS: LEVOTHYROXINE SODIUM 125 MCG TABLET PO SCH (05:44)
[2020-06-27 07:51] LABS: Basophils # (auto) 0.02 K/uL (0-0.2); Basophils % (auto) 0.2 %; Eosinophils % (auto) 1.2 %; Hematocrit (blood only) 40.2 % (37-47); Hemoglobin 13.4 g/dL (12.0-16.0); Immature Granulocytes # (auto) 0.05 K/uL (0.00-0.02); Immature Granulocytes % (auto) 0.6 %; Lymphocytes # (auto) 1.44 K/uL (1.2-3.4); Lymphocytes % (auto) 17.6 %; Mean Corpuscular Hemoglobin 29.6 pg (25-34); Mean Corpuscular Hgb Conc 33.3 g/dL (32-36); Mean Corpuscular Volume 88.7 fL (80-100); Mean Platelet Volume 9.6 fL (7.4-10.4); Monocytes # (auto) 0.71 K/uL (0.11-0.59); Monocytes % (auto) 8.7 %; Neutrophils # (auto) 5.84 K/uL (1.4-6.5); Neutrophils % (auto) 71.7 %; Platelet Count 358 K/uL (130-400); RDW Coefficient of Variation 13.8 % (11.5-14.5); RDW Standard Deviation 44.9 fL (36.4-46.3); Red Blood Count 4.53 M/uL (4.2-5.4); White Blood Count 8.16 K/uL (4.8-10.8)
[2020-06-27 08:18] LABS: Albumin Level 2.8 gm/dl (3.4-5.0); BUN Creatinine Ratio 19.2 (10-20); Calcium 9.1 mg/dl (8.5-10.1); Creatinine Clr Calc Pharmacy 41.2 ml/min; Est GFR (African American) 69.4; Est GFR (Non-African American) 59.9; Magnesium 2.3 mg/dl (1.8-2.4); Potassium 4.1 mmol/L (3.5-5.1)
[2020-06-27 08:20] LABS: Albumin Globulin Ratio 0.8 (0.9-2); Bilirubin,Total 0.4 mg/dl (0.2-1); Globulin 3.7 gm/dl (2.5-4.0); Phosphorus 3.1 mg/dl (2.5-4.9); Total Protein 6.5 gm/dl (6.4-8.2)
--- NOTE | 2020-06-27 09:12 | Hospitalist Progress Note ---
Date of Service June 27, 2020 Assessment & Plan (1) Metabolic encephalopathy: -as per 06/18/2020 ED notes" This patient is an 84-year-old female who is brought in by EMS after she has had increasing weakness and functional decline over the last week or so. Is been getting progressively worse. She is been seen by her doctor and had a negative urine culture back on June 09. She also had a TSH recently that was 14.1 they increased her Synthroid from 112 mcg to 125 on Friday. She has been a little more disoriented at times but no fever or chills she does tend to fall frequently and she is chronically dizzy and she is fallen about 2 or 3 times this month but no head trauma." -her admission CT head with no stroke -06/19/2020 daytime hospitalist spoke with patient and her daughter Vero at bedside. At baseline, Vero reports that patient has trouble with memory which apparently has been chronic for about a year and a half and often has trouble finishing her sentences and off stop mid sentence. On exam, patient is very forgetful and often needed prompting from her daughter. Patient suspects patient has dementia but no formal outpatient diagnosis have been made in the past -Patient's daughter had brought patient to hospital because family could not help her stand up out of bed. Daughter also reports patient when walking may lean toward the left or even when at rest. Not apparent on physical exam while sitting up in the bed -Daughter describes that patient may have been deconditioned but there does not appear to be acute reason for patient's weakness at this time. Her hypothyroid numbers are improving (TSH of 6 is downtrended from previous double digit TSH of 14 and current free T4 is normal), patient has purewick catheter in the hospital but urine analysis is normal. patient not known to have fever and with normal WBC. But hospitalist have sent off blood cultures empirically. patient is known to have history of degenerative spine and history of T12 fracture in the past, but patient denies back pain or leg pains -Patient then under the care of hospitalist Dr. Calderon from 06/20/2020 to 06/27/2020. patient also have lumbar puncture and neurology consultation and meningitis is ruled out -Despite initial negative UA, Dr. Calderon was obtain a straight cath from bladder and determined that underlying metabolic encephalopathy was from urinary tract infection (2) UTI (urinary tract infection): -initially Dr. Calderon started patient on ceftriaxone and then switched to Bactrim when initially that urine culture with Pansensitive E coli -however, subsequently, the urine culture also grew Pseudomonas on her culture and antibiotics was switched to Ciprofloxacin started on 06/26/2020 -anticipate that patient will complete a 5 to 7 day course of ciprofloxacin (3) Memory loss: -possible undiagnosed dementia as outpatient and partly from metabolic encephalopathy from urinary tract infection -patient's mental status has been noted to be improved with antibiotics as per Dr. Calderon (4) Hypothyroidism: -recent titration of thyroid supplementation as outpatient. Repeat TSH in a few weeks as outpatient. It is possible the UTI caused this to change slightly. History of hyponatremia in the past -serum sodium on admission is generally normal (5) Weakness: Ambulatory Dysfunction -manager of case management working on SNF placement for physical therpay (6) Vestibular migraine: -as per 06/09/[address] Schwartz that patient has history of vestibular migraines and verapamil was prescribed by Neurology for prophylaxis of vestibular migraines but stopped in the past by family because of concern of side effects -No reports of migraine at this time. Doesn't appear to be dizzy with walking on this admission (7) Osteoporosis: questionable osteoporosis with current osteoporotic fracture of vertebra from fall last year. Continue calcium and vitamin D supplementation. (8) Superior mesenteric artery stenosis: -Status post mesenteric stent in the past. Continue home dose clopidogrel. History of EGD and dilatation around June 2019 History of incidental findings on imaging of (Early Cirrhosis on CT scan, Fibromuscular dysplasia of the kidneys on CT scan) in the past hospital notes in September 2019; normal renal function and liver ezymes on this presentation Will improve with abx treatment. Would press forward with discharge to SNF. (9) History of pulmonary embolism: -occurred 4 to 5 years ago as per patient's daughter -continue Eliquis 2.5 mg BID (10) DVT prophylaxis: -Eliquis - Code Status DNR/DNI -Daughter Vero [phone] Admission and Anticipated Discharge Date Admission Date: June 20, 2020 Subjective Patient seen and examined with her daughter at bedside. Patient eating the breakfast. No acute distress. Patient breathing on room air. patient denies ay acute pain. Patient does not have acute complaints. Review of Systems Review of Systems: All systems reviewed & are unremarkable except as noted in Subjective Physical Exam Constitutional: cooperative and comfortable Eyes: PERRL, conjunctivae normal, anicteric sclerae EOM intact bilaterally ENMT: external ear and nose normal, oropharynx normal Neck: trachea midline, no thyromegaly Respiratory: normal respiratory effort, lungs clear to auscultation Cardiovascular: Rate/Rhythm: regular rate Gastrointestinal (Abdomen): normal bowel sounds, soft, nontender, no hepatosplenomegaly Musculoskeletal: Head/Neck/Chest: normocephalic and head atraumatic Neurologic: PERRL, EOMI, accommodation nl, no face palsy, no dysarthria moves all extremities Psychiatric: Orientation: alert, oriented to person, oriented to place and cooperative Results & Data Results & Data ([facility]) Vital Signs (Past 12 Hours) Vital Signs Temp Pulse Pulse Resp BP BP Pulse Ox 06/27/20 07:20 37.2 C 82 16 130/65 94 06/26/20 23:27 36.3 C L 80 17 122/66 92 (1) Hypothyroidism Hypothyroidism type: unspecified Qualified Code(s): E03.9 - Hypothyroidism, unspecified
[2020-06-27] MEDS: CALCIUM CARBONATE 1250MG TAB PO SCH ×2 (09:57→20:37)
[2020-06-27] MEDS: APIXABAN 2.5 MG TAB PO SCH ×2 (09:57→20:38)
[2020-06-27] MEDS: THIAMINE HCL 100 MG TAB PO SCH (09:57)
[2020-06-27] MEDS: DOCUSATE SODIUM 100 MG CAP PO SCH ×2 (09:57→20:37)
[2020-06-27] MEDS: CHOLECALCIFEROL 1,000 UNITS 25 MCG TAB PO SCH (09:58)
[2020-06-27] MEDS: CIPROFLOXACIN 500 MG TAB PO SCH ×2 (09:58→20:38)
[2020-06-27] MEDS: ASCORBIC ACID 500 MG TAB PO SCH (09:58)
[2020-06-27] MEDS: LANSOPRAZOLE 30 MG SOLTAB PO SCH (09:58)
[2020-06-27] MEDS: CYANOCOBALAMIN 500 MCG TABLET (VITAMIN B-12) PO SCH (09:58)
[2020-06-27] MEDS: POLYETHYLENE (MIRALAX) 17 GM PACK PO SCH (09:58)
[2020-06-27] MEDS: CLOPIDOGREL BISULFATE 75 MG TAB PO SCH (09:58)
[2020-06-27] MEDS: FERROUS SULFATE 325 MG TAB PO SCH ×2 (09:59→18:01)
[2020-06-28 01:35] LABS: Anti Cardiolipin Ab IgG <14 GPL; Anti Cardiolipin Ab IgM <12 MPL; Anti Nuclear Antibody Screen NEGATIVE (NEGATIVE); Anti-Cardiolipin Ab IgA <11 APL; Anti-Centromere Ab <1.0 NEG AI (<1.0 NEG); Anti-SS-A <1.0 NEG AI (<1.0 NEG); Anti-SS-B <1.0 NEG AI (<1.0 NEG); Chromatin Antibody <1.0 NEG AI (<1.0 NEG); Complement C3 146 mg/dL; DNA ds Crithidia NEGATIVE (NEGATIVE); Microsomal Ab <1 IU/mL (<9); RNP Antibody <1.0 NEG AI (<1.0 NEG); Scleroderma Anti Scl-70 Ab <1.0 NEG AI (<1.0 NEG); Sm Antibody <1.0 NEG AI (<1.0 NEG)
[2020-06-28] MEDS: LEVOTHYROXINE SODIUM 125 MCG TABLET PO SCH (06:17)
[2020-06-28] MEDS: FERROUS SULFATE 325 MG TAB PO SCH (09:07)
[2020-06-28] MEDS: DOCUSATE SODIUM 100 MG CAP PO SCH (09:07)
[2020-06-28] MEDS: POLYETHYLENE (MIRALAX) 17 GM PACK PO SCH (09:08)
[2020-06-28] MEDS: THIAMINE HCL 100 MG TAB PO SCH (09:08)
[2020-06-28] MEDS: LANSOPRAZOLE 30 MG SOLTAB PO SCH (09:08)
[2020-06-28] MEDS: APIXABAN 2.5 MG TAB PO SCH (09:09)
[2020-06-28] MEDS: ASCORBIC ACID 500 MG TAB PO SCH (09:09)
[2020-06-28] MEDS: CIPROFLOXACIN 500 MG TAB PO SCH (09:09)
[2020-06-28] MEDS: CALCIUM CARBONATE 1250MG TAB PO SCH (09:09)
[2020-06-28] MEDS: CLOPIDOGREL BISULFATE 75 MG TAB PO SCH (09:10)
[2020-06-28] MEDS: CYANOCOBALAMIN 500 MCG TABLET (VITAMIN B-12) PO SCH (09:10)
[2020-06-28] MEDS: CHOLECALCIFEROL 1,000 UNITS 25 MCG TAB PO SCH (09:11)
--- NOTE | 2020-06-28 10:13 | Hospitalist Progress Note ---
Date of Service June 28, 2020 Assessment & Plan (1) Metabolic encephalopathy: -as per 06/18/2020 ED notes" This patient is an 84-year-old female who is brought in by EMS after she has had increasing weakness and functional decline over the last week or so. Is been getting progressively worse. She is been seen by her doctor and had a negative urine culture back on June 09. She also had a TSH recently that was 14.1 they increased her Synthroid from 112 mcg to 125 on Friday. She has been a little more disoriented at times but no fever or chills she does tend to fall frequently and she is chronically dizzy and she is fallen about 2 or 3 times this month but no head trauma." -her admission CT head with no stroke -06/19/2020 daytime hospitalist spoke with patient and her daughter Vero at bedside. At baseline, Vero reports that patient has trouble with memory which apparently has been chronic for about a year and a half and often has trouble finishing her sentences and off stop mid sentence. On exam, patient is very forgetful and often needed prompting from her daughter. Patient suspects patient has dementia but no formal outpatient diagnosis have been made in the past -Patient's daughter had brought patient to hospital because family could not help her stand up out of bed. Daughter also reports patient when walking may lean toward the left or even when at rest. Not apparent on physical exam while sitting up in the bed -Daughter describes that patient may have been deconditioned but there does not appear to be acute reason for patient's weakness at this time. Her hypothyroid numbers are improving (TSH of 6 is downtrended from previous double digit TSH of 14 and current free T4 is normal), patient has purewick catheter in the hospital but urine analysis is normal. patient not known to have fever and with normal WBC. But hospitalist have sent off blood cultures empirically. patient is known to have history of degenerative spine and history of T12 fracture in the past, but patient denies back pain or leg pains -Patient then under the care of hospitalist Dr. Calderon from 06/20/2020 to 06/27/2020. patient also have lumbar puncture and neurology consultation and meningitis is ruled out -Despite initial negative UA, Dr. Calderon was obtain a straight cath from bladder and determined that underlying metabolic encephalopathy was from urinary tract infection (2) UTI (urinary tract infection): -initially Dr. Calderon started patient on ceftriaxone and then switched to Bactrim when initially that urine culture with Pansensitive E coli -however, subsequently, the urine culture also grew Pseudomonas on her culture and antibiotics was switched to Ciprofloxacin started on 06/26/2020 -discharge to [facility] for physical rehabilitation discharge medications sent electronically to [facility] [address] [place] [address] which is the preferred pharmacy for [facility] which includes ciprofloxacin 500 mg twice a day to complete the course of urinary tract infection antibiotics upcoming [facility] appointments 07/03/2020 11:20 AM Provider Jacobo Terrazas MD Department [facility] 08/03/2020 12:00 PM Provider Tristen Penny MD Department Gastroenterology, [facility] (3) Memory loss: -possible undiagnosed dementia as outpatient and partly from metabolic encephalopathy from urinary tract infection -patient's mental status has been noted to be improved with antibiotics as per Dr. Calderon (4) Hypothyroidism: -recent titration of thyroid supplementation as outpatient and follow up with primary care doctor on repeat thyroid function tests -continue bowel regimen to prevent constipation History of hyponatremia in the past -serum sodium on admission is generally normal (5) Weakness: Ambulatory Dysfunction -SNF placement for physical therpay -continue thiamine, folic acid (6) Vestibular migraine: -as per 06/09/[address] Schwartz that patient has history of vestibular migraines and verapamil was prescribed by Neurology for prophylaxis of vestibular migraines but stopped in the past by family because of concern of side effects -No reports of migraine at this time. (7) Osteoporosis: questionable osteoporosis with current osteoporotic fracture of vertebra from fall last year. Continue calcium and vitamin D supplementation. (8) Superior mesenteric artery stenosis: -Status post mesenteric stent in the past. Continue home dose clopidogrel. History of EGD and dilatation around June 2019 History of incidental findings on imaging of (Early Cirrhosis on CT scan, Fibromuscular dysplasia of the kidneys on CT scan) in the past hospital notes in September 2019; normal renal function and liver ezymes on this presentation Will improve with abx treatment. Would press forward with discharge to SNF. (9) History of pulmonary embolism: -occurred 4 to 5 years ago as per patient's daughter -continue Eliquis 2.5 mg BID -iron supplements (10) DVT prophylaxis: -Eliquis - Code Status DNR/DNI -Daughter Vero [phone] Admission and Anticipated Discharge Date Admission Date: June 20, 2020 Subjective Patient is a two assist to help with sitting up. Patient's daughter agreed that patient should go to nursing facility for physical rehabilitation. Patient not in distress. denies acute pain. no shortness of breath. breathing on room air. no reported headache or dizziness. no chest pain. no abdomen pain. no problems with eating the food. no vomiting Review of Systems Review of Systems: All systems reviewed & are unremarkable except as noted in Subjective Physical Exam Constitutional: cooperative and comfortable Eyes: PERRL, conjunctivae normal, anicteric sclerae EOM intact bilaterally ENMT: external ear and nose normal, oropharynx normal Neck: trachea midline, no thyromegaly Respiratory: normal respiratory effort, lungs clear to auscultation Cardiovascular: Rate/Rhythm: regular rate Gastrointestinal (Abdomen): normal bowel sounds, soft, nontender, no hepatosplenomegaly Musculoskeletal: Head/Neck/Chest: normocephalic and head atraumatic Neurologic: PERRL, EOMI, accommodation nl, no face palsy, no dysarthria moves all extremities Psychiatric: Orientation: alert, oriented to person, oriented to place and cooperative Results & Data Results & Data ([facility]) Vital Signs (Past 12 Hours) Vital Signs Temp Pulse Resp BP BP Pulse Ox 06/28/20 07:27 36.6 C 74 16 135/77 93 06/27/20 23:33 36.7 C 70 17 143/77 H 93 (1) Hypothyroidism Hypothyroidism type: unspecified Qualified Code(s): E03.9 - Hypothyroidism, unspecified
--- NOTE | 2020-06-28 10:14 | Discharge Summary ---
Date of Service June 28, 2020 Admission HPI Per Admitting Provider 84-year-old female with a past medical history of hypothyroidism, close head injury, vertigo, back pain, ambulatory dysfunction, superior mesenteric artery stenosis, vestibular migraines, vertigo, multilevel degenerative disc disease, who comes in secondary to weakness. She was recently seen by Dr. Doll who placed her on thyroid medicine for a TSH of 14. Daughter complains the patient is very weak and she is not able to take care of her home. This is most likely from the hypothyroidism so she will be placed under observation have PT and OT see her. Principal Diagnosis Metabolic encephalopathy, Memory Loss Urinary tract infection Hypothyroidism Weakness/ Ambulatory Dysfunction Discharge Exam Constitutional cooperative and comfortable Eyes PERRL, conjunctivae normal, anicteric sclerae EOM intact bilaterally ENMT external ear and nose normal, oropharynx normal Neck trachea midline, no thyromegaly Respiratory normal respiratory effort, lungs clear to auscultation Cardiovascular Rate/Rhythm: regular rate Gastrointestinal (Abdomen) normal bowel sounds, soft, nontender, no hepatosplenomegaly Musculoskeletal Head/Neck/Chest: normocephalic and head atraumatic Neurologic PERRL, EOMI, accommodation nl, no face palsy, no dysarthria moves all extremities Psychiatric Orientation: alert, oriented to person, oriented to place and cooperative Discharge Data Allergies Allergy/AdvReac Type Severity Reaction Status Date / Time adhesive tape AdvReac Intermediate PEELING OF Verified 06/18/20 15:47 SKIN cefdinir AdvReac Intermediate Migraine Verified 06/18/20 15:47 erythromycin base AdvReac Intermediate MYCIN Verified 06/18/20 15:47 DRUGS-YEAST INFECTIONS tramadol AdvReac Intermediate MAKES Verified 06/18/20 15:47 HEADACHS WORSE--vestibular sx Consultations 06/18/20 15:01 ED Decision to Admit Stat 06/20/20 14:47 Consult Neurology Routine Ordered Studies 06/18/20 13:22 CT head/brain wo con Stat 06/19/20 15:46 MR brain wo/w con Routine 06/21/20 00:07 MR lumbar spine wo/w con Routine 06/22/20 11:41 CT abd pelvis wo con Routine CT chest wo con Routine 06/22/20 11:49 FL lumbar puncture diagnostic Routine Hospital Course (1) Metabolic encephalopathy: -as per 06/18/2020 ED notes" This patient is an 84-year-old female who is brought in by EMS after she has had increasing weakness and functional decline over the last week or so. Is been getting progressively worse. She is been seen by her doctor and had a negative urine culture back on June 09. She also had a TSH recently that was 14.1 they increased her Synthroid from 112 mcg to 125 on Friday. She has been a little more disoriented at times but no fever or chills she does tend to fall frequently and she is chronically dizzy and she is fallen about 2 or 3 times this month but no head trauma." -her admission CT head with no stroke -06/19/2020 daytime hospitalist spoke with patient and her daughter Vero at bedside. At baseline, Vero reports that patient has trouble with memory which apparently has been chronic for about a year and a half and often has trouble finishing her sentences and off stop mid sentence. On exam, patient is very forgetful and often needed prompting from her daughter. Patient suspects patient has dementia but no formal outpatient diagnosis have been made in the past -Patient's daughter had brought patient to hospital because family could not help her stand up out of bed. Daughter also reports patient when walking may lean toward the left or even when at rest. Not apparent on physical exam while sitting up in the bed -Daughter describes that patient may have been deconditioned but there does not appear to be acute reason for patient's weakness at this time. Her hypothyroid numbers are improving (TSH of 6 is downtrended from previous double digit TSH of 14 and current free T4 is normal), patient has purewick catheter in the hospital but urine analysis is normal. patient not known to have fever and with normal WBC. But hospitalist have sent off blood cultures empirically. patient is known to have history of degenerative spine and history of T12 fracture in the past, but patient denies back pain or leg pains -Patient then under the care of hospitalist Dr. Calderon from 06/20/2020 to 06/27/2020. patient also have lumbar puncture and neurology consultation and meningitis is ruled out -Despite initial negative UA, Dr. Calderon was obtain a straight cath from bladder and determined that underlying metabolic encephalopathy was from urinary tract i nfection (2) UTI (urinary tract infection): -initially Dr. Calderon started patient on ceftriaxone and then switched to Bactrim when initially that urine culture with Pansensitive E coli -however, subsequently, the urine culture also grew Pseudomonas on her culture and antibiotics was switched to Ciprofloxacin started on 06/26/2020 -discharge to [facility] for physical rehabilitation discharge medications sent electronically to [facility] [id number] [facility] [place] which is the preferred pharmacy for [facility] which includes ciprofloxacin 500 mg twice a day to complete the course of urinary tract infection antibiotics upcoming [facility] appointments 07/03/2020 11:20 AM Provider Jacobo Terrazas MD Department Family [facility] 08/03/2020 12:00 PM Provider Tristen Penny MD Department Gastroenterology, [facility] (3) Memory loss: -possible undiagnosed dementia as outpatient and partly from metabolic encephalopathy from urinary tract infection -patient's mental status has been noted to be improved with antibiotics as per Dr. Calderon (4) Hypothyroidism: -recent titration of thyroid supplementation as outpatient and follow up with primary care doctor on repeat thyroid function tests -continue bowel regimen to prevent constipation History of hyponatremia in the past -serum sodium on admission is generally normal (5) Weakness: Ambulatory Dysfunction -SNF placement for physical therapy -continue thiamine, folic acid -outpatient management of hypothyroidism -pending results for 06/22/2020 reference lab for acetylcholine receptor anti bodies (6) Vestibular migraine: -as per 06/09/[address] Schwartz that patient has history of vestibular migraines and verapamil was prescribed by Neurology for prophylaxis of vestibular migraines but stopped in the past by family because of concern of side effects -No reports of migraine at this time. (7) Osteoporosis: questionable osteoporosis with current osteoporotic fracture of vertebra from fall last year. Continue calcium and vitamin D supplementation. (8) Superior mesenteric artery stenosis: -Status post mesenteric stent in the past. Continue home dose clopidogrel. History of EGD and dilatation around June 2019 History of incidental findings on imaging of (Early Cirrhosis on CT scan, Fibromuscular dysplasia of the kidneys on CT scan) in the past hospital notes in September 2019; normal renal function and liver ezymes on this presentation Will improve with abx treatment. Would press forward with discharge to SNF. (9) History of pulmonary embolism: -occurred 4 to 5 years ago as per patient's daughter -continue Eliquis 2.5 mg BID -iron supplements (10) DVT prophylaxis: -Eliquis - Code Status DNR/DNI -Daughter Vero [phone] Total Time Total Time Spent Total Time Spent (In Minutes): 40 minutes Total Time Includes: Examination of the Patient, Discharge Planning, Medication Reconciliation and Communication With Other Providers Discharge Plan Discharge Items Patient Disposition: Transfer Retirement Fac Reason For Visit: GENERALIZED WEAKNESS Discharge Diagnosis: Metabolic encephalopathy, Memory Loss Urinary tract infection Hypothyroidism Weakness/ Ambulatory Dysfunction Condition on Discharge: Good Activity: Per Instructions section Bathing: No limitations Weightbearing: Full weightbearing Non-emergency contact: Primary Care Provider Call non-emergency contact if: you have any medication questions Follow-up/Referrals: Larry Schwartz MD [Primary Care Provider] - Diet: Regular Diet Texture: Easy to Chew Addtl Attending Provider Instructions: discharge to [facility] for physical rehabilitation discharge medications [facility] electronically [facility] [id number] [facility] [place] which is the preferred pharmacy for [facility] upcoming [facility] appointments 07/03/2020 11:20 AM Provider [facility] 12:00 PM Provider Tristen Penny MD Department Gastroenterology, [facility] Pending Studies at Discharge: Yes Studies:: pending results for 06/22/2020 reference lab for acetylcholine receptor antibodies Stand-Alone Forms: My [employer] Skilled Items Patient informed of condition?: Yes DNR: Yes Discharge Level of Care: Skilled Communicable Disease: No Discharge Prognosis: Stable Lines: None Urinary Catheter: No Medications and DC Order Prescriptions: New thiamine HCl (vitamin B1) [Vitamin B-1] 100 mg Tablet 100 mg PO QAM 30 Days Qty: 30 RF: 0 cyanocobalamin (vitamin B-12) 500 mcg Tablet 500 mcg PO QAM 30 Days Qty: 30 RF: 0 docusate sodium 100 mg Capsule 100 mg PO BID 30 Days Qty: 60 RF: 0 ferrous sulfate 325 mg (65 mg iron) Tablet,Delayed Release (Dr/Ec) 325 mg PO BIDM 30 Days Qty: 60 RF: 0 ciprofloxacin HCl 500 mg Tablet 500 mg PO BID 5 Days Qty: 10 RF: 0 Continued polyethylene glycol 3350 [Miralax] 17 gram Powder In Packet 17 g PO QAM RF: 0 clopidogrel 75 mg Tablet 75 mg PO QDD RF: 0 lansoprazole 30 mg Tablet,Disintegrat, Delay Rel 30 mg PO QDL RF: 0 Eliquis 2.5 mg Tablet 2.5 mg PO BID RF: 0 dicyclomine 10 mg capsule 10 mg PO Q6 PRN (Reason: Pain) RF: 0 cyanocobalamin (vitamin B-12) [Vitamin B-12] 500 mcg Tablet 500 mcg PO QDD RF: 0 calcium carbonate [Tums 500] 500 mg calcium (1,250 mg) Tablet,Chewable 1,000 mg PO DAILY PRN (Reason: Heartburn) RF: 0 levothyroxine 125 mcg 125 mcg PO DAILY RF: 0 Discontinued ondansetron 4 mg tablet,disintegrating 4 mg PO Q8H PRN (Reason: Nausea And Vomiting) RF: 0 Discharge Orders: Discharge Order (Routine); Ordered 06/28/20 Ordered By: Saurav Gold Admission Data Admit Date/Time: 06/20/20 17:26 Attending Provider: Saurav Gold Admit Provider: Saurav Brooks Primary Care Provider: Larry Schwartz Other Providers: Saurav Brooks ; [facility] ; [place] ; Stephan Zapata
[2020-06-28] MEDS: CALCIUM CARBONATE 500 MG CHEWABLE TAB PO PRN (10:23)
--- NOTE | 2020-06-29 05:41 | Electrocardiogram Report ---
Test Reason : Blood Pressure : / mmHG Vent. Rate : 105 BPM Atrial Rate : 105 BPM P-R Int : 146 ms QRS Dur : 074 ms QT Int : 328 ms P-R-T Axes : 082 004 024 degrees QTc Int : 433 ms Sinus tachycardia with Premature atrial complexes in trigeminal pattern Cannot rule out Inferior infarct , age undetermined Abnormal ECG When compared with ECG of 24-JUN-2020 00:33, No significant change was found Confirmed by Richie Cervantes ([id number]) on 06/29/2020 5:41:11 AM Referred By: REFERRED SELF Confirmed By:Richie Cervantes
== END 2020-06-28 12:27 | DRG 689 ==
LOC: 3N 12:30 → ED 12:30 → SUATTDRO 15:49 → 3N 16:35 → SUATTDRO 06-20 17:26

== ENCOUNTER 2021-01-12 19:11 | Inpatient (IN) ==
[2021-01-12] MEDS ORDERED: MoRPHine SULFATE 4 MG/ML 1 ML CARP\\VIAL IV PRN (19:38)
--- NOTE | 2021-01-12 19:49 | Emergency Department Note ---
Impression & Plan Hip fracture, Fall ED Provider Note NAME: REBECA SALINAS AGE: 85 SEX: F : 1935 ARRIVES VIA: Ambulance INFORMANT: Patient ED PROVIDER(S): José Antonio Segura DO CHIEF COMPLAINT: Fall right hip pain HPI: Patient is an 85-year-old female who presents the ER following mechanical fall. Patient notes that she was transferring to the commode and she fell. She did not hit her head. She complains of severe right hip pain. This happened just prior to arrival. Denies any head or neck pain. No chest pain or back pain. No other exacerbating or remitting factors. Pain is severe and constant. Worse with movement of her right hip. ROS: See above HPI for pertinent positives & negatives. A total of 10 systems reviewed and were otherwise negative. PAST MEDICAL HISTORY:See Below PAST SURGICAL HISTORY:See Below FAMILY HISTORY:See Below SOCIAL HISTORY:See Below HOME MEDICATIONS:See Below ALLERGIES:See Below VITALS:See Below PHYSICAL EXAMINATION: GENERAL: alert, well appearing, well nourished, no distress, non-toxic HEAD: normal cephalic, atraumatic EYE EXAM: normal conjunctiva, PERRL and EOM's grossly intact OROPHARYNX: no exudate, no erythema, lips, buccal mucosa, and tongue normal and mucous membranes are moist NECK: supple, no nuchal rigidity, no adenopathy, non-tender CHEST: stable to compression anteriorly and posteriorly LUNGS: clear to auscultation. Normal chest wall mechanics HEART: no murmurs, S1 normal and S2 normal ABDOMEN: abdomen soft, non-tender, normo-active bowel sounds, no masses, no rebound or guarding. PELVIS: stable to compression anteriorly and posteriorly BACK: Back is symmetrical on inspection and there is no deformity, no midline tenderness, no CVA tenderness. UPPER EXTREMITIES: full active and passive range of motion of all joints without tenderness to palpation LOWER EXTREMITIES: No tenderness throughout the right mid femur knee gerber or ankle. DPs and PTs 2 out of 4 bilaterally. Gross sensation intact. Severe tenderness on palpation of right proximal femur/hip. No tenderness at the entire left lower extremity. NEURO EXAM: Normal sensorium, cranial nerves II-XII grossly intact, normal speech, no gross weakness of arms, no gross weakness of legs. GCS: 15. MEDICAL DECISION MAKING: Patient is an 85-year-old female that presents the ER following mechanical fall complaining of severe right hip pain. IV was established blood work obtained. Labs showed no significant leukocytosis or anemia. INR was unremarkable. BMP with LFTs bilirubin was unremarkable. UA with nitrates and epithelial cells. Is contaminant. Will defer to the hospitalist. X-rays show a right hip fracture. Discussed with [facility] orthopedics per their request. Discussed with the hospitalist and patient will be admitted for further work-up. Again denies any headache or neck pain. Triage Nursing notes reviewed. Limited review of prior medical records performed Vital Signs: reviewed and remarkable for no significant abnormalities Differential diagnosis: Differential diagnoses include major intracranial, cervical, spinal, thoracic, abdominal, pelvic and neurologic injury. Fracture, contusion, sprain, strain, laceration, abrasions included as well. ER treatment provided: See below Diagnostics interpreted by me: ECG: none Cardiac Monitoring: An order was placed for continuous cardiac monitoring. The monitor shows a rate of 92 with sinus rhythm. Laboratory studies: As stated above and show below. Imaging studies: X-rays right femur pelvis showed right hip fracture Consultation(s): Discussed with Dr. Bala Hernandez Discussed with Dr. Jann Jeffrey for admission Procedures: none Critical Care: None Past Med/Surg History Medical History (Updated 01/12/21 @ 22:44 by José Antonio Segura DO) Abdominal pain Ambulatory dysfunction Anxiety Cervical cancer at age 29--sx Closed head injury Depression Difficulty swallowing DVT prophylaxis Fall History of gastric ulcer Hypothyroidism Intractable back pain On anticoagulant therapy eliquis daily Oropharyngeal dysphagia Osteoarthritis Pulmonary embolism reason for eliquis T12 compression fracture Tinnitus of both ears Transient ischemic attack (TIA) 2013--follows with Dr. Zapata--no deficits Upper abdominal pain Vertigo Vertigo Vestibular migraine reason for verapamil Surgical History History of adenoidectomy History of appendectomy History of bilateral cataract extraction History of cholecystectomy History of colonoscopy History of hysterectomy History of tonsillectomy History of tooth extraction Family History Son Family history of diabetes mellitus Social History Smoking Status: Never smoker Second Hand Exposure: Yes ( smoked/father smoked); Hx Alcohol Use: No Hx Substance Use: No Preferred Language: Congolese Communication Ability: Effective Housekeeping/Laundry Supervisor Required: No Beliefs That Will Affect Care: None marital status: / Current Living Situation: Family Current Living Situation Comment: lives with daughter current occupational status: retired Feels Safe at Home: Yes Assistive Devices: None Allergies Allergies Allergy/AdvReac Type Severity Reaction Status Date / Time adhesive tape AdvReac Intermediate PEELING OF Verified 01/12/21 19:57 SKIN cefdinir AdvReac Intermediate Migraine Verified 01/12/21 19:57 erythromycin base AdvReac Intermediate MYCIN Verified 01/12/21 19:57 DRUGS-YEAST INFECTIONS tramadol AdvReac Intermediate MAKES Verified 01/12/21 19:57 HEADACHS WORSE--vestibular sx Home Meds Home Medications Medication Instructions Recorded Confirmed polyethylene glycol 3350 [Miralax] 17 g PO QAM 06/24/19 01/12/21 clopidogrel 75 mg PO HS 09/02/19 01/12/21 dicyclomine 10 mg PO Q6 PRN 09/30/19 01/12/21 Eliquis 2.5 mg PO BID 11/05/19 01/12/21 cyanocobalamin (vitamin B-12) 500 mcg PO BID 06/18/20 01/12/21 [Vitamin B-12] acetaminophen [Tylenol] 650 mg PO QID PRN 01/12/21 01/12/21 calcium carbonate [Tums] 400 mg PO Q4H PRN 01/12/21 01/12/21 citalopram [Celexa] 5 mg PO PM 01/12/21 01/12/21 levothyroxine 88 mcg PO QAM 01/12/21 01/12/21 levothyroxine 100 mcg PO QAM 01/12/21 01/12/21 mirtazapine [Remeron] 7.5 mg PO HS 01/12/21 01/12/21 omeprazole 20 mg PO QAM 01/12/21 01/12/21 ondansetron 4 mg PO Q8H PRN 01/12/21 01/12/21 sennosides [senna] 8.6 mg PO BID 01/12/21 01/12/21 thiamine HCl (vitamin B1) 100 mg PO QAM 01/12/21 01/12/21 Results & Data (ED) Vital Signs Vital Signs - 24 hr 01/12/21 19:15 01/12/21 19:26 01/12/21 20:06 Temperature 36.7 C Temperature Source Oral Pulse Rate 115 H 88 98 H Pulse Rate from SpO2 Sensor Respiratory Rate 21 12 18 Respiratory Depth Normal Blood Pressure 179/109 H 133/86 Blood Pressure Mean 132 101 Pulse Oximetry 99 Oxygen Delivery Method Room Air Oxygen Flow Rate Sepsis Recent Fever Within 48 Hours No Sepsis New/Unexplained Change in Mental Status No Sepsis Action Taken by Nursing No Action Required 01/12/21 20:10 01/12/21 20:20 01/12/21 20:30 Temperature Temperature Source Pulse Rate 118 H 106 H 105 H Pulse Rate from SpO2 Sensor Respiratory Rate 20 16 22 Respiratory Depth Blood Pressure Blood Pressure Mean Pulse Oximetry Oxygen Delivery Method Oxygen Flow Rate Sepsis Recent Fever Within 48 Hours Sepsis New/Unexplained Change in Mental Status Sepsis Action Taken by Nursing 01/12/21 20:40 01/12/21 20:50 01/12/21 21:00 Temperature Temperature Source Pulse Rate 103 H 106 H 104 H Pulse Rate from SpO2 Sensor Respiratory Rate 19 20 23 Respiratory Depth Blood Pressure Blood Pressure Mean Pulse Oximetry Oxygen Delivery Method Oxygen Flow Rate Sepsis Recent Fever Within 48 Hours Sepsis New/Unexplained Change in Mental Status Sepsis Action Taken by Nursing 01/12/21 21:06 01/12/21 21:10 01/12/21 21:20 Temperature Temperature Source Pulse Rate 103 H 94 H Pulse Rate from SpO2 Sensor Respiratory Rate 14 22 22 Respiratory Depth Normal Blood Pressure Blood Pressure Mean Pulse Oximetry 96 Oxygen Delivery Method Nasal Cannula Oxygen Flow Rate 2 Sepsis Recent Fever Within 48 Hours Sepsis New/Unexplained Change in Mental Status Sepsis Action Taken by Nursing 01/12/21 21:30 01/12/21 21:40 Temperature Temperature Source Pulse Rate 96 H 95 H Pulse Rate from SpO2 Sensor 100 H 72 Respiratory Rate 18 20 Respiratory Depth Blood Pressure Blood Pressure Mean Pulse Oximetry 96 96 Oxygen Delivery Method Oxygen Flow Rate Sepsis Recent Fever Within 48 Hours Sepsis New/Unexplained Change in Mental Status Sepsis Action Taken by Nursing Laboratory Data Result diagrams: 01/12/21 19:20 01/12/21 19:20 Lab Results 01/12/21 01/12/21 01/12/21 Range/Units 19:20 19:20 19:20 WBC 5.70 (4.8-10.8) K/uL RBC 4.84 (4.2-5.4) M/uL Hgb 14.4 (12.0-16.0) g/dL Hct 43.5 (37-47) % MCV 89.9 (80-100) fL MCH 29.8 (25-34) pg MCHC 33.1 (32-36) g/dL RDW Std Deviation 43.1 (36.4-46.3) fL RDW Coeff of Bety 13.1 (11.5-14.5) % Plt Count 317 (130-400) K/uL MPV 10.5 H (7.4-10.4) fL Immature Gran % (Auto) 0.9 % Neut % (Auto) 57.0 % Lymph % (Auto) 31.2 % [place] % (Auto) 9.6 % Eos % (Auto) 1.1 % Baso % (Auto) 0.2 % Neut # (Auto) 3.25 (1.4-6.5) K/uL Lymph # (Auto) 1.78 (1.2-3.4) K/uL [place] # (Auto) 0.55 (0.11-0.59) K/uL Eos # (Auto) 0.06 (0-0.5) K/uL Baso # (Auto) 0.01 (0-0.2) K/uL Immature Gran # (Auto) 0.05 H (0.00-0.02) K/uL PT 9.7 (9.0-12.0) Seconds INR 1.0 (0.9-1.1) APTT 24.4 (21.0-31.0) Seconds PTT Ratio 0.9 Sodium 140 (136-145) mmol/L Potassium 3.9 (3.5-5.1) mmol/L Chloride 106 (98-107) mmol/L Carbon Dioxide 29 (21-32) mmol/L Anion Gap 5.0 (3-11) BUN 9 (7-18) mg/dl Creatinine 0.63 (0.6-1.2) mg/dl Est Cr Clr Drug Dosing 57.8 ml/min Est GFR ( Amer) 94.1 ml/min Est GFR (Non-Af Amer) 81.2 ml/min BUN/Creatinine Ratio 15.0 (10-20) Glucose 103 H (70-99) mg/dl Calcium 9.1 (8.5-10.1) mg/dl Total Bilirubin 0.3 (0.2-1) mg/dl AST 24 (15-37) U/L ALT 26 (12-78) U/L Alkaline Phosphatase 82 (45-117) U/L Total Protein 7.1 (6.4-8.2) gm/dl Albumin 3.6 (3.4-5.0) gm/dl Globulin 3.5 (2.5-4.0) gm/dl Albumin/Globulin Ratio 1.0 (0.9-2) Urine Color Urine Appearance (Clear) Urine pH (4.5-7.5) Ur Specific [place] (1.000-1.030) Urine Protein (Negative) Urine Glucose (UA) (Negative) Urine Ketones (Negative) Urine Blood (Negative) Urine Nitrite (Negative) Urine Bilirubin (Negative) Urine Urobilinogen (Negative) Ur Leukocyte Esterase (Negative) Urine WBC (Auto) (0-5) /hpf Urine RBC (Auto) (0-4) /hpf U Hyaline Cast (Auto) (0-5) /lpf U Epithel Cells (Auto) (0-5) /lpf Urine Bacteria (Auto) (Negative) COVID-19 Eval Order SARS-CoV-2 (PCR) (Negative) Blood Type Antibody Screen 01/12/21 01/12/21 01/12/21 Range/Units 19:53 20:30 20:30 WBC (4.8-10.8) K/uL RBC (4.2-5.4) M/uL Hgb (12.0-16.0) g/dL Hct (37-47) % MCV (80-100) fL MCH (25-34) pg MCHC (32-36) g/dL RDW Std Deviation (36.4-46.3) fL RDW Coeff of Bety (11.5-14.5) % Plt Count (130-400) K/uL MPV (7.4-10.4) fL Immature Gran % (Auto) % Neut % (Auto) % Lymph % (Auto) % [place] % (Auto) % Eos % (Auto) % Baso % (Auto) % Neut # (Auto) (1.4-6.5) K/uL Lymph # (Auto) (1.2-3.4) K/uL [place] # (Auto) (0.11-0.59) K/uL Eos # (Auto) (0-0.5) K/uL Baso # (Auto) (0-0.2) K/uL Immature Gran # (Auto) (0.00-0.02) K/uL PT (9.0-12.0) Seconds INR (0.9-1.1) APTT (21.0-31.0) Seconds PTT Ratio Sodium (136-145) mmol/L Potassium (3.5-5.1) mmol/L Chloride (98-107) mmol/L Carbon Dioxide (21-32) mmol/L Anion Gap (3-11) BUN (7-18) mg/dl Creatinine (0.6-1.2) mg/dl Est Cr Clr Drug Dosing ml/min Est GFR ( Amer) ml/min Est GFR (Non-Af Amer) ml/min BUN/Creatinine Ratio (10-20) Glucose (70-99) mg/dl Calcium (8.5-10.1) mg/dl Total Bilirubin (0.2-1) mg/dl AST (15-37) U/L ALT (12-78) U/L Alkaline Phosphatase (45-117) U/L Total Protein (6.4-8.2) gm/dl Albumin (3.4-5.0) gm/dl Globulin (2.5-4.0) gm/dl Albumin/Globulin Ratio (0.9-2) Urine Color Urine Appearance (Clear) Urine pH (4.5-7.5) Ur Specific [place] (1.000-1.030) Urine Protein (Negative) Urine Glucose (UA) (Negative) Urine Ketones (Negative) Urine Blood (Negative) Urine Nitrite (Negative) Urine Bilirubin (Negative) Urine Urobilinogen (Negative) Ur Leukocyte Esterase (Negative) Urine WBC (Auto) (0-5) /hpf Urine RBC (Auto) (0-4) /hpf U Hyaline Cast (Auto) (0-5) /lpf U Epithel Cells (Auto) (0-5) /lpf Urine Bacteria (Auto) (Negative) COVID-19 Eval Order Covid19 at [facility] SARS-CoV-2 (PCR) NEGATIVE (Negative) Blood Type A Positive Antibody Screen NEGATIVE 01/12/21 Range/Units 20:45 WBC (4.8-10.8) K/uL RBC (4.2-5.4) M/uL Hgb (12.0-16.0) g/dL Hct (37-47) % MCV (80-100) fL MCH (25-34) pg MCHC (32-36) g/dL RDW Std Deviation (36.4-46.3) fL RDW Coeff of Bety (11.5-14.5) % Plt Count (130-400) K/uL MPV (7.4-10.4) fL Immature Gran % (Auto) % Neut % (Auto) % Lymph % (Auto) % [place] % (Auto) % Eos % (Auto) % Baso % (Auto) % Neut # (Auto) (1.4-6.5) K/uL Lymph # (Auto) (1.2-3.4) K/uL [place] # (Auto) (0.11-0.59) K/uL Eos # (Auto) (0-0.5) K/uL Baso # (Auto) (0-0.2) K/uL Immature Gran # (Auto) (0.00-0.02) K/uL PT (9.0-12.0) Seconds INR (0.9-1.1) APTT (21.0-31.0) Seconds PTT Ratio Sodium (136-145) mmol/L Potassium (3.5-5.1) mmol/L Chloride (98-107) mmol/L Carbon Dioxide (21-32) mmol/L Anion Gap (3-11) BUN (7-18) mg/dl Creatinine (0.6-1.2) mg/dl Est Cr Clr Drug Dosing ml/min Est GFR ( Amer) ml/min Est GFR (Non-Af Amer) ml/min BUN/Creatinine Ratio (10-20) Glucose (70-99) mg/dl Calcium (8.5-10.1) mg/dl Total Bilirubin (0.2-1) mg/dl AST (15-37) U/L ALT (12-78) U/L Alkaline Phosphatase (45-117) U/L Total Protein (6.4-8.2) gm/dl Albumin (3.4-5.0) gm/dl Globulin (2.5-4.0) gm/dl Albumin/Globulin Ratio (0.9-2) Urine Color Yellow Urine Appearance Clear (Clear) Urine pH >= 9.0 H (4.5-7.5) Ur Specific [place] 1.014 (1.000-1.030) Urine Protein Negative (Negative) Urine Glucose (UA) Negative (Negative) Urine Ketones Negative (Negative) Urine Blood Trace H (Negative) Urine Nitrite Positive A (Negative) Urine Bilirubin Negative (Negative) Urine Urobilinogen Negative (Negative) Ur Leukocyte Esterase Negative (Negative) Urine WBC (Auto) 5-10 H (0-5) /hpf Urine RBC (Auto) 0-4 (0-4) /hpf U Hyaline Cast (Auto) 1-5 (0-5) /lpf U Epithel Cells (Auto) >30 H (0-5) /lpf Urine Bacteria (Auto) 2+ H (Negative) COVID-19 Eval Order SARS-CoV-2 (PCR) (Negative) Blood Type Antibody Screen Administered Medications Morphine Sulfate (Morphine Sulfate 2 Mg/Ml Carp) 2 mg IV Q1H PRN PRN Reason: Moderate Pain (Rating 3,4,5,6) Stop: 01/26/21 19:37 Last Admin: 01/12/21 21:09 Dose: 2 mg Documented by: [id number] Morphine Sulfate (Morphine Sulfate 4 Mg/Ml 1 Ml Carp\Vial) 4 mg IV Q1H PRN PRN Reason: Severe Pain (Rating 7,8,9,10) Stop: 01/26/21 19:37 Last Admin: 01/12/21 19:54 Dose: 4 mg Documented by: [id number] Discontinued Medications Hydromorphone HCl (Hydromorphone Inj 1 Mg/Ml Syringe) 0.25 mg IV NOW STA Stop: 01/12/21 21:24 Last Admin: 01/12/21 21:35 Dose: 0.25 mg Documented by: [id number] Imaging Data Radiologist's Impression: Chest X-Ray 01/12/21 19:24 XR chest 1V portable CLINICAL HISTORY: Fall. COMPARISON STUDY: Chest radiograph June 18, 2020. Chest CT June 22, 2020. FINDINGS: No pneumothorax or pleural effusion is identified. Cardiomegaly is unchanged. There is no evidence for pulmonary edema. Lung volumes are mildly diminished. There is minimal right basilar opacity. IMPRESSION: 1. Low lung findings with minimal right basilar opacity that likely reflects atelectasis or a trace right pleural effusion. 2. Cardiomegaly without evidence for pulmonary edema. ACT 112: Negative or not required by law. Electronically signed by: Ean Qiuroz M.D. 01/12/2021 8:32 PM Femur X-Ray 01/12/21 19:38 XR femur RT 2V routine CLINICAL HISTORY: Right femur pain following fall. COMPARISON: Pelvis radiograph March 13, 2020. FINDINGS: Note is made of an acute displaced right femoral neck fracture. No distal right femoral fracture is noted. Alignment of the right knee is anatomic. There is no right knee joint effusion. IMPRESSION: Acute displaced right femoral neck fracture. ACT 112: Negative or not required by law. Electronically signed by: Ean Quiroz M.D. 01/12/2021 8:31 PM Pelvis X-Ray 01/12/21 19:38 XR pelvis 1-2V routine CLINICAL HISTORY: r hip pain COMPARISON: Pelvis radiograph March 13, 2020. CT of the abdomen and pelvis June 22, 2020. FINDINGS: Sacroiliac joints and symphysis pubis are intact. Note is made of an acute displaced and angulated right femoral neck fracture. No proximal left femoral fracture is noted. No additional fractures are identified on this exam. IMPRESSION: Acute displaced right femoral neck fracture. ACT 112: Negative or not required by law. Electronically signed by: Ean Quiroz M.D. 01/12/2021 8:26 PM Discharge Plan Visit Data Chief Complaint: Fall ED Provider: José Antonio Segura Discharge Problem: Hip fracture, Fall Forms Stand Alone Forms: [facility] Prescriptions Prescriptions: No Action polyethylene glycol 3350 [Miralax] 17 gram Powder In Packet 17 g PO QAM RF: 0 clopidogrel 75 mg Tablet 75 mg PO HS RF: 0 Eliquis 2.5 mg Tablet 2.5 mg PO BID RF: 0 dicyclomine 10 mg capsule 10 mg PO Q6 PRN (Reason: Pain) RF: 0 cyanocobalamin (vitamin B-12) [Vitamin B-12] 500 mcg Tablet 500 mcg PO BID RF: 0 sennosides [senna] 8.6 mg Tablet 8.6 mg PO BID RF: 0 acetaminophen [Tylenol] 325 mg Tablet 650 mg PO QID PRN (Reason: Pain) RF: 0 citalopram [Celexa] 10 mg Tablet 5 mg PO PM RF: 0 thiamine HCl (vitamin B1) 100 mg Tablet 100 mg PO QAM RF: 0 levothyroxine 100 mcg Tablet 100 mcg PO QAM RF: 0 levothyroxine 88 mcg Tablet 88 mcg PO QAM RF: 0 calcium carbonate [Tums] 200 mg calcium (500 mg) Tablet,Chewable 400 mg PO Q4H PRN (Reason: Heartburn) RF: 0 mirtazapine [Remeron] 15 mg Tablet 7.5 mg PO HS RF: 0 ondansetron 4 mg Tablet,Disintegrating 4 mg PO Q8H PRN (Reason: Nausea And Vomiting) RF: 0 omeprazole 20 mg Tablet,Delayed Release (Dr/Ec) 20 mg PO QAM RF: 0 Discharge Problem: Hip fracture Qualifiers: Encounter type: initial encounter Fracture type: closed Laterality: right Qualified Code(s): S72.001A - Fracture of unspecified part of neck of right femur, initial encounter for closed fracture Fall Qualifiers: Encounter type: initial encounter Qualified Code(s): W19.XXXA - Unspecified fall, initial encounter
[2021-01-12 19:53] LABS: Basophils # (auto) 0.01 K/uL (0-0.2); Basophils % (auto) 0.2 %; Eosinophils # (auto) 0.06 K/uL (0-0.5); Eosinophils % (auto) 1.1 %; Hematocrit (blood only) 43.5 % (37-47); Hemoglobin 14.4 g/dL (12.0-16.0); Immature Granulocytes # (auto) 0.05 K/uL (0.00-0.02); Immature Granulocytes % (auto) 0.9 %; Lymphocytes # (auto) 1.78 K/uL (1.2-3.4); Lymphocytes % (auto) 31.2 %; Mean Corpuscular Hemoglobin 29.8 pg (25-34); Mean Corpuscular Hgb Conc 33.1 g/dL (32-36); Mean Corpuscular Volume 89.9 fL (80-100); Mean Platelet Volume 10.5 fL (7.4-10.4); Monocytes # (auto) 0.55 K/uL (0.11-0.59); Monocytes % (auto) 9.6 %; Neutrophils # (auto) 3.25 K/uL (1.4-6.5); Platelet Count 317 K/uL (130-400); RDW Coefficient of Variation 13.1 % (11.5-14.5); RDW Standard Deviation 43.1 fL (36.4-46.3); Red Blood Count 4.84 M/uL (4.2-5.4)
[2021-01-12 20:08] LABS: Partial Thromboplastin Ratio 0.9; Partial Thromboplastin Time 24.4 Seconds (21.0-31.0); Prothrombin Time 9.7 Seconds (9.0-12.0)
[2021-01-12 20:13] LABS: Albumin Level 3.6 gm/dl (3.4-5.0); Calcium 9.1 mg/dl (8.5-10.1); Creatinine Clr Calc Pharmacy 57.8 ml/min; Est GFR (African American) 94.1 ml/min; Est GFR (Non-African American) 81.2 ml/min; Potassium 3.9 mmol/L (3.5-5.1)
[2021-01-12 20:16] LABS: Bilirubin,Total 0.3 mg/dl (0.2-1); Globulin 3.5 gm/dl (2.5-4.0); Total Protein 7.1 gm/dl (6.4-8.2)
--- NOTE | 2021-01-12 20:27 | XRay Report ---
XR pelvis 1-2V routine CLINICAL HISTORY: r hip pain COMPARISON: Pelvis radiograph March 13, 2020. CT of the abdomen and pelvis June 22, 2020. FINDINGS: Sacroiliac joints and symphysis pubis are intact. Note is made of an acute displaced and a ngulated right femoral neck fracture. No proximal left femoral fracture is noted. No additional fract ures are identified on this exam. IMPRESSION: Acute displaced right femoral neck fracture. ACT 112: Negative or not required by law. Electronically signed by: Ean Quiroz M.D. 01/12/2021 8:26 PM
--- NOTE | 2021-01-12 20:32 | XRay Report ---
XR femur RT 2V routine CLINICAL HISTORY: Right femur pain following fall. COMPARISON: Pelvis radiograph March 13, 2020. FINDINGS: Note is made of an acute displaced right femoral neck fracture. No distal right femoral fr acture is noted. Alignment of the right knee is anatomic. There is no right knee joint effusion. IMPRESSION: Acute displaced right femoral neck fracture. ACT 112: Negative or not required by law. Electronically signed by: Ean Quiroz M.D. 01/12/2021 8:31 PM
--- NOTE | 2021-01-12 20:34 | XRay Report ---
XR chest 1V portable CLINICAL HISTORY: Fall. COMPARISON STUDY: Chest radiograph June 18, 2020. Chest CT June 22, 2020. FINDINGS: No pneumothorax or pleural effusion is identified. Cardiomegaly is unchanged. There is no e vidence for pulmonary edema. Lung volumes are mildly diminished. There is minimal right basilar opaci ty. IMPRESSION: 1. Low lung findings with minimal right basilar opacity that likely reflects atelectasis or a trace r ight pleural effusion. 2. Cardiomegaly without evidence for pulmonary edema. ACT 112: Negative or not required by law. Electronically signed by: Ean Quiroz M.D. 01/12/2021 8:32 PM
[2021-01-12] MEDS: MoRPHine SULFATE 2 MG/ML CARP IV PRN ×2 (21:09→22:38)
[2021-01-12 21:21] LABS: Appearance Urine Clear (Clear); Bacteria Urine Automated 2+ (Negative); Bilirubin Urine Negative (Negative); Blood Urine Trace (Negative); Color Urine Yellow; Epithelial Cell Urine Auto >30 /lpf (0-5); Glucose Urine UA Negative (Negative); Ketones Urine Negative (Negative); Leukocyte Esterase Urine Negative (Negative); Nitrite Urine Positive (Negative); Protein Urine Negative (Negative); RBC Urine Automated 0-4 /hpf (0-4); Specific Gravity Urine 1.014 (1.000-1.030); Urobilinogen Urine Negative (Negative); pH Urine >= 9.0 (4.5-7.5)
[2021-01-12] MEDS ORDERED: HYDROmorphone INJ 1 MG/ML SYRINGE IV STA (21:23)
--- NOTE | 2021-01-12 21:30 | History & Physical Report ---
Date of Service January 12, 2021 Assessment & Plan (1) Closed fracture of right hip requiring operative repair: NPO after midnight Acetaminophen 650 mg p.o. every 6 hours as needed mild pain or fever Dilaudid 0.25 mg IV every 3 hours as needed moderate pain Dilaudid 0.5 mg IV every 3 hours as needed severe pain Zofran 4 mg IV every 6 hours as needed Famotidine 20 mg IV every 12 hours LR at 80 mils per hour Hold Eliquis and clopidogrel Consult orthopedic surgery Present on Admission?: Yes (2) Fall: Status post mechanical fall Present on Admission?: Yes (3) Memory loss: Her daughter will stay with the patient overnight to enhance communication Hold clopidogrel Present on Admission?: Yes (4) History of pulmonary embolism: History of pulmonary embolism/chronic use of Eliquis- Hold Eliquis this evening. 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: See above Present on Admission?: Yes (6) Hypothyroidism: Continue levothyroxine Present on Admission?: Yes (7) History of gastric ulcer: Placed on famotidine 20 mg IV every 12 hours, and resume omeprazole postop Present on Admission?: Yes (8) Anxiety: Resume citalopram and mirtazapine postoperatively Present on Admission?: Yes History of Present Illness Chief Complaint: The patient presents to the emergency department after falling onto her right hip as she was getting up off the commode, and developed immediate severe right hip pain Primary Care Provider: [facility] The patient is an 85-year-old female with a past medical history including UTI, iron deficiency, osteoporosis, memory loss, pulmonary embolism, ambulatory dysfunction, long-term use of anticoagulants, hypothyroidism, T12 compression fracture, oropharyngeal dysphagia, multilevel degenerative disc disease and vertigo. She is a resident of [facility], and was found with severe right hip pain after a fall as she was getting up off of the commode. Work-up in the emergency department included x-rays which showed a closed displaced right femoral neck fracture. Allergies Allergy/AdvReac Type Severity Reaction Status Date / Time adhesive tape AdvReac Intermediate PEELING OF Verified 01/12/21 19:57 SKIN cefdinir AdvReac Intermediate Migraine Verified 01/12/21 19:57 erythromycin base AdvReac Intermediate MYCIN Verified 01/12/21 19:57 DRUGS-YEAST INFECTIONS tramadol AdvReac Intermediate MAKES Verified 01/12/21 19:57 HEADACHS WORSE--vestibular sx Home Medications Medication Instructions Recorded Confirmed Type polyethylene glycol 3350 [Miralax] 17 g PO QAM 06/24/19 01/12/21 History clopidogrel 75 mg PO HS 09/02/19 01/12/21 History dicyclomine 10 mg PO Q6 PRN 09/30/19 01/12/21 History Eliquis 2.5 mg PO BID 11/05/19 01/12/21 History cyanocobalamin (vitamin B-12) 500 mcg PO BID 06/18/20 01/12/21 History [Vitamin B-12] acetaminophen [Tylenol] 650 mg PO QID PRN 01/12/21 01/12/21 History calcium carbonate [Tums] 400 mg PO Q4H PRN 01/12/21 01/12/21 History citalopram [Celexa] 5 mg PO PM 01/12/21 01/12/21 History levothyroxine 88 mcg PO QAM 01/12/21 01/12/21 History levothyroxine 100 mcg PO QAM 01/12/21 01/12/21 History mirtazapine [Remeron] 7.5 mg PO HS 01/12/21 01/12/21 History omeprazole 20 mg PO QAM 01/12/21 01/12/21 History ondansetron 4 mg PO Q8H PRN 01/12/21 01/12/21 History sennosides [senna] 8.6 mg PO BID 01/12/21 01/12/21 History thiamine HCl (vitamin B1) 100 mg PO QAM 01/12/21 01/12/21 History Past Med/Surg History Medical History (Updated 01/13/21 @ 00:45 by Jann Pond MD) Abdominal pain Ambulatory dysfunction Anxiety Cervical cancer at age 29--sx Closed head injury Depression Difficulty swallowing DVT prophylaxis Fall History of gastric ulcer Hypothyroidism Intractable back pain On anticoagulant therapy eliquis daily Oropharyngeal dysphagia Osteoarthritis Pulmonary embolism reason for eliquis T12 compression fracture Tinnitus of both ears Transient ischemic attack (TIA) 2013--follows with Dr. Zapata--no deficits Upper abdominal pain Vertigo Vertigo Vestibular migraine reason for verapamil Surgical History History of adenoidectomy History of appendectomy History of bilateral cataract extraction History of cholecystectomy History of colonoscopy History of hysterectomy History of tonsillectomy History of tooth extraction Family History Son Family history of diabetes mellitus Social History Smoking Status: Never smoker Second Hand Exposure: Yes ( smoked/father smoked); Hx Alcohol Use: No Hx Substance Use: No Preferred Language: Luxembourgish Communication Ability: Effective Accounts Payable Or Receivable Clerk Required: No Beliefs That Will Affect Care: None marital status: / Current Living Situation: Halfway Current Living Situation Comment: lives with daughter current occupational status: retired Other Information That Helps Us Care for You: No Feels Safe at Home: Yes Assistive Devices: Wheelchair Review of Systems Review of Systems: Unobtainable due to cognitive status Physical Exam Physical Exam: The patient is awake, well developed and well nourished, normocephalic and atraumatic, lying in bed and in moderate distress secondary to hip pain HEENT--PERRL, EOMI, mucous membranes and oropharynx normal. Neck--supple. No JVD. No bruits. Thyroid normal, trachea midline, no adenopathy. Heart--normal S1 and S2. No murmurs, rubs or gallops. Lungs--clear bilaterally, no respiratory distress, no accessory muscle use. Abdomen--normal bowel sounds and soft. Nontender. Nondistended, no hernias or masses, no organomegaly. Extremities--no cyanosis or clubbing. No edema. Dermatologic--normal skin turgor, normal color, no abnormal lymph nodes, no rash. Neurologic--cranial nerves II through XII grossly intact. Rheumatologic--normal range of motion. Psychiatric--limited responsiveness due to dementia and pain Results & Data Results & Data ([facility]) Vital Signs (Past 12 Hours) Vital Signs Temp Pulse Resp BP Pulse Ox 01/12/21 21:06 14 96 01/12/21 21:00 104 H 23 01/12/21 20:50 106 H 20 01/12/21 20:40 103 H 19 01/12/21 20:30 105 H 22 01/12/21 20:20 106 H 16 01/12/21 20:10 118 H 20 01/12/21 20:06 98 H 18 01/12/21 19:26 98.1 F 88 12 133/86 99 01/12/21 19:15 115 H 21 179/109 H Laboratory Results Laboratory Results WBC 5.70 K/uL (4.8-10.8) 01/12/21 19:20 RBC 4.84 M/uL (4.2-5.4) 01/12/21 19:20 Hgb 14.4 g/dL (12.0-16.0) 01/12/21 19:20 Hct 43.5 % (37-47) 01/12/21 19:20 MCV 89.9 fL (80-100) 01/12/21 19:20 MCH 29.8 pg (25-34) 01/12/21 19:20 MCHC 33.1 g/dL (32-36) 01/12/21 19:20 RDW Std Deviation 43.1 fL (36.4-46.3) 01/12/21 19:20 RDW Coeff of Bety 13.1 % (11.5-14.5) 01/12/21 19:20 Plt Count 317 K/uL (130-400) 01/12/21 19:20 MPV 10.5 fL (7.4-10.4) H 01/12/21 19:20 Immature Gran % (Auto) 0.9 % 01/12/21 19:20 Neut % (Auto) 57.0 % 01/12/21 19:20 Lymph % (Auto) 31.2 % 01/12/21 19:20 Emmet % (Auto) 9.6 % 01/12/21 19:20 Eos % (Auto) 1.1 % 01/12/21 19:20 Baso % (Auto) 0.2 % 01/12/21 19:20 Neut # (Auto) 3.25 K/uL (1.4-6.5) 01/12/21 19:20 Lymph # (Auto) 1.78 K/uL (1.2-3.4) 01/12/21 19:20 Emmet # (Auto) 0.55 K/uL (0.11-0.59) 01/12/21 19:20 Eos # (Auto) 0.06 K/uL (0-0.5) 01/12/21 19:20 Baso # (Auto) 0.01 K/uL (0-0.2) 01/12/21 19:20 Immature Gran # (Auto) 0.05 K/uL (0.00-0.02) H 01/12/21 19:20 PT 9.7 Seconds (9.0-12.0) 01/12/21 19:20 INR 1.0 (0.9-1.1) 01/12/21 19:20 APTT 24.4 Seconds (21.0-31.0) 01/12/21 19:20 PTT Ratio 0.9 01/12/21 19:20 Sodium 140 mmol/L (136-145) 01/12/21 19:20 Potassium 3.9 mmol/L (3.5-5.1) 01/12/21 19:20 Chloride 106 mmol/L (98-107) 01/12/21 19:20 Carbon Dioxide 29 mmol/L (21-32) 01/12/21 19:20 Anion Gap 5.0 (3-11) 01/12/21 19:20 BUN 9 mg/dl (7-18) 01/12/21 19:20 Creatinine 0.63 mg/dl (0.6-1.2) 01/12/21 19:20 Est Cr Clr Drug Dosing 57.8 ml/min 01/12/21 19:20 Est GFR ( Amer) 94.1 ml/min 01/12/21 19:20 Est GFR (Non-Af Amer) 81.2 ml/min 01/12/21 19:20 BUN/Creatinine Ratio 15.0 (10-20) 01/12/21 19:20 Glucose 103 mg/dl (70-99) H 01/12/21 19:20 Calcium 9.1 mg/dl (8.5-10.1) 01/12/21 19:20 Total Bilirubin 0.3 mg/dl (0.2-1) 01/12/21 19:20 AST 24 U/L (15-37) 01/12/21 19:20 ALT 26 U/L (12-78) 01/12/21 19:20 Alkaline Phosphatase 82 U/L (45-117) 01/12/21 19:20 Total Protein 7.1 gm/dl (6.4-8.2) 01/12/21 19:20 Albumin 3.6 gm/dl (3.4-5.0) 01/12/21 19:20 Globulin 3.5 gm/dl (2.5-4.0) 01/12/21 19:20 Albumin/Globulin Ratio 1.0 (0.9-2) 01/12/21 19:20 Urine Color Yellow 01/12/21 20:45 Urine Appearance Clear (Clear) 01/12/21 20:45 Urine pH >= 9.0 (4.5-7.5) H 01/12/21 20:45 Ur Specific Ehrenberg 1.014 (1.000-1.030) 01/12/21 20:45 Urine Protein Negative (Negative) 01/12/21 20:45 Urine Glucose (UA) Negative (Negative) 01/12/21 20:45 Urine Ketones Negative (Negative) 01/12/21 20:45 Urine Blood Trace (Negative) H 01/12/21 20:45 Urine Nitrite Positive (Negative) A 01/12/21 20:45 Urine Bilirubin Negative (Negative) 01/12/21 20:45 Urine Urobilinogen Negative (Negative) 01/12/21 20:45 Ur Leukocyte Esterase Negative (Negative) 01/12/21 20:45 Urine WBC (Auto) 5-10 /hpf (0-5) H 01/12/21 20:45 Urine RBC (Auto) 0-4 /hpf (0-4) 01/12/21 20:45 U Hyaline Cast (Auto) 1-5 /lpf (0-5) 01/12/21 20:45 U Epithel Cells (Auto) >30 /lpf (0-5) H 01/12/21 20:45 Urine Bacteria (Auto) 2+ (Negative) H 01/12/21 20:45 COVID-19 Eval Order Covid19 at [facility] 01/12/21 20:30 SARS-CoV-2 (PCR) NEGATIVE (Negative) 01/12/21 20:30 Blood Type A Positive 01/12/21 19:53 Antibody Screen NEGATIVE 01/12/21 19:53 Impressions Chest X-Ray 01/12/21 19:24 XR chest 1V portable CLINICAL HISTORY: Fall. COMPARISON STUDY: Chest radiograph June 18, 2020. Chest CT June 22, 2020. FINDINGS: No pneumothorax or pleural effusion is identified. Cardiomegaly is unchanged. There is no evidence for pulmonary edema. Lung volumes are mildly diminished. There is minimal right basilar opacity. IMPRESSION: 1. Low lung findings with minimal right basilar opacity that likely reflects atelectasis or a trace right pleural effusion. 2. Cardiomegaly without evidence for pulmonary edema. ACT 112: Negative or not required by law. Electronically signed by: Ean Quiroz M.D. 01/12/2021 8:32 PM Femur X-Ray 01/12/21 19:38 XR femur RT 2V routine CLINICAL HISTORY: Right femur pain following fall. COMPARISON: Pelvis radiograph March 13, 2020. FINDINGS: Note is made of an acute displaced right femoral neck fracture. No distal right femoral fracture is noted. Alignment of the right knee is anatomic. There is no right knee joint effusion. IMPRESSION: Acute displaced right femoral neck fracture. ACT 112: Negative or not required by law. Electronically signed by: Ean Quiroz M.D. 01/12/2021 8:31 PM Pelvis X-Ray 01/12/21 19:38 XR pelvis 1-2V routine CLINICAL HISTORY: r hip pain COMPARISON: Pelvis radiograph March 13, 2020. CT of the abdomen and pelvis June 22, 2020. FINDINGS: Sacroiliac joints and symphysis pubis are intact. Note is made of an acute displaced and angulated right femoral neck fracture. No proximal left femoral fracture is noted. No additional fractures are identified on this exam. IMPRESSION: Acute displaced right femoral neck fracture. ACT 112: Negative or not required by law. Electronically signed by: Ean Quiroz M.D. 01/12/2021 8:26 PM Code Status & VTE Plan Code Status Full code VTE Prophylaxis Plan VTE Prophylaxis will be ordered: Yes PG Care Time/CCT Total # of Minutes Spent Total Time Spent with Patient: Total time spent is greater than 50% in coordination of care (as documented) at patient's floor/unit and/or counseling patient: Coding Level of Care Code 14267 Initial Inpt Care Lvl 3 Diagnoses Closed fracture of right hip requiring operative repair S72.001A Fall W19.XXXA Encounter type: initial encounter Memory loss R41.3 History of pulmonary embolism Z86.711 long term acute care registered nurse (current) use of anticoagulants Z79.01 Hypothyroidism E03.9 Hypothyroidism type: unspecified History of gastric ulcer Z87.19 Anxiety F41.9 (1) Fall Encounter type: initial encounter Qualified Code(s): W19.XXXA - Unspecified fall, initial encounter (2) Hypothyroidism Hypothyroidism type: unspecified Qualified Code(s): E03.9 - Hypothyroidism, unspecified
[2021-01-12] MEDS ORDERED: HYDROmorphone INJ 0.5 MG/0.5 ML SYR IV PRN ×2 (23:09)
[2021-01-12] MEDS ORDERED: NALOXONE HCL 0.4 MG/1 ML VIAL/CARP IV PRN (23:09)
[2021-01-12] MEDS ORDERED: bisacodyL 10 MG SUPP PR PRN (23:09)
[2021-01-12] MEDS ORDERED: MAGNESIUM HYDROXIDE SUSP 30 ML UDC PO PRN (23:09)
[2021-01-12] MEDS: LACTATED RINGER'S 1,000 ML IV SCH (23:47)
[2021-01-13] MEDS: FAMOTIDINE 20 MG in SYRINGE 3 ML IV SCH ×3 (01:15→21:06)
[2021-01-13 05:58] LABS: Basophils # (auto) 0.02 K/uL (0-0.2); Basophils % (auto) 0.2 %; Eosinophils # (auto) 0.09 K/uL (0-0.5); Eosinophils % (auto) 1.1 %; Hematocrit (blood only) 39.5 % (37-47); Immature Granulocytes # (auto) 0.02 K/uL (0.00-0.02); Immature Granulocytes % (auto) 0.2 %; Lymphocytes # (auto) 1.22 K/uL (1.2-3.4); Lymphocytes % (auto) 15.2 %; Mean Corpuscular Hemoglobin 30.4 pg (25-34); Mean Corpuscular Hgb Conc 32.9 g/dL (32-36); Mean Corpuscular Volume 92.3 fL (80-100); Mean Platelet Volume 10.3 fL (7.4-10.4); Monocytes # (auto) 0.65 K/uL (0.11-0.59); Monocytes % (auto) 8.1 %; Neutrophils # (auto) 6.03 K/uL (1.4-6.5); Neutrophils % (auto) 75.2 %; Platelet Count 265 K/uL (130-400); RDW Coefficient of Variation 13.4 % (11.5-14.5); Red Blood Count 4.28 M/uL (4.2-5.4); White Blood Count 8.03 K/uL (4.8-10.8)
[2021-01-13] MEDS: LEVOTHYROXINE SODIUM 100 MCG TABLET PO SCH (05:58)
[2021-01-13] MEDS: LEVOTHYROXINE SODIUM 88 MCG TABLET PO SCH (05:59)
[2021-01-13] MEDS ORDERED: TRANEXAMIC ACID 1,000 MG in 0.9 % SODIUM CHLORIDE 100 ML IR SCH (06:00)
[2021-01-13 06:15] LABS: Partial Thromboplastin Ratio 0.9; Partial Thromboplastin Time 24.6 Seconds (21.0-31.0); Prothrombin Time 9.8 Seconds (9.0-12.0)
[2021-01-13 06:26] LABS: Albumin Level 3.2 gm/dl (3.4-5.0); Calcium 9.1 mg/dl (8.5-10.1); Creatinine Clr Calc Pharmacy 66.2 ml/min; Est GFR (African American) 98.4 ml/min; Est GFR (Non-African American) 84.9 ml/min; Magnesium 2.1 mg/dl (1.8-2.4); Potassium 4.4 mmol/L (3.5-5.1)
[2021-01-13 06:29] LABS: Bilirubin,Total 0.4 mg/dl (0.2-1); Globulin 3.2 gm/dl (2.5-4.0); Total Protein 6.4 gm/dl (6.4-8.2)
--- NOTE | 2021-01-13 06:52 | Orthopedic Consultation ---
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 After orthopedic consult discussing the patients treatment options of conservative versus surgical intervention were discussed. The patient and her daughter agreed for a planned hemiarthroplasty, for pain control and to avoid the risks of bed sores, pulmonary complications. They understand that her ambulatory status will not change. The patient understands the risks of surgery, which include but are not limited to: bleeding, infection, re-operation, damage to nerves and arteries, continued pain, failure of the hardware, fracture, dislocation, DVT, IN, stroke, and . In addition the patient and daughter are aware of the 20-30% morbidity associated with hip fracture for up to 1 year following a hip fracture. The patient and daughter understands all of these instructions and explanations, all of their questions have been satisfactorily addressed. The patient has elected to proceed with surgery and the informed consent was signed. The patient has a Tenorio in place. Continue pain control. Continue NPO. The patient is admitted to the Hospitalist service. The patient has been placed on the add-on list for today. She is medically cleared per Dr. Yoo. Will obtain 10A level after administering 2000 units K-Centra. History of Present Illness Reason for Consultation: Right hip fracture Requesting Physician: Bala Hernandez MD Attending Physician: Jann Pond MD History of Present Illness 85 year old female who fell from a standing position attempting to get off the commode injuring her right hip. She has multiple medical problems including history of PE on Eliquis. She is a non-ambulator that has only been using her lower extremities for transferring. She went to the ER where x-rays and CT were obtained and she was found to had a displaced femoral neck fracture and I was consulted for further evaluation and treatment. She has been admitted to the hospitalist service with the fracture and right hip pain. Allergies Allergy/AdvReac Type Severity Reaction Status Date / Time adhesive tape AdvReac Intermediate PEELING OF Verified 01/12/21 19:57 SKIN cefdinir AdvReac Intermediate Migraine Verified 01/12/21 19:57 erythromycin base AdvReac Intermediate MYCIN Verified 01/12/21 19:57 DRUGS-YEAST INFECTIONS tramadol AdvReac Intermediate MAKES Verified 01/12/21 19:57 HEADACHS WORSE--vestibular sx Home Medications Medication Instructions Recorded Confirmed Type polyethylene glycol 3350 [Miralax] 17 g PO QAM 06/24/19 01/12/21 History clopidogrel 75 mg PO HS 09/02/19 01/12/21 History dicyclomine 10 mg PO Q6 PRN 09/30/19 01/12/21 History Eliquis 2.5 mg PO BID 11/05/19 01/12/21 History cyanocobalamin (vitamin B-12) 500 mcg PO BID 06/18/20 01/12/21 History [Vitamin B-12] acetaminophen [Tylenol] 650 mg PO QID PRN 01/12/21 01/12/21 History calcium carbonate [Tums] 400 mg PO Q4H PRN 01/12/21 01/12/21 History citalopram [Celexa] 5 mg PO PM 01/12/21 01/12/21 History levothyroxine 88 mcg PO QAM 01/12/21 01/12/21 History levothyroxine 100 mcg PO QAM 01/12/21 01/12/21 History mirtazapine [Remeron] 7.5 mg PO HS 01/12/21 01/12/21 History omeprazole 20 mg PO QAM 01/12/21 01/12/21 History ondansetron 4 mg PO Q8H PRN 01/12/21 01/12/21 History sennosides [senna] 8.6 mg PO BID 01/12/21 01/12/21 History thiamine HCl (vitamin B1) 100 mg PO QAM 01/12/21 01/12/21 History Patient History Medical History (Updated 01/13/21 @ 06:50 by Bala Hernandez MD) Abdominal pain Ambulatory dysfunction Anxiety Cervical cancer at age 29--sx Closed head injury Depression Difficulty swallowing DVT prophylaxis Fall Hip fracture, right History of gastric ulcer Hypothyroidism Intractable back pain On anticoagulant therapy eliquis daily Oropharyngeal dysphagia Osteoarthritis Pulmonary embolism reason for eliquis T12 compression fracture Tinnitus of both ears Transient ischemic attack (TIA) 2013--follows with Dr. Zapata--no deficits Upper abdominal pain Vertigo Vertigo Vestibular migraine reason for verapamil Surgical History History of adenoidectomy History of appendectomy History of bilateral cataract extraction History of cholecystectomy History of colonoscopy History of hysterectomy History of tonsillectomy History of tooth extraction Family History Son Family history of diabetes mellitus Social History Smoking Status: Never smoker Second Hand Exposure: Yes ( smoked/father smoked); Hx Alcohol Use: No Hx Substance Use: No Preferred Language: Slovak Communication Ability: Effective Phys Assistant Required: No Beliefs That Will Affect Care: None marital status: / Current Living Situation: [facility] Current Living Situation Comment: lives with daughter current occupational status: retired Other Information That Helps Us Care for You: No Feels Safe at Home: Yes Assistive Devices: Wheelchair Review of Systems Review of Systems: All systems reviewed & are unremarkable except as noted in HPI & below Physical Exam Physical Exam: RLE: Results & Data ([facility]) Vital Signs (Past 12 Hours) Vital Signs Temp Pulse Pulse Pulse Resp BP BP 01/13/21 04:45 96 H 01/12/21 23:00 36.8 C 105 H 14 185/75 H 01/12/21 22:50 01/12/21 22:40 102 H 18 01/12/21 22:37 107 H 19 164/79 H 01/12/21 22:30 98 H 21 01/12/21 22:20 99 H 21 01/12/21 22:10 102 H 16 01/12/21 22:00 102 H 19 01/12/21 21:50 97 H 18 01/12/21 21:40 95 H 20 01/12/21 21:30 96 H 18 01/12/21 21:20 94 H 22 01/12/21 21:10 103 H 22 01/12/21 21:06 14 01/12/21 21:00 104 H 23 01/12/21 20:50 106 H 20 01/12/21 20:40 103 H 19 01/12/21 20:30 105 H 22 01/12/21 20:20 106 H 16 01/12/21 20:10 118 H 20 01/12/21 20:06 98 H 18 01/12/21 19:26 36.7 C 88 12 133/86 01/12/21 19:15 115 H 21 179/109 H BP Pulse Ox 01/13/21 04:45 147/79 H 01/12/21 23:00 95 01/12/21 22:50 96 01/12/21 22:40 96 01/12/21 22:37 96 01/12/21 22:30 96 01/12/21 22:20 95 01/12/21 22:10 96 01/12/21 22:00 96 01/12/21 21:50 96 01/12/21 21:40 96 01/12/21 21:30 96 01/12/21 21:20 01/12/21 21:10 01/12/21 21:06 96 01/12/21 21:00 01/12/21 20:50 01/12/21 20:40 01/12/21 20:30 01/12/21 20:20 01/12/21 20:10 01/12/21 20:06 01/12/21 19:26 99 01/12/21 19:15 Laboratory Results 01/13/21 01/13/21 01/13/21 Range/Units 05:24 05:24 05:24 WBC 8.03 (4.8-10.8) K/uL RBC 4.28 (4.2-5.4) M/uL Hgb 13.0 (12.0-16.0) g/dL Hct 39.5 (37-47) % MCV 92.3 (80-100) fL MCH 30.4 (25-34) pg MCHC 32.9 (32-36) g/dL RDW Std Deviation 45.0 (36.4-46.3) fL RDW Coeff of Bety 13.4 (11.5-14.5) % Plt Count 265 (130-400) K/uL MPV 10.3 (7.4-10.4) fL Immature Gran % (Auto) 0.2 % Neut % (Auto) 75.2 % Lymph % (Auto) 15.2 % Hitchcock % (Auto) 8.1 % Eos % (Auto) 1.1 % Baso % (Auto) 0.2 % Neut # (Auto) 6.03 (1.4-6.5) K/uL Lymph # (Auto) 1.22 (1.2-3.4) K/uL Hitchcock # (Auto) 0.65 H (0.11-0.59) K/uL Eos # (Auto) 0.09 (0-0.5) K/uL Baso # (Auto) 0.02 (0-0.2) K/uL Immature Gran # (Auto) 0.02 (0.00-0.02) K/uL PT 9.8 (9.0-12.0) Seconds INR 1.0 (0.9-1.1) APTT 24.6 (21.0-31.0) Seconds PTT Ratio 0.9 Sodium 137 (136-145) mmol/L Potassium 4.4 (3.5-5.1) mmol/L Chloride 105 (98-107) mmol/L Carbon Dioxide 28 (21-32) mmol/L Anion Gap 4.0 (3-11) BUN 11 (7-18) mg/dl Creatinine 0.55 L (0.6-1.2) mg/dl Est Cr Clr Drug Dosing 66.2 ml/min Est GFR ( Amer) 98.4 ml/min Est GFR (Non-Af Amer) 84.9 ml/min BUN/Creatinine Ratio 19.0 (10-20) Glucose 114 H (70-99) mg/dl Calcium 9.1 (8.5-10.1) mg/dl Magnesium 2.1 (1.8-2.4) mg/dl Total Bilirubin 0.4 (0.2-1) mg/dl AST 49 H (15-37) U/L ALT 44 (12-78) U/L Alkaline Phosphatase 80 (45-117) U/L Total Protein 6.4 (6.4-8.2) gm/dl Albumin 3.2 L (3.4-5.0) gm/dl Globulin 3.2 (2.5-4.0) gm/dl Albumin/Globulin Ratio 1.0 (0.9-2) Urine Color Urine Appearance (Clear) Urine pH (4.5-7.5) Ur Specific [place] (1.000-1.030) Urine Protein (Negative) Urine Glucose (UA) (Negative) Urine Ketones (Negative) Urine Blood (Negative) Urine Nitrite (Negative) Urine Bilirubin (Negative) Urine Urobilinogen (Negative) Ur Leukocyte Esterase (Negative) Urine WBC (Auto) (0-5) /hpf Urine RBC (Auto) (0-4) /hpf U Hyaline Cast (Auto) (0-5) /lpf U Epithel Cells (Auto) (0-5) /lpf Urine Bacteria (Auto) (Negative) Nasal Screen MRSA (PCR) (Negative) COVID-19 Eval Order SARS-CoV-2 (PCR) (Negative) Blood Type Antibody Screen 01/12/21 01/12/21 01/12/21 Range/Units 23:50 20:45 20:30 WBC (4.8-10.8) K/uL RBC (4.2-5.4) M/uL Hgb (12.0-16.0) g/dL Hct (37-47) % MCV (80-100) fL MCH (25-34) pg MCHC (32-36) g/dL RDW Std Deviation (36.4-46.3) fL RDW Coeff of Bety (11.5-14.5) % Plt Count (130-400) K/uL MPV (7.4-10.4) fL Immature Gran % (Auto) % Neut % (Auto) % Lymph % (Auto) % [place] % (Auto) % Eos % (Auto) % Baso % (Auto) % Neut # (Auto) (1.4-6.5) K/uL Lymph # (Auto) (1.2-3.4) K/uL [place] # (Auto) (0.11-0.59) K/uL Eos # (Auto) (0-0.5) K/uL Baso # (Auto) (0-0.2) K/uL Immature Gran # (Auto) (0.00-0.02) K/uL PT (9.0-12.0) Seconds INR (0.9-1.1) APTT (21.0-31.0) Seconds PTT Ratio Sodium (136-145) mmol/L Potassium (3.5-5.1) mmol/L Chloride (98-107) mmol/L Carbon Dioxide (21-32) mmol/L Anion Gap (3-11) BUN (7-18) mg/dl Creatinine (0.6-1.2) mg/dl Est Cr Clr Drug Dosing ml/min Est GFR ( Amer) ml/min Est GFR (Non-Af Amer) ml/min BUN/Creatinine Ratio (10-20) Glucose (70-99) mg/dl Calcium (8.5-10.1) mg/dl Magnesium (1.8-2.4) mg/dl Total Bilirubin (0.2-1) mg/dl AST (15-37) U/L ALT (12-78) U/L Alkaline Phosphatase (45-117) U/L Total Protein (6.4-8.2) gm/dl Albumin (3.4-5.0) gm/dl Globulin (2.5-4.0) gm/dl Albumin/Globulin Ratio (0.9-2) Urine Color Yellow Urine Appearance Clear (Clear) Urine pH >= 9.0 H (4.5-7.5) Ur Specific [place] 1.014 (1.000-1.030) Urine Protein Negative (Negative) Urine Glucose (UA) Negative (Negative) Urine Ketones Negative (Negative) Urine Blood Trace H (Negative) Urine Nitrite Positive A (Negative) Urine Bilirubin Negative (Negative) Urine Urobilinogen Negative (Negative) Ur Leukocyte Esterase Negative (Negative) Urine WBC (Auto) 5-10 H (0-5) /hpf Urine RBC (Auto) 0-4 (0-4) /hpf U Hyaline Cast (Auto) 1-5 (0-5) /lpf U Epithel Cells (Auto) >30 H (0-5) /lpf Urine Bacteria (Auto) 2+ H (Negative) Nasal Screen MRSA (PCR) Positive A (Negative) COVID-19 Eval Order SARS-CoV-2 (PCR) NEGATIVE (Negative) Blood Type Antibody Screen 01/12/21 01/12/21 01/12/21 Range/Units 20:30 19:53 19:20 WBC (4.8-10.8) K/uL RBC (4.2-5.4) M/uL Hgb (12.0-16.0) g/dL Hct (37-47) % MCV (80-100) fL MCH (25-34) pg MCHC (32-36) g/dL RDW Std Deviation (36.4-46.3) fL RDW Coeff of Bety (11.5-14.5) % Plt Count (130-400) K/uL MPV (7.4-10.4) fL Immature Gran % (Auto) % Neut % (Auto) % Lymph % (Auto) % Hitchcock % (Auto) % Eos % (Auto) % Baso % (Auto) % Neut # (Auto) (1.4-6.5) K/uL Lymph # (Auto) (1.2-3.4) K/uL [place] # (Auto) (0.11-0.59) K/uL Eos # (Auto) (0-0.5) K/uL Baso # (Auto) (0-0.2) K/uL Immature Gran # (Auto) (0.00-0.02) K/uL PT (9.0-12.0) Seconds INR (0.9-1.1) APTT (21.0-31.0) Seconds PTT Ratio Sodium 140 (136-145) mmol/L Potassium 3.9 (3.5-5.1) mmol/L Chloride 106 (98-107) mmol/L Carbon Dioxide 29 (21-32) mmol/L Anion Gap 5.0 (3-11) BUN 9 (7-18) mg/dl Creatinine 0.63 (0.6-1.2) mg/dl Est Cr Clr Drug Dosing 57.8 ml/min Est GFR ( Amer) 94.1 ml/min Est GFR (Non-Af Amer) 81.2 ml/min BUN/Creatinine Ratio 15.0 (10-20) Glucose 103 H (70-99) mg/dl Calcium 9.1 (8.5-10.1) mg/dl Magnesium (1.8-2.4) mg/dl Total Bilirubin 0.3 (0.2-1) mg/dl AST 24 (15-37) U/L ALT 26 (12-78) U/L Alkaline Phosphatase 82 (45-117) U/L Total Protein 7.1 (6.4-8.2) gm/dl Albumin 3.6 (3.4-5.0) gm/dl Globulin 3.5 (2.5-4.0) gm/dl Albumin/Globulin Ratio 1.0 (0.9-2) Urine Color Urine Appearance (Clear) Urine pH (4.5-7.5) Ur Specific [place] (1.000-1.030) Urine Protein (Negative) Urine Glucose (UA) (Negative) Urine Ketones (Negative) Urine Blood (Negative) Urine Nitrite (Negative) Urine Bilirubin (Negative) Urine Urobilinogen (Negative) Ur Leukocyte Esterase (Negative) Urine WBC (Auto) (0-5) /hpf Urine RBC (Auto) (0-4) /hpf U Hyaline Cast (Auto) (0-5) /lpf U Epithel Cells (Auto) (0-5) /lpf Urine Bacteria (Auto) (Negative) Nasal Screen MRSA (PCR) (Negative) COVID-19 Eval Order Covid19 at [facility] [place] SARS-CoV-2 (PCR) (Negative) Blood Type A Positive Antibody Screen NEGATIVE 01/12/21 01/12/21 Range/Units 19:20 19:20 WBC 5.70 (4.8-10.8) K/uL RBC 4.84 (4.2-5.4) M/uL Hgb 14.4 (12.0-16.0) g/dL Hct 43.5 (37-47) % MCV 89.9 (80-100) fL MCH 29.8 (25-34) pg MCHC 33.1 (32-36) g/dL RDW Std Deviation 43.1 (36.4-46.3) fL RDW Coeff of Bety 13.1 (11.5-14.5) % Plt Count 317 (130-400) K/uL MPV 10.5 H (7.4-10.4) fL Immature Gran % (Auto) 0.9 % Neut % (Auto) 57.0 % Lymph % (Auto) 31.2 % Hitchcock % (Auto) 9.6 % Eos % (Auto) 1.1 % Baso % (Auto) 0.2 % Neut # (Auto) 3.25 (1.4-6.5) K/uL Lymph # (Auto) 1.78 (1.2-3.4) K/uL Hitchcock # (Auto) 0.55 (0.11-0.59) K/uL Eos # (Auto) 0.06 (0-0.5) K/uL Baso # (Auto) 0.01 (0-0.2) K/uL Immature Gran # (Auto) 0.05 H (0.00-0.02) K/uL PT 9.7 (9.0-12.0) Seconds INR 1.0 (0.9-1.1) APTT 24.4 (21.0-31.0) Seconds PTT Ratio 0.9 Sodium (136-145) mmol/L Potassium (3.5-5.1) mmol/L Chloride (98-107) mmol/L Carbon Dioxide (21-32) mmol/L Anion Gap (3-11) BUN (7-18) mg/dl Creatinine (0.6-1.2) mg/dl Est Cr Clr Drug Dosing ml/min Est GFR ( Amer) ml/min Est GFR (Non-Af Amer) ml/min BUN/Creatinine Ratio (10-20) Glucose (70-99) mg/dl Calcium (8.5-10.1) mg/dl Magnesium (1.8-2.4) mg/dl Total Bilirubin (0.2-1) mg/dl AST (15-37) U/L ALT (12-78) U/L Alkaline Phosphatase (45-117) U/L Total Protein (6.4-8.2) gm/dl Albumin (3.4-5.0) gm/dl Globulin (2.5-4.0) gm/dl Albumin/Globulin Ratio (0.9-2) Urine Color Urine Appearance (Clear) Urine pH (4.5-7.5) Ur Specific [place] (1.000-1.030) Urine Protein (Negative) Urine Glucose (UA) (Negative) Urine Ketones (Negative) Urine Blood (Negative) Urine Nitrite (Negative) Urine Bilirubin (Negative) Urine Urobilinogen (Negative) Ur Leukocyte Esterase (Negative) Urine WBC (Auto) (0-5) /hpf Urine RBC (Auto) (0-4) /hpf U Hyaline Cast (Auto) (0-5) /lpf U Epithel Cells (Auto) (0-5) /lpf Urine Bacteria (Auto) (Negative) Nasal Screen MRSA (PCR) (Negative) COVID-19 Eval Order SARS-CoV-2 (PCR) (Negative) Blood Type Antibody Screen Diagnostic Findings AP Pelvis and AP & Lateral R femur show a displaced femoral neck fracture.
[2021-01-13] MEDS ORDERED: PROTHROMBIN COMP CONC- KCENTRA 2,000 UNITS in SYRINGE 0 ML IV STA (07:49)
[2021-01-13] MEDS ORDERED: DC ALL ANTICOAGULANTS ONE (07:49)
--- NOTE | 2021-01-13 07:52 | Communication Note ---
Date of Service: January 13, 2021 Review of operative risks requested by orthopedic surgery. Reviewing back to 2019, she has no hx of MD, CHF, TIA, no insulin use, and normal Cr. RCRI is 0, g iving her a 3.9% risk of , MD, or cardiac arrest at 30 days. Lake risk of 30-day MACE is 1.8%. Given necessity of surgery, I do not feel further testing is required. Her medications have been optimized for surgery. From medical standpoint, I do not see any reason to delay surgery at this time pending clearance from anesthesiology.
--- NOTE | 2021-01-13 07:53 | Anesthesiology Consultation ---
Date of Service January 13, 2021 The patient fell off the commode at her snf yesterday and broke her hip. She has some confusion at baseline but knows her name and follows commands. I spoke to the nurse this morning over the phone. The nurse was with the patient and asked her about the fall yesterday. The patient did remember falling yesterday and stated to the nurse that she did not hit her head or have any LOC. She only hurt her right hip. The patient's daughter will be coming to the hospital shortly and will accompany her mom to the preoperative area prior to surgery. The patient has taken clopidogrel recently so is not a candidate for spinal anesthesia. She is also on Eliquis. Assessment & Plan (1) Encounter for pre-operative examination: Chart Review Chart Review: Acceptable Risk for Surgery (necessary surgery, patient in pain) and Patient NOT seen in Pre Admission Testing Consults Requested none History Surgery Operation Date: 01/13/21 07:30 Proposed Procedures p Bipolar Hip Prosthesis - Bala Nathan Hernandez MD Height/Weight Height: 5 ft 1 in Weight: 71 kg Allergies Allergy/AdvReac Type Severity Reaction Status Date / Time adhesive tape AdvReac Intermediate PEELING OF Verified 01/12/21 19:57 SKIN cefdinir AdvReac Intermediate Migraine Verified 01/12/21 19:57 erythromycin base AdvReac Intermediate MYCIN Verified 01/12/21 19:57 DRUGS-YEAST INFECTIONS tramadol AdvReac Intermediate MAKES Verified 01/12/21 19:57 HEADACHS WORSE--vestibular sx Medications Home Medications Medication Instructions Recorded Confirmed Last Taken polyethylene glycol 3350 [Miralax] 17 g PO QAM 06/24/19 01/12/21 01/12/21 clopidogrel 75 mg PO HS 09/02/19 01/12/21 01/11/21 dicyclomine 10 mg PO Q6 PRN 09/30/19 01/12/21 06/15/20 Eliquis 2.5 mg PO BID 11/05/19 01/12/21 01/12/21 cyanocobalamin (vitamin B-12) 500 mcg PO BID 06/18/20 01/12/21 01/12/21 [Vitamin B-12] acetaminophen [Tylenol] 650 mg PO QID PRN 01/12/21 01/12/21 01/12/21 calcium carbonate [Tums] 400 mg PO Q4H PRN 01/12/21 01/12/21 Unknown citalopram [Celexa] 5 mg PO PM 01/12/21 01/12/21 01/11/21 levothyroxine 88 mcg PO QAM 01/12/21 01/12/21 01/12/21 levothyroxine 100 mcg PO QAM 01/12/21 01/12/21 01/12/21 mirtazapine [Remeron] 7.5 mg PO HS 01/12/21 01/12/21 Unknown omeprazole 20 mg PO QAM 01/12/21 01/12/21 01/12/21 ondansetron 4 mg PO Q8H PRN 01/12/21 01/12/21 01/06/21 sennosides [senna] 8.6 mg PO BID 01/12/21 01/12/21 01/12/21 thiamine HCl (vitamin B1) 100 mg PO QAM 01/12/21 01/12/21 01/12/21 Active Medications Generic Name Dose Route Start Last Admin Trade Name Freq PRN Reason Stop Dose Admin Lactated Ringer's 1,000 mls @ 80 mls/hr 01/12/21 23:09 01/13/21 06:03 Lr IV 02/11/21 23:08 80 mls/hr .[id number] PENNIE Infusion Famotidine 20 mg/ Syringe 5 mls @ 2.5 mls/min 01/13/21 01:00 01/13/21 01:15 IV 02/12/21 00:59 2.5 mls/min BID PENNIE Administration Levothyroxine Sodium 100 mcg 01/13/21 06:30 01/13/21 05:58 Levothyroxine Sodium 100 Mcg Tablet PO 02/12/21 06:29 100 mcg DAILYBB PENNIE Administration Levothyroxine Sodium 88 mcg 01/13/21 06:30 01/13/21 05:59 Levothyroxine Sodium 88 Mcg Tablet PO 02/12/21 06:29 88 mcg DAILYBB PENNIE Administration Sennosides 8.6 mg 01/13/21 09:00 01/13/21 07:54 Senna 8.6 Mg Tab PO 02/12/21 08:59 Not Given BID PENNIE Past Medical History Medical History Abdominal pain Ambulatory dysfunction Anxiety Cervical cancer at age 29--sx Closed head injury Depression Difficulty swallowing DVT prophylaxis Fall Hip fracture, right History of gastric ulcer Hypothyroidism Intractable back pain On anticoagulant therapy eliquis daily Oropharyngeal dysphagia Osteoarthritis Pulmonary embolism reason for eliquis T12 compression fracture Tinnitus of both ears Transient ischemic attack (TIA) 2013--follows with Dr. Zapata--no deficits Upper abdominal pain Vertigo Vertigo Vestibular migraine reason for verapamil Past Family History Family History Son Family history of diabetes mellitus Past Surgical History Surgical History History of adenoidectomy History of appendectomy History of bilateral cataract extraction History of cholecystectomy History of colonoscopy History of hysterectomy History of tonsillectomy History of tooth extraction Social History Smoking Status: Never smoker Hx Alcohol Use: No Hx Substance Use: No substance use type: does not use Physical Exam Vital Signs Last Vital Signs Temp 36.6 C 01/13/21 07:00 Pulse 101 H 01/13/21 07:00 Resp 16 01/13/21 07:00 BP 152/94 H 01/13/21 07:00 Pulse Ox 97 01/13/21 07:00 Testing Laboratory Results 01/13/21 05:24 01/13/21 05:24 PT 9.8 Seconds (9.0-12.0) 01/13/21 05:24 INR 1.0 (0.9-1.1) 01/13/21 05:24 APTT 24.6 Seconds (21.0-31.0) 01/13/21 05:24 Urine Color Yellow 01/12/21 20:45 Urine Appearance Clear (Clear) 01/12/21 20:45 Urine pH >= 9.0 (4.5-7.5) H 01/12/21 20:45 Ur Specific [place] 1.014 (1.000-1.030) 01/12/21 20:45 Urine Protein Negative (Negative) 01/12/21 20:45 Urine Glucose (UA) Negative (Negative) 01/12/21 20:45 Urine Ketones Negative (Negative) 01/12/21 20:45 Urine Nitrite Positive (Negative) A 01/12/21 20:45 Ur Leukocyte Esterase Negative (Negative) 01/12/21 20:45 Urine WBC (Auto) 5-10 /hpf (0-5) H 01/12/21 20:45 Urine RBC (Auto) 0-4 /hpf (0-4) 01/12/21 20:45 U Hyaline Cast (Auto) 1-5 /lpf (0-5) 01/12/21 20:45 U Epithel Cells (Auto) >30 /lpf (0-5) H 01/12/21 20:45 Urine Bacteria (Auto) 2+ (Negative) H 01/12/21 20:45 Blood Type A Positive 01/12/21 19:53 Antibody Screen NEGATIVE 01/12/21 19:53 Electrocardiogram Date: 01/12/21 SR with PVCs with aberrant conduction, rate 92, low voltage QRS Chest X-Ray Date: 01/12/21 XR chest 1V portable CLINICAL HISTORY: Fall. COMPARISON STUDY: Chest radiograph June 18, 2020. Chest CT June 22, 2020. FINDINGS: No pneumothorax or pleural effusion is identified. Cardiomegaly is unchanged. There is no evidence for pulmonary edema. Lung volumes are mildly diminished. There is minimal right basilar opacity. IMPRESSION: 1. Low lung findings with minimal right basilar opacity that likely reflects a telectasis or a trace right pleural effusion. 2. Cardiomegaly without evidence for pulmonary edema. ACT 112: Negative or not required by law. Electronically signed by: Ean Quiroz M.D. 01/12/2021 8:32 PM Dictated: 01/12/212030Transcribed: 01/12/212030 Echocardiogram Date: 11/28/17 EF: 60-65 LV Function: normal Other Findings: + LVH (moderate concentric) and + diastolic dysfunction (grade 1) Valvular Disease: + no significant valvular disease
[2021-01-13] MEDS: SENNA 8.6 MG TAB PO SCH ×2 (07:54→21:35)
[2021-01-13] MEDS ORDERED: LABETALOL HCL IV 5 MG/ML 20ML IV PRN (08:03)
[2021-01-13] MEDS ORDERED: PHENYLEPHRINE 100MCG/ML 5ML SYR IV PRN (08:03)
[2021-01-13] MEDS ORDERED: ATROPINE SULFATE 0.1 MG/ML 10ML SYR IV PRN (08:03)
[2021-01-13] MEDS ORDERED: HYDROmorphone INJ 1 MG/ML SYRINGE IV PRN (08:03)
[2021-01-13] MEDS ORDERED: fentaNYL citrate 100 MCG/2 ML VIAL IV PRN (08:03)
[2021-01-13] MEDS ORDERED: ONDANSETRON INJ 2 MG/ML 2 ML VIAL IV PRN (08:03)
[2021-01-13] MEDS ORDERED: ePHEDrine sulfate 50 MG/ML AMP IV PRN (08:03)
[2021-01-13] MEDS ORDERED: PROTHROMBIN COMP CONC- KCENTRA 2,000 UNITS in SYRINGE 0 ML IV SCH (08:30)
[2021-01-13 08:38] LABS: Fibrinogen 309 mg/dl (184-400); Partial Thromboplastin Time 25.9 Seconds (21.0-31.0); Prothrombin Time 9.8 Seconds (9.0-12.0)
[2021-01-13] MEDS ORDERED: ceFAZolin 2000MG 2,000 MG/15 ML SYR IV SCH (09:00)
[2021-01-13] MEDS ORDERED: fentaNYL citrate 100 MCG/2 ML VIAL ONE ×2 (10:31→12:39)
[2021-01-13] MEDS ORDERED: LIDOCAINE 2% 2 ML VIAL/AMP(20MG/ML) INFIL ONE (10:32)
[2021-01-13] MEDS ORDERED: PROPOFOL IV EMULSION 10 MG/ML 20 ML VIAL IV ONE (10:33)
[2021-01-13] MEDS ORDERED: ROCURONIUM BROMIDE 10 MG/ML 5 ML VIAL IV ONE (10:34)
[2021-01-13] MEDS ORDERED: BUPIVACAINE 0.5 % 5 MG/1 ML MPF 30ML VIAL ONE (11:03)
[2021-01-13] MEDS ORDERED: LIDOCAINE/EPINEPHRINE 1% 20 ML VIAL ONE (11:03)
[2021-01-13] MEDS ORDERED: ceFAZolin 330 MG/ML 1 GM VIAL ONE (11:29)
[2021-01-13] MEDS ORDERED: PHENYLEPHRINE HCL 10 MG/ML VIAL ONE (12:38)
--- NOTE | 2021-01-13 13:08 | XRay Report ---
XR hip RT 1V CLINICAL HISTORY: RIGHT hip hemiarthroplasty- DONE IN OR COMPARISON: 01/12/2021 DISCUSSION: A single intraoperative radiograph demonstrates a right hip hemiarthroplasty. There is no dislocation. A hemostat projects over the upper thigh region. IMPRESSION: Right hip hemiarthroplasty. No evidence of dislocation. ACT 112: Negative or not required by law. Electronically signed by: Herman Powell M.D. 01/13/2021 1:07 PM
--- NOTE | 2021-01-13 14:05 | Post Operative Brief Note ---
Immediate Post Op Note v1 Date of Surgery January 13, 2021 Pre & Post Diagnosis Operation Date: 01/13/21 07:00 Pre-Op Diagnosis: CLOSED, DISPLACED R HIP FRACTURE Post-Op Diagnosis: CLOSED, DISPLACED R HIP FRACTURE I identified the patient and participated in the time-out.: Yes Procedure Operation Date: 01/13/21 07:00 Actual Procedures p Bipolar Hip Hemiarthroplasty, Right, Cemented(Right) - Bala Hernandez MD Surgeon Bala Hernandez MD Accounts Supervisor Nagi Lew MD Estimated Blood Loss 75 Findings Consistent with Post-Op Diagnosis Fluids 1000 cc Specimens R hip contents Drains Tenorio Catheter Anesthesia Type General Complications none
--- NOTE | 2021-01-13 14:06 | Operative Report ---
Post Operative Report Pre & Post Diagnosis Operation Date: 01/13/21 07:00 Pre-Op Diagnosis: CLOSED, DISPLACED R HIP FRACTURE Post-Op Diagnosis: CLOSED, DISPLACED R HIP FRACTURE I identified the patient and participated in the time-out.: Yes Procedure Operation Date: 01/13/21 07:00 Actual Procedures p Bipolar Hip Hemiarthroplasty, Right, Cemented(Right) - Bala Hernandez MD Surgeon Bala Hernandez MD Mechanical Supervisor aNgi Lew MD Estimated Blood Loss 75 Findings Consistent with Post-Op Diagnosis Fluids 1000 cc Specimens Right hip Contents Anesthesia Type General Complications none Indications The patient is a 85 year old female who sustained a 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 After orthopedic consult discussing the patients treatment options of conservative versus surgical intervention, she agreed for a planned hemiarthroplasty. The patient wanted the procedure for pain relief and to avoid the risks of bed sores, pulmonary complications, understands that her ambulatory status would remain with transfers. The patient and her daughter understand the risks of surgery, which include but are not limited to: bleeding, infection, re- operation, damage to nerves and arteries, continued pain, failure of the hardware, dislocation, DVT, and . In addition they are aware of the 20-30% morbidity associated with hip fracture for up to 1 year following a hip fracture. They understands all of these instructions and explanations, all of their questions have been satisfactorily addressed. They have elected to proceed with surgery and the informed consent was signed. Description of Procedure IMPLANTS: 1) LDFx, Size 11, Cemented (Nii/Biomet). 2) Femoral Head 28mm Diameter, +0 mm Neck Length. 3) 44 mm Multipolar Bipolar Cup. 4) 28 mm ID Liner, Multipolar Bipolar Cup. 5) Distal Centralizer 9 mm. 6) Simplex cement 2 (Styker). PROCEDURE: The patient was taken to the Operating Room and placed in the lateral position with a srinivasan bag following general anesthesia administration. A multidisciplinary time-out was performed identifying my initials on the right lower limb as the correct and operative limb. Prior to the incision being made, 2 grams of intravenous Ancef were given. The right lower extremity was prepped in the standard fashion. The trochanter was marked as was the planned incision 1/3 proximal and 2/3 distal to the tip of the greater trochanter. The incisions were injected with a 50:50 mixture of 1% Lidocaine epi and 0.5% Bupivacaine plain for a total of 15cc. A standard posterior approach was made. The planned incision was carried down through the Tensor Fascia Bailey , which was then split in-line with its fibers. The Gluteus Desmond was bluntly dissected. The Piriformis and short external rotators were dissected off the capsule and femur and tagged for later repair. The fracture was easily identified as it had impaled the posterior capsule. The capsule was incised and freed off the fracture fragments. The Neck cut was made to allow removal of the femoral head and comminuted fragments. The femoral canal was prepared with Box osteotome, followed by a canal finder. The femur was sequentially broached in the standard fashion, and trial heads were placed. Fluoroscopy was brought in to ensure adequate proper alignment, fill of the canal, head size, and leg length. Fluoroscopy showed excellent canal fill and good position. The trial components were removed and the wound and femoral canal were copiously irrigated and dried. The femur was cemented using 3rd generation technique followed by placement of the components in the standard fashion and the hip reduced. There was excellent stability with no sense of dislocation with 20 degrees adduction, flexion 90 degrees, and internal rotation to 60 degrees. The wounds were copiously irrigated. The External rotators and capsule were closed over bone bridges with #2 FiberWire. The Tensor Fascia Bailey was closed with #1 Vicryl. The subcutaneous fat had a few stay sutures placed using 2-0 Vicryl. The subcutaneous tissue was closed with 3-0 Vicryl. The skin was closed with Zipline and shield. The incisions were covered with 4 x 4's, ABD, and foam tape. The patient was transfer to her hospital bed and taken to the PACU in stable condition. The sponge and needle counts were correct. Post-op Instructions: The patient was re-admitted back to the Med/Surg floor, and Hospitalist service. Final x-rays obtained in the Recovery showed the cemented prosthesis in good position. The patient will be WBAT for transfers as this was her ability prior to her fall. The patient will be seen by PT/OT. The patient's labs will be checked in the am. DVT prophylaxis will be with TEDs, mechanical devices and will restart Eliquis this evening. I attest to the content of the Intraoperative Record and any orders documented therein. Any exceptions are noted below.
[2021-01-13] MEDS ORDERED: ONDANSETRON INJ 2 MG/ML 2 ML VIAL ONE (14:17)
[2021-01-13] MEDS ORDERED: NEOSTIGMINE METHYLSULFATE 5 MG/5 ML SYR ONE (14:17)
[2021-01-13] MEDS ORDERED: GLYCOPYRROLATE 0.2 MG/ML VIAL ONE (14:17)
[2021-01-13] MEDS ORDERED: METOPROLOL TARTRATE 1 MG/ML VIAL IV ONE (14:40)
[2021-01-13] MEDS: METOPROLOL TARTRATE 1 MG/ML VIAL IV STA ×2 (14:42→15:57)
--- NOTE | 2021-01-13 14:52 | XRay Report ---
XR hip RT min 2V CLINICAL HISTORY: Post-Operative implant position COMPARISON: Intraoperative study dated 01/13/2021 DISCUSSION: There is a right hip hemiarthroplasty. There is no dislocation. There are no acute fractu res. IMPRESSION: Right hip hemiarthroplasty. No complicating features identified ACT 112: Negative or not required by law. Electronically signed by: Herman Powell M.D. 01/13/2021 2:50 PM
--- NOTE | 2021-01-13 15:12 | Anesthesiology Progress Note ---
Date of Service January 13, 2021 Anesthesia Post Procedure Vital Signs Vital Signs: Temp Pulse Pulse Pulse Pulse Resp BP 01/13/21 14:55 93 H 17 01/13/21 14:45 112 H 22 01/13/21 14:42 114 H 150/98 H 01/13/21 14:35 113 H 22 01/13/21 14:27 36.3 C L 117 H 21 01/13/21 07:00 36.6 C 101 H 16 01/13/21 04:45 96 H 01/12/21 23:00 36.8 C 105 H 14 01/12/21 22:50 01/12/21 22:40 102 H 18 01/12/21 22:37 107 H 19 164/79 H 01/12/21 22:30 98 H 21 01/12/21 22:20 99 H 21 01/12/21 22:10 102 H 16 01/12/21 22:00 102 H 19 01/12/21 21:50 97 H 18 01/12/21 21:40 95 H 20 01/12/21 21:30 96 H 18 01/12/21 21:20 94 H 22 01/12/21 21:10 103 H 22 01/12/21 21:06 14 01/12/21 21:00 104 H 23 01/12/21 20:50 106 H 20 01/12/21 20:40 103 H 19 01/12/21 20:30 105 H 22 01/12/21 20:20 106 H 16 01/12/21 20:10 118 H 20 01/12/21 20:06 98 H 18 01/12/21 19:26 36.7 C 88 12 133/86 01/12/21 19:15 115 H 21 179/109 H BP BP Pulse Ox 01/13/21 14:55 150/80 H 93 01/13/21 14:45 132/109 H 93 01/13/21 14:42 01/13/21 14:35 160/103 H 94 01/13/21 14:27 171/133 H 94 01/13/21 07:00 152/94 H 97 01/13/21 04:45 147/79 H 01/12/21 23:00 185/75 H 95 01/12/21 22:50 96 01/12/21 22:40 96 01/12/21 22:37 96 01/12/21 22:30 96 01/12/21 22:20 95 01/12/21 22:10 96 01/12/21 22:00 96 01/12/21 21:50 96 01/12/21 21:40 96 01/12/21 21:30 96 01/12/21 21:20 01/12/21 21:10 01/12/21 21:06 96 01/12/21 21:00 01/12/21 20:50 01/12/21 20:40 01/12/21 20:30 01/12/21 20:20 01/12/21 20:10 01/12/21 20:06 01/12/21 19:26 99 01/12/21 19:15 Pain Intensity Right Hip: Pain Intensity: 1 Transfer of Care Handoff Completed per policy Notes Mental Status: alert / awake / arousable Patient Amnestic to Procedure: Yes Nausea / Vomiting: adequately controlled Pain: adequately controlled Airway Patency, RR, SpO2: stable & adequate BP & HR: stable & adequate Hydration State: stable & adequate Anesthetic Complications: no major complications apparent and Pt Satisfied with anesthetic care Notes: The patient tolerated the procedure well. She is awake at her baseline. She remains sleepy but is easily aroused and was told me her daughter's name when I asked her. Her vitals are stable at her baseline. She remains on oxygen by nasal cannula so will have continuous pulse oximetry on the floor.
[2021-01-13] MEDS ORDERED: traMADol HCL 50 MG TABLET PO PRN (15:24)
[2021-01-13] MEDS ORDERED: NALOXONE HCL 0.4 MG/1 ML VIAL/CARP IV PRN (15:24)
[2021-01-13] MEDS: LACTATED RINGER'S 1,000 ML IV SCH (16:00)
--- NOTE | 2021-01-13 16:28 | Electrocardiogram Report ---
Test Reason : Blood Pressure : / mmHG Vent. Rate : 092 BPM Atrial Rate : 092 BPM P-R Int : 150 ms QRS Dur : 080 ms QT Int : 366 ms P-R-T Axes : 048 -06 022 degrees QTc Int : 452 ms Sinus rhythm with Premature atrial complexes with Aberrant conduction Low voltage QRS Borderline ECG When compared with ECG of 27-JUN-2020 16:41, Borderline criteria for Inferior infarct are no longer Present Confirmed by Cory Colindres ([id number]) on 01/13/2021 4:28:03 PM Referred By: REFERRED SELF Confirmed By:Epifanio Colindres
--- NOTE | 2021-01-13 17:37 | Hospitalist Progress Note ---
Date of Service January 13, 2021 Assessment & Plan (1) Closed fracture of right hip requiring operative repair: X-ray showed acute displaced right femoral neck fracture. - S/p Bipolar Hip Hemiarthroplasty, Right, Cemented with Dr. Hernandez on 01/13 - Hold Eliquis and clopidogrel until cleared by surgery - Post-operative care per surgery. - Presently with some anaesthesia-related encephalopathy; will monitor (2) Fall: Status post mechanical fall. - PT/OT per ortho (3) Memory loss: - Her daughter will stay with the patient overnight to enhance communication (4) History of pulmonary embolism: History of pulmonary embolism. - Holding Eliquis - Resume Eliquis as anticoagulation post surgery (5) Hypothyroidism: TSH was 0.5 in 11/2020. - Continue home levothyroxine 88 mcg PO daily (6) History of gastric ulcer: - Placed on famotidine 20 mg IV every 12 hours - Resume omeprazole postop (7) Anxiety: - Resume citalopram and mirtazapine postoperatively (8) Transient ischemic attack (TIA): Per report in 2013 without residual deficits. 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 - Clopidogrel as above (10) DVT prophylaxis: Resume apixaban as able Admission and Anticipated Discharge Date Admission Date: January 12, 2021 Subjective Still under effects of anesthesia when I saw her. Stares straight ahead. Follows some commands, but otherwise no answers. Review of Systems Review of Systems: Unobtainable due to cognitive status Physical Exam Constitutional: WD/WN, vitals as above Eyes: EOM intact bilaterally; no conjunctival abnormality ENMT: external ear and nose normal, oropharynx normal Neck: trachea midline, no thyromegaly normal visual inspection Respiratory: normal respiratory effort, lungs clear to auscultation no respiratory distress Cardiovascular: RRR, no murmur, no edema Gastrointestinal (Abdomen): Inspection/Auscultation: abdomen normal to inspection; abdomen not distended Musculoskeletal: no cyanosis or clubbing, extremities motor strength 5/5 Skin: no rashes, warm and dry Neurologic: moves all extremities and awake Psychiatric: Orientation: alert, oriented to person and cooperative Results & Data Results & Data ([facility]) Vital Signs (Past 12 Hours) Vital Signs Temp Pulse Pulse Pulse Pulse Resp BP 01/13/21 17:23 37.3 C 123 H 18 01/13/21 16:28 120 H 16 01/13/21 16:25 01/13/21 16:02 119 H 18 01/13/21 15:25 36.8 C 113 H 18 01/13/21 15:15 97 H 20 01/13/21 15:05 36.9 C 88 19 01/13/21 14:55 93 H 17 01/13/21 14:45 112 H 22 01/13/21 14:42 114 H 150/98 H 01/13/21 14:35 113 H 22 01/13/21 14:27 36.3 C L 117 H 21 01/13/21 07:00 36.6 C 101 H 16 BP Pulse Ox Pulse Ox 01/13/21 17:23 134/91 96 01/13/21 16:28 131/95 96 01/13/21 16:25 96 01/13/21 16:02 165/79 H 92 01/13/21 15:25 158/98 H 94 01/13/21 15:15 136/86 93 01/13/21 15:05 145/86 H 92 01/13/21 14:55 150/80 H 93 01/13/21 14:45 132/109 H 93 01/13/21 14:42 01/13/21 14:35 160/103 H 94 01/13/21 14:27 171/133 H 94 01/13/21 07:00 152/94 H 97 PG Care Time/CCT Total # of Minutes Spent Total Time Spent with Patient: Total time spent is greater than 50% in coordination of care (as documented) at patient's floor/unit and/or counseling patient: Coding Level of Care Code 82963 Subseq Hosp Care Lvl 2 Diagnoses Closed fracture of right hip requiring operative repair S72.001A Fall W19.XXXA Encounter type: initial encounter Memory loss R41.3 History of pulmonary embolism Z86.711 Hypothyroidism E03.9 Hypothyroidism type: unspecified History of gastric ulcer Z87.19 Anxiety F41.9 Transient ischemic attack (TIA) G45.9 Superior mesenteric artery stenosis I77.1 DVT prophylaxis Z29.9 (1) Fall Encounter type: initial encounter Qualified Code(s): W19.XXXA - Unspecified fall, initial encounter (2) Hypothyroidism Hypothyroidism type: unspecified Qualified Code(s): E03.9 - Hypothyroidism, unspecified
[2021-01-13] MEDS: CLOPIDOGREL BISULFATE 75 MG TAB PO SCH (20:57)
[2021-01-13] MEDS: ceFAZolin 1000MG 1,000 MG/7.5 ML SYR IV SCH (20:57)
[2021-01-13] MEDS: APIXABAN 2.5 MG TAB PO SCH (20:57)
[2021-01-13] MEDS: ACETAMINOPHEN 500 MG TAB PO SCH (21:00)
[2021-01-13] MEDS: DOCUSATE SODIUM/SENNA 50/8.6MG TAB PO SCH (21:30)
[2021-01-14] MEDS: LACTATED RINGER'S 1,000 ML IV SCH ×2 (03:09→15:17)
[2021-01-14] MEDS: ceFAZolin 1000MG 1,000 MG/7.5 ML SYR IV SCH (04:01)
[2021-01-14] MEDS: ACETAMINOPHEN 500 MG TAB PO SCH ×3 (05:51→21:10)
[2021-01-14] MEDS: LEVOTHYROXINE SODIUM 100 MCG TABLET PO SCH (05:51)
[2021-01-14] MEDS: LEVOTHYROXINE SODIUM 88 MCG TABLET PO SCH (05:51)
[2021-01-14 06:08] LABS: Basophils # (auto) 0.01 K/uL (0-0.2); Basophils % (auto) 0.1 %; Eosinophils # (auto) 0.13 K/uL (0-0.5); Eosinophils % (auto) 1.4 %; Hematocrit (blood only) 35.4 % (37-47); Hemoglobin 11.7 g/dL (12.0-16.0); Immature Granulocytes # (auto) 0.02 K/uL (0.00-0.02); Immature Granulocytes % (auto) 0.2 %; Lymphocytes # (auto) 1.03 K/uL (1.2-3.4); Lymphocytes % (auto) 11.1 %; Mean Corpuscular Hemoglobin 30.2 pg (25-34); Mean Corpuscular Hgb Conc 33.1 g/dL (32-36); Mean Corpuscular Volume 91.2 fL (80-100); Mean Platelet Volume 10.5 fL (7.4-10.4); Monocytes # (auto) 0.75 K/uL (0.11-0.59); Monocytes % (auto) 8.1 %; Neutrophils # (auto) 7.36 K/uL (1.4-6.5); Neutrophils % (auto) 79.1 %; Platelet Count 221 K/uL (130-400); RDW Coefficient of Variation 13.5 % (11.5-14.5); RDW Standard Deviation 45.2 fL (36.4-46.3); Red Blood Count 3.88 M/uL (4.2-5.4)
[2021-01-14 06:23] LABS: Partial Thromboplastin Ratio 1.1; Partial Thromboplastin Time 29.4 Seconds (21.0-31.0); Prothrombin Time 10.4 Seconds (9.0-12.0)
[2021-01-14 06:40] LABS: Albumin Level 2.7 gm/dl (3.4-5.0); BUN Creatinine Ratio 17.9 (10-20); Calcium 8.3 mg/dl (8.5-10.1); Est GFR (African American) 100.3 ml/min; Est GFR (Non-African American) 86.5 ml/min; Magnesium 1.9 mg/dl (1.8-2.4); Potassium 3.8 mmol/L (3.5-5.1)
[2021-01-14 06:45] LABS: Albumin Globulin Ratio 0.9 (0.9-2); Total Protein 5.7 gm/dl (6.4-8.2)
--- NOTE | 2021-01-14 07:09 | Orthopedic Progress Note ---
Date of Service January 14, 2021 Assessment & Plan (1) Hip fracture, right: POD #1 s/p right hemiarthroplasty, lethargic. Regular diet. WBAT for transfers. OOB to chair. Continue pain control. DVT prophylaxis: TEDs 3 weeks, foot pumps while in hospital, re-started Eliquis. PT/OT. D/C planning. Contact precautions due to + Nasal swab for MRSA, will give Mupirocin Change dressing to Silverlon POD #2. Continue care per primary service. Admission and Anticipated Discharge Date Admission Date: January 12, 2021 Subjective Not doing well Review of Systems Review of Systems: All systems reviewed & are unremarkable except as noted in HPI & below Physical Exam Physical Exam: Lethargic RLE: Dressing clean, dry, intact. Abduction pillow in place. Neurovascularly unchanged. Calf sof and non-tender. Results & Data ([facility]) Vital Signs (Past 12 Hours) Vital Signs Temp Pulse Pulse Pulse Resp BP BP 01/14/21 04:19 129 H 01/14/21 03:59 37.7 C H 103 H 24 127/78 01/13/21 22:29 37.5 C 102 H 18 131/80 01/13/21 21:09 Pulse Ox 01/14/21 04:19 92 01/14/21 03:59 96 01/13/21 22:29 96 01/13/21 21:09 95 Laboratory Results 01/14/21 01/14/21 01/14/21 Range/Units 05:24 05:24 05:24 WBC 9.30 (4.8-10.8) K/uL RBC 3.88 L (4.2-5.4) M/uL Hgb 11.7 L (12.0-16.0) g/dL Hct 35.4 L (37-47) % MCV 91.2 (80-100) fL MCH 30.2 (25-34) pg MCHC 33.1 (32-36) g/dL RDW Std Deviation 45.2 (36.4-46.3) fL RDW Coeff of Bety 13.5 (11.5-14.5) % Plt Count 221 (130-400) K/uL MPV 10.5 H (7.4-10.4) fL Immature Gran % (Auto) 0.2 % Neut % (Auto) 79.1 % Lymph % (Auto) 11.1 % [place] % (Auto) 8.1 % Eos % (Auto) 1.4 % Baso % (Auto) 0.1 % Neut # (Auto) 7.36 H (1.4-6.5) K/uL Lymph # (Auto) 1.03 L (1.2-3.4) K/uL [place] # (Auto) 0.75 H (0.11-0.59) K/uL Eos # (Auto) 0.13 (0-0.5) K/uL Baso # (Auto) 0.01 (0-0.2) K/uL Immature Gran # (Auto) 0.02 (0.00-0.02) K/uL PT 10.4 (9.0-12.0) Seconds INR 1.0 (0.9-1.1) APTT 29.4 (21.0-31.0) Seconds PTT Ratio 1.1 Fibrinogen (184-400) mg/dl Heparin Anti-Xa, LM Wt (< 0.10) IU/ML Sodium 136 (136-145) mmol/L Potassium 3.8 (3.5-5.1) mmol/L Chloride 104 (98-107) mmol/L Carbon Dioxide 27 (21-32) mmol/L Anion Gap 5.0 (3-11) BUN 9 (7-18) mg/dl Creatinine 0.52 L (0.6-1.2) mg/dl Est Cr Clr Drug Dosing 70.0 ml/min Est GFR ( Amer) 100.3 ml/min Est GFR (Non-Af Amer) 86.5 ml/min BUN/Creatinine Ratio 17.9 (10-20) Glucose 134 H (70-99) mg/dl Calcium 8.3 L (8.5-10.1) mg/dl Magnesium 1.9 (1.8-2.4) mg/dl Total Bilirubin 1.0 D (0.2-1) mg/dl AST 29 (15-37) U/L ALT 28 (12-78) U/L Alkaline Phosphatase 76 (45-117) U/L Total Protein 5.7 L (6.4-8.2) gm/dl Albumin 2.7 L (3.4-5.0) gm/dl Globulin 3.0 (2.5-4.0) gm/dl Albumin/Globulin Ratio 0.9 (0.9-2) 25-OH Vitamin D Total 01/14/21 01/13/21 Range/Units 05:24 08:02 WBC (4.8-10.8) K/uL RBC (4.2-5.4) M/uL Hgb (12.0-16.0) g/dL Hct (37-47) % MCV (80-100) fL MCH (25-34) pg MCHC (32-36) g/dL RDW Std Deviation (36.4-46.3) fL RDW Coeff of Bety (11.5-14.5) % Plt Count (130-400) K/uL MPV (7.4-10.4) fL Immature Gran % (Auto) % Neut % (Auto) % Lymph % (Auto) % [place] % (Auto) % Eos % (Auto) % Baso % (Auto) % Neut # (Auto) (1.4-6.5) K/uL Lymph # (Auto) (1.2-3.4) K/uL [place] # (Auto) (0.11-0.59) K/uL Eos # (Auto) (0-0.5) K/uL Baso # (Auto) (0-0.2) K/uL Immature Gran # (Auto) (0.00-0.02) K/uL PT 9.8 (9.0-12.0) Seconds INR 1.0 (0.9-1.1) APTT 25.9 (21.0-31.0) Seconds PTT Ratio 1.0 Fibrinogen 309 (184-400) mg/dl Heparin Anti-Xa, LM Wt 0.47 (< 0.10) IU/ML Sodium (136-145) mmol/L Potassium (3.5-5.1) mmol/L Chloride (98-107) mmol/L Carbon Dioxide (21-32) mmol/L Anion Gap (3-11) BUN (7-18) mg/dl Creatinine (0.6-1.2) mg/dl Est Cr Clr Drug Dosing ml/min Est GFR ( Amer) ml/min Est GFR (Non-Af Amer) ml/min BUN/Creatinine Ratio (10-20) Glucose (70-99) mg/dl Calcium (8.5-10.1) mg/dl Magnesium (1.8-2.4) mg/dl Total Bilirubin (0.2-1) mg/dl AST (15-37) U/L ALT (12-78) U/L Alkaline Phosphatase (45-117) U/L Total Protein (6.4-8.2) gm/dl Albumin (3.4-5.0) gm/dl Globulin (2.5-4.0) gm/dl Albumin/Globulin Ratio (0.9-2) 25-OH Vitamin D Total Pending Colonized via nasal test MRSA
[2021-01-14] MEDS ORDERED: MUPIROCIN 2% OINT 22 GM TUBE EXT STA (07:56)
[2021-01-14] MEDS: APIXABAN 2.5 MG TAB PO SCH ×2 (08:24→21:01)
[2021-01-14] MEDS: POLYETHYLENE (MIRALAX) 17 GM PACK PO SCH (08:28)
[2021-01-14] MEDS: FAMOTIDINE 20 MG in SYRINGE 3 ML IV SCH ×2 (09:11→21:02)
[2021-01-14 12:54] LABS: Hematocrit (blood only) 35.3 % (37-47); Hemoglobin 11.6 g/dL (12.0-16.0); Mean Corpuscular Hemoglobin 29.7 pg (25-34); Mean Corpuscular Hgb Conc 32.9 g/dL (32-36); Mean Corpuscular Volume 90.3 fL (80-100); Platelet Count 218 K/uL (130-400); RDW Coefficient of Variation 13.6 % (11.5-14.5); RDW Standard Deviation 44.5 fL (36.4-46.3); Red Blood Count 3.91 M/uL (4.2-5.4); White Blood Count 10.79 K/uL (4.8-10.8)
--- NOTE | 2021-01-14 14:53 | Hospitalist Progress Note ---
Date of Service January 14, 2021 Assessment & Plan (1) Tachycardia: Concern for tachycardia in the 110-120 range on 01/14. EKG shows sinus tachycardia with premature atrial beats. - Will transfer to telemetry to monitor. CBC stable, so I do not think that extra bleeding is going on. - Giving IV fluids - Check TSH as her thyroid is "all over" per her daughter (discussed on 01/14) (2) Closed fracture of right hip requiring operative repair: X-ray showed acute displaced right femoral neck fracture. - S/p Bipolar Hip Hemiarthroplasty, Right, Cemented with Dr. Hernandez on 01/13 - Post-operative care per surgery. - Presently with some anaesthesia-related encephalopathy; improving today. Able to answer more questions and easily follows commands. (3) Fall: Status post mechanical fall. - PT/OT per ortho (4) Memory loss: Declining significantly in the last 6 months due to isolation from Covid at her SNF. - Will attempt to get family in for visit. (5) History of pulmonary embolism: History of pulmonary embolism. - Resumed Eliquis by orthopedics (6) Hypothyroidism: TSH was 0.5 in 11/2020. - Continue home levothyroxine 188 mcg PO daily - Will recheck TSH (7) History of gastric ulcer: - Placed on famotidine 20 mg IV every 12 hours - Resume omeprazole postop (8) Anxiety: Per SNF. - Resume citalopram and mirtazapine postoperatively (9) Transient ischemic attack (TIA): Per report in 2013 without residual deficits. Daughter reports episodes of confusion that she doesn't recover fully from. Possibly vascular dementia. 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 - Clopidogrel as above (11) DVT prophylaxis: Resumed apixaban Admission and Anticipated Discharge Date Admission Date: January 12, 2021 Subjective She reports that she just "doesn't feel well." When asked, she reports pain in the "chest, stomach, arms, legs, and head." Does not point to any specific area. Physical Exam Constitutional: WD/WN, vitals as above Eyes: EOM intact bilaterally; no conjunctival abnormality ENMT: external ear and nose normal, oropharynx normal Neck: trachea midline, no thyromegaly normal visual inspection Respiratory: normal respiratory effort, lungs clear to auscultation no respiratory distress Cardiovascular: RRR, no murmur, no edema Gastrointestinal (Abdomen): Inspection/Auscultation: abdomen normal to inspection; abdomen not distended Musculoskeletal: no cyanosis or clubbing, extremities motor strength 5/5 Skin: no rashes, warm and dry Neurologic: moves all extremities and awake Psychiatric: Orientation: alert, oriented to person and cooperative Results & Data Results & Data ([facility]) Vital Signs (Past 12 Hours) Vital Signs Temp Pulse Pulse Pulse Resp BP Pulse Ox 01/14/21 12:31 146 H 155/84 H 01/14/21 11:15 36.4 C L 92 H 16 124/77 97 01/14/21 07:15 36.7 C 118 H 18 143/83 H 96 01/14/21 04:19 129 H 92 01/14/21 03:59 37.7 C H 103 H 24 127/78 96 PG Care Time/CCT Total # of Minutes Spent Total Time Spent with Patient: Total time spent is greater than 50% in coordination of care (as documented) at patient's floor/unit and/or counseling patient: Coding Level of Care Code 40532 Subseq Hosp Care Lvl 3 Diagnoses Tachycardia R00.0 Closed fracture of right hip requiring operative repair S72.001A Fall W19.XXXA Encounter type: initial encounter Memory loss R41.3 History of pulmonary embolism Z86.711 Hypothyroidism E03.9 Hypothyroidism type: unspecified History of gastric ulcer Z87.19 Anxiety F41.9 Transient ischemic attack (TIA) G45.9 Superior mesenteric artery stenosis I77.1 DVT prophylaxis Z29.9 (1) Fall Encounter type: initial encounter Qualified Code(s): W19.XXXA - Unspecified fall, initial encounter (2) Hypothyroidism Hypothyroidism type: unspecified Qualified Code(s): E03.9 - Hypothyroidism, unspecified
[2021-01-14] MEDS: ONDANSETRON INJ 2 MG/ML 2 ML VIAL IV PRN ×2 (15:18→21:01)
--- NOTE | 2021-01-14 18:50 | Electrocardiogram Report ---
Test Reason : Blood Pressure : / mmHG Vent. Rate : 121 BPM Atrial Rate : 121 BPM P-R Int : 134 ms QRS Dur : 076 ms QT Int : 330 ms P-R-T Axes : 062 -12 008 degrees QTc Int : 468 ms Sinus tachycardia with Premature atrial complexes Low voltage QRS Abnormal ECG When compared with ECG of 12-JAN-2021 19:44, No significant change was found Confirmed by Cory Colindres ([id number]) on 01/14/2021 6:50:07 PM Referred By: REFERRED SELF Confirmed By:Epifanio oClindres
--- NOTE | 2021-01-14 18:54 | Electrocardiogram Report ---
Test Reason : Blood Pressure : / mmHG Vent. Rate : 124 BPM Atrial Rate : 124 BPM P-R Int : 176 ms QRS Dur : 076 ms QT Int : 332 ms P-R-T Axes : 000 003 016 degrees QTc Int : 476 ms Sinus tachycardia with Premature atrial complexes , some consecutive Otherwise normal ECG When compared with ECG of 14-JAN-2021 04:45, (unconfirmed) No significant change was found Confirmed by Cory Colindres ([id number]) on 01/14/2021 6:54:36 PM Referred By: REFERRED SELF Confirmed By:Epifanio Colindres
[2021-01-14] MEDS: METOPROLOL TARTRATE 1 MG/ML VIAL IV PRN (19:02)
[2021-01-14] MEDS: METOPROLOL TARTRATE 25 MG TAB PO SCH (20:59)
[2021-01-14] MEDS: DOCUSATE SODIUM/SENNA 50/8.6MG TAB PO SCH (20:59)
[2021-01-14] MEDS: CLOPIDOGREL BISULFATE 75 MG TAB PO SCH (21:00)
[2021-01-15] MEDS: LACTATED RINGER'S 1,000 ML IV SCH ×2 (05:35→17:20)
[2021-01-15] MEDS: ACETAMINOPHEN 500 MG TAB PO SCH ×3 (05:38→21:02)
[2021-01-15] MEDS: LEVOTHYROXINE SODIUM 88 MCG TABLET PO SCH (05:39)
[2021-01-15] MEDS: LEVOTHYROXINE SODIUM 100 MCG TABLET PO SCH (05:39)
[2021-01-15 06:52] LABS: Basophils # (auto) 0.01 K/uL (0-0.2); Basophils % (auto) 0.1 %; Eosinophils # (auto) 0.02 K/uL (0-0.5); Eosinophils % (auto) 0.2 %; Hematocrit (blood only) 31.9 % (37-47); Hemoglobin 10.7 g/dL (12.0-16.0); Immature Granulocytes # (auto) 0.03 K/uL (0.00-0.02); Immature Granulocytes % (auto) 0.3 %; Lymphocytes # (auto) 0.93 K/uL (1.2-3.4); Lymphocytes % (auto) 8.2 %; Mean Corpuscular Hemoglobin 30.1 pg (25-34); Mean Corpuscular Hgb Conc 33.5 g/dL (32-36); Mean Corpuscular Volume 89.9 fL (80-100); Mean Platelet Volume 10.3 fL (7.4-10.4); Monocytes # (auto) 0.93 K/uL (0.11-0.59); Monocytes % (auto) 8.2 %; Platelet Count 202 K/uL (130-400); RDW Coefficient of Variation 13.4 % (11.5-14.5); RDW Standard Deviation 44.7 fL (36.4-46.3); Red Blood Count 3.55 M/uL (4.2-5.4); White Blood Count 11.32 K/uL (4.8-10.8)
[2021-01-15 07:02] LABS: INR 1.1 (0.9-1.1); Partial Thromboplastin Ratio 1.1; Partial Thromboplastin Time 28.5 Seconds (21.0-31.0); Prothrombin Time 11.1 Seconds (9.0-12.0)
[2021-01-15 07:27] LABS: Albumin Level 2.3 gm/dl (3.4-5.0); BUN Creatinine Ratio 23.7 (10-20); Calcium 8.9 mg/dl (8.5-10.1); Creatinine Clr Calc Pharmacy 75.6 ml/min; Est GFR (African American) 102.2 ml/min; Est GFR (Non-African American) 88.2 ml/min; Magnesium 1.9 mg/dl (1.8-2.4); Potassium 3.6 mmol/L (3.5-5.1)
[2021-01-15 07:38] LABS: Albumin Globulin Ratio 0.7 (0.9-2); Globulin 3.4 gm/dl (2.5-4.0); Thyroid Stimulating Hormone 0.125 uIu/ml (0.300-4.500); Total Protein 5.7 gm/dl (6.4-8.2)
[2021-01-15 07:50] LABS: T4 Free Thyroxine 2.52 ng/dl (0.8-1.6)
[2021-01-15] MEDS: METOPROLOL TARTRATE 25 MG TAB PO SCH ×2 (09:39→21:01)
[2021-01-15] MEDS: APIXABAN 2.5 MG TAB PO SCH ×2 (09:39→21:02)
[2021-01-15] MEDS: FAMOTIDINE 20 MG in SYRINGE 3 ML IV SCH ×2 (09:40→21:05)
[2021-01-15] MEDS: POLYETHYLENE (MIRALAX) 17 GM PACK PO SCH (09:41)
[2021-01-15] MEDS: PANTOprazole 40 MG TAB PO SCH (09:41)
--- NOTE | 2021-01-15 13:22 | Orthopedic Progress Note ---
Date of Service January 15, 2021 Assessment & Plan (1) Hip fracture, right: POD #2 s/p right hemiarthroplasty, lethargic was given Dilaudid after working with OT. Regular diet. WBAT for transfers. OOB to chair. Continue pain control. DVT prophylaxis: TEDs 3 weeks, foot pumps while in hospital, re-started Eliquis. PT/OT. D/C planning. Contact precautions due to + Nasal swab for MRSA, will give Mupirocin Change dressing to Silverlon POD #3. Would stick with oral pain Meds, limit narcotics to avoid lethargy. Continue care per primary service. Admission and Anticipated Discharge Date Admission Date: January 12, 2021 Subjective Lethargic, not answering any questions Physical Exam Physical Exam: Lethargic RLE: Dressing clean, dry, intact. Abduction pillow in place. Neurovascularly unchanged. Calf soft and non-tender. Results & Data ([facility]) Vital Signs (Past 12 Hours) Vital Signs Temp Pulse Pulse Resp BP Pulse Ox 01/15/21 12:00 36.9 C 98 H 18 119/78 98 01/15/21 07:42 36.4 C L 105 H 18 134/84 99 01/15/21 03:45 37 C 114 H 18 137/77 91
--- NOTE | 2021-01-15 14:07 | Hospitalist Progress Note ---
Date of Service January 15, 2021 Assessment & Plan (1) Tachycardia: Concern for tachycardia in the 110-120 range on 01/14. EKG shows sinus tachycardia with premature atrial beats. TSH shows clear overtreatment. - Giving IV fluids -> Remains euvolemic on exam today. - Started low dose beta-ekaterina on 01/14. HR improving. - Lowered levothyroxine to 125 mcg. (2) Closed fracture of right hip requiring operative repair: X-ray showed acute displaced right femoral neck fracture. - S/p Bipolar Hip Hemiarthroplasty, Right, Cemented with Dr. Hernandez on 01/13 - Post-operative care per surgery. - Presently with some anaesthesia-related encephalopathy; improving overall. Tired today due to opioid pain meds. (3) Fall: Status post mechanical fall. - PT/OT per ortho (4) Memory loss: Declining significantly in the last 6 months due to isolation from Covid at her SNF. (5) History of pulmonary embolism: History of pulmonary embolism. - Resumed Eliquis by orthopedics (6) Hypothyroidism: TSH was 0.5 in 11/2020. Now TSH/FT4 are 0.125/2.52. - Continue home levothyroxine - Working with pharmacy and [facility] to reduce dose -> Likely 150 mcg PO daily (7) History of gastric ulcer: - Placed on famotidine 20 mg IV every 12 hours - Resumed PPI postop (8) Anxiety: Per SNF. - Resume citalopram and mirtazapine postoperatively (9) Transient ischemic attack (TIA): Per report in 2013 without residual deficits. Daughter reports episodes of confusion that she doesn't recover fully from. Possibly vascular dementia. 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 - Clopidogrel as above (11) DVT prophylaxis: Resumed apixaban Admission and Anticipated Discharge Date Admission Date: January 12, 2021 Subjective Somnolent on my interview today as she just received pain medication. Review of Systems Review of Systems: Unobtainable due to reduced consciousness Physical Exam Constitutional: WD/WN, vitals as above Eyes: EOM intact bilaterally; no conjunctival abnormality ENMT: external ear and nose normal, oropharynx normal Neck: trachea midline, no thyromegaly normal visual inspection Respiratory: normal respiratory effort, lungs clear to auscultation no respiratory distress Cardiovascular: RRR, no murmur, no edema Gastrointestinal (Abdomen): Inspection/Auscultation: abdomen normal to inspection; abdomen not distended Musculoskeletal: no cyanosis or clubbing, extremities motor strength 5/5 Skin: no rashes, warm and dry Neurologic: + does not move all extremities and + not awake Psychiatric: Orientation: cooperative; + not alert and + not oriented to person Results & Data Results & Data ([facility]) Vital Signs (Past 12 Hours) Vital Signs Temp Pulse Pulse Resp BP Pulse Ox 01/15/21 12:00 36.9 C 98 H 18 119/78 98 01/15/21 07:42 36.4 C L 105 H 18 134/84 99 01/15/21 03:45 37 C 114 H 18 137/77 91 PG Care Time/CCT Total # of Minutes Spent Total Time Spent with Patient: Total time spent is greater than 50% in coordination of care (as documented) at patient's floor/unit and/or counseling patient: Coding Level of Care Code 40823 Subseq Hosp Care Lvl 3 Diagnoses Tachycardia R00.0 Closed fracture of right hip requiring operative repair S72.001A Fall W19.XXXA Encounter type: initial encounter Memory loss R41.3 History of pulmonary embolism Z86.711 Hypothyroidism E03.9 Hypothyroidism type: unspecified History of gastric ulcer Z87.19 Anxiety F41.9 Transient ischemic attack (TIA) G45.9 Superior mesenteric artery stenosis I77.1 DVT prophylaxis Z29.9 (1) Fall Encounter type: initial encounter Qualified Code(s): W19.XXXA - Unspecified fall, initial encounter (2) Hypothyroidism Hypothyroidism type: unspecified Qualified Code(s): E03.9 - Hypothyroidism, unspecified
[2021-01-15] MEDS: CLOPIDOGREL BISULFATE 75 MG TAB PO SCH (21:01)
[2021-01-15] MEDS: DOCUSATE SODIUM/SENNA 50/8.6MG TAB PO SCH (21:02)
[2021-01-16] MEDS: LACTATED RINGER'S 1,000 ML IV SCH ×2 (05:37→18:30)
[2021-01-16] MEDS: ACETAMINOPHEN 500 MG TAB PO SCH ×3 (06:09→22:53)
[2021-01-16] MEDS: LEVOTHYROXINE SODIUM 150 MCG TABLET PO SCH (06:10)
[2021-01-16] MEDS ORDERED: LEVOTHYROXINE SODIUM 50 MCG TABLET PO SCH (06:30)
[2021-01-16 06:57] LABS: Hematocrit (blood only) 31.4 % (37-47); Hemoglobin 10.4 g/dL (12.0-16.0); Mean Corpuscular Hemoglobin 30.1 pg (25-34); Mean Corpuscular Hgb Conc 33.1 g/dL (32-36); Mean Corpuscular Volume 90.8 fL (80-100); Mean Platelet Volume 10.8 fL (7.4-10.4); Platelet Count 223 K/uL (130-400); RDW Coefficient of Variation 13.6 % (11.5-14.5); RDW Standard Deviation 45.1 fL (36.4-46.3); Red Blood Count 3.46 M/uL (4.2-5.4); White Blood Count 10.57 K/uL (4.8-10.8)
[2021-01-16 07:30] LABS: BUN Creatinine Ratio 31.3 (10-20); Calcium 8.9 mg/dl (8.5-10.1); Creatinine Clr Calc Pharmacy 85.2 ml/min; Est GFR (African American) 106.7 ml/min; Est GFR (Non-African American) 92.1 ml/min; Potassium 3.6 mmol/L (3.5-5.1)
[2021-01-16] MEDS: FAMOTIDINE 20 MG in SYRINGE 3 ML IV SCH (08:52)
[2021-01-16] MEDS: METOPROLOL TARTRATE 25 MG TAB PO SCH ×2 (08:53→22:52)
[2021-01-16] MEDS: PANTOprazole 40 MG TAB PO SCH (08:55)
[2021-01-16] MEDS: APIXABAN 2.5 MG TAB PO SCH ×2 (08:55→22:53)
--- NOTE | 2021-01-16 09:52 | Orthopedic Progress Note ---
Date of Service January 16, 2021 Assessment & Plan (1) Hip fracture, right: POD #3 s/p right hemiarthroplasty, lethargic was given Dilaudid after working with OT. Regular diet. WBAT for transfers. OOB to chair. Continue pain control. DVT prophylaxis: Eliquis and TEDs 3 weeks, foot pumps while in hospital. PT/OT. D/C planning. Contact precautions due to + Nasal swab for MRSA, will give Mupirocin Silverlon applied. Continue care per primary service. I, Dr. Hernandez, saw and examined and agree with the above findings and plan of care discussed with my PA. She was able to answer questions today, more alert. Still lethargic. Admission and Anticipated Discharge Date Admission Date: January 12, 2021 Subjective This 85-year-old female is 3 days status post right hip bipolar hemiarthroplasty. She is pleasantly confused today after receiving pain medication. She states that her hip does hurt and that she understands that she had surgery for fracture. Additional information in regards to chest pain, shortness of breath, fever, chills, sweats, numbness or tingling; patient did not provide response. Review of Systems Review of Systems: All systems reviewed & are unremarkable except as noted in Subjective Physical Exam Physical Exam: Right hip: Foam tape dressing was removed and a Silverlon was placed over the incision site. There was no active drainage from the incision. Zipper line and zipper shield were intact. Patient moans with pain with light passive internal and external hip rotation and with logroll test. She was unable to perform a straight leg raise test. She was able to move the digits in her right foot and dorsi and plantarflex at the ankle. Results & Data ([facility]) Vital Signs (Past 12 Hours) Vital Signs Temp Pulse Pulse Resp BP Pulse Ox 01/16/21 07:43 37 C 111 H 16 134/75 98 01/16/21 07:30 129 H 01/16/21 04:00 36.4 C L 105 H 20 145/87 H 99 01/16/21 01:00 105 H 01/15/21 23:04 36.8 C 97 H 20 158/97 H 99 Laboratory Results 01/16/21 01/16/21 Range/Units 06:05 06:05 WBC 10.57 (4.8-10.8) K/uL RBC 3.46 L (4.2-5.4) M/uL Hgb 10.4 L (12.0-16.0) g/dL Hct 31.4 L (37-47) % MCV 90.8 (80-100) fL MCH 30.1 (25-34) pg MCHC 33.1 (32-36) g/dL RDW Std Deviation 45.1 (36.4-46.3) fL RDW Coeff of Bety 13.6 (11.5-14.5) % Plt Count 223 (130-400) K/uL MPV 10.8 H (7.4-10.4) fL Sodium 138 (136-145) mmol/L Potassium 3.6 (3.5-5.1) mmol/L Chloride 104 (98-107) mmol/L Carbon Dioxide 28 (21-32) mmol/L Anion Gap 6.0 (3-11) BUN 14 (7-18) mg/dl Creatinine 0.43 L (0.6-1.2) mg/dl Est Cr Clr Drug Dosing 85.2 ml/min Est GFR ( Amer) 106.7 ml/min Est GFR (Non-Af Amer) 92.1 ml/min BUN/Creatinine Ratio 31.3 H (10-20) Glucose 102 H (70-99) mg/dl Calcium 8.9 (8.5-10.1) mg/dl Magnesium 2.0 (1.8-2.4) mg/dl
[2021-01-16] MEDS: METOPROLOL TARTRATE 1 MG/ML VIAL IV PRN (13:03)
--- NOTE | 2021-01-16 13:40 | Hospitalist Progress Note ---
Date of Service January 16, 2021 Assessment & Plan (1) Tachycardia: Concern for tachycardia in the 110-120 range on 01/14. EKG shows sinus tachycardia with premature atrial beats. TSH shows clear overtreatment. - Giving IV fluids -> Remains euvolemic on exam today. - Started low dose beta-ekaterina on 01/14. HR improving. - Will increase to metoprolol tartrate 25 mg BID. - Lowered levothyroxine to 150 mcg. (20% reduction). Conveyed change to Anjelica Thompson at [facility] who will recheck TSH in 6 weeks. Dispo: Possible discharge tomorrow vs. if mental status improved and tachycardia resolving/stable. (2) Closed fracture of right hip requiring operative repair: X-ray showed acute displaced right femoral neck fracture. - S/p Bipolar Hip Hemiarthroplasty, Right, Cemented with Dr. Hernandez on 01/13 - Post-operative care per surgery. - Will acute blood loss anemia -> Will give Venofer IV. - Tired today, though improving. Will minimize the use of opioid pain meds as able. (3) Fall: Status post mechanical fall. - PT/OT per ortho (4) Memory loss: Declining significantly in the last 6 months due to isolation from Covid at her SNF. - Daughter visiting regularly. (5) History of pulmonary embolism: History of pulmonary embolism. - Resumed Eliquis by orthopedics (6) Hypothyroidism: TSH was 0.5 in 11/2020. Now TSH/FT4 are 0.125/2.52. - Continue home levothyroxine at lower dose (150 mcg) - [facility] will recheck TSH in 6 weeks. (7) History of gastric ulcer: - Resumed PPI postop (8) Anxiety: Per SNF. - Resume citalopram - Hold mirtazapine for now due to fatigue (9) Transient ischemic attack (TIA): Per report in 2013 without residual deficits. Daughter reports episodes of confusion that she doesn't recover fully from. Possibly vascular dementia. 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 - Clopidogrel as above (11) DVT prophylaxis: Resumed apixaban Admission and Anticipated Discharge Date Admission Date: January 12, 2021 Subjective Better today. Still tired, but definitely waking up more. Speaking more clearly and responding to questions appropriately, though still AAOx1. Denies any hip pain on my interview. Reports no fevers/chills, chest pain, shortness of breath, abdominal pain, nausea, or vomiting. Physical Exam Constitutional: WD/WN, vitals as above Eyes: EOM intact bilaterally; no conjunctival abnormality ENMT: external ear and nose normal, oropharynx normal Neck: trachea midline, no thyromegaly normal visual inspection Respiratory: normal respiratory effort, lungs clear to auscultation no respiratory distress Cardiovascular: RRR, no murmur, no edema Gastrointestinal (Abdomen): Inspection/Auscultation: abdomen normal to inspection; abdomen not distended Musculoskeletal: Extremities: + extremities abnormal to inspection (Right hip bandaged. No bruising or bleeding noted. No erythema.) Skin: no rashes, warm and dry Neurologic: + does not move all extremities and + not awake Psychiatric: Orientation: cooperative; + not alert and + not oriented to person Results & Data Results & Data ([facility]) Vital Signs (Past 12 Hours) Vital Signs Temp Pulse Pulse Resp BP BP Pulse Ox 01/16/21 13:18 01/16/21 13:03 130 H 137/85 01/16/21 07:43 37 C 111 H 16 134/75 98 01/16/21 07:30 129 H 01/16/21 04:00 36.4 C L 105 H 20 145/87 H 99 Pulse Ox 01/16/21 13:18 98 01/16/21 13:03 01/16/21 07:43 01/16/21 07:30 01/16/21 04:00 PG Care Time/CCT Total # of Minutes Spent Total Time Spent with Patient: Total time spent is greater than 50% in coordination of care (as documented) at patient's floor/unit and/or counseling patient: Coding Level of Care Code 54725 Subseq Hosp Care Lvl 2 Diagnoses Tachycardia R00.0 Closed fracture of right hip requiring operative repair S72.001A Fall W19.XXXA Encounter type: initial encounter Memory loss R41.3 History of pulmonary embolism Z86.711 Hypothyroidism E03.9 Hypothyroidism type: unspecified History of gastric ulcer Z87.19 Anxiety F41.9 Transient ischemic attack (TIA) G45.9 Superior mesenteric artery stenosis I77.1 DVT prophylaxis Z29.9 (1) Fall Encounter type: initial encounter Qualified Code(s): W19.XXXA - Unspecified fall, initial encounter (2) Hypothyroidism Hypothyroidism type: unspecified Qualified Code(s): E03.9 - Hypothyroidism, unspecified
[2021-01-16] MEDS ORDERED: METOPROLOL TARTRATE 25 MG TAB PO STA ×2 (13:42→13:45)
[2021-01-16] MEDS ORDERED: METOPROLOL TARTRATE 1 MG/ML VIAL IV PRN (13:46)
[2021-01-16] MEDS: IRON SUCROSE 300 MG in SODIUM CHLORIDE 0.9% 250 ML IV SCH (14:05)
--- NOTE | 2021-01-16 17:10 | Electrocardiogram Report ---
Test Reason : Blood Pressure : / mmHG Vent. Rate : 134 BPM Atrial Rate : 134 BPM P-R Int : 168 ms QRS Dur : 078 ms QT Int : 314 ms P-R-T Axes : 071 009 023 degrees QTc Int : 468 ms Sinus tachycardia with Premature atrial complexes with Aberrant conduction Low voltage QRS Borderline ECG When compared with ECG of 14-JAN-2021 12:49, No significant change was found Confirmed by Cory Colindres ([id number]) on 01/16/2021 5:09:33 PM Referred By: REFERRED SELF Confirmed By:Epifanio Colindres
[2021-01-16] MEDS: cefTRIAXone SODIUM 1,000 MG in DEXTROSE 5% 50 ML IV SCH (18:30)
[2021-01-16] MEDS: CITALOPRAM 20 MG TAB PO SCH (22:51)
[2021-01-16] MEDS: CLOPIDOGREL BISULFATE 75 MG TAB PO SCH (22:52)
[2021-01-16] MEDS: DOCUSATE SODIUM/SENNA 50/8.6MG TAB PO SCH (22:54)
[2021-01-16 22:57] LABS: Appearance Urine Cloudy (Clear); Bilirubin Urine Negative (Negative); Blood Urine Trace-intact (Negative); Color Urine Yellow; Glucose Urine UA Negative (Negative); Ketones Urine 1+ (Negative); Leukocyte Esterase Urine Negative (Negative); Nitrite Urine Negative (Negative); Protein Urine Trace (Negative); Urobilinogen Urine Negative (Negative); pH Urine 8.5 (4.5-7.5)
[2021-01-16 23:07] LABS: Bacteria Urine 3+ (Negative)
[2021-01-16 23:08] LABS: Amorphous Sediment Urine Present (None Prsent); Epithelial Cell Urine 20-30 /lpf (0-5); Mucus Urine Present (None Prsent)
[2021-01-17] MEDS: LEVOTHYROXINE SODIUM 150 MCG TABLET PO SCH (05:52)
[2021-01-17] MEDS: ACETAMINOPHEN 500 MG TAB PO SCH ×3 (05:53→20:40)
[2021-01-17] MEDS: LACTATED RINGER'S 1,000 ML IV SCH (06:34)
[2021-01-17] MEDS: METOPROLOL TARTRATE 25 MG TAB PO SCH ×2 (07:31→20:42)
[2021-01-17] MEDS: APIXABAN 2.5 MG TAB PO SCH ×2 (07:31→20:42)
[2021-01-17] MEDS: PANTOprazole 40 MG TAB PO SCH (07:32)
[2021-01-17 07:36] LABS: Hematocrit (blood only) 31.4 % (37-47); Hemoglobin 10.4 g/dL (12.0-16.0); Mean Corpuscular Hemoglobin 29.6 pg (25-34); Mean Corpuscular Hgb Conc 33.1 g/dL (32-36); Mean Corpuscular Volume 89.5 fL (80-100); Mean Platelet Volume 10.7 fL (7.4-10.4); Platelet Count 267 K/uL (130-400); RDW Coefficient of Variation 13.7 % (11.5-14.5); RDW Standard Deviation 44.5 fL (36.4-46.3); Red Blood Count 3.51 M/uL (4.2-5.4); White Blood Count 9.62 K/uL (4.8-10.8)
--- NOTE | 2021-01-17 11:45 | Orthopedic Progress Note ---
Date of Service January 17, 2021 Assessment & Plan (1) Hip fracture, right: POD #4 s/p right hemiarthroplasty, lethargic was given Dilaudid after working with OT. Regular diet. WBAT for transfers. OOB to chair. Continue pain control. DVT prophylaxis: Eliquis and TEDs 3 weeks, foot pumps while in hospital. PT/OT. D/C planning. Contact precautions due to + Nasal swab for MRSA, will give Mupirocin Silverlon applied 01/16/2021, leave in place until follow-up in 2 weeks.. Continue care per primary service. Admission and Anticipated Discharge Date Admission Date: January 12, 2021 Subjective Feeling better Review of Systems Review of Systems: All systems reviewed & are unremarkable except as noted in HPI & below Physical Exam Physical Exam: Lethargic, more alert, answering questions. AAO x2 (Person & 2020) RLE: Dressing clean, dry, intact. Abduction pillow in place. Neurovascularly unchanged. Calf soft and non-tender. Results & Data ([facility]) Vital Signs (Past 12 Hours) Vital Signs Temp Pulse Pulse Resp BP Pulse Ox 01/17/21 11:07 37 C 97 H 18 155/85 H 90 01/17/21 07:44 113 H 01/17/21 07:23 37 C 110 H 18 152/84 H 92 01/17/21 04:04 36.6 C 96 H 18 156/80 H 98 01/17/21 03:40 131 H Laboratory Results 01/17/21 01/16/21 Range/Units 06:59 20:40 WBC 9.62 (4.8-10.8) K/uL RBC 3.51 L (4.2-5.4) M/uL Hgb 10.4 L (12.0-16.0) g/dL Hct 31.4 L (37-47) % MCV 89.5 (80-100) fL MCH 29.6 (25-34) pg MCHC 33.1 (32-36) g/dL RDW Std Deviation 44.5 (36.4-46.3) fL RDW Coeff of Bety 13.7 (11.5-14.5) % Plt Count 267 (130-400) K/uL MPV 10.7 H (7.4-10.4) fL Urine Color Yellow Urine Appearance Cloudy A (Clear) Urine pH 8.5 H (4.5-7.5) Ur Specific [place] 1.020 (1.000-1.030) Urine Protein Trace H (Negative) Urine Glucose (UA) Negative (Negative) Urine Ketones 1+ H (Negative) Urine Blood Trace-intact H (Negative) Urine Nitrite Negative (Negative) Urine Bilirubin Negative (Negative) Urine Urobilinogen Negative (Negative) Ur Leukocyte Esterase Negative (Negative) Urine RBC 5-10 H (0-4) /hpf Urine WBC 10-30 H (0-5) /hpf Ur Epithelial Cells 20-30 H (0-5) /lpf Amorphous Sediment Present A (None Prsent) Urine Bacteria 3+ H (Negative) Urine Mucus Present A (None Prsent)
[2021-01-17] MEDS: IRON SUCROSE 300 MG in SODIUM CHLORIDE 0.9% 250 ML IV SCH (13:35)
[2021-01-17] MEDS ORDERED: Nursing to Pharmacy Communication SCH (15:15)
--- NOTE | 2021-01-17 17:07 | Hospitalist Progress Note ---
Date of Service January 17, 2021 Assessment & Plan (1) Tachycardia: Concern for tachycardia in the 110-120 range on 01/14. EKG shows sinus tachycardia with premature atrial beats. TSH shows clear overtreatment. - Gave IV fluids -> Remains euvolemic on exam today. - Started low dose beta-ekaterina on 01/14. HR improving but still tachy 100-120s with small bursts of PAT - continue metoprolol tartrate 25 mg BID and titrate up as needed Of note, daughter requests pt be tapered off this medication if possible in future - Lowered levothyroxine to 150 mcg. (20% reduction). Conveyed change to Anjelica Thompson at [facility] who will recheck TSH in 6 weeks. -continue tele monitoring -dc IVFs (2) Closed fracture of right hip requiring operative repair: X-ray showed acute displaced right femoral neck fracture. - S/p Bipolar Hip Hemiarthroplasty, Right, Cemented with Dr. Hernandez on 01/13 - Post-operative care per surgery. - With acute blood loss anemia from fracture ->was given Venofer IV. With severe generalized weakness, deconditioning, needs rehab placement DVT proph with Eliquis PT/OT dc tramadol and hasn't been used in days but has sensitivity to opioids ie lethargy, confusion (3) Fall: Status post mechanical fall. - PT/OT per ortho (4) Memory loss: Declining significantly in the last 6 months due to isolation from Covid at her SNF. - Daughter visiting regularly. supportive care (5) History of pulmonary embolism: History of pulmonary embolism. - Resumed Eliquis by orthopedics (6) Hypothyroidism: TSH was 0.5 in 11/2020. Now TSH/FT4 are 0.125/2.52. - Continue home levothyroxine at lower dose (150 mcg) - [facility] will recheck TSH in 6 weeks. (7) History of gastric ulcer: - Resumed PPI postop (8) Anxiety: Per SNF. - continue citalopram - continue to hold mirtazapine for now due to fatigue (9) Transient ischemic attack (TIA): Per report in 2013 without residual deficits. Daughter reports episodes of confusion that she doesn't recover fully from. Possibly vascular dementia. - Continue clopidogrel -no statin on med list-perhaps due to advanced age? (10) Superior mesenteric artery stenosis: Per notes from 2020 admission. - Clopidogrel as above (11) UTI (urinary tract infection): noted to have worsening hematuria in [place] and had abnormal/contaminated UA on admission but Ur cx gre Klebsiella Repeat UA and Ur cx now pending and started on ceftriaxone-continue abx for now remove [place] when possible with improved mobility-perhaps tomorrow (12) Acute metabolic encephalopathy: as above, perhaps due to UTI, previous opioid use improved but not at baseline (13) DVT prophylaxis: apixaban, SCDs Dispo-continued stay for encephalopathy, tachycardia, perhaps dc to [facility] for rehab tomorrow Admission and Anticipated Discharge Date Admission Date: January 12, 2021 Subjective Pt seen with daughter at bedside. Is awake and answering questions but extremely weak. Can barely even lift her arms up and daughter had to feed her. Daughter states pt not back to baseline mental status but improved somewhat from previous. States pt does very poorly with opioids in the past. Pt denies pain in hip. Tele with ST, NSR rates 90-120s, few small bursts PAT Review of Systems Review of Systems: All systems reviewed & are unremarkable except as noted in HPI & below Physical Exam Constitutional: WD/WN, vitals as above Eyes: + anicteric sclerae Neck: trachea midline, no thyromegaly Respiratory: normal respiratory effort, lungs clear to auscultation Cardiovascular: RRR, no murmur, no edema Gastrointestinal (Abdomen): normal bowel sounds, soft, nontender, no hepatosplenomegaly Musculoskeletal: Extremities: extremities normal to inspection; no cyanosis and no clubbing Skin: no rashes, warm and dry + wound (rt hip with dressing c/d/i) Neurologic: awake; no focal motor deficits (can move all extremities but weak) Motor/Sensory: no sensory deficit Psychiatric: Orientation: alert, oriented to person, oriented to place and cooperative; + not oriented to time (2022, Month October) Speech: normal rate/rhythm/volume of speech Lymphatic: no lymphedema Results & Data Results & Data ([facility]) Vital Signs (Past 12 Hours) Vital Signs Temp Pulse Pulse Resp BP Pulse Ox 01/17/21 16:00 118 H 01/17/21 14:44 37 C 100 H 18 160/82 H 91 01/17/21 11:07 37 C 97 H 18 155/85 H 90 05/19/21 07:44 113 H 01/17/21 07:23 37 C 110 H 18 152/84 H 92 Laboratory Results labs reviewed PG Care Time/CCT Total # of Minutes Spent Total Time Spent with Patient: Total time spent is greater than 50% in coordination of care (as documented) at patient's floor/unit and/or counseling patient: Coding Level of Care Code 38262 Subseq Hosp Care Lvl 3 Diagnoses Tachycardia R00.0 Closed fracture of right hip requiring operative repair S72.001A Fall W19.XXXA Encounter type: initial encounter Memory loss R41.3 History of pulmonary embolism Z86.711 Hypothyroidism E03.9 Hypothyroidism type: unspecified History of gastric ulcer Z87.19 Anxiety F41.9 Transient ischemic attack (TIA) G45.9 Superior mesenteric artery stenosis I77.1 UTI (urinary tract infection) N39.0 Acute metabolic encephalopathy G93.41 DVT prophylaxis Z29.9 (1) Hypothyroidism Hypothyroidism type: unspecified Qualified Code(s): E03.9 - Hypothyroidism, unspecified (2) Fall Encounter type: initial encounter Qualified Code(s): W19.XXXA - Unspecified fall, initial encounter
[2021-01-17] MEDS: cefTRIAXone SODIUM 1,000 MG in DEXTROSE 5% 50 ML IV SCH (18:12)
[2021-01-17] MEDS: DOCUSATE SODIUM/SENNA 50/8.6MG TAB PO SCH (20:38)
[2021-01-17] MEDS: CITALOPRAM 20 MG TAB PO SCH (20:40)
[2021-01-17] MEDS: CLOPIDOGREL BISULFATE 75 MG TAB PO SCH (20:40)
[2021-01-18] MEDS: LEVOTHYROXINE SODIUM 150 MCG TABLET PO SCH (06:12)
[2021-01-18] MEDS: ACETAMINOPHEN 500 MG TAB PO SCH ×2 (06:12→13:20)
[2021-01-18] MEDS: METOPROLOL TARTRATE 25 MG TAB PO SCH (07:37)
[2021-01-18] MEDS: PANTOprazole 40 MG TAB PO SCH (07:38)
[2021-01-18] MEDS: APIXABAN 2.5 MG TAB PO SCH (07:38)
[2021-01-18 10:01] LABS: BUN Creatinine Ratio 19.1 (10-20); Calcium 8.6 mg/dl (8.5-10.1); Creatinine Clr Calc Pharmacy 92.5 ml/min; Est GFR (African American) 108.4 ml/min; Est GFR (Non-African American) 93.5 ml/min; Potassium 3.2 mmol/L (3.5-5.1)
[2021-01-18] MEDS ORDERED: POTASSIUM CHLORIDE CRTAB 20 MEQ TABCR PO STA (10:21)
--- NOTE | 2021-01-18 13:18 | Discharge Summary ---
Date of Service January 18, 2021 Admission HPI Per Admitting Provider The patient is an 85-year-old female with a past medical history including UTI, iron deficiency, osteoporosis, memory loss, pulmonary embolism, ambulatory dysfunction, long-term use of anticoagulants, hypothyroidism, T12 compression fracture, oropharyngeal dysphagia, multilevel degenerative disc disease and vertigo. She is a resident of [facility], and was found with severe right hip pain after a fall as she was getting up off of the commode. Work-up in the emergency department included x-rays which showed a closed displaced right femoral neck fracture. Principal Diagnosis Right hip fracture UTI Generalized weakness and deconditioning Discharge Exam Constitutional WD/WN, vitals as above Eyes + anicteric sclerae ENMT Ears: no hearing impairment Neck trachea midline, no thyromegaly Respiratory normal respiratory effort, lungs clear to auscultation Cardiovascular RRR, no murmur, no edema Gastrointestinal (Abdomen) normal bowel sounds, soft, nontender, no hepatosplenomegaly Musculoskeletal Extremities: extremities normal to inspection; no cyanosis and no clubbing Skin no rashes, warm and dry + wound (rt hip with dressing c/d/i) Neurologic awake; no focal motor deficits (can move all extremities but weak 4/5,improved from yesterday) and not confused Motor/Sensory: no sensory deficit Psychiatric Orientation: alert, oriented to person, oriented to place and cooperative Speech: normal rate/rhythm/volume of speech Lymphatic no lymphedema Discharge Data Allergies Allergy/AdvReac Type Severity Reaction Status Date / Time adhesive tape AdvReac Intermediate PEELING OF Verified 01/12/21 19:57 SKIN cefdinir AdvReac Intermediate Migraine Verified 01/12/21 19:57 erythromycin base AdvReac Intermediate MYCIN Verified 01/12/21 19:57 DRUGS-YEAST INFECTIONS tramadol AdvReac Intermediate MAKES Verified 01/12/21 19:57 HEADACHS WORSE--vestibular sx Consultations 01/12/21 20:31 ED Decision to Admit Stat 01/12/21 23:09 Consult Orthopedic Surgery Routine Procedures Performed Operation Date: 01/13/21 07:00 Actual Procedures p Bipolar Hip Prosthesis, Right, Cemented(Right) - Bala Nathan Hernandez MD Ordered Studies Chest X-Ray 01/12/21 19:24 XR chest 1V portable CLINICAL HISTORY: Fall. COMPARISON STUDY: Chest radiograph June 18, 2020. Chest CT June 22, 2020. FINDINGS: No pneumothorax or pleural effusion is identified. Cardiomegaly is unchanged. There is no evidence for pulmonary edema. Lung volumes are mildly diminished. There is minimal right basilar opacity. IMPRESSION: 1. Low lung findings with minimal right basilar opacity that likely reflects atelectasis or a trace right pleural effusion. 2. Cardiomegaly without evidence for pulmonary edema. ACT 112: Negative or not required by law. Electronically signed by: Ean Quiroz M.D. 01/12/2021 8:32 PM Femur X-Ray 01/12/21 19:38 XR femur RT 2V routine CLINICAL HISTORY: Right femur pain following fall. COMPARISON: Pelvis radiograph March 13, 2020. FINDINGS: Note is made of an acute displaced right femoral neck fracture. No distal right femoral fracture is noted. Alignment of the right knee is anatomic. There is no right knee joint effusion. IMPRESSION: Acute displaced right femoral neck fracture. ACT 112: Negative or not required by law. Electronically signed by: Ean Quiroz M.D. 01/12/2021 8:31 PM Pelvis X-Ray 01/12/21 19:38 XR pelvis 1-2V routine CLINICAL HISTORY: r hip pain COMPARISON: Pelvis radiograph March 13, 2020. CT of the abdomen and pelvis June 22, 2020. FINDINGS: Sacroiliac joints and symphysis pubis are intact. Note is made of an acute displaced and angulated right femoral neck fracture. No proximal left femoral fracture is noted. No additional fractures are identified on this exam. IMPRESSION: Acute displaced right femoral neck fracture. ACT 112: Negative or not required by law. Electronically signed by: Ean Quiroz M.D. 01/12/2021 8:26 PM Hip X-Ray 01/13/21 10:56 XR hip RT 1V CLINICAL HISTORY: RIGHT hip hemiarthroplasty- DONE IN OR COMPARISON: 01/12/2021 DISCUSSION: A single intraoperative radiograph demonstrates a right hip hemiarthroplasty. There is no dislocation. A hemostat projects over the upper thigh region. IMPRESSION: Right hip hemiarthroplasty. No evidence of dislocation. ACT 112: Negative or not required by law. Electronically signed by: Herman Powell M.D. 01/13/2021 1:07 PM Hip X-Ray 01/13/21 14:21 XR hip RT min 2V CLINICAL HISTORY: Post-Operative implant position COMPARISON: Intraoperative study dated 01/13/2021 DISCUSSION: There is a right hip hemiarthroplasty. There is no dislocation. There are no acute fractures. IMPRESSION: Right hip hemiarthroplasty. No complicating features identified ACT 112: Negative or not required by law. Electronically signed by: Herman Powell M.D. 01/13/2021 2:50 PM Hospital Course (1) Tachycardia: Concern for tachycardia in the 110-120 range on 01/14. EKG shows sinus tachycardia with premature atrial beats. TSH shows clear overtreatment. - Gave IV fluids -> Remains euvolemic on exam and IVFs dcd - Started low dose beta-ekaterina on 01/14. HR improved to low 100s - continue metoprolol tartrate 25 mg BID and titrate up as needed-consider increase to 50 mg po bid in next 2-3 days at [facility] Of note, daughter requests pt be tapered off this medication if possible in future - Lowered levothyroxine to 150 mcg. (20% reduction). Conveyed change to Anjelica Thompson at [facility] who will recheck TSH in 6 weeks. (2) Closed fracture of right hip requiring operative repair: X-ray showed acute displaced right femoral neck fracture. - S/p Bipolar Hip Hemiarthroplasty, Right, Cemented with Dr. Hernandez on 01/13 - Post-operative care per surgery. - With acute blood loss anemia from fracture ->was given Venofer IV.hgb stable at 10 With severe generalized weakness, deconditioning, needs rehab placement DVT proph with Eliquis and TEDs PT/OT tylenol prn pain f/u with Ortho as outpt (3) Fall: Status post mechanical fall. - PT/OT per ortho (4) Memory loss: Declining significantly in the last 6 months due to isolation from Covid at her SNF. - Daughter visiting regularly. supportive care (5) History of pulmonary embolism: History of pulmonary embolism. -continue ELiquis (6) Hypothyroidism: TSH was 0.5 in 11/2020. Now TSH/FT4 are 0.125/2.52. - Continue home levothyroxine at lower dose (150 mcg) - [facility] will recheck TSH in 6 weeks. (7) History of gastric ulcer: -continue PPI (8) Anxiety: Per SNF. - continue citalopram - held mirtazapine due to fatigue, but can restart on discharge (9) Transient ischemic attack (TIA): Per report in 2013 without residual deficits. Daughter reports episodes of confusion that she doesn't recover fully from. Possibly vascular dementia. - Continue clopidogrel -no statin on med list-perhaps due to advanced age? (10) Superior mesenteric artery stenosis: Per notes from 2020 admission. - Clopidogrel as above (11) UTI (urinary tract infection): noted to have worsening hematuria in [place] and had abnormal/contaminated UA on admission but Ur cx gre Klebsiella Repeat UA and Ur cx now pending and started on ceftriaxone-continue abx and finish out course with Augmentin x 4 more days to complete 7 day course [place] removed on day of discharge (12) Acute metabolic encephalopathy: as above, perhaps due to UTI, previous opioid use improved (13) DVT prophylaxis: apixaban, SCDs, RALPH hose Dispo- dc to [facility] for rehab today Total Time Total Time Spent Total Time Spent (In Minutes): 35 min Total Time Includes: Examination of the Patient, Discharge Planning and Medication Reconciliation Discharge Plan Discharge Items Patient Disposition: Transfer Detention Fac Reason For Visit: CLOSED, DISPLACED R HIP FRACTURE Discharge Diagnosis: Right hip fracture UTI SInus tachycardia Condition on Discharge: Fair Activity: As commented below Non-emergency contact: Primary Care Provider and Surgeon Call non-emergency contact if: you have any medication questions, your symptoms worsen, your pain is not controlled, you have a fever, your wound has increased redness, your wound has increased drainage and your wound pain has increased Follow-up/Referrals: [facility] [Primary Care Provider] - Ida Sanders [email or web address] [Physician Adjuster Arbitrator] - 01/31/21 2:00 pm (for wound check and removal of dressings) Diet: Regular Addtl Attending Provider Instructions: Please finish out the course of antibiotics for your UTI. You were started on metoprolol for your fast heart rate and elevated blood pressure. You may be able to taper off of this medication in the future. Please continue indefinitely on the Eliquis as you were before. Addtl Coding Compliance Auditor Provider Instructions: Orhopedics: S/P right hemiarthroplasty: WBAT for transfers Standard hip precautions with pillow between legs for 6wks DVT prophylaxis: Eliquis and TEDs 3 weeks PT/OT. Silverlon waterproof dressing, keep on until follow-up in 2 weeks Pending Studies at Discharge: Yes Stand-Alone Forms: My [facility] Skilled Items Patient informed of condition?: Yes DNR: Yes Discharge Level of Care: Skilled Communicable Disease: No Discharge Prognosis: Improving Lines: None Urinary Catheter: No Medications and DC Order Prescriptions: New acetaminophen 500 mg Tablet 1,000 mg PO Q8 Qty: 60 RF: 0 levothyroxine [Synthroid] 150 mcg Tablet 150 mcg PO DAILYBB Qty: 30 RF: 0 metoprolol tartrate 25 mg Tablet 25 mg PO BID Qty: 60 RF: 0 amoxicillin-pot clavulanate [Augmentin] 875-125 mg tablet 1 tab PO BID Qty: 8 RF: 0 Continued polyethylene glycol 3350 [Miralax] 17 gram Powder In Packet 17 g PO QAM RF: 0 clopidogrel 75 mg Tablet 75 mg PO HS RF: 0 Eliquis 2.5 mg Tablet 2.5 mg PO BID RF: 0 dicyclomine 10 mg capsule 10 mg PO Q6 PRN (Reason: Pain) RF: 0 cyanocobalamin (vitamin B-12) [Vitamin B-12] 500 mcg Tablet 500 mcg PO BID RF: 0 sennosides [senna] 8.6 mg Tablet 8.6 mg PO BID RF: 0 acetaminophen [Tylenol] 325 mg Tablet 650 mg PO QID PRN (Reason: Pain) RF: 0 citalopram [Celexa] 10 mg Tablet 5 mg PO PM RF: 0 thiamine HCl (vitamin B1) 100 mg Tablet 100 mg PO QAM RF: 0 calcium carbonate [Tums] 200 mg calcium (500 mg) Tablet,Chewable 400 mg PO Q4H PRN (Reason: Heartburn) RF: 0 mirtazapine [Remeron] 15 mg Tablet 7.5 mg PO HS RF: 0 ondansetron 4 mg Tablet,Disintegrating 4 mg PO Q8H PRN (Reason: Nausea And Vomiting) RF: 0 omeprazole 20 mg Tablet,Delayed Release (Dr/Ec) 20 mg PO QAM RF: 0 Discontinued levothyroxine 100 mcg Tablet 100 mcg PO QAM RF: 0 levothyroxine 88 mcg Tablet 88 mcg PO QAM RF: 0 Discharge Orders: Discharge Order (Routine); Ordered 01/18/21 Ordered By: Cindi Grace Admission Data Admit Date/Time: 01/12/21 21:28 Attending Provider: Cindi Grace Admit Provider: Jann Pond Primary Care Provider: [facility] Other Providers: Jann Pond ; Bala Hernandez Coding Level of Care Code D/C Day Management >30 mins Diagnoses Tachycardia R00.0 Closed fracture of right hip requiring operative repair S72.001A Fall W19.XXXA Encounter type: initial encounter Memory loss R41.3 History of pulmonary embolism Z86.711 Hypothyroidism E03.9 Hypothyroidism type: unspecified History of gastric ulcer Z87.19 Anxiety F41.9 Transient ischemic attack (TIA) G45.9 Superior mesenteric artery stenosis I77.1 UTI (urinary tract infection) N39.0 Acute metabolic encephalopathy G93.41 DVT prophylaxis Z29.9
--- NOTE | 2021-01-18 16:26 | Orthopedic Progress Note ---
Date of Service January 18, 2021 Assessment & Plan (1) Hip fracture, right: POD #5 s/p right hemiarthroplasty, lethargic was given Dilaudid after working with OT. Regular diet. WBAT for transfers. OOB to chair. Continue pain control. DVT prophylaxis: Eliquis and TEDs 3 weeks, foot pumps while in hospital. PT/OT. D/C planning. Contact precautions due to + Nasal swab for MRSA, ordered Mupirocin Silverlon applied 01/16/2021, leave in place until follow-up in 2 weeks. Continue care per primary service. Admission and Anticipated Discharge Date Admission Date: January 12, 2021 Subjective feeling better Physical Exam Physical Exam: More alert, answering questions. RLE: Dressing clean, dry, intact. Abduction pillow in place. Neurovascularly unchanged. Calf soft and non-tender. Results & Data ([facility]) Vital Signs (Past 12 Hours) Vital Signs Temp Pulse Pulse Resp BP BP Pulse Ox 01/18/21 13:43 37.4 C 110 H 19 138/77 151/79 H 92 01/18/21 11:54 37.4 C 110 H 19 151/79 H 92 01/18/21 08:09 37.3 C 106 H 20 138/77 94 01/18/21 07:46 122 H
[2021-01-18] MEDS ORDERED: ONDANSETRON 4 MG OD TAB PO STA (18:18)
== END 2021-01-18 18:35 ==
LOC: ED 19:11 → 3E 21:28 → SUATTDRO 21:28 → 3E 22:54 → 2N 01-14 12:31

== ENCOUNTER 2021-05-08 12:05 | Inpatient (IN) ==
[2021-05-08] MEDS ORDERED: SODIUM CHLORIDE 0.9% 1000ML 1,000 ML IV SCH ×2 (12:30)
[2021-05-08 12:39] LABS: iSTAT Creatinine 0.7 mg/dl (0.6-1.3); iSTAT Hemoglobin 13.6 g/dl (12.0-16.0); iSTAT Ionized Calcium 1.16 mmol/l (1.12-1.32); iSTAT Potassium 4.1 mmol/L (3.3-5.0)
--- NOTE | 2021-05-08 12:42 | Emergency Department Note ---
History of Present Illness General Chief complaint: Illness Time Seen by Provider: 05/08/21 12:18 History of Present Illness 85-year-old female presents to the ED from [facility]. She was [facility] The patient had emesis x2 in route by EMS. She is normally confused at baseline. She was a little hypotensive for EMS. She was a little more hypotensive when she arrived. The patient only complains of feeling ill. She denies having any headaches, chest pains or abdominal pains. Denies shortness of breath. She was found to be hypoxic with 86% saturations on room air. Patient is otherwise a poor historian and provides no additional information. She just states that she wants to lay on her side as this causes her to feel better. She denies having any pain in her back or other areas. Home Medications Medication Instructions Recorded Confirmed Type polyethylene glycol 3350 17 gram 17 g PO QAM 06/24/19 02/20/21 History oral powder packet (Miralax) clopidogrel 75 mg tablet 75 mg PO HS 09/02/19 02/20/21 History dicyclomine 10 mg capsule 10 mg PO Q6 PRN 09/30/19 02/20/21 History apixaban 2.5 mg tablet (Eliquis) 2.5 mg PO BID 11/05/19 02/20/21 History acetaminophen 325 mg tablet 650 mg PO DAILY PRN MDD 3g 01/12/21 02/20/21 History (Tylenol) calcium carbonate 200 mg calcium 400 mg PO Q4H PRN 01/12/21 02/20/21 History (500 mg) chewable tablet (Tums) citalopram 10 mg tablet (Celexa) 5 mg PO PM 01/12/21 02/20/21 History mirtazapine 15 mg tablet (Remeron) 7.5 mg PO HS 01/12/21 02/20/21 History omeprazole 20 mg tablet,delayed 20 mg PO QAM 01/12/21 02/20/21 History release ondansetron 4 mg disintegrating 4 mg PO Q8H PRN 01/12/21 02/20/21 History tablet sennosides 8.6 mg tablet (senna) 8.6 mg PO BID 01/12/21 02/20/21 History thiamine HCl (vitamin B1) 100 mg 100 mg PO QAM 01/12/21 02/20/21 History tablet levothyroxine 150 mcg tablet 150 mcg PO DAILYBB #30 tab 01/18/21 02/20/21 Rx (Synthroid) cyanocobalamin (vitamin B-12) 250 500 mcg PO BID 02/20/21 02/20/21 History mcg tablet menthol 0.44 %-zinc oxide 20.6 % 1 applic TOPICAL BID 02/20/21 02/20/21 History topical ointment (Calmoseptine) Allergies Allergy/AdvReac Type Severity Reaction Status Date / Time adhesive tape AdvReac Intermediate PEELING OF Verified 02/20/21 22:30 SKIN cefdinir AdvReac Intermediate Migraine Verified 02/20/21 22:30 erythromycin base AdvReac Intermediate MYCIN Verified 02/20/21 22:30 DRUGS-YEAST INFECTIONS tramadol AdvReac Intermediate MAKES Verified 02/20/21 22:30 HEADACHS WORSE--vestibular sx Past Med/Surg History Medical History Anxiety Cervical cancer at age 29--sx Closed head injury Depression Difficulty swallowing Fall History of gastric ulcer Hypothyroidism Intractable back pain On anticoagulant therapy eliquis daily Oropharyngeal dysphagia Osteoarthritis Pulmonary embolism reason for eliquis T12 compression fracture Tinnitus of both ears Upper abdominal pain Vertigo Vestibular migraine reason for verapamil Surgical History History of adenoidectomy History of appendectomy History of bilateral cataract extraction History of cholecystectomy History of colonoscopy History of hysterectomy History of tonsillectomy History of tooth extraction Family History Son Family history of diabetes mellitus Social History Smoking Status: Never smoker Tobacco Type: Cigarettes Second Hand Exposure: Yes ( smoked/father smoked); Hx Alcohol Use: No Hx Substance Use: No Preferred Language: Spanish Communication Ability: Impaired 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 Metal Furniture Required: No Beliefs That Will Affect Care: None marital status: / Current Living Situation: Group Home Current Living Situation Comment: lives with daughter current occupational status: retired Feels Safe at Home: Yes Assistive Devices: Brace/Splint/Immobilizer Review of Systems A total of 10 systems reviewed and were otherwise negative Physical Exam Vital Signs Vital Signs - 24 hr 05/08/21 12:09 05/08/21 12:12 05/08/21 12:19 Pulse Rate 127 H 124 H 122 H Pulse Rate [Apical] Pulse Rate from SpO2 Sensor 89 90 Pulse Rhythm Regular Pulse Strength Normal Respiratory Rate 26 H 19 19 Respiratory Effort / Characteristics Non-Labored Respiratory Depth Normal Respiratory Pattern Regular Blood Pressure 80/50 L 67/41 L 61/47 L Blood Pressure [Left Arm] Blood Pressure Mean 60 49 51 Blood Pressure Mean [Left Arm] Blood Pressure Position Lying Pulse Oximetry 86 L 87 L 86 L Oxygen Delivery Method Room Air Oxygen Flow Rate Sepsis Recent Fever Within 48 Hours No Sepsis New/Unexplained Change in Mental Status Yes Sepsis Action Taken by Nursing Physician Notified 05/08/21 12:23 05/08/21 12:27 05/08/21 12:30 Pulse Rate 126 H 121 H Pulse Rate [Apical] 121 H Pulse Rate from SpO2 Sensor 107 H 99 H Pulse Rhythm Pulse Strength Respiratory Rate 19 29 H 29 H Respiratory Effort / Characteristics Non-Labored Spontaneous Respiratory Depth Respiratory Pattern Blood Pressure 69/56 L Blood Pressure [Left Arm] 76/56 L Blood Pressure Mean 62 60 Blood Pressure Mean [Left Arm] 62 Blood Pressure Position Pulse Oximetry 95 95 94 Oxygen Delivery Method Nasal Cannula Nasal Cannula Nasal Cannula Oxygen Flow Rate 5 5 5 Sepsis Recent Fever Within 48 Hours Sepsis New/Unexplained Change in Mental Status Sepsis Action Taken by Nursing 05/08/21 12:37 05/08/21 12:39 05/08/21 12:46 Pulse Rate 116 H Pulse Rate [Apical] 117 H Pulse Rate from SpO2 Sensor 88 Pulse Rhythm Pulse Strength Respiratory Rate 23 23 Respiratory Effort / Characteristics Respiratory Depth Respiratory Pattern Blood Pressure 65/42 L Blood Pressure [Left Arm] 82/54 L Blood Pressure Mean 49 Blood Pressure Mean [Left Arm] 63 Blood Pressure Position Pulse Oximetry 95 94 94 Oxygen Delivery Method Nasal Cannula Nasal Cannula Nasal Cannula Oxygen Flow Rate 5 5 5 Sepsis Recent Fever Within 48 Hours Sepsis New/Unexplained Change in Mental Status Sepsis Action Taken by Nursing 05/08/21 13:00 05/08/21 13:17 05/08/21 13:30 Pulse Rate 120 H 113 H 122 H Pulse Rate [Apical] Pulse Rate from SpO2 Sensor 90 93 H 99 H Pulse Rhythm Pulse Strength Respiratory Rate 46 H 17 Respiratory Effort / Characteristics Respiratory Depth Respiratory Pattern Blood Pressure 72/47 L 52/40 L Blood Pressure [Left Arm] Blood Pressure Mean 55 44 Blood Pressure Mean [Left Arm] Blood Pressure Position Pulse Oximetry 94 96 95 Oxygen Delivery Method Nasal Cannula Nasal Cannula Oxygen Flow Rate 5 6 Sepsis Recent Fever Within 48 Hours Sepsis New/Unexplained Change in Mental Status Sepsis Action Taken by Nursing 05/08/21 13:57 05/08/21 14:00 05/08/21 14:06 Pulse Rate 108 H Pulse Rate [Apical] Pulse Rate from SpO2 Sensor 94 H Pulse Rhythm Pulse Strength Respiratory Rate 20 37 H Respiratory Effort / Characteristics Non-Labored Non-Labored Respiratory Depth Respiratory Pattern Blood Pressure 112/70 Blood Pressure [Left Arm] Blood Pressure Mean 84 Blood Pressure Mean [Left Arm] Blood Pressure Position Pulse Oximetry 97 89 L Oxygen Delivery Method Room Air Oxygen Flow Rate Sepsis Recent Fever Within 48 Hours Sepsis New/Unexplained Change in Mental Status Sepsis Action Taken by Nursing CONSTITUTIONAL/VITAL SIGNS: Reviewed / noted above. GENERAL: Non-toxic in appearance. INTEGUMENTARY: Warm, dry, and Gerster. HEAD: Normocephalic. EYES: without scleral icterus or trauma. ENT/OROPHARYNX: clear and moist. Positive JVD. LYMPHADENOPATHY/NECK: Is supple without lymphadenopathy or meningismus. RESPIRATORY: Clear to auscultation bilaterally. No increased work of breathing. CARDIOVASCULAR: Regular rate and rhythm. GI/ABDOMEN: Soft and nontender. No organomegaly or pulsatile mass. EXTREMITIES: Warm and well perfused. BACK: No CVA tenderness. NEUROLOGICAL: Intact without focal deficits. PSYCHIATRIC: normal affect. MUSCULOSKELETAL: Normally developed with good muscle tone. TRIAGE NURSING DOCUMENTATION REVIEWED. Course Administered Medications Discontinued Medications Sodium Chloride (Nss 1000ml) 1,000 mls @ 999 mls/hr IV .Q1H1M PENNIE Stop: 05/08/21 13:30 Last Infusion: 05/08/21 13:16 Dose: 999 mls/hr Documented by: [id number] Admin: 05/08/21 12:15 Dose: 999 mls/hr Documented by: [id number] Sodium Chloride (Nss 1000ml) 1,000 mls @ 999 mls/hr IV .Q1H1M PENNIE Stop: 05/08/21 13:28 Last Infusion: 05/08/21 13:39 Dose: 999 mls/hr Documented by: [id number] Admin: 09/07/21 12:38 Dose: 999 mls/hr Documented by: [id number] Ioversol (Optiray 320 125ml) 120 ml IV ONCE ONE Stop: 05/08/21 13:33 Last Admin: 05/08/21 13:32 Dose: 120 ml Documented by: [id number] Critical Care Time Critical Care Time: Yes Total Critical Care Time: 45 I have personally spent 45 minutes of critical care time in the direct management of this patient. This includes bedside care, interpretation of diagnostic studies, and testing, discussion with consultants, patient, and family members, and other required patient management activities. This 45 minut es is in excess of all separately billable procedures. Medical Decision Making Differential Diagnosis Differential includes acute coronary syndrome, myocardial infarction, CVA, TIA, anemia, infection, pneumonia, UTI, pyelonephritis, poor nutrition, dehydration, electrolyte disturbance,hypoglycemia. Medical Records Attestation: I reviewed the patient's medical records. Home Medications Current Medication List: was personally reviewed by me Laboratory Data Attestation: I reviewed the patient's lab results. Result diagrams: 05/08/21 12:21 05/08/21 12:21 Lab Results 05/08/21 05/08/21 05/08/21 Range/Units 12:21 12:21 12:21 WBC 11.64 H (4.8-10.8) K/uL RBC 4.34 (4.2-5.4) M/uL Hgb 12.8 (12.0-16.0) g/dL POC Hgb (12.0-16.0) g/dl Hct 39.3 (37-47) % POC Hct (37-47) % MCV 90.6 (80-100) fL MCH 29.5 (25-34) pg MCHC 32.6 (32-36) g/dL RDW Std Deviation 45.7 (36.4-46.3) fL RDW Coeff of Bety 13.9 (11.5-14.5) % Plt Count 392 (130-400) K/uL MPV 10.4 (7.4-10.4) fL Immature Gran % (Auto) 0.8 % Neut % (Auto) 74.2 % Lymph % (Auto) 17.9 % [place] % (Auto) 6.3 % Eos % (Auto) 0.6 % Baso % (Auto) 0.2 % Neut # (Auto) 8.65 H (1.4-6.5) K/uL Lymph # (Auto) 2.08 (1.2-3.4) K/uL [place] # (Auto) 0.73 H (0.11-0.59) K/uL Eos # (Auto) 0.07 (0-0.5) K/uL Baso # (Auto) 0.02 (0-0.2) K/uL Immature Gran # (Auto) 0.09 H (0.00-0.02) K/uL PT 10.1 (9.0-12.0) Seconds INR 1.0 (0.9-1.1) APTT 26.0 (21.0-31.0) Seconds PTT Ratio 1.0 POC Sodium (135-144) mmol/L Sodium 136 (136-145) mmol/L POC Potassium (3.3-5.0) mmol/L Potassium 4.0 (3.5-5.1) mmol/L POC Chloride (101-112) mmol/L Chloride 107 (98-107) mmol/L Carbon Dioxide 18 L (21-32) mmol/L POC Total CO2 (24-31) mmol/L Anion Gap 11.0 (3-11) POC Anion Gap (16-25) mmol/L POC BUN (7-18) mg/dl BUN 6 L (7-18) mg/dl Creatinine 1.01 (0.6-1.2) mg/dl POC Creatinine (0.6-1.3) mg/dl Est Cr Clr Drug Dosing 37.8 ml/min Est GFR ( Amer) 58.4 ml/min Est GFR (Non-Af Amer) 50.4 ml/min BUN/Creatinine Ratio 6.2 L (10-20) Glucose 239 H (70-99) mg/dl POC Glucose (other) (70-99) mg/dl Lactate (0.4-2.0) mmol/L Calcium 8.8 (8.5-10.1) mg/dl POC Ioniz Calcium Andrae (1.12-1.32) mmol/l Magnesium 2.2 (1.8-2.4) mg/dl Total Bilirubin 0.5 (0.2-1) mg/dl AST 54 H (15-37) U/L ALT 34 (12-78) U/L Alkaline Phosphatase 147 H (45-117) U/L Troponin I 0.031 (0-0.045) ng/ml Total Protein 7.1 (6.4-8.2) gm/dl Albumin 2.8 L (3.4-5.0) gm/dl Globulin 4.3 H (2.5-4.0) gm/dl Albumin/Globulin Ratio 0.7 L (0.9-2) Procalcitonin (0-0.5) ng/ml COVID-19 Eval Order Blood Type Antibody Screen 05/08/21 05/08/21 05/08/21 Range/Units 12:21 12:25 12:43 WBC (4.8-10.8) K/uL RBC (4.2-5.4) M/uL Hgb (12.0-16.0) g/dL POC Hgb 13.6 (12.0-16.0) g/dl Hct (37-47) % POC Hct 40 (37-47) % MCV (80-100) fL MCH (25-34) pg MCHC (32-36) g/dL RDW Std Deviation (36.4-46.3) fL RDW Coeff of Bety (11.5-14.5) % Plt Count (130-400) K/uL MPV (7.4-10.4) fL Immature Gran % (Auto) % Neut % (Auto) % Lymph % (Auto) % [place] % (Auto) % Eos % (Auto) % Baso % (Auto) % Neut # (Auto) (1.4-6.5) K/uL Lymph # (Auto) (1.2-3.4) K/uL [place] # (Auto) (0.11-0.59) K/uL Eos # (Auto) (0-0.5) K/uL Baso # (Auto) (0-0.2) K/uL Immature Gran # (Auto) (0.00-0.02) K/uL PT (9.0-12.0) Seconds INR (0.9-1.1) APTT (21.0-31.0) Seconds PTT Ratio POC Sodium 136 (135-144) mmol/L Sodium (136-145) mmol/L POC Potassium 4.1 (3.3-5.0) mmol/L Potassium (3.5-5.1) mmol/L POC Chloride 103 (101-112) mmol/L Chloride (98-107) mmol/L Carbon Dioxide (21-32) mmol/L POC Total CO2 18 L (24-31) mmol/L Anion Gap (3-11) POC Anion Gap 20.0 (16-25) mmol/L POC BUN 5 L (7-18) mg/dl BUN (7-18) mg/dl Creatinine (0.6-1.2) mg/dl POC Creatinine 0.7 (0.6-1.3) mg/dl Est Cr Clr Drug Dosing ml/min Est GFR ( Amer) ml/min Est GFR (Non-Af Amer) ml/min BUN/Creatinine Ratio (10-20) Glucose (70-99) mg/dl POC Glucose (other) 252 H (70-99) mg/dl Lactate 5.0 H* (0.4-2.0) mmol/L Calcium (8.5-10.1) mg/dl POC Ioniz Calcium Andrae 1.16 (1.12-1.32) mmol/l Magnesium (1.8-2.4) mg/dl Total Bilirubin (0.2-1) mg/dl AST (15-37) U/L ALT (12-78) U/L Alkaline Phosphatase (45-117) U/L Troponin I (0-0.045) ng/ml Total Protein (6.4-8.2) gm/dl Albumin (3.4-5.0) gm/dl Globulin (2.5-4.0) gm/dl Albumin/Globulin Ratio (0.9-2) Procalcitonin 0.14 (0-0.5) ng/ml COVID-19 Eval Order Blood Type Antibody Screen 05/08/21 05/08/21 Range/Units 12:43 13:29 WBC (4.8-10.8) K/uL RBC (4.2-5.4) M/uL Hgb (12.0-16.0) g/dL POC Hgb (12.0-16.0) g/dl Hct (37-47) % POC Hct (37-47) % MCV (80-100) fL MCH (25-34) pg MCHC (32-36) g/dL RDW Std Deviation (36.4-46.3) fL RDW Coeff of Beyt (11.5-14.5) % Plt Count (130-400) K/uL MPV (7.4-10.4) fL Immature Gran % (Auto) % Neut % (Auto) % Lymph % (Auto) % [place] % (Auto) % Eos % (Auto) % Baso % (Auto) % Neut # (Auto) (1.4-6.5) K/uL Lymph # (Auto) (1.2-3.4) K/uL [place] # (Auto) (0.11-0.59) K/uL Eos # (Auto) (0-0.5) K/uL Baso # (Auto) (0-0.2) K/uL Immature Gran # (Auto) (0.00-0.02) K/uL PT (9.0-12.0) Seconds INR (0.9-1.1) APTT (21.0-31.0) Seconds PTT Ratio POC Sodium (135-144) mmol/L Sodium (136-145) mmol/L POC Potassium (3.3-5.0) mmol/L Potassium (3.5-5.1) mmol/L POC Chloride (101-112) mmol/L Chloride (98-107) mmol/L Carbon Dioxide (21-32) mmol/L POC Total CO2 (24-31) mmol/L Anion Gap (3-11) POC Anion Gap (16-25) mmol/L POC BUN (7-18) mg/dl BUN (7-18) mg/dl Creatinine (0.6-1.2) mg/dl POC Creatinine (0.6-1.3) mg/dl Est Cr Clr Drug Dosing ml/min Est GFR ( Amer) ml/min Est GFR (Non-Af Amer) ml/min BUN/Creatinine Ratio (10-20) Glucose (70-99) mg/dl POC Glucose (other) (70-99) mg/dl Lactate (0.4-2.0) mmol/L Calcium (8.5-10.1) mg/dl POC Ioniz Calcium Andrae (1.12-1.32) mmol/l Magnesium (1.8-2.4) mg/dl Total Bilirubin (0.2-1) mg/dl AST (15-37) U/L ALT (12-78) U/L Alkaline Phosphatase (45-117) U/L Troponin I (0-0.045) ng/ml Total Protein (6.4-8.2) gm/dl Albumin (3.4-5.0) gm/dl Globulin (2.5-4.0) gm/dl Albumin/Globulin Ratio (0.9-2) Procalcitonin (0-0.5) ng/ml COVID-19 Eval Order Covid19 at [facility] Blood Type A Positive Antibody Screen NEGATIVE Imaging Data Radiologist's Impression: Chest X-Ray 05/08/21 12:27 XR chest 1V portable CLINICAL HISTORY: SEPSIS COMPARISON STUDY: Chest CT June 22, 2020. Chest radiograph January 12, 2021. FINDINGS: Patient is rotated. Lung volumes are normal. Lungs are clear. There is no pneumothorax or pleural effusion. Cardiomegaly is unchanged. Mediastinal contours are normal. There is no evidence for pulmonary edema. IMPRESSION: No acute cardiopulmonary findings. No significant change in appearance of the chest. ACT 112: Negative or not required by law. Electronically signed by: Ean Quiroz M.D. 05/08/2021 1:11 PM Abdomen/Pelvis CT 05/08/21 13:15 CT abd pelvis IV con only CLINICAL HISTORY: hypotension COMPARISON STUDY: June 22, 2020 TECHNIQUE: A dose lowering technique was utilized adhering to the principles of ALARA. CT DOSE: FINDINGS: Lower chest: Please see report of the CT of the chest.. Liver: The contrast-enhanced liver is normal in size and contour . Heterogeneous attenuation of liver parenchyma is seen. There is no intrahepatic biliary ductal dilatation. There is extension of the intravenous contrast to the inferior vena cava and hepatic veins. Gallbladder: Is surgically absent. Spleen: Normal in size and attenuation. Pancreas: Unremarkable. Adrenal glands: Unremarkable. Kidneys: There is symmetric renal cortical enhancement. The kidneys are normal in size without hydronephrosis. Pelvic viscera: Urinary bladder is partially decompressed which limits evaluation. Diffuse thickening of urinary bladder wall with mild surrounding fat stranding could represent cystitis. Image quality is partially degraded due to beam hardening artifact from the right hip prosthetic joint. Bowel: Bowel loops are nondilated. Appendix is not well seen. Diverticulosis of sigmoid colon is seen without evidence of diverticulitis. Midportion of the rectum is slightly dilated with air-fluid level. There is mild thickening of the rectal wall which might represent proctitis. Please correlate with clinical presentation. Peritoneum: There is no intraperitoneal free air or abdominal ascites. Vasculature: Abdominal aorta is tortuous with extensive calcified plaques within its wall and small area of ectasia within infrarenal aorta measuring 2.1 cm Adenopathy: None. Skeletal structures: Osteopenia. Multilevel degenerative changes of the spine. Compression fracture deformity of the T12, unchanged since prior. Vertebral hemangioma is again seen within L3 level. IMPRESSION: 1. Calcified tortuous abdominal aorta with small area of ectasia. 2. Nondilated loops of bowel. Possible proctitis. Diverticulosis of sigmoid colon without evidence of diverticulitis. 3. Thickening of the urinary bladder wall is surrounding fat stranding might represent cystitis. 4. The rest of findings as above. ACT 112: Negative or not required by law. The above report was generated using voice recognition software. It may contain grammatical, syntax or spelling errors. Electronically signed by: Ekta Armendariz DO 05/08/2021 2:21 PM Chest CTA 05/08/21 13:15 CT angio chest PE protocol CT DOSE: 620.86 mGy.cm HISTORY: 85 years-old Female with hypoxia, tachycardia. Acute hypoxia with tachycardia TECHNIQUE: Multiple CTA images of the chest were obtained after the intravenous administration of 120 ml Optiray. Coronal and sagittal MIPS were obtained from the axial data set and were submitted for review. All measurements were obtained according to NASCET criteria. A dose lowering technique was utilized adhering to the principles of ALARA. COMPARISON: CT abdomen and pelvis of same day, chest CT 06/22/2020, 05/13/2019. FINDINGS: CTA: Moderate to marked multichamber cardiac enlargement. Trace pericardial effusion. Extensive coronary artery calcifications. The left heart structures are suboptimally evaluated secondary to contrast bolus timing. Extensive atherosclerotic plaque without thoracic aortic aneurysm or dissection identified. Dilation of the right heart chambers with straightening of the intraventricular septum. Reflux of contrast into the IVC and hepatic veins. Exte nsive bilateral pulmonary emboli involve the distal aspects of the bilateral main right left pulmonary arteries extending into the lobar, segmental and subsegmental branches bilaterally. CT CHEST: No thyroid nodules identified. Bilobed ovoid circumscribed 1.7 x 0.9 cm nodule within the anterior mediastinum is unchanged dating back to at least 2019. No pneumothorax, pleural effusion or overt pulmonary edema. Mild dependent subsegmental bibasilar atelectasis. No suspicious pulmonary nodules or masses. No pulmonary infarct. Typical segmental consolidation suggestive of scarring/atelectasis with bronchiectasis of the inferior segment lingula. Central airways are patent. Mild nonspecific distal esophageal wall thickening. Unremarkable soft tissues. Degenerative changes of the shoulders and spine. There is no acute fracture. Unchanged T12 superior endplate compression deformity. IMPRESSION: 1. Extensive bilateral pulmonary emboli with evidence of right heart strain. 2. Mild dependent bibasilar atelectasis. 3. Cardiomegaly. 4. Unchanged 1.6 x 0.9 cm anterior mediastinal nodule is stable dating back to at least 2019. ACT 112: Negative or not required by law. The above report was generated using voice recognition software. It may contain grammatical, syntax or spelling errors. Electronically signed by: Anil Victor M.D. 05/08/2021 1:58 PM ECG Data Attestation: I personally reviewed and interpreted this ECG as follows: Additional Comments: Twelve-lead EKG: Per my interpretation shows a sinus tach at a rate of 125. PACs. Low voltage. No PVCs. Normal QTC. MDM Narrative Patient presents to the ED with the only complaint of feeling ill and having some nausea and vomiting in route. She was found to be hypotensive here and hypoxic as well as tachycardic. 5 L of nasal cannula improved her saturations at 95%. Twelve-lead EKG shows a sinus tach without acute ischemic changes. There is low voltage. A bedside ultrasound of the heart did not show any pericardial effusion. CT scan of the chest shows evidence of bilateral PE with right heart strain. CT scan of the abdomen pelvis did not show acute abnormality. Chest x-ray is negative for acute disease. White blood cell count was 11.6. Glucose is 239. Troponin is negative. Lactic acid of 5.0. The patient did receive 2 L of normal saline IV. She did have hypotension at one point where her blood pressure was 52/60. The norepinephrine did not get started as her blood pressure did improve after the 2 L bolus was given to 112/70. I did have the daughter who is also the power of estate attorney signed consent for IV thrombolytics. I spoke with Dr. Dubois from the ICU. He also evaluated the patient in the ER and is in agreement with IV thrombolytics. The patient also was in agreement with the plan. Impression & Plan Bilateral pulmonary embolism, Hypoxia, Acute hypotension Discharge Plan Visit Data Chief Complaint: Illness ED Provider: Sae Bernal Discharge Problem: Bilateral pulmonary embolism, Hypoxia, Acute hypotension Patient Disposition: Admitted As Inpatient Forms Stand Alone Forms: My [facility], Virtual Emergency Department, Important Visit Information Prescriptions Prescriptions: No Action polyethylene glycol 3350 [Miralax] 17 gram Powder In Packet 17 g PO QAM RF: 0 clopidogrel 75 mg Tablet 75 mg PO HS RF: 0 Eliquis 2.5 mg Tablet 2.5 mg PO BID RF: 0 dicyclomine 10 mg capsule 10 mg PO Q6 PRN (Reason: Pain) RF: 0 cyanocobalamin (vitamin B-12) 250 mcg Tablet 500 mcg PO BID RF: 0 Calmoseptine 0.44-20.6 % Ointment 1 applic TOPICAL BID RF: 0 sennosides [senna] 8.6 mg Tablet 8.6 mg PO BID RF: 0 acetaminophen [Tylenol] 325 mg Tablet 650 mg PO DAILY MDD 3g PRN (Reason: Fever Or Pain) RF: 0 citalopram [Celexa] 10 mg Tablet 5 mg PO PM RF: 0 thiamine HCl (vitamin B1) 100 mg Tablet 100 mg PO QAM RF: 0 calcium carbonate [Tums] 200 mg calcium (500 mg) Tablet,Chewable 400 mg PO Q4H PRN (Reason: Heartburn) RF: 0 mirtazapine [Remeron] 15 mg Tablet 7.5 mg PO HS RF: 0 ondansetron 4 mg Tablet,Disintegrating 4 mg PO Q8H PRN (Reason: Nausea And Vomiting) RF: 0 omeprazole 20 mg Tablet,Delayed Release (Dr/Ec) 20 mg PO QAM RF: 0 levothyroxine [Synthroid] 150 mcg Tablet 150 mcg PO DAILYBB Qty: 30 RF: 0 Referrals Referrals: [facility] [Primary Care Provider] -
[2021-05-08 13:00] LABS: Basophils # (auto) 0.02 K/uL (0-0.2); Basophils % (auto) 0.2 %; Eosinophils # (auto) 0.07 K/uL (0-0.5); Eosinophils % (auto) 0.6 %; Hematocrit (blood only) 39.3 % (37-47); Hemoglobin 12.8 g/dL (12.0-16.0); Immature Granulocytes # (auto) 0.09 K/uL (0.00-0.02); Immature Granulocytes % (auto) 0.8 %; Lymphocytes # (auto) 2.08 K/uL (1.2-3.4); Lymphocytes % (auto) 17.9 %; Mean Corpuscular Hemoglobin 29.5 pg (25-34); Mean Corpuscular Hgb Conc 32.6 g/dL (32-36); Mean Corpuscular Volume 90.6 fL (80-100); Mean Platelet Volume 10.4 fL (7.4-10.4); Monocytes # (auto) 0.73 K/uL (0.11-0.59); Monocytes % (auto) 6.3 %; Neutrophils # (auto) 8.65 K/uL (1.4-6.5); Neutrophils % (auto) 74.2 %; Platelet Count 392 K/uL (130-400); RDW Coefficient of Variation 13.9 % (11.5-14.5); RDW Standard Deviation 45.7 fL (36.4-46.3); Red Blood Count 4.34 M/uL (4.2-5.4); White Blood Count 11.64 K/uL (4.8-10.8)
[2021-05-08 13:09] LABS: Albumin Level 2.8 gm/dl (3.4-5.0); BUN Creatinine Ratio 6.2 (10-20); Calcium 8.8 mg/dl (8.5-10.1); Creatinine Clr Calc Pharmacy 37.8 ml/min; Est GFR (African American) 58.4 ml/min; Est GFR (Non-African American) 50.4 ml/min; Magnesium 2.2 mg/dl (1.8-2.4)
--- NOTE | 2021-05-08 13:12 | XRay Report ---
XR chest 1V portable CLINICAL HISTORY: SEPSIS COMPARISON STUDY: Chest CT June 22, 2020. Chest radiograph January 12, 2021. FINDINGS: Patient is rotated. Lung volumes are normal. Lungs are clear. There is no pneumothorax or p leural effusion. Cardiomegaly is unchanged. Mediastinal contours are normal. There is no evidence for pulmonary edema. IMPRESSION: No acute cardiopulmonary findings. No significant change in appearance of the chest. ACT 112: Negative or not required by law. Electronically signed by: Ean Quiroz M.D. 05/08/2021 1:11 PM
[2021-05-08 13:14] LABS: Prothrombin Time 10.1 Seconds (9.0-12.0)
[2021-05-08 13:15] LABS: Albumin Globulin Ratio 0.7 (0.9-2); Bilirubin,Total 0.5 mg/dl (0.2-1); Globulin 4.3 gm/dl (2.5-4.0); Total Protein 7.1 gm/dl (6.4-8.2); Troponin I 0.031 ng/ml (0-0.045)
[2021-05-08] MEDS ORDERED: STAT IV Infusion **Titration per Protocol STA (13:29)
[2021-05-08] MEDS ORDERED: NOREPINEPHRINE/D5W 8 MG/508 ML BAG IV SCH (13:30)
[2021-05-08] MEDS ORDERED: OPTIRAY 320 125ml IV ONE (13:32)
--- NOTE | 2021-05-08 14:00 | CT Scan Report ---
CT angio chest PE protocol CT DOSE: 620.86 mGy.cm HISTORY: 85 years-old Female with hypoxia, tachycardia. Acute hypoxia with tachycardia TECHNIQUE: Multiple CTA images of the chest were obtained after the intravenous administration of 120 ml Optiray. Coronal and sagittal MIPS were obtained from the axial data set and were submitted for review. All measurements were obtained according to NASCET criteria. A dose lowering technique was u tilized adhering to the principles of ALARA. COMPARISON: CT abdomen and pelvis of same day, chest CT 06/22/2020, 05/13/2019. FINDINGS: CTA: Moderate to marked multichamber cardiac enlargement. Trace pericardial effusion. Extensive coronary a rtery calcifications. The left heart structures are suboptimally evaluated secondary to contrast bolu s timing. Extensive atherosclerotic plaque without thoracic aortic aneurysm or dissection identified. Dilation of the right heart chambers with straightening of the intraventricular septum. Reflux of co ntrast into the IVC and hepatic veins. Extensive bilateral pulmonary emboli involve the distal aspect s of the bilateral main right left pulmonary arteries extending into the lobar, segmental and subsegm ental branches bilaterally. CT CHEST: No thyroid nodules identified. Bilobed ovoid circumscribed 1.7 x 0.9 cm nodule within the anterior me diastinum is unchanged dating back to at least 2019. No pneumothorax, pleural effusion or overt pulmo nary edema. Mild dependent subsegmental bibasilar atelectasis. No suspicious pulmonary nodules or mas ses. No pulmonary infarct. Typical segmental consolidation suggestive of scarring/atelectasis with br onchiectasis of the inferior segment lingula. Central airways are patent. Mild nonspecific distal esophageal wall thickening. Unremarkable soft tissues. Degenerative changes o f the shoulders and spine. There is no acute fracture. Unchanged T12 superior endplate compression de formity. IMPRESSION: 1. Extensive bilateral pulmonary emboli with evidence of right heart strain. 2. Mild dependent bibasilar atelectasis. 3. Cardiomegaly. 4. Unchanged 1.6 x 0.9 cm anterior mediastinal nodule is stable dating back to at least 2018. ACT 112: Negative or not required by law. The above report was generated using voice recognition software. It may contain grammatical, syntax o r spelling errors. Electronically signed by: Anil Victor M.D. 05/08/2021 1:58 PM
--- NOTE | 2021-05-08 14:23 | CT Scan Report ---
CT abd pelvis IV con only CLINICAL HISTORY: hypotension COMPARISON STUDY: June 22, 2020 TECHNIQUE: A dose lowering technique was utilized adhering to the principles of ALARA. CT DOSE: FINDINGS: Lower chest: Please see report of the CT of the chest.. Liver: The contrast-enhanced liver is normal in size and contour . Heterogeneous attenuation of liver parenchyma is seen. There is no intrahepatic biliary ductal dilatation. There is extension of the in travenous contrast to the inferior vena cava and hepatic veins. Gallbladder: Is surgically absent. Spleen: Normal in size and attenuation. Pancreas: Unremarkable. Adrenal glands: Unremarkable. Kidneys: There is symmetric renal cortical enhancement. The kidneys are normal in size without hydron ephrosis. Pelvic viscera: Urinary bladder is partially decompressed which limits evaluation. Diffuse thickening of urinary bladder wall with mild surrounding fat stranding could represent cystitis. Image quality is partially degraded due to beam hardening artifact from the right hip prosthetic joint. Bowel: Bowel loops are nondilated. Appendix is not well seen. Diverticulosis of sigmoid colon is seen without evidence of diverticulitis. Midportion of the rectum is slightly dilated with air-fluid leve l. There is mild thickening of the rectal wall which might represent proctitis. Please correlate with clinical presentation. Peritoneum: There is no intraperitoneal free air or abdominal ascites. Vasculature: Abdominal aorta is tortuous with extensive calcified plaques within its wall and small a daniel of ectasia within infrarenal aorta measuring 2.1 cm Adenopathy: None. Skeletal structures: Osteopenia. Multilevel degenerative changes of the spine. Compression fracture d eformity of the T12, unchanged since prior. Vertebral hemangioma is again seen within L3 level. IMPRESSION: 1. Calcified tortuous abdominal aorta with small area of ectasia. 2. Nondilated loops of bowel. Possible proctitis. Diverticulosis of sigmoid colon without evidence o f diverticulitis. 3. Thickening of the urinary bladder wall is surrounding fat stranding might represent cystitis. 4. The rest of findings as above. ACT 112: Negative or not required by law. The above report was generated using voice recognition software. It may contain grammatical, syntax o r spelling errors. Electronically signed by: Ekta Armendariz DO 05/08/2021 2:21 PM
[2021-05-08] MEDS ORDERED: ICU PROTOCOL FOR HYPERGLYCEMIA PRN (14:31)
[2021-05-08] MEDS ORDERED: DEXTROSE 50% 50 ML SYRINGE IV PRN (14:36)
[2021-05-08] MEDS ORDERED: CARBOHYDRATES FOR HYPOGLYCEMIA PO PRN (14:36)
[2021-05-08] MEDS ORDERED: ACETAMINOPHEN 325 MG TAB PO PRN (14:36)
[2021-05-08] MEDS ORDERED: GLUCAGON FOR INJ 1 MG VIAL SQ PRN (14:36)
[2021-05-08] MEDS ORDERED: GLUCOSE 40% GEL 15 GM TUBE PO PRN (14:36)
[2021-05-08] MEDS ORDERED: GLUCOSE 10 TABS/TUBE PO PRN (14:36)
[2021-05-08] MEDS ORDERED: oxyCODONE HCL IR 5 MG TAB (IMMEDIATE RELEASE) PO PRN ×2 (14:36)
[2021-05-08] MEDS ORDERED: ALTEPLASE 100mg IV over 2hr **For PE (FDA Approved) IV STA (14:51)
[2021-05-08] MEDS ORDERED: NSS 50 ML--Send if TPA given as SVP IV ONE (15:00)
[2021-05-08] MEDS ORDERED: HEPARIN SODIUM/DEXTROSE 25,000 UNITS/500 ML BAG IV SCH (15:00)
[2021-05-08 15:19] LABS: Appearance Urine Cloudy (Clear); Bacteria Urine Automated 4+ (Negative); Bilirubin Urine Negative (Negative); Blood Urine 2+ (Negative); Color Urine Yellow; Epithelial Cell Urine Auto 20-30 /lpf (0-5); Glucose Urine UA Negative (Negative); Ketones Urine Negative (Negative); Leukocyte Esterase Urine 2+ (Negative); Nitrite Urine Negative (Negative); Protein Urine 2+ (Negative); Specific Gravity Urine > 1.045 (1.000-1.030); Urobilinogen Urine Negative (Negative); WBC Urine Automated >30 /hpf (0-5); pH Urine 6.5 (4.5-7.5)
[2021-05-08] MEDS ORDERED: DICYCLOMINE HCL 10 MG CAP PO PRN (16:15)
--- NOTE | 2021-05-08 16:30 | Critical Care Consultation ---
Date of Consultation May 08, 2021 Assessment & Plan (1) Bilateral pulmonary embolism: Reason critically ill: 85 yo female admitted for bilateral pulmonary emboli s/p receiving TPA in the ED requiring ICU level care for close hemodynamic monitoring. NEURO: Reportedly intermittently confused at baseline. However, on my exam she is A/O x3. No acute concerns. Will continue to monitor. CARDIAC/VASCULAR: Hypotension - Transient hypotension resolved after IVF in ER - Current BP appropriate at 130/95 - Continue BP checks RESPIRATORY: Bilateral pulmonary emboli - CTA 05/08/21: Extensive bilateral pulmonary emboli with evidence of right heart strain. - S/p full dose TPA administered at 1459 - Home Eliquis held x 1.5 months (since 03/21/21) secondary to epistaxis (previously on Eliquis due to PE hx 5 years ago) - Will start Heparin after PTT checks s/p TPA per protocol - Patient consented for blood prodcuts and Type and Screen ordered should she need them Hypoxia - Secondary to PEs - No hx of supplemental O2 use previously - Continue supplemental O2 to maintain O2 sats > 92% - Suspect lactic acidosis secondary to hypoxia; lactate is downtrending; continue to trend lactate GI/NUTRITION: History of gastric ulcer - On omeprazole 20mg po BID at home - Will continue with protonix during admission - Monitor for bleeding History of mesenteric ischemia with stent - Continue home regimen of clopidogrel 75mg po hs History of oropharyngeal dysphagia - PIANO ACCOMPANIST consult in June 2020 with no signs of aspiration - However, following recommendations were made and can continue with those during this hospitalization: - Reflux precautions - Medications given in carrier like apple sauce, pudding, etc. - Slippery diet or IDDSI easy to chew diet per patient or patient's daughter request RENAL/LYTES: Electrolyte replacement per ICU protocol IVF with normosol at 50 cc/hr GENITOURINARY: Tenorio catheter in place. Strict Is/Os. ENDO: History of hypothyroidism - Continue levothyroxine 150mcg po daily No history of DM - ICU hyperglycemic protocol HEME: No acute issues. ID: + MRSA screen. No signs of infectious process at this time. Negative COVID on admission Blood and urine cultures are pending. Lines/IV Access: PIV DVT Prophylaxis: Received TPA; will start Heparin according to post-TPA protocol (2) Hypoxia: (3) Ambulatory dysfunction: (4) Hypothyroidism: Supervising Physician Co-Signing Physician Notes Dr. Saravia was resident physician during care of patient. I separately evaluated patient for escalante portions of the history and the exam. I was present during the critical portion of medical decision making, and I discussed the case with the resident. I generally agree with the findings and plan. Patient critically ill due to bilateral pulmonary emboli at high risk for mortality discussed risks and benefits of thrombolysis and and joint medical decision-making with patient and patient's daughter will proceed. She is also consented for blood transfusion should she require blood product. Patient is DNR/DNI in event of cardiac arrest or respiratory insufficiency. Patient critically ill. I have personally spent 70 minutes of critical care time in the direct management of this patient. This is a life/limb threatening event. This includes time spent evaluating patient, direct bedside care, chart review, placing orders, interpretation of diagnostic studies, discussion with consultants, patient, and/or family members regarding treatment decisions, as well as other required patient management activities. This time is exclusive of all separately billable procedures, and teaching time and separate from and in addition to any other critical care service time. History of Present Illness Attending Physician: Ramirez Suggs MD History of Present Illness Larissa Carter is an 85 yo female with a PMHx of b/l PE, UTI, anxiety, iron deficiency, osteoporosis, memory loss, and ambulatory dysfunction who initially presented to the ER with reported periods of apnea. History primarily obtained from medical records. Per ER records, patient was sent to the ER due to periods of apnea at the [place] [facility], emesis x2 en route with EMS. Records and patient's daughter note that she is confused at baseline. On arrival to the ER, patient complained of "feeling ill." She denied CROCKETT, CP, abd pain, SOB. Patient was found to be hypoxic with sats of 86%. A CTA revealed "extensive bilateral pulmonary emboli with evidence of right heart strain." On initial evaluation, patient found to be slightly confused but awake, alert, and conversant. She did complain of some difficulty breathing. No other specific complaints or concerns. TPA was discussed with patient and patient's daughter and they agreed to proceed with thrombolytic therapy. On arrival to the ED, patient is awake and alert. She has no specific complaints or concerns at this time. Allergies Allergy/AdvReac Type Severity Reaction Status Date / Time adhesive tape AdvReac Intermediate PEELING OF Verified 05/08/21 15:38 SKIN cefdinir AdvReac Intermediate Migraine Verified 05/08/21 15:38 erythromycin base AdvReac Intermediate MYCIN Verified 05/08/21 15:38 DRUGS-YEAST INFECTIONS tramadol AdvReac Intermediate MAKES Verified 05/08/21 15:38 HEADACHS WORSE--vestibular sx Home Medications Medication Instructions Recorded Confirmed Type polyethylene glycol 3350 17 gram 17 g PO QAM 06/24/19 05/08/21 History oral powder packet (Miralax) clopidogrel 75 mg tablet 75 mg PO HS 09/02/19 05/08/21 History acetaminophen 325 mg tablet 650 mg PO DAILY PRN MDD 3g 01/12/21 05/08/21 History (Tylenol) calcium carbonate 200 mg calcium 400 mg PO Q4H PRN 01/12/21 05/08/21 History (500 mg) chewable tablet (Tums) citalopram 10 mg tablet (Celexa) 5 mg PO PM 01/12/21 05/08/21 History mirtazapine 15 mg tablet (Remeron) 7.5 mg PO HS 01/12/21 05/08/21 History omeprazole 20 mg tablet,delayed 20 mg PO BID 01/12/21 05/08/21 History release ondansetron 4 mg disintegrating 4 mg PO Q8H PRN 01/12/21 05/08/21 History tablet sennosides 8.6 mg tablet (senna) 8.6 mg PO BID 01/12/21 05/08/21 History thiamine HCl (vitamin B1) 100 mg 100 mg PO QAM 01/12/21 05/08/21 History tablet levothyroxine 150 mcg tablet 150 mcg PO DAILYBB #30 tab 01/18/21 05/08/21 Rx (Synthroid) cyanocobalamin (vitamin B-12) 250 500 mcg PO BID 02/20/21 05/08/21 History mcg tablet menthol 0.44 %-zinc oxide 20.6 % 1 applic TOPICAL BID 02/20/21 05/08/21 History topical ointment (Calmoseptine) ketoconazole 2 % shampoo 1 ea TOPICAL 2XWK 05/08/21 05/08/21 History Patient History Medical History Anxiety Cervical cancer at age 29--sx Closed head injury Depression Difficulty swallowing Diverticulosis of colon (without mention of hemorrhage) Fall History of gastric ulcer Hypothyroidism Intractable back pain Irritable bowel syndrome On anticoagulant therapy eliquis daily Oropharyngeal dysphagia Osteoarthritis Pulmonary embolism reason for eliquis T12 compression fracture Tinnitus of both ears Upper abdominal pain Vertigo Vestibular migraine reason for verapamil Surgical History History of adenoidectomy History of appendectomy History of bilateral cataract extraction History of cholecystectomy History of colonoscopy History of hysterectomy History of tonsillectomy History of tooth extraction Family History Son Family history of diabetes mellitus Social History (Updated 05/08/21 @ 17:03 by Asael Lees PA-C) Smoking Status: Former smoker Tobacco Type: Cigarettes Age Started Using Tobacco: 21; Age Quit Using Tobacco: 23; Years Smoked: 2; Second Hand Exposure: Yes ( smoked/father smoked); Hx Alcohol Use: No Hx Substance Use: No Preferred Language: Indonesian Communication Ability: Impaired 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: No Beliefs That Will Affect Care: None marital status: / Current Living Situation: Long-Term Current Living Situation Comment: [facility] [place] [facility] current occupational status: retired How many Children do You have: 2 Other Information That Helps Us Care for You: No Feels Safe at Home: Yes Safety Concerns: Feels Safe At This Time Assistive Devices: Brace/Splint/Immobilizer and Wheelchair Assistive Devices Comment: Requires wheelchair for ambulation Review of Systems Constitutional: no fever and no chills Eyes: no worsening vision Respiratory: no cough and no dyspnea Cardiovascular: no chest pain and no dyspnea at rest Gastrointestinal: no abdominal pain, no nausea and no vomiting Genitourinary: no problem reported Musculoskeletal: no problem reported Integumentary: no problem reported Neurologic: no dizziness and no headache(s) Psychiatric: no problem reported Physical Exam Physical Exam: GENERAL: No acute distress. Well developed and well nourished. Vital signs reviewed as above. EYES: EOMI. Anicteric sclerae. HENT: Moist mucous membranes. RESPIRATORY: Clear to auscultation bilaterally. No wheezing, rales, or rhonchi. CARDIOVASCULAR: Regular rate and rhythm. No murmurs. 2+ pedal pulses bilaterally. ABDOMEN: Soft, non-tender and non-distended. Normal bowel sounds. EXTREMITIES: No edema. Non-tender. SKIN: Warm, dry. NEUROLOGIC: A/O x3. No focal neurological deficits. PSYCHIATRIC: Cooperative. Appropriate mood and affect. Results & Data Results & Data ([facility]) Vital Signs (Past 12 Hours) Vital Signs Pulse Pulse Resp BP BP Pulse Ox 05/08/21 15:30 111 H 26 H 100/61 94 05/08/21 15:16 112 H 25 H 100/62 94 05/08/21 15:01 111 H 30 H 97 05/08/21 15:00 97 05/08/21 14:46 119 H 29 H 126/67 97 05/08/21 14:31 115 H 26 H 109/59 L 98 05/08/21 14:15 105 H 25 H 110/76 96 05/08/21 14:00 108 H 37 H 112/70 89 L 05/08/21 13:57 20 97 05/08/21 13:30 122 H 95 05/08/21 13:17 113 H 17 52/40 L 96 05/08/21 13:00 120 H 46 H 72/47 L 94 05/08/21 12:46 116 H 23 65/42 L 94 05/08/21 12:39 94 05/08/21 12:37 117 H 23 82/54 L 95 05/08/21 12:30 121 H 29 H 69/56 L 94 05/08/21 12:27 121 H 29 H 76/56 L 95 05/08/21 12:23 126 H 19 95 05/08/21 12:19 122 H 19 61/47 L 86 L 05/08/21 12:12 124 H 19 67/41 L 87 L 05/08/21 12:09 127 H 26 H 80/50 L 86 L Laboratory Results 05/08/21 05/08/21 05/08/21 Range/Units 17:49 16:00 14:53 WBC (4.8-10.8) K/uL RBC (4.2-5.4) M/uL Hgb (12.0-16.0) g/dL POC Hgb (12.0-16.0) g/dl Hct (37-47) % POC Hct (37-47) % MCV (80-100) fL MCH (25-34) pg MCHC (32-36) g/dL RDW Std Deviation (36.4-46.3) fL RDW Coeff of Bety (11.5-14.5) % Plt Count (130-400) K/uL MPV (7.4-10.4) fL Immature Gran % (Auto) % Neut % (Auto) % Lymph % (Auto) % Lamar % (Auto) % Eos % (Auto) % Baso % (Auto) % Neut # (Auto) (1.4-6.5) K/uL Lymph # (Auto) (1.2-3.4) K/uL Lamar # (Auto) (0.11-0.59) K/uL Eos # (Auto) (0-0.5) K/uL Baso # (Auto) (0-0.2) K/uL Immature Gran # (Auto) (0.00-0.02) K/uL PT (9.0-12.0) Seconds INR (0.9-1.1) APTT (21.0-31.0) Seconds PTT Ratio POC Sodium (135-144) mmol/L Sodium (136-145) mmol/L POC Potassium (3.3-5.0) mmol/L Potassium (3.5-5.1) mmol/L POC Chloride (101-112) mmol/L Chloride (98-107) mmol/L Carbon Dioxide (21-32) mmol/L POC Total CO2 (24-31) mmol/L Anion Gap (3-11) POC Anion Gap (16-25) mmol/L POC BUN (7-18) mg/dl BUN (7-18) mg/dl Creatinine (0.6-1.2) mg/dl POC Creatinine (0.6-1.3) mg/dl Est Cr Clr Drug Dosing ml/min Est GFR ( Amer) ml/min Est GFR (Non-Af Amer) ml/min BUN/Creatinine Ratio (10-20) Glucose (70-99) mg/dl POC Glucose 108 H (70-99) mg/dl POC Glucose (other) (70-99) mg/dl Lactate 3.8 H* (0.4-2.0) mmol/L Calcium (8.5-10.1) mg/dl POC Ioniz Calcium Andrae (1.12-1.32) mmol/l Magnesium (1.8-2.4) mg/dl Total Bilirubin (0.2-1) mg/dl AST (15-37) U/L ALT (12-78) U/L Alkaline Phosphatase (45-117) U/L Troponin I (0-0.045) ng/ml Total Protein (6.4-8.2) gm/dl Albumin (3.4-5.0) gm/dl Globulin (2.5-4.0) gm/dl Albumin/Globulin Ratio (0.9-2) Procalcitonin (0-0.5) ng/ml Urine Color Urine Appearance (Clear) Urine pH (4.5-7.5) Ur Specific Beaver (1.000-1.030) Urine Protein (Negative) Urine Glucose (UA) (Negative) Urine Ketones (Negative) Urine Blood (Negative) Urine Nitrite (Negative) Urine Bilirubin (Negative) Urine Urobilinogen (Negative) Ur Leukocyte Esterase (Negative) Urine WBC (Auto) (0-5) /hpf Urine RBC (Auto) (0-4) /hpf U Hyaline Cast (Auto) (0-5) /lpf U Epithel Cells (Auto) (0-5) /lpf Urine Bacteria (Auto) (Negative) Urine Yeast Nasal Screen MRSA (PCR) Positive A (Negative) COVID-19 Eval Order SARS-CoV-2 (PCR) (Negative) Blood Type Antibody Screen 05/08/21 05/08/21 05/08/21 Range/Units 14:51 13:29 13:29 WBC (4.8-10.8) K/uL RBC (4.2-5.4) M/uL Hgb (12.0-16.0) g/dL POC Hgb (12.0-16.0) g/dl Hct (37-47) % POC Hct (37-47) % MCV (80-100) fL MCH (25-34) pg MCHC (32-36) g/dL RDW Std Deviation (36.4-46.3) fL RDW Coeff of Bety (11.5-14.5) % Plt Count (130-400) K/uL MPV (7.4-10.4) fL Immature Gran % (Auto) % Neut % (Auto) % Lymph % (Auto) % Lamar % (Auto) % Eos % (Auto) % Baso % (Auto) % Neut # (Auto) (1.4-6.5) K/uL Lymph # (Auto) (1.2-3.4) K/uL Lamar # (Auto) (0.11-0.59) K/uL Eos # (Auto) (0-0.5) K/uL Baso # (Auto) (0-0.2) K/uL Immature Gran # (Auto) (0.00-0.02) K/uL PT (9.0-12.0) Seconds INR (0.9-1.1) APTT (21.0-31.0) Seconds PTT Ratio POC Sodium (135-144) mmol/L Sodium (136-145) mmol/L POC Potassium (3.3-5.0) mmol/L Potassium (3.5-5.1) mmol/L POC Chloride (101-112) mmol/L Chloride (98-107) mmol/L Carbon Dioxide (21-32) mmol/L POC Total CO2 (24-31) mmol/L Anion Gap (3-11) POC Anion Gap (16-25) mmol/L POC BUN (7-18) mg/dl BUN (7-18) mg/dl Creatinine (0.6-1.2) mg/dl POC Creatinine (0.6-1.3) mg/dl Est Cr Clr Drug Dosing ml/min Est GFR ( Amer) ml/min Est GFR (Non-Af Amer) ml/min BUN/Creatinine Ratio (10-20) Glucose (70-99) mg/dl POC Glucose (70-99) mg/dl POC Glucose (other) (70-99) mg/dl Lactate (0.4-2.0) mmol/L Calcium (8.5-10.1) mg/dl POC Ioniz Calcium Andrae (1.12-1.32) mmol/l Magnesium (1.8-2.4) mg/dl Total Bilirubin (0.2-1) mg/dl AST (15-37) U/L ALT (12-78) U/L Alkaline Phosphatase (45-117) U/L Troponin I (0-0.045) ng/ml Total Protein (6.4-8.2) gm/dl Albumin (3.4-5.0) gm/dl Globulin (2.5-4.0) gm/dl Albumin/Globulin Ratio (0.9-2) Procalcitonin (0-0.5) ng/ml Urine Color Yellow Urine Appearance Cloudy A (Clear) Urine pH 6.5 (4.5-7.5) Ur Specific Beaver > 1.045 H (1.000-1.030) Urine Protein 2+ H (Negative) Urine Glucose (UA) Negative (Negative) Urine Ketones Negative (Negative) Urine Blood 2+ H (Negative) Urine Nitrite Negative (Negative) Urine Bilirubin Negative (Negative) Urine Urobilinogen Negative (Negative) Ur Leukocyte Esterase 2+ H (Negative) Urine WBC (Auto) >30 H (0-5) /hpf Urine RBC (Auto) 10-30 H (0-4) /hpf U Hyaline Cast (Auto) 5-10 H (0-5) /lpf U Epithel Cells (Auto) 20-30 H (0-5) /lpf Urine Bacteria (Auto) 4+ H (Negative) Urine Yeast Not Reportable Nasal Screen MRSA (PCR) (Negative) COVID-19 Eval Order Covid19 at [facility] SARS-CoV-2 (PCR) NEGATIVE (Negative) Blood Type Antibody Screen 05/08/21 05/08/21 05/08/21 Range/Units 12:43 12:43 12:25 WBC (4.8-10.8) K/uL RBC (4.2-5.4) M/uL Hgb (12.0-16.0) g/dL POC Hgb 13.6 (12.0-16.0) g/dl Hct (37-47) % POC Hct 40 (37-47) % MCV (80-100) fL MCH (25-34) pg MCHC (32-36) g/dL RDW Std Deviation (36.4-46.3) fL RDW Coeff of Bety (11.5-14.5) % Plt Count (130-400) K/uL MPV (7.4-10.4) fL Immature Gran % (Auto) % Neut % (Auto) % Lymph % (Auto) % Lamar % (Auto) % Eos % (Auto) % Baso % (Auto) % Neut # (Auto) (1.4-6.5) K/uL Lymph # (Auto) (1.2-3.4) K/uL Lamar # (Auto) (0.11-0.59) K/uL Eos # (Auto) (0-0.5) K/uL Baso # (Auto) (0-0.2) K/uL Immature Gran # (Auto) (0.00-0.02) K/uL PT (9.0-12.0) Seconds INR (0.9-1.1) APTT (21.0-31.0) Seconds PTT Ratio POC Sodium 136 (135-144) mmol/L Sodium (136-145) mmol/L POC Potassium 4.1 (3.3-5.0) mmol/L Potassium (3.5-5.1) mmol/L POC Chloride 103 (101-112) mmol/L Chloride (98-107) mmol/L Carbon Dioxide (21-32) mmol/L POC Total CO2 18 L (24-31) mmol/L Anion Gap (3-11) POC Anion Gap 20.0 (16-25) mmol/L POC BUN 5 L (7-18) mg/dl BUN (7-18) mg/dl Creatinine (0.6-1.2) mg/dl POC Creatinine 0.7 (0.6-1.3) mg/dl Est Cr Clr Drug Dosing ml/min Est GFR ( Amer) ml/min Est GFR (Non-Af Amer) ml/min BUN/Creatinine Ratio (10-20) Glucose (70-99) mg/dl POC Glucose (70-99) mg/dl POC Glucose (other) 252 H (70-99) mg/dl Lactate 5.0 H* (0.4-2.0) mmol/L Calcium (8.5-10.1) mg/dl POC Ioniz Calcium Andrae 1.16 (1.12-1.32) mmol/l Magnesium (1.8-2.4) mg/dl Total Bilirubin (0.2-1) mg/dl AST (15-37) U/L ALT (12-78) U/L Alkaline Phosphatase (45-117) U/L Troponin I (0-0.045) ng/ml Total Protein (6.4-8.2) gm/dl Albumin (3.4-5.0) gm/dl Globulin (2.5-4.0) gm/dl Albumin/Globulin Ratio (0.9-2) Procalcitonin (0-0.5) ng/ml Urine Color Urine Appearance (Clear) Urine pH (4.5-7.5) Ur Specific Beaver (1.000-1.030) Urine Protein (Negative) Urine Glucose (UA) (Negative) Urine Ketones (Negative) Urine Blood (Negative) Urine Nitrite (Negative) Urine Bilirubin (Negative) Urine Urobilinogen (Negative) Ur Leukocyte Esterase (Negative) Urine WBC (Auto) (0-5) /hpf Urine RBC (Auto) (0-4) /hpf U Hyaline Cast (Auto) (0-5) /lpf U Epithel Cells (Auto) (0-5) /lpf Urine Bacteria (Auto) (Negative) Urine Yeast Nasal Screen MRSA (PCR) (Negative) COVID-19 Eval Order SARS-CoV-2 (PCR) (Negative) Blood Type A Positive Antibody Screen NEGATIVE 05/08/21 05/08/21 05/08/21 Range/Units 12:21 12:21 12:21 WBC (4.8-10.8) K/uL RBC (4.2-5.4) M/uL Hgb (12.0-16.0) g/dL POC Hgb (12.0-16.0) g/dl Hct (37-47) % POC Hct (37-47) % MCV (80-100) fL MCH (25-34) pg MCHC (32-36) g/dL RDW Std Deviation (36.4-46.3) fL RDW Coeff of Bety (11.5-14.5) % Plt Count (130-400) K/uL MPV (7.4-10.4) fL Immature Gran % (Auto) % Neut % (Auto) % Lymph % (Auto) % Lamar % (Auto) % Eos % (Auto) % Baso % (Auto) % Neut # (Auto) (1.4-6.5) K/uL Lymph # (Auto) (1.2-3.4) K/uL Lamar # (Auto) (0.11-0.59) K/uL Eos # (Auto) (0-0.5) K/uL Baso # (Auto) (0-0.2) K/uL Immature Gran # (Auto) (0.00-0.02) K/uL PT 10.1 (9.0-12.0) Seconds INR 1.0 (0.9-1.1) APTT 26.0 (21.0-31.0) Seconds PTT Ratio 1.0 POC Sodium (135-144) mmol/L Sodium 136 (136-145) mmol/L POC Potassium (3.3-5.0) mmol/L Potassium 4.0 (3.5-5.1) mmol/L POC Chloride (101-112) mmol/L Chloride 107 (98-107) mmol/L Carbon Dioxide 18 L (21-32) mmol/L POC Total CO2 (24-31) mmol/L Anion Gap 11.0 (3-11) POC Anion Gap (16-25) mmol/L POC BUN (7-18) mg/dl BUN 6 L (7-18) mg/dl Creatinine 1.01 (0.6-1.2) mg/dl POC Creatinine (0.6-1.3) mg/dl Est Cr Clr Drug Dosing 37.8 ml/min Est GFR ( Amer) 58.4 ml/min Est GFR (Non-Af Amer) 50.4 ml/min BUN/Creatinine Ratio 6.2 L (10-20) Glucose 239 H (70-99) mg/dl POC Glucose (70-99) mg/dl POC Glucose (other) (70-99) mg/dl Lactate (0.4-2.0) mmol/L Calcium 8.8 (8.5-10.1) mg/dl POC Ioniz Calcium Andrae (1.12-1.32) mmol/l Magnesium 2.2 (1.8-2.4) mg/dl Total Bilirubin 0.5 (0.2-1) mg/dl AST 54 H (15-37) U/L ALT 34 (12-78) U/L Alkaline Phosphatase 147 H (45-117) U/L Troponin I 0.031 (0-0.045) ng/ml Total Protein 7.1 (6.4-8.2) gm/dl Albumin 2.8 L (3.4-5.0) gm/dl Globulin 4.3 H (2.5-4.0) gm/dl Albumin/Globulin Ratio 0.7 L (0.9-2) Procalcitonin 0.14 (0-0.5) ng/ml Urine Color Urine Appearance (Clear) Urine pH (4.5-7.5) Ur Specific Beaver (1.000-1.030) Urine Protein (Negative) Urine Glucose (UA) (Negative) Urine Ketones (Negative) Urine Blood (Negative) Urine Nitrite (Negative) Urine Bilirubin (Negative) Urine Urobilinogen (Negative) Ur Leukocyte Esterase (Negative) Urine WBC (Auto) (0-5) /hpf Urine RBC (Auto) (0-4) /hpf U Hyaline Cast (Auto) (0-5) /lpf U Epithel Cells (Auto) (0-5) /lpf Urine Bacteria (Auto) (Negative) Urine Yeast Nasal Screen MRSA (PCR) (Negative) COVID-19 Eval Order SARS-CoV-2 (PCR) (Negative) Blood Type Antibody Screen 05/08/21 Range/Units 12:21 WBC 11.64 H (4.8-10.8) K/uL RBC 4.34 (4.2-5.4) M/uL Hgb 12.8 (12.0-16.0) g/dL POC Hgb (12.0-16.0) g/dl Hct 39.3 (37-47) % POC Hct (37-47) % MCV 90.6 (80-100) fL MCH 29.5 (25-34) pg MCHC 32.6 (32-36) g/dL RDW Std Deviation 45.7 (36.4-46.3) fL RDW Coeff of Bety 13.9 (11.5-14.5) % Plt Count 392 (130-400) K/uL MPV 10.4 (7.4-10.4) fL Immature Gran % (Auto) 0.8 % Neut % (Auto) 74.2 % Lymph % (Auto) 17.9 % Lamar % (Auto) 6.3 % Eos % (Auto) 0.6 % Baso % (Auto) 0.2 % Neut # (Auto) 8.65 H (1.4-6.5) K/uL Lymph # (Auto) 2.08 (1.2-3.4) K/uL Lamar # (Auto) 0.73 H (0.11-0.59) K/uL Eos # (Auto) 0.07 (0-0.5) K/uL Baso # (Auto) 0.02 (0-0.2) K/uL Immature Gran # (Auto) 0.09 H (0.00-0.02) K/uL PT (9.0-12.0) Seconds INR (0.9-1.1) APTT (21.0-31.0) Seconds PTT Ratio POC Sodium (135-144) mmol/L Sodium (136-145) mmol/L POC Potassium (3.3-5.0) mmol/L Potassium (3.5-5.1) mmol/L POC Chloride (101-112) mmol/L Chloride (98-107) mmol/L Carbon Dioxide (21-32) mmol/L POC Total CO2 (24-31) mmol/L Anion Gap (3-11) POC Anion Gap (16-25) mmol/L POC BUN (7-18) mg/dl BUN (7-18) mg/dl Creatinine (0.6-1.2) mg/dl POC Creatinine (0.6-1.3) mg/dl Est Cr Clr Drug Dosing ml/min Est GFR ( Amer) ml/min Est GFR (Non-Af Amer) ml/min BUN/Creatinine Ratio (10-20) Glucose (70-99) mg/dl POC Glucose (70-99) mg/dl POC Glucose (other) (70-99) mg/dl Lactate (0.4-2.0) mmol/L Calcium (8.5-10.1) mg/dl POC Ioniz Calcium Andrae (1.12-1.32) mmol/l Magnesium (1.8-2.4) mg/dl Total Bilirubin (0.2-1) mg/dl AST (15-37) U/L ALT (12-78) U/L Alkaline Phosphatase (45-117) U/L Troponin I (0-0.045) ng/ml Total Protein (6.4-8.2) gm/dl Albumin (3.4-5.0) gm/dl Globulin (2.5-4.0) gm/dl Albumin/Globulin Ratio (0.9-2) Procalcitonin (0-0.5) ng/ml Urine Color Urine Appearance (Clear) Urine pH (4.5-7.5) Ur Specific Beaver (1.000-1.030) Urine Protein (Negative) Urine Glucose (UA) (Negative) Urine Ketones (Negative) Urine Blood (Negative) Urine Nitrite (Negative) Urine Bilirubin (Negative) Urine Urobilinogen (Negative) Ur Leukocyte Esterase (Negative) Urine WBC (Auto) (0-5) /hpf Urine RBC (Auto) (0-4) /hpf U Hyaline Cast (Auto) (0-5) /lpf U Epithel Cells (Auto) (0-5) /lpf Urine Bacteria (Auto) (Negative) Urine Yeast Nasal Screen MRSA (PCR) (Negative) COVID-19 Eval Order SARS-CoV-2 (PCR) (Negative) Blood Type Antibody Screen Resident Activity Tracking Resident Involvement: Resident Care Provided Care Provided: Adult Hospital Medicine
--- NOTE | 2021-05-08 16:32 | Billing Data ---
Date of Service May 08, 2021 Coding Level of Care Code Critical Care 1st - mins
--- NOTE | 2021-05-08 16:52 | History & Physical Report ---
Date of Service May 08, 2021 Assessment & Plan (1) Bilateral pulmonary embolism: Plan: Attending: Dr. Ordoñez Impression: This is an 85-year-old female that has a history of pulmonary emboli. She has been chronically anticoagulated with Eliquis 2.5 mg p.o. be ID. The patient developed epistaxis and Eliquis was withheld 03/21/2021. Per the daughter's report it was never restarted. Patient presented today with some hypoxia and shortness of breath as well as tachycardia. CTA of the chest revealed bilateral pulmonary emboli that were extensive. Patient initially anticoagulated with heparin drip. She then received TPA at 1459. She is being admitted to the intensive care unit for 24-hour observation for the TPA. Recurrent bilateral pulmonary emboli. * Patient denies previous history of DVT * Currently wheelchair-bound but does scuttle around with her feet * No asymmetrical edema of the lower extremities * Eliquis held since 03/21/2021 * TPA administered 1459 -monitor in intensive care unit for 24 hours. We will then follow post TPA protocol (2) Hypoxia: Plan: Secondary to bilateral pulmonary emboli Patient has no prior history of supplemental oxygen use 2-pack-year smoking history from age [age] No prior pulmonary disease Titrate supplemental oxygen off prior to discharge (3) Acute hypotension: Plan: Patient received IV hydration in the emergency department. Hypotension is now resolved Peripheral access includes a 22-gauge in the left hand and a 20-gauge in the right AC No indication for central line at this time (4) Anxiety: Plan: Emotionally stable and pleasant Continue citalopram (5) History of gastric ulcer: Plan: No history of hematemesis or melena or hematochezia. No BRBPR Omeprazole 20 mg p.o. twice daily at home We will continue with pantoprazole daily while in the hospital (6) Ambulatory dysfunction: Plan: No history of trauma or spinal fracture although there is a T12 compression fracture Patient has been wheelchair-bound for several years according to reports from daughter (7) Vertigo: Plan: Patient does not use meclizine Antiemetics for nausea (8) Oropharyngeal dysphagia: Plan: Speech-language pathology consultation requested in December 2019. At that time the patient showed no evidence of aspiration. Given the patient's history of esophageal dysfunction reflux precautions were recommended. * Medication should be administered in the carrier such as applesauce or pudding * Slippery diet should be initiated * Easy to chew diet recommended (9) DVT prophylaxis: Plan: Hold anticoagulation at this time Patient received TPA at 1459 today Resume heparin drip tomorrow after TPA Patient does not ambulate Please refer to Dr. Ordoñez's addendum for further recommendations and corrections Plan: Daughter and JOE Liu can be reached at her cell phone which is [phone] Admission and Anticipated Discharge Date Admission Date: May 08, 2021 History of Present Illness Chief Complaint: Bilateral pulmonary emboli Primary Care Provider: [facility] Attending: Dr. Ordoñez This is a pleasant 85-year-old female with a past medical history of pulmonary emboli approximately 4 years ago, history of gastric ulcer, iron deficiency, I to process, ambulatory dysfunction confined to a wheelchair, hypofibroid-ism, vertigo, T12 compression fracture, vestibular migraines, oropharyngeal dysphagia, multilevel degenerative disc disease, anxiety. The patient resides at [facility] in [place]. She has been there for several years. It is reported the one morning she woke up and could not walk. She was transferred there and is wheelchair-bound at this time. She has some minor chest pain this morning and was evaluated by Dr. Chavez. She was found to be hypoxic and tachycardic. He referred her to the emergency department for further evaluation where she was found to have bilateral pulmonary emboli. Consent was obtained and the patient did receive TPA in the emergency department at 1459. She was initially hypotensive and was given IV hydration and currently is hemodynamically stable. Patient is alert and oriented and able to give good history. Patient denies any current chest pain. She denies any hemoptysis. She is un aware of tachyarrhythmia. She currently has a heart rate of 110 bpm. Auscultation of lungs is clear. The patient states that she did have pulmonary emboli for 5 years ago but no other thromboembolic history. Patient does have a history of cervical cancer when she was approximately 24 years of age. She has no other history of malignancy and no current malignancy. The patient has been anticoagulated with apixaban 2.5 mg p.o. twice daily since her previous pulmonary emboli. This was held March secondary to epistaxis. It was not restarted after that date. The patient states that she has not had any nosebleeds since that time. The patient denies any acute events at this time. She does understand that she is at the hospital and that she is here for pulmonary emboli. I interviewed and examined the patient in the presence of her daughter Vero Liu. The daughter can be reached at [phone]. The patient has not had Covid in the past. She states that she is fully vacc inated with 2 injections. Allergies Allergy/AdvReac Type Severity Reaction Status Date / Time adhesive tape AdvReac Intermediate PEELING OF Verified 05/08/21 15:38 SKIN cefdinir AdvReac Intermediate Migraine Verified 05/08/21 15:38 erythromycin base AdvReac Intermediate MYCIN Verified 05/08/21 15:38 DRUGS-YEAST INFECTIONS tramadol AdvReac Intermediate MAKES Verified 05/08/21 15:38 HEADACHS WORSE--vestibular sx Home Medications Medication Instructions Recorded Confirmed Type polyethylene glycol 3350 17 gram 17 g PO QAM 06/24/19 05/08/21 History oral powder packet (Miralax) clopidogrel 75 mg tablet 75 mg PO HS 09/02/19 05/08/21 History acetaminophen 325 mg tablet 650 mg PO DAILY PRN MDD 3g 01/12/21 05/08/21 History (Tylenol) calcium carbonate 200 mg calcium 400 mg PO Q4H PRN 01/12/21 05/08/21 History (500 mg) chewable tablet (Tums) citalopram 10 mg tablet (Celexa) 5 mg PO PM 01/12/21 05/08/21 History mirtazapine 15 mg tablet (Remeron) 7.5 mg PO HS 01/12/21 05/08/21 History omeprazole 20 mg tablet,delayed 20 mg PO BID 01/12/21 05/08/21 History release ondansetron 4 mg disintegrating 4 mg PO Q8H PRN 01/12/21 05/08/21 History tablet sennosides 8.6 mg tablet (senna) 8.6 mg PO BID 01/12/21 05/08/21 History thiamine HCl (vitamin B1) 100 mg 100 mg PO QAM 01/12/21 05/08/21 History tablet levothyroxine 150 mcg tablet 150 mcg PO DAILYBB #30 tab 01/18/21 05/08/21 Rx (Synthroid) cyanocobalamin (vitamin B-12) 250 500 mcg PO BID 02/20/21 05/08/21 History mcg tablet menthol 0.44 %-zinc oxide 20.6 % 1 applic TOPICAL BID 02/20/21 05/08/21 History topical ointment (Calmoseptine) ketoconazole 2 % shampoo 1 ea TOPICAL 2XWK 05/08/21 05/08/21 History Past Med/Surg History Medical History Anxiety Cervical cancer at age 29--sx Closed head injury Depression Difficulty swallowing Diverticulosis of colon (without mention of hemorrhage) Fall History of gastric ulcer Hypothyroidism Intractable back pain Irritable bowel syndrome On anticoagulant therapy eliquis daily Oropharyngeal dysphagia Osteoarthritis Pulmonary embolism reason for eliquis T12 compression fracture Tinnitus of both ears Upper abdominal pain Vertigo Vestibular migraine reason for verapamil Surgical History History of adenoidectomy History of appendectomy History of bilateral cataract extraction History of cholecystectomy History of colonoscopy History of hysterectomy History of tonsillectomy History of tooth extraction Family History Son Family history of diabetes mellitus Social History (Updated 05/08/21 @ 17:03 by Asael Lees PA-C) Smoking Status: Former smoker Tobacco Type: Cigarettes Age Started Using Tobacco: 21; Age Quit Using Tobacco: 23; Years Smoked: 2; Second Hand Exposure: Yes ( smoked/father smoked); Hx Alcohol Use: No Hx Substance Use: No Preferred Language: Slovak Communication Ability: Impaired Gaming Table Operator Required: No Beliefs That Will Affect Care: None marital status: / Current Living Situation: Care Home Current Living Situation Comment: [facility] in [facility] current occupational status: retired How many Children do You have: 2 Other Information That Helps Us Care for You: No Feels Safe at Home: Yes Safety Concerns: Feels Safe At This Time Assistive Devices: Brace/Splint/Immobilizer and Wheelchair Assistive Devices Comment: Requires wheelchair for ambulation Review of Systems Review of Systems: All systems reviewed & are unremarkable except as noted in Subjective Physical Exam Physical Exam: GENERAL : No acute distress. Pleasant EYES: No icterus, gaze conjugate. Pupils equal round reactive to light NOSE: No evidence of epistaxis MOUTH: No lesions or candidiasis. Mucosa moist. No dentures NECK: Supple. No carotid bruits LUNGS: CTA B/L, no wheezes, rales or rhonchi. HEART: Regular, tachycardic at 110 bpm ABDOMEN: Soft, NT, ND, BS Present. No rebound tenderness or guarding EXTREMITIES: No LE edema, pedal pulses intact and equal bilaterally. Feet are warm. NEURO: A&OX3. Results & Data Results & Data ([facility]) Vital Signs (Past 12 Hours) Vital Signs Temp Pulse Pulse Resp BP BP Pulse Ox 05/08/21 16:16 36.7 C 109 H 16 122/79 94 05/08/21 15:30 111 H 26 H 100/61 94 05/08/21 15:16 112 H 25 H 100/62 94 05/08/21 15:01 111 H 30 H 97 05/08/21 15:00 97 05/08/21 14:46 119 H 29 H 126/67 97 05/08/21 14:31 115 H 26 H 109/59 L 98 05/08/21 14:15 105 H 25 H 110/76 96 05/08/21 14:00 108 H 37 H 112/70 89 L 05/08/21 13:57 20 97 05/08/21 13:30 122 H 95 05/08/21 13:17 113 H 17 52/40 L 96 05/08/21 13:00 120 H 46 H 72/47 L 94 05/08/21 12:46 116 H 23 65/42 L 94 05/08/21 12:39 94 05/08/21 12:37 117 H 23 82/54 L 95 05/08/21 12:30 121 H 29 H 69/56 L 94 05/08/21 12:27 121 H 29 H 76/56 L 95 05/08/21 12:23 126 H 19 95 05/08/21 12:19 122 H 19 61/47 L 86 L 05/08/21 12:12 124 H 19 67/41 L 87 L 05/08/21 12:09 127 H 26 H 80/50 L 86 L Laboratory Results 05/08/21 12:21 09/07/21 12:21 INR 1.0 (0.9-1.1) 05/08/21 12:21 Laboratory Tests 05/08/21 13:29 SARS-CoV-2 (PCR) NEGATIVE Diagnostic Findings Chest X-Ray 05/08/21 12:27 XR chest 1V portable CLINICAL HISTORY: SEPSIS COMPARISON STUDY: Chest CT June 22, 2020. Chest radiograph January 12, 2021. FINDINGS: Patient is rotated. Lung volumes are normal. Lungs are clear. There is no pneumothorax or pleural effusion. Cardiomegaly is unchanged. Mediastinal contours are normal. There is no evidence for pulmonary edema. IMPRESSION: No acute cardiopulmonary findings. No significant change in appearance of the chest. ACT 112: Negative or not required by law. Electronically signed by: Ean Quiroz M.D. 05/08/2021 1:11 PM Abdomen/Pelvis CT 05/08/21 13:15 CT abd pelvis IV con only CLINICAL HISTORY: hypotension COMPARISON STUDY: June 22, 2020 TECHNIQUE: A dose lowering technique was utilized adhering to the principles of ALARA. CT DOSE: FINDINGS: Lower chest: Please see report of the CT of the chest.. Liver: The contrast-enhanced liver is normal in size and contour . Heterogeneous attenuation of liver parenchyma is seen. There is no intrahepatic biliary ductal dilatation. There is extension of the intravenous contrast to the inferior vena cava and hepatic veins. Gallbladder: Is surgically absent. Spleen: Normal in size and attenuation. Pancreas: Unremarkable. Adrenal glands: Unremarkable. Kidneys: There is symmetric renal cortical enhancement. The kidneys are normal in size without hydronephrosis. Pelvic viscera: Urinary bladder is partially decompressed which limits evaluation. Diffuse thickening of urinary bladder wall with mild surrounding fat stranding could represent cystitis. Image quality is partially degraded due to beam hardening artifact from the right hip prosthetic joint. Bowel: Bowel loops are nondilated. Appendix is not well seen. Diverticulosis of sigmoid colon is seen without evidence of diverticulitis. Midportion of the rectum is slightly dilated with air-fluid level. There is mild thickening of the rectal wall which might represent proctitis. Please correlate with clinical presentation. Peritoneum: There is no intraperitoneal free air or abdominal ascites. Vasculature: Abdominal aorta is tortuous with extensive calcified plaques within its wall and small area of ectasia within infrarenal aorta measuring 2.1 cm Adenopathy: None. Skeletal structures: Osteopenia. Multilevel degenerative changes of the spine. Compression fracture deformity of the T12, unchanged since prior. Vertebral hemangioma is again seen within L3 level. IMPRESSION: 1. Calcified tortuous abdominal aorta with small area of ectasia. 2. Nondilated loops of bowel. Possible proctitis. Diverticulosis of sigmoid colon without evidence of diverticulitis. 3. Thickening of the urinary bladder wall is surrounding fat stranding might represent cystitis. 4. The rest of findings as above. ACT 112: Negative or not required by law. The above report was generated using voice recognition software. It may contain grammatical, syntax or spelling errors. Electronically signed by: Ekta Armendariz DO 05/08/2021 2:21 PM Chest CTA 05/08/21 13:15 CT angio chest PE protocol CT DOSE: 620.86 mGy.cm HISTORY: 85 years-old Female with hypoxia, tachycardia. Acute hypoxia with tachycardia TECHNIQUE: Multiple CTA images of the chest were obtained after the intravenous administration of 120 ml Optiray. Coronal and sagittal MIPS were obtained from the axial data set and were submitted for review. All measurements were obtained according to NASCET criteria. A dose lowering technique was utilized adhering to the principles of ALARA. COMPARISON: CT abdomen and pelvis of same day, chest CT 06/22/2020, 05/13/2019. FINDINGS: CTA: Moderate to marked multichamber cardiac enlargement. Trace pericardial effusion. Extensive coronary artery calcifications. The left heart structures are suboptimally evaluated secondary to contrast bolus timing. Extensive atherosclerotic plaque without thoracic aortic aneurysm or dissection identified. Dilation of the right heart chambers with straightening of the intraventricular septum. Reflux of contrast into the IVC and hepatic veins. Extensive bilateral pulmonary emboli involve the distal aspects of the bilateral main right left pulmonary arteries extending into the lobar, segmental and subsegmental branches bilaterally. CT CHEST: No thyroid nodules identified. Bilobed ovoid circumscribed 1.7 x 0.9 cm nodule within the anterior mediastinum is unchanged dating back to at least 2019. No pneumothorax, pleural effusion or overt pulmonary edema. Mild dependent subsegmental bibasilar atelectasis. No suspicious pulmonary nodules or masses. No pulmonary infarct. Typical segmental consolidation suggestive of scarring/atelectasis with bronchiectasis of the inferior segment lingula. Central airways are patent. Mild nonspecific distal esophageal wall thickening. Unremarkable soft tissues. Degenerative changes of the shoulders and spine. There is no acute fracture. Unchanged T12 superior endplate compression deformity. IMPRESSION: 1. Extensive bilateral pulmonary emboli with evidence of right heart strain. 2. Mild dependent bibasilar atelectasis. 3. Cardiomegaly. 4. Unchanged 1.6 x 0.9 cm anterior mediastinal nodule is stable dating back to at least 2019. ACT 112: Negative or not required by law. The above report was generated using voice recognition software. It may contain grammatical, syntax or spelling errors. Electronically signed by: Anil Victor M.D. 05/08/2021 1:58 PM Medications Administered Current Inpatient Medications Acetaminophen (Acetaminophen 325 Mg Tab) 650 mg PO Q4H PRN PRN Reason: Fever/Mild Pain (Pain 1,2,3) Stop: 06/07/21 14:35 Citalopram Hydrobromide (Citalopram 20 Mg Tab) 5 mg PO PM PENNIE Stop: 06/07/21 20:59 Clopidogrel Bisulfate (Clopidogrel Bisulfate 75 Mg Tab) 75 mg PO DAILY PENNIE Stop: 06/08/21 08:59 Dextrose (Dextrose 50% 50 Ml Syringe) 25 - 50 ml IV UD PRN; Protocol PRN Reason: Hypoglycemia Protocol Stop: 06/07/21 14:35 Dicyclomine HCl (Dicyclomine Hcl 10 Mg Cap) 10 mg PO Q6 PRN PRN Reason: Pain Stop: 06/07/21 16:14 Glucagon (Glucagon For Inj 1 Mg Vial) 1 mg SQ UD PRN; Protocol PRN Reason: Hypoglycemia Protocol Stop: 06/07/21 14:35 Glucose (Glucose 10 Tabs/Tube) 4 - 8 tabs PO UD PRN; Protocol PRN Reason: Hypoglycemia Protocol Stop: 06/07/21 14:35 Glucose (Glucose 40% Gel 15 Gm Tube) 15 - 30 gm PO UD PRN; Protocol PRN Reason: Hypoglycemia Protocol Stop: 06/07/21 14:35 Heparin Sodium/Dextrose (Heparin Iv Adult Wt-Based Standard *No* Bolus Protocol) 1 ea IV Q15M PENNIE; Protocol Stop: 05/08/21 17:16 Heparin Sodium/Dextrose (Heparin Sodium/Dextrose) 25,000 units in 500 mls @ 0.02 mls/hr IV .Q24H PENNIE; Protocol Stop: 06/07/21 14:59 Parenteral Electrolytes (Normosol-R) 1,000 mls @ 50 mls/hr IV .Q20H PENNIE Stop: 06/07/21 14:44 Levothyroxine Sodium (Levothyroxine Sodium 150 Mcg Tablet) 150 mcg PO DAILYBB PENNIE Stop: 06/08/21 06:29 Mirtazapine (Mirtazapine Tab 15 Mg Tab) 7.5 mg PO HS PENNIE Stop: 06/07/21 20:59 Miscellaneous (Icu Protocol For Hyperglycemia) 1 ea N/A PRN PRN; Protocol PRN Reason: Hyperglycemia Protocol Stop: 05/10/21 14:30 Miscellaneous (Icu Electrolyte Replacement Protocol) 1 ea N/A BID@,18 PENNIE; Protocol Stop: 05/15/21 17:59 Miscellaneous (Carbohydrates For Hypoglycemia ) 15 - 30 gm PO UD PRN PRN Reason: Hypoglycemia Protocol Stop: 06/07/21 14:35 Ondansetron HCl (Ondansetron 4 Mg Od Tab) 4 mg PO Q8H PRN PRN Reason: Nausea And Vomiting Stop: 06/07/21 16:22 Oxycodone HCl (Oxycodone Hcl Ir 5 Mg Tab (Immediate Release)) 5 mg PO Q6H PRN PRN Reason: Moderate Pain (4,5,6) on NRS Stop: 05/22/21 14:35 Oxycodone HCl (Oxycodone Hcl Ir 5 Mg Tab (Immediate Release)) 10 mg PO Q6H PRN PRN Reason: Severe Pain (7,8,9,10) on NRS Stop: 05/22/21 14:35 Pantoprazole Sodium (Pantoprazole 40 Mg Tab) 40 mg PO QAM PENNIE Stop: 06/08/21 08:59 Polyethylene Glycol (Polyethylene (Miralax) 17 Gm Pack) 17 gm PO QAM PENNIE Stop: 06/08/21 08:59 Sennosides (Senna 8.6 Mg Tab) 8.6 mg PO BID PENNIE Stop: 06/07/21 20:59 Code Status & VTE Plan Code Status Discussion with daughter and with patient. Patient desires to be a DNR/DNI. VTE Prophylaxis Plan VTE Prophylaxis will be ordered: Yes Critical Care Time Critical Care Time: Yes 31 Supervising Physician Co-Signing Physician Notes During face to face encounter with patient, obtained a physical and history. My history and physcial examination did not differ from above. I reviewed above note and agree with it. I discussed plan with OLIVIER Lees and the patient. Patient will be admitted to the ICU due to diagnosis of pulmonary emboli and treatment with tpa. D/W associate account executive PG Care Time/CCT Total # of Minutes Spent Total Time Spent with Patient: Total time spent is greater than 50% in coordination of care (as documented) at patient's floor/unit and/or counseling patient: 45 minutes Critical Care Time: Yes Coding Level of Care Code 56351 Initial Inpt Care Lvl 3 Diagnoses Bilateral pulmonary embolism I26.99 Hypoxia R09.02 Acute hypotension I95.9 Anxiety F41.9 History of gastric ulcer Z87.19 Ambulatory dysfunction R26.2 Vertigo R42 Oropharyngeal dysphagia R13.12 DVT prophylaxis Z29.9 Additional Codes Critical Care Time - Critical Care Time: Yes ([id number]) Time Spent (min) 45
[2021-05-08] MEDS: Heparin IV Adult Wt-Based Standard *NO* Bolus Protocol IV SCH ×5 (18:00→18:33)
[2021-05-08] MEDS: ICU ELECTROLYTE REPLACEMENT PROTOCOL SCH (18:03)
[2021-05-08] MEDS: NORMOSOL-R 1,000 ML IV SCH (18:33)
--- NOTE | 2021-05-08 18:33 | Electrocardiogram Report ---
Test Reason : Blood Pressure : / mmHG Vent. Rate : 125 BPM Atrial Rate : 125 BPM P-R Int : 148 ms QRS Dur : 086 ms QT Int : 330 ms P-R-T Axes : 060 056 033 degrees QTc Int : 476 ms Sinus tachycardia with occasional Premature ventricular complexes Low voltage QRS Abnormal ECG When compared with ECG of 20-FEB-2021 22:17, Premature ventricular complexes are now Present Premature atrial complexes are no longer Present Minimal criteria for Anterior infarct are now Present ST no longer depressed in Anterior leads T wave inversion now evident in Anterior leads Confirmed by Cory Colindres ([id number]) on 05/08/2021 6:32:41 PM Referred By: ED Confirmed By:Epifanio Colindres
[2021-05-08] MEDS ORDERED: Heparin IV Adult Wt-Based Low-Dose *NO* Bolus Protocol IV STA (20:28)
[2021-05-08] MEDS ORDERED: SENNA 8.6 MG TAB PO SCH (21:00)
[2021-05-08] MEDS: CITALOPRAM 20 MG TAB PO SCH (21:00)
[2021-05-08] MEDS: SENNA 8.6 MG TAB PO SCH (21:06)
[2021-05-08] MEDS: MIRTAZAPINE TAB 15 MG TAB PO SCH (21:06)
[2021-05-08 21:23] LABS: Partial Thromboplastin Ratio 1.7; Partial Thromboplastin Time 43.9 Seconds (21.0-31.0)
[2021-05-08] MEDS: HEPARIN SODIUM/DEXTROSE 25,000 UNITS/500 ML BAG IV SCH (21:37)
[2021-05-09 04:07] LABS: Basophils # (auto) 0.02 K/uL (0-0.2); Basophils % (auto) 0.3 %; Eosinophils # (auto) 0.07 K/uL (0-0.5); Hematocrit (blood only) 33.4 % (37-47); Hemoglobin 10.6 g/dL (12.0-16.0); Immature Granulocytes # (auto) 0.03 K/uL (0.00-0.02); Immature Granulocytes % (auto) 0.4 %; Lymphocytes # (auto) 2.09 K/uL (1.2-3.4); Lymphocytes % (auto) 28.5 %; Mean Corpuscular Hemoglobin 29.4 pg (25-34); Mean Corpuscular Hgb Conc 31.7 g/dL (32-36); Mean Corpuscular Volume 92.5 fL (80-100); Mean Platelet Volume 10.2 fL (7.4-10.4); Monocytes # (auto) 0.57 K/uL (0.11-0.59); Monocytes % (auto) 7.8 %; Neutrophils # (auto) 4.56 K/uL (1.4-6.5); Platelet Count 286 K/uL (130-400); RDW Coefficient of Variation 13.9 % (11.5-14.5); RDW Standard Deviation 47.1 fL (36.4-46.3); Red Blood Count 3.61 M/uL (4.2-5.4); White Blood Count 7.34 K/uL (4.8-10.8)
[2021-05-09 04:28] LABS: INR 3.2 (0.9-1.1); Partial Thromboplastin Ratio 2.4; Prothrombin Time 29.3 Seconds (9.0-12.0)
[2021-05-09 04:29] LABS: Partial Thromboplastin Time 62.9 Seconds (21.0-31.0)
[2021-05-09 04:35] LABS: BUN Creatinine Ratio 11.3 (10-20); Calcium 7.6 mg/dl (8.5-10.1); Creatinine Clr Calc Pharmacy 56.9 ml/min; Est GFR (African American) 92.2 ml/min; Est GFR (Non-African American) 79.6 ml/min; Magnesium 2.1 mg/dl (1.8-2.4); Phosphorus 3.8 mg/dl (2.5-4.9); Potassium 3.9 mmol/L (3.5-5.1)
[2021-05-09] MEDS: ICU ELECTROLYTE REPLACEMENT PROTOCOL SCH ×2 (04:47→17:15)
[2021-05-09] MEDS: POTASSIUM CHLORIDE / WTR 10 MEQ/100 ML PLCT IV SCH ×4 (05:07→09:54)
[2021-05-09] MEDS: LEVOTHYROXINE SODIUM 150 MCG TABLET PO SCH (06:15)
--- NOTE | 2021-05-09 07:30 | Critical Care Progress Note ---
Date of Service May 09, 2021 Assessment & Plan (1) Bilateral pulmonary embolism: Plan: Reason critically ill: 85 yo female admitted for bilateral pulmonary emboli s/p receiving TPA in the ED requiring ICU level care for close hemodynamic monitoring. NEURO: CAM ICU negative Reportedly intermittently confused at baseline. No acute concerns. CARDIAC/VASCULAR: Hypotension - Transient hypotension resolved after IVF in ER - Current BP appropriate at 130/70 - Remaining hemodynamically stable RESPIRATORY: Bilateral pulmonary emboli - CTA 05/08/21: Extensive bilateral pulmonary emboli with evidence of right heart strain. - S/p full dose TPA administered at 1459 on 05/08/21 - Home Eliquis held x 1.5 months (since 03/21/21) secondary to epistaxis (previously on Eliquis due to PE hx 5 years ago) - Patient consented for blood products and Type and Screen ordered should she need them - Currently on Heparin --> plan to transition to Eliquis tomorrow morning Hypoxia - Secondary to PEs - No hx of supplemental O2 use previously - Continue supplemental O2 to maintain O2 sats > 92% - Lactic acidosis has resolved; lactate 1.1 this AM GI/NUTRITION: History of gastric ulcer - On omeprazole 20mg po BID at home - Continue with protonix during admission History of mesenteric ischemia with stent - Continue home regimen of clopidogrel 75mg po hs History of oropharyngeal dysphagia - DISPLAY CARVER consult in June 2020 with no signs of aspiration - However, following recommendations were made and can continue with those during this hospitalization: - Reflux precautions - Medications given in carrier like apple sauce, pudding, etc. - Slippery diet or IDDSI easy to chew diet per patient or patient's daughter request RENAL/LYTES: Electrolyte replacement per ICU protocol IVF with normosol at 50 cc/hr GENITOURINARY: Asymptomatic bacteruria - Urine cx with gram (-) bacilli, > 100,000 colonies - Await final culture - Will defer abx therapy at this time and continue to monitor Tenorio catheter in place. Strict Is/Os. ENDO: History of hypothyroidism - Continue levothyroxine 150mcg po daily No history of DM - ICU hyperglycemic protocol HEME: No acute issues. ID: + MRSA screen. No signs of infectious process at this time. Negative COVID on admission Blood and urine cultures are pending. Lines/IV Access: PIV DVT Prophylaxis: Heparin --> transition to Eliquis Stable for downgrade out of ICU to PCU this afternoon (24h s/p TPA) pending no change in status (2) Hypoxia: (3) Ambulatory dysfunction: (4) Hypothyroidism: Admission and Anticipated Discharge Date Admission Date: May 08, 2021 Supervising Physician Co-Signing Physician Notes Dr. Saravia was resident physician during care of patient. I separately evaluated patient for escalante portions of the history and the exam. I was present during the critical portion of medical decision making, and I discussed the case with the resident. I generally agree with the findings and plan. Patient's hemodynamics have significantly improved, on heparin will transition back to Eliquis stable for downgrade out of ICU. Subjective Patient seen and evaluated at bedside. She is awake and alert. Orientation to person and time is consistent but orientation to place and situation waxes and wanes. She has no specific complaints or concerns this morning. States that she is getting hungry. Denies CP, SOB, cough, CROCKETT, nausea, vomiting, abdominal pain, leg pain, leg swelling, or any other symptoms. Review of Systems Constitutional: no fever and no chills Eyes: no problem reported Ear, Nose, Mouth, Throat: no problem reported Respiratory: no cough and no dyspnea Cardiovascular: no chest pain Gastrointestinal: no abdominal pain, no nausea and no vomiting Genitourinary: no problem reported Musculoskeletal: no problem reported Neurologic: no dizziness and no headache(s) Physical Exam Physical Exam: GENERAL: No acute distress. Well developed and well nourished. Vital signs reviewed as above. EYES: PERRL. EOMI. Anicteric sclerae. HENT: Moist mucous membranes. RESPIRATORY: Clear to auscultation anteriorly. No wheezing, rales, or rhonchi. CARDIOVASCULAR: Regular rate and rhythm. No murmurs. 2+ pedal pulses bilaterally. ABDOMEN: Soft, non-tender and non-distended. Normal bowel sounds. EXTREMITIES: No edema. Non-tender. SKIN: Warm, dry. NEUROLOGIC: A/O x2 (confused to situation and place). No focal neurological defi cits. PSYCHIATRIC: Cooperative. Appropriate mood and affect. Results & Data Results & Data ([facility]) Vital Signs (Past 12 Hours) Vital Signs Temp Pulse Resp BP Pulse Ox 05/09/21 06:29 94 H 17 137/85 95 05/09/21 06:00 36.6 C 87 19 101/78 95 05/09/21 05:59 88 18 80/57 L 95 05/09/21 05:29 85 20 115/63 95 05/09/21 04:59 87 15 125/80 95 05/09/21 04:29 89 20 94/56 L 94 05/09/21 03:59 89 20 105/63 95 05/09/21 03:29 36.7 C 89 19 102/62 96 05/09/21 02:59 89 18 101/55 L 96 05/09/21 02:29 92 H 20 123/70 93 05/09/21 01:59 96 H 17 127/66 95 05/09/21 01:29 91 H 19 103/60 95 05/09/21 00:59 88 20 99/57 L 97 05/09/21 00:29 87 19 105/55 L 97 05/09/21 00:00 84 05/08/21 23:59 92 H 15 124/71 99 05/08/21 23:29 102 H 26 H 128/78 93 05/08/21 22:59 92 H 23 106/58 L 97 05/08/21 22:29 102 H 21 106/70 97 05/08/21 21:59 94 H 21 110/67 97 05/08/21 21:29 94 H 24 128/89 97 05/08/21 20:59 101 H 26 H 123/63 98 05/08/21 20:29 95 H 25 H 140/75 98 05/08/21 19:59 96 H 30 H 140/95 98 Laboratory Results 05/09/21 05/09/21 05/09/21 Range/Units 03:54 03:54 03:54 WBC 7.34 (4.8-10.8) K/uL RBC 3.61 L (4.2-5.4) M/uL Hgb 10.6 L (12.0-16.0) g/dL POC Hgb (12.0-16.0) g/dl Hct 33.4 L (37-47) % POC Hct (37-47) % MCV 92.5 (80-100) fL MCH 29.4 (25-34) pg MCHC 31.7 L (32-36) g/dL RDW Std Deviation 47.1 H (36.4-46.3) fL RDW Coeff of Bety 13.9 (11.5-14.5) % Plt Count 286 (130-400) K/uL MPV 10.2 (7.4-10.4) fL Immature Gran % (Auto) 0.4 % Neut % (Auto) 62.0 % Lymph % (Auto) 28.5 % Kleberg % (Auto) 7.8 % Eos % (Auto) 1.0 % Baso % (Auto) 0.3 % Neut # (Auto) 4.56 (1.4-6.5) K/uL Lymph # (Auto) 2.09 (1.2-3.4) K/uL Kleberg # (Auto) 0.57 (0.11-0.59) K/uL Eos # (Auto) 0.07 (0-0.5) K/uL Baso # (Auto) 0.02 (0-0.2) K/uL Immature Gran # (Auto) 0.03 H (0.00-0.02) K/uL PT (9.0-12.0) Seconds INR (0.9-1.1) APTT (21.0-31.0) Seconds PTT Ratio POC Sodium (135-144) mmol/L Sodium 140 (136-145) mmol/L POC Potassium (3.3-5.0) mmol/L Potassium 3.9 (3.5-5.1) mmol/L POC Chloride (101-112) mmol/L Chloride 112 H (98-107) mmol/L Carbon Dioxide 25 (21-32) mmol/L POC Total CO2 (24-31) mmol/L Anion Gap 3.0 (3-11) POC Anion Gap (16-25) mmol/L POC BUN (7-18) mg/dl BUN 8 (7-18) mg/dl Creatinine 0.67 D (0.6-1.2) mg/dl POC Creatinine (0.6-1.3) mg/dl Est Cr Clr Drug Dosing 56.9 ml/min Est GFR ( Amer) 92.2 ml/min Est GFR (Non-Af Amer) 79.6 ml/min BUN/Creatinine Ratio 11.3 (10-20) Glucose 94 (70-99) mg/dl POC Glucose (70-99) mg/dl POC Glucose (other) (70-99) mg/dl Lactate 1.1 (0.4-2.0) mmol/L Calcium 7.6 L (8.5-10.1) mg/dl POC Ioniz Calcium Andrae (1.12-1.32) mmol/l Phosphorus 3.8 (2.5-4.9) mg/dl Magnesium 2.1 (1.8-2.4) mg/dl Total Bilirubin (0.2-1) mg/dl AST (15-37) U/L ALT (12-78) U/L Alkaline Phosphatase (45-117) U/L Troponin I (0-0.045) ng/ml Total Protein (6.4-8.2) gm/dl Albumin (3.4-5.0) gm/dl Globulin (2.5-4.0) gm/dl Albumin/Globulin Ratio (0.9-2) Procalcitonin (0-0.5) ng/ml Urine Color Urine Appearance (Clear) Urine pH (4.5-7.5) Ur Specific Duarte (1.000-1.030) Urine Protein (Negative) Urine Glucose (UA) (Negative) Urine Ketones (Negative) Urine Blood (Negative) Urine Nitrite (Negative) Urine Bilirubin (Negative) Urine Urobilinogen (Negative) Ur Leukocyte Esterase (Negative) Urine WBC (Auto) (0-5) /hpf Urine RBC (Auto) (0-4) /hpf U Hyaline Cast (Auto) (0-5) /lpf U Epithel Cells (Auto) (0-5) /lpf Urine Bacteria (Auto) (Negative) Urine Yeast Nasal Screen MRSA (PCR) (Negative) COVID-19 Eval Order SARS-CoV-2 (PCR) (Negative) Blood Type Antibody Screen 05/09/21 05/08/21 05/08/21 Range/Units 03:54 21:04 21:04 WBC (4.8-10.8) K/uL RBC (4.2-5.4) M/uL Hgb (12.0-16.0) g/dL POC Hgb (12.0-16.0) g/dl Hct (37-47) % POC Hct (37-47) % MCV (80-100) fL MCH (25-34) pg MCHC (32-36) g/dL RDW Std Deviation (36.4-46.3) fL RDW Coeff of Bety (11.5-14.5) % Plt Count (130-400) K/uL MPV (7.4-10.4) fL Immature Gran % (Auto) % Neut % (Auto) % Lymph % (Auto) % Kleberg % (Auto) % Eos % (Auto) % Baso % (Auto) % Neut # (Auto) (1.4-6.5) K/uL Lymph # (Auto) (1.2-3.4) K/uL Kleberg # (Auto) (0.11-0.59) K/uL Eos # (Auto) (0-0.5) K/uL Baso # (Auto) (0-0.2) K/uL Immature Gran # (Auto) (0.00-0.02) K/uL PT 29.3 H (9.0-12.0) Seconds INR 3.2 H (0.9-1.1) APTT 62.9 H* 43.9 H (21.0-31.0) Seconds PTT Ratio 2.4 1.7 POC Sodium (135-144) mmol/L Sodium (136-145) mmol/L POC Potassium (3.3-5.0) mmol/L Potassium (3.5-5.1) mmol/L POC Chloride (101-112) mmol/L Chloride (98-107) mmol/L Carbon Dioxide (21-32) mmol/L POC Total CO2 (24-31) mmol/L Anion Gap (3-11) POC Anion Gap (16-25) mmol/L POC BUN (7-18) mg/dl BUN (7-18) mg/dl Creatinine (0.6-1.2) mg/dl POC Creatinine (0.6-1.3) mg/dl Est Cr Clr Drug Dosing ml/min Est GFR ( Amer) ml/min Est GFR (Non-Af Amer) ml/min BUN/Creatinine Ratio (10-20) Glucose (70-99) mg/dl POC Glucose 95 (70-99) mg/dl POC Glucose (other) (70-99) mg/dl Lactate (0.4-2.0) mmol/L Calcium (8.5-10.1) mg/dl POC Ioniz Calcium Andrae (1.12-1.32) mmol/l Phosphorus (2.5-4.9) mg/dl Magnesium (1.8-2.4) mg/dl Total Bilirubin (0.2-1) mg/dl AST (15-37) U/L ALT (12-78) U/L Alkaline Phosphatase (45-117) U/L Troponin I (0-0.045) ng/ml Total Protein (6.4-8.2) gm/dl Albumin (3.4-5.0) gm/dl Globulin (2.5-4.0) gm/dl Albumin/Globulin Ratio (0.9-2) Procalcitonin (0-0.5) ng/ml Urine Color Urine Appearance (Clear) Urine pH (4.5-7.5) Ur Specific Duarte (1.000-1.030) Urine Protein (Negative) Urine Glucose (UA) (Negative) Urine Ketones (Negative) Urine Blood (Negative) Urine Nitrite (Negative) Urine Bilirubin (Negative) Urine Urobilinogen (Negative) Ur Leukocyte Esterase (Negative) Urine WBC (Auto) (0-5) /hpf Urine RBC (Auto) (0-4) /hpf U Hyaline Cast (Auto) (0-5) /lpf U Epithel Cells (Auto) (0-5) /lpf Urine Bacteria (Auto) (Negative) Urine Yeast Nasal Screen MRSA (PCR) (Negative) COVID-19 Eval Order SARS-CoV-2 (PCR) (Negative) Blood Type Antibody Screen 05/08/21 05/08/21 05/08/21 Range/Units 17:49 16:00 14:53 WBC (4.8-10.8) K/uL RBC (4.2-5.4) M/uL Hgb (12.0-16.0) g/dL POC Hgb (12.0-16.0) g/dl Hct (37-47) % POC Hct (37-47) % MCV (80-100) fL MCH (25-34) pg MCHC (32-36) g/dL RDW Std Deviation (36.4-46.3) fL RDW Coeff of Bety (11.5-14.5) % Plt Count (130-400) K/uL MPV (7.4-10.4) fL Immature Gran % (Auto) % Neut % (Auto) % Lymph % (Auto) % Kleberg % (Auto) % Eos % (Auto) % Baso % (Auto) % Neut # (Auto) (1.4-6.5) K/uL Lymph # (Auto) (1.2-3.4) K/uL Kleberg # (Auto) (0.11-0.59) K/uL Eos # (Auto) (0-0.5) K/uL Baso # (Auto) (0-0.2) K/uL Immature Gran # (Auto) (0.00-0.02) K/uL PT (9.0-12.0) Seconds INR (0.9-1.1) APTT (21.0-31.0) Seconds PTT Ratio POC Sodium (135-144) mmol/L Sodium (136-145) mmol/L POC Potassium (3.3-5.0) mmol/L Potassium (3.5-5.1) mmol/L POC Chloride (101-112) mmol/L Chloride (98-107) mmol/L Carbon Dioxide (21-32) mmol/L POC Total CO2 (24-31) mmol/L Anion Gap (3-11) POC Anion Gap (16-25) mmol/L POC BUN (7-18) mg/dl BUN (7-18) mg/dl Creatinine (0.6-1.2) mg/dl POC Creatinine (0.6-1.3) mg/dl Est Cr Clr Drug Dosing ml/min Est GFR ( Amer) ml/min Est GFR (Non-Af Amer) ml/min BUN/Creatinine Ratio (10-20) Glucose (70-99) mg/dl POC Glucose 108 H (70-99) mg/dl POC Glucose (other) (70-99) mg/dl Lactate 3.8 H* (0.4-2.0) mmol/L Calcium (8.5-10.1) mg/dl POC Ioniz Calcium Andrae (1.12-1.32) mmol/l Phosphorus (2.5-4.9) mg/dl Magnesium (1.8-2.4) mg/dl Total Bilirubin (0.2-1) mg/dl AST (15-37) U/L ALT (12-78) U/L Alkaline Phosphatase (45-117) U/L Troponin I (0-0.045) ng/ml Total Protein (6.4-8.2) gm/dl Albumin (3.4-5.0) gm/dl Globulin (2.5-4.0) gm/dl Albumin/Globulin Ratio (0.9-2) Procalcitonin (0-0.5) ng/ml Urine Color Urine Appearance (Clear) Urine pH (4.5-7.5) Ur Specific Duarte (1.000-1.030) Urine Protein (Negative) Urine Glucose (UA) (Negative) Urine Ketones (Negative) Urine Blood (Negative) Urine Nitrite (Negative) Urine Bilirubin (Negative) Urine Urobilinogen (Negative) Ur Leukocyte Esterase (Negative) Urine WBC (Auto) (0-5) /hpf Urine RBC (Auto) (0-4) /hpf U Hyaline Cast (Auto) (0-5) /lpf U Epithel Cells (Auto) (0-5) /lpf Urine Bacteria (Auto) (Negative) Urine Yeast Nasal Screen MRSA (PCR) Positive A (Negative) COVID-19 Eval Order SARS-CoV-2 (PCR) (Negative) Blood Type Antibody Screen 05/08/21 05/08/21 05/08/21 Range/Units 14:51 13:29 13:29 WBC (4.8-10.8) K/uL RBC (4.2-5.4) M/uL Hgb (12.0-16.0) g/dL POC Hgb (12.0-16.0) g/dl Hct (37-47) % POC Hct (37-47) % MCV (80-100) fL MCH (25-34) pg MCHC (32-36) g/dL RDW Std Deviation (36.4-46.3) fL RDW Coeff of Bety (11.5-14.5) % Plt Count (130-400) K/uL MPV (7.4-10.4) fL Immature Gran % (Auto) % Neut % (Auto) % Lymph % (Auto) % Kleberg % (Auto) % Eos % (Auto) % Baso % (Auto) % Neut # (Auto) (1.4-6.5) K/uL Lymph # (Auto) (1.2-3.4) K/uL Kleberg # (Auto) (0.11-0.59) K/uL Eos # (Auto) (0-0.5) K/uL Baso # (Auto) (0-0.2) K/uL Immature Gran # (Auto) (0.00-0.02) K/uL PT (9.0-12.0) Seconds INR (0.9-1.1) APTT (21.0-31.0) Seconds PTT Ratio POC Sodium (135-144) mmol/L Sodium (136-145) mmol/L POC Potassium (3.3-5.0) mmol/L Potassium (3.5-5.1) mmol/L POC Chloride (101-112) mmol/L Chloride (98-107) mmol/L Carbon Dioxide (21-32) mmol/L POC Total CO2 (24-31) mmol/L Anion Gap (3-11) POC Anion Gap (16-25) mmol/L POC BUN (7-18) mg/dl BUN (7-18) mg/dl Creatinine (0.6-1.2) mg/dl POC Creatinine (0.6-1.3) mg/dl Est Cr Clr Drug Dosing ml/min Est GFR ( Amer) ml/min Est GFR (Non-Af Amer) ml/min BUN/Creatinine Ratio (10-20) Glucose (70-99) mg/dl POC Glucose (70-99) mg/dl POC Glucose (other) (70-99) mg/dl Lactate (0.4-2.0) mmol/L Calcium (8.5-10.1) mg/dl POC Ioniz Calcium Andrae (1.12-1.32) mmol/l Phosphorus (2.5-4.9) mg/dl Magnesium (1.8-2.4) mg/dl Total Bilirubin (0.2-1) mg/dl AST (15-37) U/L ALT (12-78) U/L Alkaline Phosphatase (45-117) U/L Troponin I (0-0.045) ng/ml Total Protein (6.4-8.2) gm/dl Albumin (3.4-5.0) gm/dl Globulin (2.5-4.0) gm/dl Albumin/Globulin Ratio (0.9-2) Procalcitonin (0-0.5) ng/ml Urine Color Yellow Urine Appearance Cloudy A (Clear) Urine pH 6.5 (4.5-7.5) Ur Specific Duarte > 1.045 H (1.000-1.030) Urine Protein 2+ H (Negative) Urine Glucose (UA) Negative (Negative) Urine Ketones Negative (Negative) Urine Blood 2+ H (Negative) Urine Nitrite Negative (Negative) Urine Bilirubin Negative (Negative) Urine Urobilinogen Negative (Negative) Ur Leukocyte Esterase 2+ H (Negative) Urine WBC (Auto) >30 H (0-5) /hpf Urine RBC (Auto) 10-30 H (0-4) /hpf U Hyaline Cast (Auto) 5-10 H (0-5) /lpf U Epithel Cells (Auto) 20-30 H (0-5) /lpf Urine Bacteria (Auto) 4+ H (Negative) Urine Yeast Not Reportable Nasal Screen MRSA (PCR) (Negative) COVID-19 Eval Order Covid19 at [facility] SARS-CoV-2 (PCR) NEGATIVE (Negative) Blood Type Antibody Screen 05/08/21 05/08/21 05/08/21 Range/Units 12:43 12:43 12:25 WBC (4.8-10.8) K/uL RBC (4.2-5.4) M/uL Hgb (12.0-16.0) g/dL POC Hgb 13.6 (12.0-16.0) g/dl Hct (37-47) % POC Hct 40 (37-47) % MCV (80-100) fL MCH (25-34) pg MCHC (32-36) g/dL RDW Std Deviation (36.4-46.3) fL RDW Coeff of Bety (11.5-14.5) % Plt Count (130-400) K/uL MPV (7.4-10.4) fL Immature Gran % (Auto) % Neut % (Auto) % Lymph % (Auto) % Kleberg % (Auto) % Eos % (Auto) % Baso % (Auto) % Neut # (Auto) (1.4-6.5) K/uL Lymph # (Auto) (1.2-3.4) K/uL Kleberg # (Auto) (0.11-0.59) K/uL Eos # (Auto) (0-0.5) K/uL Baso # (Auto) (0-0.2) K/uL Immature Gran # (Auto) (0.00-0.02) K/uL PT (9.0-12.0) Seconds INR (0.9-1.1) APTT (21.0-31.0) Seconds PTT Ratio POC Sodium 136 (135-144) mmol/L Sodium (136-145) mmol/L POC Potassium 4.1 (3.3-5.0) mmol/L Potassium (3.5-5.1) mmol/L POC Chloride 103 (101-112) mmol/L Chloride (98-107) mmol/L Carbon Dioxide (21-32) mmol/L POC Total CO2 18 L (24-31) mmol/L Anion Gap (3-11) POC Anion Gap 20.0 (16-25) mmol/L POC BUN 5 L (7-18) mg/dl BUN (7-18) mg/dl Creatinine (0.6-1.2) mg/dl POC Creatinine 0.7 (0.6-1.3) mg/dl Est Cr Clr Drug Dosing ml/min Est GFR ( Amer) ml/min Est GFR (Non-Af Amer) ml/min BUN/Creatinine Ratio (10-20) Glucose (70-99) mg/dl POC Glucose (70-99) mg/dl POC Glucose (other) 252 H (70-99) mg/dl Lactate 5.0 H* (0.4-2.0) mmol/L Calcium (8.5-10.1) mg/dl POC Ioniz Calcium Andrae 1.16 (1.12-1.32) mmol/l Phosphorus (2.5-4.9) mg/dl Magnesium (1.8-2.4) mg/dl Total Bilirubin (0.2-1) mg/dl AST (15-37) U/L ALT (12-78) U/L Alkaline Phosphatase (45-117) U/L Troponin I (0-0.045) ng/ml Total Protein (6.4-8.2) gm/dl Albumin (3.4-5.0) gm/dl Globulin (2.5-4.0) gm/dl Albumin/Globulin Ratio (0.9-2) Procalcitonin (0-0.5) ng/ml Urine Color Urine Appearance (Clear) Urine pH (4.5-7.5) Ur Specific Duarte (1.000-1.030) Urine Protein (Negative) Urine Glucose (UA) (Negative) Urine Ketones (Negative) Urine Blood (Negative) Urine Nitrite (Negative) Urine Bilirubin (Negative) Urine Urobilinogen (Negative) Ur Leukocyte Esterase (Negative) Urine WBC (Auto) (0-5) /hpf Urine RBC (Auto) (0-4) /hpf U Hyaline Cast (Auto) (0-5) /lpf U Epithel Cells (Auto) (0-5) /lpf Urine Bacteria (Auto) (Negative) Urine Yeast Nasal Screen MRSA (PCR) (Negative) COVID-19 Eval Order SARS-CoV-2 (PCR) (Negative) Blood Type A Positive Antibody Screen NEGATIVE 05/08/21 05/08/21 05/08/21 Range/Units 12:21 12:21 12:21 WBC (4.8-10.8) K/uL RBC (4.2-5.4) M/uL Hgb (12.0-16.0) g/dL POC Hgb (12.0-16.0) g/dl Hct (37-47) % POC Hct (37-47) % MCV (80-100) fL MCH (25-34) pg MCHC (32-36) g/dL RDW Std Deviation (36.4-46.3) fL RDW Coeff of Bety (11.5-14.5) % Plt Count (130-400) K/uL MPV (7.4-10.4) fL Immature Gran % (Auto) % Neut % (Auto) % Lymph % (Auto) % Kleberg % (Auto) % Eos % (Auto) % Baso % (Auto) % Neut # (Auto) (1.4-6.5) K/uL Lymph # (Auto) (1.2-3.4) K/uL Kleberg # (Auto) (0.11-0.59) K/uL Eos # (Auto) (0-0.5) K/uL Baso # (Auto) (0-0.2) K/uL Immature Gran # (Auto) (0.00-0.02) K/uL PT 10.1 (9.0-12.0) Seconds INR 1.0 (0.9-1.1) APTT 26.0 (21.0-31.0) Seconds PTT Ratio 1.0 POC Sodium (135-144) mmol/L Sodium 136 (136-145) mmol/L POC Potassium (3.3-5.0) mmol/L Potassium 4.0 (3.5-5.1) mmol/L POC Chloride (101-112) mmol/L Chloride 107 (98-107) mmol/L Carbon Dioxide 18 L (21-32) mmol/L POC Total CO2 (24-31) mmol/L Anion Gap 11.0 (3-11) POC Anion Gap (16-25) mmol/L POC BUN (7-18) mg/dl BUN 6 L (7-18) mg/dl Creatinine 1.01 (0.6-1.2) mg/dl POC Creatinine (0.6-1.3) mg/dl Est Cr Clr Drug Dosing 37.8 ml/min Est GFR ( Amer) 58.4 ml/min Est GFR (Non-Af Amer) 50.4 ml/min BUN/Creatinine Ratio 6.2 L (10-20) Glucose 239 H (70-99) mg/dl POC Glucose (70-99) mg/dl POC Glucose (other) (70-99) mg/dl Lactate (0.4-2.0) mmol/L Calcium 8.8 (8.5-10.1) mg/dl POC Ioniz Calcium Andrae (1.12-1.32) mmol/l Phosphorus (2.5-4.9) mg/dl Magnesium 2.2 (1.8-2.4) mg/dl Total Bilirubin 0.5 (0.2-1) mg/dl AST 54 H (15-37) U/L ALT 34 (12-78) U/L Alkaline Phosphatase 147 H (45-117) U/L Troponin I 0.031 (0-0.045) ng/ml Total Protein 7.1 (6.4-8.2) gm/dl Albumin 2.8 L (3.4-5.0) gm/dl Globulin 4.3 H (2.5-4.0) gm/dl Albumin/Globulin Ratio 0.7 L (0.9-2) Procalcitonin 0.14 (0-0.5) ng/ml Urine Color Urine Appearance (Clear) Urine pH (4.5-7.5) Ur Specific Duarte (1.000-1.030) Urine Protein (Negative) Urine Glucose (UA) (Negative) Urine Ketones (Negative) Urine Blood (Negative) Urine Nitrite (Negative) Urine Bilirubin (Negative) Urine Urobilinogen (Negative) Ur Leukocyte Esterase (Negative) Urine WBC (Auto) (0-5) /hpf Urine RBC (Auto) (0-4) /hpf U Hyaline Cast (Auto) (0-5) /lpf U Epithel Cells (Auto) (0-5) /lpf Urine Bacteria (Auto) (Negative) Urine Yeast Nasal Screen MRSA (PCR) (Negative) COVID-19 Eval Order SARS-CoV-2 (PCR) (Negative) Blood Type Antibody Screen 05/08/21 Range/Units 12:21 WBC 11.64 H (4.8-10.8) K/uL RBC 4.34 (4.2-5.4) M/uL Hgb 12.8 (12.0-16.0) g/dL POC Hgb (12.0-16.0) g/dl Hct 39.3 (37-47) % POC Hct (37-47) % MCV 90.6 (80-100) fL MCH 29.5 (25-34) pg MCHC 32.6 (32-36) g/dL RDW Std Deviation 45.7 (36.4-46.3) fL RDW Coeff of Bety 13.9 (11.5-14.5) % Plt Count 392 (130-400) K/uL MPV 10.4 (7.4-10.4) fL Immature Gran % (Auto) 0.8 % Neut % (Auto) 74.2 % Lymph % (Auto) 17.9 % Kleberg % (Auto) 6.3 % Eos % (Auto) 0.6 % Baso % (Auto) 0.2 % Neut # (Auto) 8.65 H (1.4-6.5) K/uL Lymph # (Auto) 2.08 (1.2-3.4) K/uL Kleberg # (Auto) 0.73 H (0.11-0.59) K/uL Eos # (Auto) 0.07 (0-0.5) K/uL Baso # (Auto) 0.02 (0-0.2) K/uL Immature Gran # (Auto) 0.09 H (0.00-0.02) K/uL PT (9.0-12.0) Seconds INR (0.9-1.1) APTT (21.0-31.0) Seconds PTT Ratio POC Sodium (135-144) mmol/L Sodium (136-145) mmol/L POC Potassium (3.3-5.0) mmol/L Potassium (3.5-5.1) mmol/L POC Chloride (101-112) mmol/L Chloride (98-107) mmol/L Carbon Dioxide (21-32) mmol/L POC Total CO2 (24-31) mmol/L Anion Gap (3-11) POC Anion Gap (16-25) mmol/L POC BUN (7-18) mg/dl BUN (7-18) mg/dl Creatinine (0.6-1.2) mg/dl POC Creatinine (0.6-1.3) mg/dl Est Cr Clr Drug Dosing ml/min Est GFR ( Amer) ml/min Est GFR (Non-Af Amer) ml/min BUN/Creatinine Ratio (10-20) Glucose (70-99) mg/dl POC Glucose (70-99) mg/dl POC Glucose (other) (70-99) mg/dl Lactate (0.4-2.0) mmol/L Calcium (8.5-10.1) mg/dl POC Ioniz Calcium Andrae (1.12-1.32) mmol/l Phosphorus (2.5-4.9) mg/dl Magnesium (1.8-2.4) mg/dl Total Bilirubin (0.2-1) mg/dl AST (15-37) U/L ALT (12-78) U/L Alkaline Phosphatase (45-117) U/L Troponin I (0-0.045) ng/ml Total Protein (6.4-8.2) gm/dl Albumin (3.4-5.0) gm/dl Globulin (2.5-4.0) gm/dl Albumin/Globulin Ratio (0.9-2) Procalcitonin (0-0.5) ng/ml Urine Color Urine Appearance (Clear) Urine pH (4.5-7.5) Ur Specific Duarte (1.000-1.030) Urine Protein (Negative) Urine Glucose (UA) (Negative) Urine Ketones (Negative) Urine Blood (Negative) Urine Nitrite (Negative) Urine Bilirubin (Negative) Urine Urobilinogen (Negative) Ur Leukocyte Esterase (Negative) Urine WBC (Auto) (0-5) /hpf Urine RBC (Auto) (0-4) /hpf U Hyaline Cast (Auto) (0-5) /lpf U Epithel Cells (Auto) (0-5) /lpf Urine Bacteria (Auto) (Negative) Urine Yeast Nasal Screen MRSA (PCR) (Negative) COVID-19 Eval Order SARS-CoV-2 (PCR) (Negative) Blood Type Antibody Screen Resident Activity Tracking Resident Involvement: Resident Care Provided Care Provided: Adult Hospital Medicine
--- NOTE | 2021-05-09 07:33 | Billing Data ---
Date of Service May 09, 2021 Coding Level of Care Code 91828 Subseq Hosp Care Lvl 3
[2021-05-09] MEDS: CLOPIDOGREL BISULFATE 75 MG TAB PO SCH (08:46)
[2021-05-09] MEDS: POLYETHYLENE (MIRALAX) 17 GM PACK PO SCH (08:46)
[2021-05-09] MEDS: SENNA 8.6 MG TAB PO SCH ×2 (08:46→21:22)
[2021-05-09] MEDS: PANTOprazole 40 MG TAB PO SCH (08:47)
[2021-05-09] MEDS: NORMOSOL-R 1,000 ML IV SCH ×2 (13:43→17:14)
[2021-05-09] MEDS ORDERED: ONDANSETRON INJ 2 MG/ML 2 ML VIAL IV PRN (13:52)
[2021-05-09] MEDS: ONDANSETRON 4 MG OD TAB PO PRN (13:54)
[2021-05-09] MEDS ORDERED: LORazepam 0.25 MG/0.5 ML VIAL IV STA (14:16)
[2021-05-09] MEDS ORDERED: LORazepam 2 MG/4 ML VIAL ONE (14:20)
--- NOTE | 2021-05-09 18:11 | XCELERA ---
[id number]
[2021-05-09] MEDS ORDERED: MECLIZINE 12.5 MG TAB PO PRN (20:49)
[2021-05-09] MEDS: CITALOPRAM 20 MG TAB PO SCH (21:56)
[2021-05-09] MEDS: MIRTAZAPINE TAB 15 MG TAB PO SCH (21:57)
--- NOTE | 2021-05-09 22:21 | Hospitalist Progress Note ---
Date of Service May 09, 2021 Assessment & Plan (1) Bilateral pulmonary embolism: Plan: with RV strain and hypotension/obstructive shock at time of presentation yesterday. s/p TPA with admit to ICU thereafter. transitioned to heparin infusion. had been taking eliquis up until March for prior PEs. Eliquis stopped at that time because of epistaxis by report and it was never resumed later on. would not consider this an eliquis treatment failure since she had been off the medication for several months. risk factors for PE - prior PE, bed-bound status, etc cannot rule out other factors. Her INR today is quite elevated - cause?? acute liver dysfunction? vitamin K deficiency? other? repeat PT, INR, PTT in am. cbc in am. repeat LFTs. cont heparin infusion. echo findings - as below. consider dopplers of LEs. (2) Acute hypotension: Plan: shock, 2nd to submassive PEs. resolved s/p TPA emergently yesterday. BPs now normal. echo findings as below. (3) UTI (urinary tract infection): Plan: urine cx with GNR. uncertain if symptomatic or not. consider rocephin. (4) Hypothyroidism: Plan: most recent TSH wnl cont synthroid (5) Acute systolic CHF (congestive heart failure): Plan: EF 30-35% etiology?? prior echo 2018 with preserved EF global hypokinesis of LV trop yesterday neg repeat trop in am will need cardiology evaluation thus far looks compensated (6) Pulmonary HTN: Plan: 2nd to systolic CHF? prior PEs? other? NC O2, supportive care (7) Vertigo: Plan: h/o vestibular migraines per the EMR current vertigo could be such or BPV vs other meclizine 12.5mg prn (8) Esophagitis: Plan: as seen on CT chest PPI Plan: ok to transfer to PCU update family tomorrow likely to need formal cardiology eval Admission and Anticipated Discharge Date Admission Date: May 08, 2021 Subjective patient reports having vertigo this afternoon received IV ativan with relief of symptoms she states she has spinning spells at the snf no overt sites of bleeding s/p TPA yesterday for submassive PE patient with mild ongoing NC O2 requirement denies dyspnea at rest denies chest pain Review of Systems Review of Systems: gen - fatigue, weakness CV - no chest pain pulm - no cough GI - no abd pain Physical Exam Physical Exam: gen - frail appearing, mildly confused eyes - horizontal nystagmus noted mouth - MMM neck - JVD present CV - RRR, s1 s2, 2/6 systolic murmur LSB lungs - CTA b/l abd - soft, minimal tenderness high epigastric region; ND BS+ ext - no edema skin - varicose veins b/l shins Results & Data Results & Data ([facility]) Vital Signs (Past 12 Hours) Vital Signs Temp Pulse Pulse Resp BP BP Pulse Ox 05/09/21 21:44 103 H 05/09/21 20:31 36.7 C 71 19 159/77 H 96 05/09/21 18:00 114 H 24 05/09/21 17:15 107 H 28 H 05/09/21 17:02 105 H 27 H 05/09/21 16:29 93 H 19 144/84 H 05/09/21 15:59 92 H 28 H 128/79 81 L 05/09/21 15:29 96 H 19 113/76 93 05/09/21 14:29 95 H 22 130/83 95 05/09/21 13:59 104 H 22 130/78 95 05/09/21 13:27 105 H 17 126/84 95 05/09/21 12:59 90 22 130/74 96 05/09/21 12:29 89 22 131/77 96 05/09/21 11:59 93 H 23 129/83 97 05/09/21 11:29 94 H 19 113/68 98 05/09/21 10:59 87 19 128/68 97 05/09/21 10:29 91 H 20 122/75 95 Laboratory Results Laboratory Results - last 24 hr 05/09/21 05/09/21 05/09/21 03:54 03:54 03:54 WBC 7.34 RBC 3.61 L Hgb 10.6 L Hct 33.4 L MCV 92.5 MCH 29.4 MCHC 31.7 L RDW Std Deviation 47.1 H RDW Coeff of Bety 13.9 Plt Count 286 MPV 10.2 Immature Gran % (Auto) 0.4 Neut % (Auto) 62.0 Lymph % (Auto) 28.5 [place] % (Auto) 7.8 Eos % (Auto) 1.0 Baso % (Auto) 0.3 Neut # (Auto) 4.56 Lymph # (Auto) 2.09 [place] # (Auto) 0.57 Eos # (Auto) 0.07 Baso # (Auto) 0.02 Immature Gran # (Auto) 0.03 H PT 29.3 H INR 3.2 H APTT 62.9 H* PTT Ratio 2.4 Sodium 140 Potassium 3.9 Chloride 112 H Carbon Dioxide 25 Anion Gap 3.0 BUN 8 Creatinine 0.67 D Est Cr Clr Drug Dosing 56.9 Est GFR ( Amer) 92.2 Est GFR (Non-Af Amer) 79.6 BUN/Creatinine Ratio 11.3 Glucose 94 POC Glucose Lactate Calcium 7.6 L Phosphorus 3.8 Magnesium 2.1 05/09/21 05/09/21 05/09/21 03:54 11:24 13:39 WBC RBC Hgb Hct MCV MCH MCHC RDW Std Deviation RDW Coeff of Bety Plt Count MPV Immature Gran % (Auto) Neut % (Auto) Lymph % (Auto) [place] % (Auto) Eos % (Auto) Baso % (Auto) Neut # (Auto) Lymph # (Auto) [place] # (Auto) Eos # (Auto) Baso # (Auto) Immature Gran # (Auto) PT INR APTT PTT Ratio Sodium Potassium Chloride Carbon Dioxide Anion Gap BUN Creatinine Est Cr Clr Drug Dosing Est GFR ( Amer) Est GFR (Non-Af Amer) BUN/Creatinine Ratio Glucose POC Glucose 19 L* 126 H Lactate 1.1 Calcium Phosphorus Magnesium Diagnostic Findings echo - EF 30-35%; moderate RV dysfunction; pulmonary HTN PG Care Time/CCT Total # of Minutes Spent Total Time Spent with Patient: Total time spent is greater than 50% in coordination of care (as documented) at patient's floor/unit and/or counseling patient: Coding Level of Care Code 52757 Subseq Hosp Care Lvl 3 Diagnoses Bilateral pulmonary embolism I26.99 Acute hypotension I95.9 UTI (urinary tract infection) N39.0 Hypothyroidism E03.9 Hypothyroidism type: unspecified Acute systolic CHF (congestive heart failure) I50.21 Pulmonary HTN I27.20 Vertigo R42 Esophagitis K20.90 (1) Hypothyroidism Hypothyroidism type: unspecified Qualified Code(s): E03.9 - Hypothyroidism, unspecified
[2021-05-10] MEDS: LEVOTHYROXINE SODIUM 150 MCG TABLET PO SCH (05:49)
[2021-05-10 07:19] LABS: Hematocrit (blood only) 34.7 % (37-47); Mean Corpuscular Hemoglobin 28.9 pg (25-34); Mean Corpuscular Hgb Conc 31.7 g/dL (32-36); Mean Corpuscular Volume 91.1 fL (80-100); Platelet Count 311 K/uL (130-400); RDW Coefficient of Variation 13.8 % (11.5-14.5); RDW Standard Deviation 45.7 fL (36.4-46.3); Red Blood Count 3.81 M/uL (4.2-5.4); White Blood Count 8.06 K/uL (4.8-10.8)
[2021-05-10 07:27] LABS: INR 1.1 (0.9-1.1); Partial Thromboplastin Ratio 1.6; Prothrombin Time 10.9 Seconds (9.0-12.0)
[2021-05-10 07:43] LABS: Albumin Level 2.7 gm/dl (3.4-5.0); BUN Creatinine Ratio 7.2 (10-20); Calcium 8.2 mg/dl (8.5-10.1); Creatinine Clr Calc Pharmacy 56.9 ml/min; Est GFR (African American) 93.2 ml/min; Est GFR (Non-African American) 80.4 ml/min; Potassium 3.7 mmol/L (3.5-5.1)
[2021-05-10 07:48] LABS: Albumin Globulin Ratio 0.8 (0.9-2); Bilirubin,Total 0.3 mg/dl (0.2-1); Globulin 3.3 gm/dl (2.5-4.0); Troponin I 0.029 ng/ml (0-0.045)
[2021-05-10] MEDS: POLYETHYLENE (MIRALAX) 17 GM PACK PO SCH (08:14)
[2021-05-10] MEDS: SENNA 8.6 MG TAB PO SCH ×2 (08:14→19:33)
[2021-05-10] MEDS: PANTOprazole 40 MG TAB PO SCH (08:51)
[2021-05-10] MEDS: CLOPIDOGREL BISULFATE 75 MG TAB PO SCH (08:51)
[2021-05-10] MEDS: HEPARIN SODIUM/DEXTROSE 25,000 UNITS/500 ML BAG IV SCH (09:13)
[2021-05-10] MEDS: NORMOSOL-R 1,000 ML IV SCH (13:26)
[2021-05-10 14:35] LABS: Partial Thromboplastin Ratio 1.4
[2021-05-10] MEDS ORDERED: HEPARIN SOD (PORCINE) 1000 UNIT/ML IV ONE (15:10)
--- NOTE | 2021-05-10 17:31 | Ultrasound Report ---
BILATERAL LOWER EXTREMITY VENOUS DOPPLER HISTORY: Pulmonary embolus severe, extensive PEs; eval DVT COMPARISON STUDY: Duplex venous Doppler study 11/27/2017 FINDINGS: RIGHT: Occlusive and partially occlusive thrombus extends from the proximal aspect of the superficial femoral vein into the peroneal veins. Occlusive component is mostly present within the mid to distal superficial femoral vein. 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 LEFT: Partially occlusive thrombus of the mid posterior tibial vein. No additional deep venous thromb us identified. IMPRESSION: Bilateral deep venous thrombi as above, right greater than left. ACT 112: Negative or not required by law. Electronically signed by: Anil Victor M.D. 05/10/2021 5:29 PM
[2021-05-10] MEDS: METOPROLOL TARTRATE 25 MG TAB PO SCH ×2 (19:32→21:47)
--- NOTE | 2021-05-10 19:37 | Hospitalist Progress Note ---
Date of Service May 10, 2021 Assessment & Plan (1) Bilateral pulmonary embolism: Plan: with RV strain and hypotension/obstructive shock at time of admission. s/p TPA with admit to ICU thereafter. transitioned to heparin infusion. no bleeding complications since. had been taking eliquis up until March for prior PEs per records. Eliquis stopped at that time because of epistaxis by report and it was never resumed later on. would not consider this an eliquis treatment failure since she had been off the medication for several months. risk factors for PE - prior PE, bed-bound status, etc cannot rule out other factors. transient INR elevation - 2nd to tPA. cont heparin infusion. likely resume eliquis tomorrow -- 10mg BID x 7 days, then 5mg BID thereafter - lifelong. dopplers of LEs as below. (2) DVT, bilateral lower limbs: Plan: 2nd to bed-bound/wheelchair-bound status. see #1 above. (3) Acute hypotension: Plan: shock, 2nd to submassive PEs. resolved s/p TPA and supportive care. BPs now normal or high. echo findings as below. (4) UTI (urinary tract infection): Plan: urine cx with e.coli. uncertain if symptomatic or not due to londono but suspect asymptomatic bacteriuria. will not Rx at this time. nl wbc count. no fever. (5) Hypothyroidism: Plan: most recent TSH wnl cont synthroid (6) Acute systolic CHF (congestive heart failure): Plan: EF 30-35% etiology?? prior echo 2018 with preserved EF global hypokinesis of LV trop neg at admission repeat trop today also neg spoke with Dr Colindres who will consult from cardiology compensated from volume standpoint left heart failure - etiology ? would be separate from her PEs as PEs would only cause RV dysfunction. await cards eval. (7) Pulmonary HTN: Plan: 2nd to systolic CHF? prior PEs? other? NC O2, supportive care (8) Vertigo: Plan: h/o vestibular migraines per the EMR current vertigo could be such or BPV vs other meclizine 12.5mg prn improved today (9) Esophagitis: Plan: as seen on CT chest PPI Plan: left message for daughter on [employer] today cont tele d/c londono catheter Admission and Anticipated Discharge Date Admission Date: May 08, 2021 Subjective patient sitting in chair during the visit comfortable appearing she was very confused, stating she was "at home" and needing to get up ROS was limited but she did deny chest pain or dyspnea staff report ongoing confusion no issues with bleeding in context of recent tPA or heparin GTTS fair appetite Review of Systems Review of Systems: Unobtainable due to cognitive status Physical Exam Physical Exam: gen - frail appearing, mildly confused but NAD; a/o to self only eyes - horizontal nystagmus improved today mouth - MMM neck - no JVD sitting upright CV - RRR, s1 s2, 2/6 systolic murmur LSB lungs - CTA b/l abd - soft, NT, ND, BS+ ext - no edema skin - varicose veins b/l shins neuro - speech fluent & clear, no facial droop; strength 5/5 x 4 exts Results & Data Results & [facility] ([facility]) Vital Signs (Past 12 Hours) Vital Signs Temp Pulse Pulse Pulse Resp BP Pulse Ox 05/10/21 19:00 36.7 C 90 20 150/86 H 94 05/10/21 16:56 163/96 H 05/10/21 16:14 171/80 H 05/10/21 15:18 36.4 C L 73 19 171/80 H 95 05/10/21 14:56 101 H 05/10/21 11:22 36.6 C 87 19 129/76 95 05/10/21 08:00 103 H Laboratory Results Laboratory Results - last 24 hr 05/10/21 05/10/21 05/10/21 06:50 06:50 06:50 WBC 8.06 RBC 3.81 L Hgb 11.0 L Hct 34.7 L MCV 91.1 MCH 28.9 MCHC 31.7 L RDW Std Deviation 45.7 RDW Coeff of Bety 13.8 Plt Count 311 MPV 10.0 PT 10.9 INR 1.1 APTT 41.0 H PTT Ratio 1.6 Sodium 137 Potassium 3.7 Chloride 107 Carbon Dioxide 26 Anion Gap 4.0 BUN 5 L Creatinine 0.65 Est Cr Clr Drug Dosing 56.9 Est GFR ( Amer) 93.2 Est GFR (Non-Af Amer) 80.4 BUN/Creatinine Ratio 7.2 L Glucose 101 H POC Glucose Calcium 8.2 L Total Bilirubin 0.3 AST 37 ALT 38 Alkaline Phosphatase 125 H Troponin I 0.029 Total Protein 6.0 L Albumin 2.7 L Globulin 3.3 Albumin/Globulin Ratio 0.8 L 05/10/21 05/10/21 05/10/21 07:05 11:05 13:57 WBC RBC Hgb Hct MCV MCH MCHC RDW Std Deviation RDW Coeff of Bety Plt Count MPV PT INR APTT 37.0 H PTT Ratio 1.4 Sodium Potassium Chloride Carbon Dioxide Anion Gap BUN Creatinine Est Cr Clr Drug Dosing Est GFR ( Amer) Est GFR (Non-Af Amer) BUN/Creatinine Ratio Glucose POC Glucose 91 120 H Calcium Total Bilirubin AST ALT Alkaline Phosphatase Troponin I Total Protein Albumin Globulin Albumin/Globulin Ratio Diagnostic Findings dopplers LEs + for b/l DVTs PG Care Time/CCT Total # of Minutes Spent Total Time Spent with Patient: Total time spent is greater than 50% in coor dination of care (as documented) at patient's floor/unit and/or counseling patient: Coding Level of Care Code 04572 Subseq Hosp Care Lvl 3 Diagnoses Bilateral pulmonary embolism I26.99 Acute hypotension I95.9 UTI (urinary tract infection) N39.0 Hypothyroidism E03.9 Hypothyroidism type: unspecified Acute systolic CHF (congestive heart failure) I50.21 Pulmonary HTN I27.20 Vertigo R42 Esophagitis K20.90 DVT, bilateral lower limbs I82.403 (1) Hypothyroidism Hypothyroidism type: unspecified Qualified Code(s): E03.9 - Hypothyroidism, unspecified
--- NOTE | 2021-05-10 20:48 | Cardiology Consultation ---
Date of Consultation May 10, 2021 Assessment & Plan (1) Cardiomyopathy: The patient appears to have an element of both right ventricular and left ventricular dysfunction on echocardiography. The right ventricular dysfunction could be explained by her pulmonary emboli. She seem to have an element of RV failure at the time of presentation manifest by hypotension improved with volume administration. Currently she appears well compensated in this regard. Her left ventricular dysfunction is of unknown etiology. Certainly she is in a demographic where this could represent ischemic heart disease. The chronicity of her LV dysfunction is also unknown. However, she again appears to be well compensated in this regard. No evidence of recent acute coronary syndrome. Given the fact that she is nonambulatory and has an element of cognitive dysfunction provided she is well compensated I do not believe there is a need for more aggressive intervention such as an ischemic evaluation or any revascularization. He is not report any symptoms consistent with coronary insufficiency or angina. I think medical therapy should be employed. She could certainly start CARLOS inhibition monitoring her renal function and electrolytes closely. I think we can defer beta-blockade until she is over the acute. Of pulmonary emboli. Aggressive beta-blockade may affect RV dysfunction. We will also have to monitor her volume status closely. She appears to be well compensated currently. Her volume status may be tenuous given the need for volume support of the right ventricle but potential decompensation of left ventricular dysfunction. 2. Frequent PACs. No evidence of atrial fibrillation. Perhaps with initiation of beta-blockade at some point will see less atrial ectopy. Patient is not symptomatic. No additional evaluation is required in this regard. History of Present Illness Reason for Consultation: Abnormal echocardiogram Requesting Physician: Cruz Attending Physician: Alan Arroyo History of Present Illness The patient is an 85-year-old woman without a known history of cardiac disease admitted to the hospital after being discovered to have hypoxia and tachycardia. She had previously been on anticoagulant therapy but this was discontinued due to epistaxis. She had a history of pulmonary embolus quite remotely. Patient was discovered to have significant pulmonary emboli and due to hemodynamic instability actually underwent administration of TPA. Her clinical course improved significantly. An echocardiogram was obtained and she was discovered to have an element of right and left ventricular dysfunction. Unfortunately, the patient does suffer from an element of cognitive dysfunction. She was not clear as to why she was in the hospital. She cannot recall the name of the physician who directed her to the hospital. She is currently feeling well. She denies any symptoms of dyspnea. She is not having symptoms of chest pain. In fact, she denies pain at all. It is unclear what her activity level is at her facility. She does not report walking at all. She does not report difficulty breathing in bed or at any time. She did report symptoms of dizziness, but did have difficulty characterizing this more fully. Allergies Allergy/AdvReac Type Severity Reaction Status Date / Time adhesive tape AdvReac Intermediate PEELING OF Verified 05/08/21 15:38 SKIN cefdinir AdvReac Intermediate Migraine Verified 05/08/21 15:38 erythromycin base AdvReac Intermediate MYCIN Verified 05/08/21 15:38 DRUGS-YEAST INFECTIONS tramadol AdvReac Intermediate MAKES Verified 05/08/21 15:38 HEADACHS WORSE--vestibular sx Home Medications Medication Instructions Recorded Confirmed Type polyethylene glycol 3350 17 gram 17 g PO QAM 06/24/19 05/08/21 History oral powder packet (Miralax) clopidogrel 75 mg tablet 75 mg PO HS 09/02/19 05/08/21 History acetaminophen 325 mg tablet 650 mg PO DAILY PRN MDD 3g 01/12/21 05/08/21 History (Tylenol) calcium carbonate 200 mg calcium 400 mg PO Q4H PRN 01/12/21 05/08/21 History (500 mg) chewable tablet (Tums) citalopram 10 mg tablet (Celexa) 5 mg PO PM 01/12/21 05/08/21 History mirtazapine 15 mg tablet (Remeron) 7.5 mg PO HS 01/12/21 05/08/21 History omeprazole 20 mg tablet,delayed 20 mg PO BID 01/12/21 05/08/21 History release ondansetron 4 mg disintegrating 4 mg PO Q8H PRN 01/12/21 05/08/21 History tablet sennosides 8.6 mg tablet (senna) 8.6 mg PO BID 01/12/21 05/08/21 History thiamine HCl (vitamin B1) 100 mg 100 mg PO QAM 01/12/21 05/08/21 History tablet levothyroxine 150 mcg tablet 150 mcg PO DAILYBB #30 tab 01/18/21 05/08/21 Rx (Synthroid) cyanocobalamin (vitamin B-12) 250 500 mcg PO BID 02/20/21 05/08/21 History mcg tablet menthol 0.44 %-zinc oxide 20.6 % 1 applic TOPICAL BID 02/20/21 05/08/21 History topical ointment (Calmoseptine) ketoconazole 2 % shampoo 1 ea TOPICAL 2XWK 05/08/21 05/08/21 History Oxygen Home #1 ea 05/12/21 Rx apixaban 5 mg tablet (Eliquis) 5 mg PO DIRECTED #60 tab 05/12/21 Rx cephalexin 500 mg capsule 500 mg PO BID 6 Days #12 cap 05/12/21 Rx lisinopril 10 mg tablet 10 mg PO QAM #30 tab 05/12/21 Rx meclizine 12.5 mg tablet 12.5 mg PO Q8H PRN #30 tab 05/12/21 Rx mupirocin 2 % topical ointment 1 applic EXT BID 5 Days #22 g 05/12/21 Rx sodium chloride 3 % nasal mist 2 spray INTRANASAL BID #126 ml 05/12/21 Rx (Saline Nasal Mist) Patient History Medical History Anxiety Cervical cancer at age 29--sx Closed head injury Depression Difficulty swallowing Diverticulosis of colon (without mention of hemorrhage) Fall History of gastric ulcer Hypothyroidism Intractable back pain Irritable bowel syndrome On anticoagulant therapy eliquis daily Oropharyngeal dysphagia Osteoarthritis Pulmonary embolism reason for eliquis T12 compression fracture Tinnitus of both ears Upper abdominal pain Vertigo Vestibular migraine reason for verapamil Surgical History History of adenoidectomy History of appendectomy History of bilateral cataract extraction History of cholecystectomy History of colonoscopy History of hysterectomy History of tonsillectomy History of tooth extraction Family History Son Family history of diabetes mellitus Social History (Updated 05/08/21 @ 17:03 by Asael Lees PA-C) Smoking Status: Former smoker Tobacco Type: Cigarettes Age Started Using Tobacco: 21; Age Quit Using Tobacco: 23; Years Smoked: 2; Second Hand Exposure: Yes ( smoked/father smoked); Hx Alcohol Use: No Hx Substance Use: No Preferred Language: Belarusian Communication Ability: Unable Health Coordinator Required: No Beliefs That Will Affect Care: None marital status: / Current Living Situation: Intermediate Current Living Situation Comment: Center care in [facility] current occupational status: retired How many Children do You have: 2 Feels Safe at Home: Yes Assistive Devices: Oxygen - Continuous Review of Systems Review of Systems: per HPI Physical Exam Physical Exam: She is alert and oriented x3. Mood affect appear normal. She answered all questions appropriately, but was forgetful HEENT: Sclerae are anicteric. Pupils are equal and reactive to light and accommodation. Extraocular movements were intact. Neuro: Cranial nerves intact Neck: Examination of the submandibular region did not reveal any significant lymphadenopathy. Carotids are palpable bilaterally and free of bruits on auscultation. There was no evidence of jugular venous distention. The thyroid was not enlarged. Lungs: Lungs are clear to auscultation bilaterally. There are no rales wheezes or rhonchi. She has normal respiratory effort without use of accessory muscles. There is normal pulmonary excursion. Cardiac: The rhythm was regular with frequent ectopy. S1 and S2 were normal. There are no murmurs on examination. The PMI was not markedly displaced on palpation. Abdomen: The abdomen was soft and nontender. Extremities: Patient has bilateral radial pulses that are equal in intensity. There is no evidence cyanosis or clubbing. Skin: There are no rashes noted on examination today. Results & Data ([facility]) Vital Signs (Past 12 Hours) Vital Signs Temp Pulse Pulse Pulse Resp BP Pulse Ox 05/10/21 19:00 36.7 C 90 20 150/86 H 94 05/10/21 16:56 163/96 H 05/10/21 16:14 171/80 H 05/10/21 15:18 36.4 C L 73 19 171/80 H 95 05/10/21 14:56 101 H 05/10/21 11:22 36.6 C 87 19 129/76 95 Laboratory Results Abnormal Lab Results 05/10/21 05/10/21 05/10/21 06:50 06:50 06:50 WBC 8.06 RBC 3.81 L Hgb 11.0 L Hct 34.7 L MCV 91.1 MCH 28.9 MCHC 31.7 L RDW Std Deviation 45.7 RDW Coeff of Bety 13.8 Plt Count 311 MPV 10.0 PT 10.9 INR 1.1 APTT 41.0 H PTT Ratio 1.6 Sodium 137 Potassium 3.7 Chloride 107 Carbon Dioxide 26 Anion Gap 4.0 BUN 5 L Creatinine 0.65 Est Cr Clr Drug Dosing 56.9 Est GFR ( Amer) 93.2 Est GFR (Non-Af Amer) 80.4 BUN/Creatinine Ratio 7.2 L Glucose 101 H POC Glucose Calcium 8.2 L Total Bilirubin 0.3 AST 37 ALT 38 Alkaline Phosphatase 125 H Troponin I 0.029 Total Protein 6.0 L Albumin 2.7 L Globulin 3.3 Albumin/Globulin Ratio 0.8 L 05/10/21 05/10/21 05/10/21 07:05 11:05 13:57 WBC RBC Hgb Hct MCV MCH MCHC RDW Std Deviation RDW Coeff of Bety Plt Count MPV PT INR APTT 37.0 H PTT Ratio 1.4 Sodium Potassium Chloride Carbon Dioxide Anion Gap BUN Creatinine Est Cr Clr Drug Dosing Est GFR ( Amer) Est GFR (Non-Af Amer) BUN/Creatinine Ratio Glucose POC Glucose 91 120 H Calcium Total Bilirubin AST ALT Alkaline Phosphatase Troponin I Total Protein Albumin Globulin Albumin/Globulin Ratio Diagnostic Findings Echocardiogram obtained on 05/09/2021 demonstrated reduced LV and RV function. PG Care Time/CCT Total # of Minutes Spent Total Time Spent with Patient: Total time spent is greater than 50% in coordination of care (as documented) at patient's floor/unit and/or counseling patient: Coding Level of Care Code 26789 Initial Inpt Care Lvl 3 Diagnoses Cardiomyopathy I42.9
[2021-05-10 20:56] LABS: Partial Thromboplastin Time 53.2 Seconds (21.0-31.0)
[2021-05-10] MEDS ORDERED: haloperidoL 1 MG TAB PO SCH (21:00)
[2021-05-10] MEDS: CITALOPRAM 20 MG TAB PO SCH (21:09)
[2021-05-10] MEDS: MIRTAZAPINE TAB 15 MG TAB PO SCH (21:09)
[2021-05-11] MEDS: LEVOTHYROXINE SODIUM 150 MCG TABLET PO SCH (06:18)
[2021-05-11 07:22] LABS: Partial Thromboplastin Ratio 2.3
[2021-05-11 07:25] LABS: Partial Thromboplastin Time 59.3 Seconds (21.0-31.0)
[2021-05-11 07:31] LABS: BUN Creatinine Ratio 4.5 (10-20); Calcium 8.4 mg/dl (8.5-10.1); Creatinine Clr Calc Pharmacy 57.2 ml/min; Est GFR (African American) 93.6 ml/min; Est GFR (Non-African American) 80.8 ml/min; Potassium 3.8 mmol/L (3.5-5.1)
[2021-05-11] MEDS: SENNA 8.6 MG TAB PO SCH ×2 (10:44→21:10)
[2021-05-11] MEDS: POLYETHYLENE (MIRALAX) 17 GM PACK PO SCH (10:44)
[2021-05-11] MEDS: CLOPIDOGREL BISULFATE 75 MG TAB PO SCH (10:52)
[2021-05-11] MEDS: lisinopril 10 MG TAB PO SCH (10:52)
[2021-05-11] MEDS: PANTOprazole 40 MG TAB PO SCH (10:52)
[2021-05-11] MEDS: APIXABAN 5 MG TABLET PO SCH ×2 (10:52→21:07)
[2021-05-11] MEDS: HEPARIN SODIUM/DEXTROSE 25,000 UNITS/500 ML BAG IV SCH (12:30)
[2021-05-11] MEDS: ONDANSETRON 4 MG OD TAB PO PRN (14:16)
[2021-05-11] MEDS ORDERED: haloperidoL 0.5 MG TAB PO SCH (21:00)
[2021-05-11] MEDS: cephALEXin 500 MG CAP PO SCH (21:03)
[2021-05-11] MEDS: CITALOPRAM 20 MG TAB PO SCH (21:05)
[2021-05-11] MEDS: MIRTAZAPINE TAB 15 MG TAB PO SCH (21:08)
[2021-05-12] MEDS: LEVOTHYROXINE SODIUM 150 MCG TABLET PO SCH (06:01)
[2021-05-12] MEDS: lisinopril 10 MG TAB PO SCH (08:25)
[2021-05-12] MEDS: SENNA 8.6 MG TAB PO SCH (08:25)
[2021-05-12] MEDS: PANTOprazole 40 MG TAB PO SCH (08:26)
[2021-05-12] MEDS: APIXABAN 5 MG TABLET PO SCH (08:26)
[2021-05-12] MEDS: CLOPIDOGREL BISULFATE 75 MG TAB PO SCH (08:26)
[2021-05-12] MEDS: cephALEXin 500 MG CAP PO SCH (08:27)
[2021-05-12] MEDS: POLYETHYLENE (MIRALAX) 17 GM PACK PO SCH (08:28)
--- NOTE | 2021-05-12 09:15 | Hospitalist Progress Note ---
Date of Service May 11, 2021 Assessment & Plan (1) Bilateral pulmonary embolism: Plan: with RV strain and hypotension/obstructive shock at time of admission. s/p TPA with admit to ICU HD #1. transitioned to heparin infusion while in ICU; no bleeding complications since. had been taking eliquis up until March for prior PEs per records. Eliquis stopped at that time because of epistaxis. Daughter reports the eliquis was supposed to be held for 1 week but never got resumed? would not consider this an eliquis treatment failure since she had been off the medication for several months. risk factors for PE - prior PE, bed-bound status, etc cannot rule out other factors. transient INR elevation - 2nd to tPA. d/c heparin infusion. transition to eliquis 10mg BID x 7 days, then 5mg BID thereafter - lifelong. dopplers of LEs as below. (2) DVT, bilateral lower limbs: Plan: 2nd to bed-bound/wheelchair-bound status. see #1 above. anticoagulation life-long. (3) Acute hypotension: Plan: shock, 2nd to submassive PEs. resolved s/p TPA and supportive care. echo findings as below. (4) UTI (urinary tract infection): Plan: urine cx with e.coli. patient did not c/o symptoms to me but apparently told nursing she was having dysuria. thus, start keflex 500mg BID x 5-7 days. (5) Hypothyroidism: Plan: most recent TSH wnl cont synthroid (6) Acute systolic CHF (congestive heart failure): Plan: EF 30-35% etiology?? prior echo 2018 with preserved EF global hypokinesis of LV trop neg this admission appreciate Dr Colindres's consultation compensated left heart failure - etiology ? would be separate from her PEs as PEs would only cause RV dysfunction. cardiology to discuss ischemic eval with pt and family as outpatient CARLOS started then start low-dose BB - likely at time of hospital f/u with cardiology (7) Pulmonary HTN: Plan: 2nd to systolic CHF? prior PEs? combination? [place] O2, supportive care (8) Vertigo: Plan: h/o vestibular migraines per the EMR current vertigo could be such or BPV vs other meclizine 12.5mg prn improved has not mentioned this symptom in over 2 days (9) Esophagitis: Plan: as seen on CT chest PPI (10) Metabolic encephalopathy: Plan: 2nd to hypoxia, UTIs, hospital psychosis, etc improved s/p 1mg haldol last pm will lower dose to 0.5mg tonight as she had mild sedation from the 1mg dose Plan: daughter extensively updated today by phone questions answered plan of care discussed can likely d/c back to [facility] tomorrow with [place] O2 if she has good night Admission and Anticipated Discharge Date Admission Date: May 08, 2021 Subjective patient had a good day today slept all night and much of the am did not eat a large lunch but had a good dinner calm, cooperative, confusion is better during the visit she was pleasant - denied any complaints knew she was in the hospital and that it was 2020 no bleeding issues per staff Review of Systems Review of Systems: gen - feels well CV - no chest pain pulm - no cough or dyspnea GI - no abd pain Physical Exam Physical Exam: gen - NAD, looks good today; pleasant; a/o x 3 today - better than yesterday ENT - MMM, no lesions neck - no JVD sitting upright CV - RRR, s1 s2, 2/6 systolic murmur LSB lungs - CTA b/l, minimal rales bases abd - soft, NT, ND, BS+ ext - no edema skin - varicose veins b/l shins Results & Data Results & Data ([facility]) Vital Signs (Past 12 Hours) Vital Signs Temp Pulse Pulse Resp BP Pulse Ox 05/12/21 08:04 36.3 C L 84 19 134/76 91 05/11/21 23:20 85 05/11/21 22:55 36.6 C 87 16 113/71 95 Laboratory Results BMP wnl Diagnostic Findings urine cx - e.coli PG Care Time/CCT Total # of Minutes Spent Total Time Spent with Patient: Total time spent is greater than 50% in coord ination of care (as documented) at patient's floor/unit and/or counseling patient: Coding Level of Care Code 17527 Subseq Hosp Care Lvl 2 Diagnoses Bilateral pulmonary embolism I26.99 DVT, bilateral lower limbs I82.403 Acute hypotension I95.9 UTI (urinary tract infection) N39.0 Hypothyroidism E03.9 Hypothyroidism type: unspecified Acute systolic CHF (congestive heart failure) I50.21 Pulmonary HTN I27.20 Vertigo R42 Esophagitis K20.90 Metabolic encephalopathy G93.41 (1) Hypothyroidism Hypothyroidism type: unspecified Qualified Code(s): E03.9 - Hypothyroidism, unspecified
[2021-05-12 10:07] LABS: Hematocrit (blood only) 35.6 % (37-47); Hemoglobin 11.3 g/dL (12.0-16.0); Mean Corpuscular Hemoglobin 29.4 pg (25-34); Mean Corpuscular Hgb Conc 31.7 g/dL (32-36); Mean Corpuscular Volume 92.5 fL (80-100); Mean Platelet Volume 9.8 fL (7.4-10.4); Platelet Count 360 K/uL (130-400); RDW Coefficient of Variation 13.9 % (11.5-14.5); RDW Standard Deviation 46.6 fL (36.4-46.3); Red Blood Count 3.85 M/uL (4.2-5.4)
[2021-05-12 10:37] LABS: BUN Creatinine Ratio 6.3 (10-20); Calcium 8.4 mg/dl (8.5-10.1); Creatinine Clr Calc Pharmacy 41.6 ml/min; Est GFR (Non-African American) 59.5 ml/min; Potassium 3.8 mmol/L (3.5-5.1)
[2021-05-12] MEDS ORDERED: MUPIROCIN 2% OINT 22 GM TUBE EXT SCH (12:45)
--- NOTE | 2021-05-12 14:32 | Discharge Summary ---
Date of Service May 12, 2021 Admission HPI Per Admitting Provider Attending: Dr. Ordoñez This is a pleasant 85-year-old female with a past medical history of pulmonary emboli approximately 4 years ago, history of gastric ulcer, iron deficiency, I to process, ambulatory dysfunction confined to a wheelchair, hypofibroid-ism, vertigo, T12 compression fracture, vestibular migraines, oropharyngeal dysphagia, multilevel degenerative disc disease, anxiety. The patient resides at [facility] in [place]. She has been there for several years. It is reported the one morning she woke up and could not walk. She was transferred there and is wheelchair-bound at this time. She has some minor chest pain this morning and was evaluated by Dr. Chavez. She was found to be hypoxic and tachycardic. He referred her to the emergency department for further evaluation where she was found to have bilateral pulmonary emboli. Consent was obtained and the patient did receive TPA in the emergency department at 1459. She was initially hypotensive and was given IV hydration and currently is hemodynamically stable. Patient is alert and oriented and able to give good history. Patient denies any current chest pain. She denies any hemoptysis. She is unaware of tachyarrhythmia. She currently has a heart rate of 110 bpm. Auscultation of lungs is clear. The patient states that she did have pulmonary emboli for 5 years ago but no other thromboembolic history. Patient does have a history of cervical cancer when she was approximately 24 years of age. She has no other history of malignancy and no current malignancy. The patient has been anticoagulated with apixaban 2.5 mg p.o. twice daily since her previous pulmonary emboli. This was held March secondary to epistaxis. It was not restarted after that date. The patient states that she has not had any n osebleeds since that time. The patient denies any acute events at this time. She does understand that she is at the hospital and that she is here for pulmonary emboli. I interviewed and examined the patient in the presence of her daughter Vero Liu. The daughter can be reached at [phone]. The patient has not had Covid in the past. She states that she is fully vaccinated with 2 injections. Discharge Data Allergies Allergy/AdvReac Type Severity Reaction Status Date / Time adhesive tape AdvReac Intermediate PEELING OF Verified 05/08/21 15:38 SKIN cefdinir AdvReac Intermediate Migraine Verified 05/08/21 15:38 erythromycin base AdvReac Intermediate MYCIN Verified 05/08/21 15:38 DRUGS-YEAST INFECTIONS tramadol AdvReac Intermediate MAKES Verified 05/08/21 15:38 HEADACHS WORSE--vestibular sx Consultations 05/08/21 15:02 ED Decision to Admit Stat 05/10/21 14:54 Consult Cardiology Routine Ordered Studies 05/08/21 13:15 CT abd pelvis IV con only Stat CT angio chest PE protocol Stat 05/10/21 11:30 US venous doppler LE BI Routine Hospital Course (1) Bilateral pulmonary embolism: with RV strain and hypotension/obstructive shock at time of admission. s/p TPA with admit to ICU HD #1. transitioned to heparin infusion while in ICU; no bleeding complications since. had been taking eliquis up until March for prior PEs per records. Eliquis stopped at that time because of epistaxis. Daughter reports the eliquis was supposed to be held for 1 week but never got resumed? would not consider this an eliquis treatment failure since she had been off the medication for several months. risk factors for PE - prior PE, bed-bound status, etc cannot rule out other factors. transient INR elevation - 2nd to tPA. d/c heparin infusion. transition to eliquis 10mg BID x 7 days, then 5mg BID thereafter - lifelong. dopplers of LEs as below. (2) Acute pulmonary embolism with acute cor pulmonale: (3) DVT, bilateral lower limbs: 2nd to bed-bound/wheelchair-bound status. see #1 above. anticoagulation life-long. (4) Acute hypotension: shock, 2nd to submassive PEs. resolved s/p TPA and supportive care. echo findings as below. (5) UTI (urinary tract infection): urine cx with e.coli. patient did not c/o symptoms to me but apparently told nursing she was having dysuria. thus, start keflex 500mg BID x 5-7 days. (6) Hypothyroidism: most recent TSH wnl cont synthroid (7) Acute systolic CHF (congestive heart failure): EF 30-35% etiology?? prior echo 2017 with preserved EF global hypokinesis of LV trop neg this admission appreciate Dr Colindres's consultation compensated left heart failure - etiology ? would be separate from her PEs as PEs would only cause RV dysfunction. cardiology to discuss ischemic eval with pt and family as outpatient CARLOS started then start low-dose BB - likely at time of hospital f/u with cardiology (8) Pulmonary HTN: 2nd to systolic CHF? prior PEs? combination? [place] O2, supportive care (9) Vertigo: h/o vestibular migraines per the EMR current vertigo could be such or BPV vs other meclizine 12.5mg prn improved has not mentioned this symptom in over 2 days (10) Esophagitis: as seen on CT chest PPI (11) Metabolic encephalopathy: 2nd to hypoxia, UTIs, hospital psychosis, etc improved s/p 1mg haldol last pm will lower dose to 0.5mg tonight as she had mild sedation from the 1mg dose Discharge Plan Discharge Items Patient Disposition: Transfer Intermediate Fac Reason For Visit: Extensive Pulmonary Emboli with resulting Shock Discharge Diagnosis: 1. extensive pulmonary emboli s/p TPA with overnight admission to the ICU for this. 2. shock due to #1 above - resolved. 3. bilateral lower extremity DVTs. 4. urinary tract infection. 5. newly discovered cardiomyopathy with EF 30-35%. 6. o2-dependent - due to #1 above. on 2 liters [place] oxygen. Activity: Resume your previous activity Non-emergency contact: Primary Care Provider and Ekg Tech Call non-emergency contact if: you have any medication questions and your symptoms worsen Follow-up/Referrals: Beto Colindres MD [Physician] - ([address] Colindres or one of his partners. Newly diagnosed cardiomyopathy. ) [facility] [Primary Care Provider] - Diet: Heart Healthy Fluids: 1800ml (7 cups) Addtl Attending Provider Instructions: Mrs Carter was hospitalized for the problems listed above in "discharge diagnoses." She is now back on Eliquis for DVTs and PEs. She has had nosebleeds in the past while on blood thinning medication. Thus, we recommend to - * humidify the oxygen if possible * could use intermittently an oxymask in [place] of nasal cannula oxygen to give the nose a break if oxymask is available * oxygen requirement is 2 liters * saline spray - 2 sprays each nostril twice daily * bactroban ointment up each nostril twice daily (for 5 days only) Eliquis was started on the AM of 05/11/21. Eliquis dosing is as following - * 05/12/21 evening - 10mg PO x 1, * then 05/13/21 - 5 additional days of 10mg PO BID, * then 05/18/21 and thereafter - 5mg PO BID indefinitely Follow-up - see separate section If possible would advise daily bedscale or wheelchair scale weights. Notify MD if any weight gains of more than 3 pounds in 2 days. Pending Studies at Discharge: No Stand-Alone Forms: My [facility] Skilled Items Patient informed of condition?: Yes DNR: Yes Discharge Level of Care: Skilled Communicable Disease: Yes (colonized with MRSA) Discharge Prognosis: Stable Lines: None Urinary Catheter: No Medications and DC Order Prescriptions: New cephalexin 500 mg Capsule 500 mg PO BID 6 Days Qty: 12 RF: 0 Eliquis 5 mg Tablet 5 mg PO DIRECTED Qty: 60 RF: 0 lisinopril 10 mg Tablet 10 mg PO QAM Qty: 30 RF: 2 meclizine 12.5 mg Tablet 12.5 mg PO Q8H PRN (Reason: dizziness or vertigo) Qty: 30 RF: 0 mupirocin 2 % Ointment 1 applic EXT BID 5 Days Qty: 22 RF: 0 (DME) Oxygen Home Liters Per Minute See Rx Instructions .ROUTE .MEDSUPPLY Qty: 1 RF: 0 Saline Nasal Mist 3 % mist 2 spray intranasal BID Qty: 126 RF: 1 Continued polyethylene glycol 3350 [Miralax] 17 gram Powder In Packet 17 g PO QAM RF: 0 clopidogrel 75 mg Tablet 75 mg PO HS RF: 0 cyanocobalamin (vitamin B-12) 250 mcg Tablet 500 mcg PO BID RF: 0 menthol-zinc oxide [Calmoseptine] 0.44-20.6 % Ointment 1 applic TOPICAL BID RF: 0 sennosides [senna] 8.6 mg Tablet 8.6 mg PO BID RF: 0 acetaminophen [Tylenol] 325 mg Tablet 650 mg PO DAILY MDD 3g PRN (Reason: Fever Or Pain) RF: 0 citalopram [Celexa] 10 mg Tablet 5 mg PO PM RF: 0 thiamine HCl (vitamin B1) 100 mg Tablet 100 mg PO QAM RF: 0 calcium carbonate [Tums] 200 mg calcium (500 mg) Tablet,Chewable 400 mg PO Q4H PRN (Reason: Heartburn) RF: 0 mirtazapine [Remeron] 15 mg Tablet 7.5 mg PO HS RF: 0 ondansetron 4 mg Tablet,Disintegrating 4 mg PO Q8H PRN (Reason: Nausea And Vomiting) RF: 0 omeprazole 20 mg Tablet,Delayed Release (Dr/Ec) 20 mg PO BID RF: 0 levothyroxine [Synthroid] 150 mcg Tablet 150 mcg PO DAILYBB Qty: 30 RF: 0 ketoconazole 2 % Shampoo 1 ea TOPICAL 2XWK RF: 0 Discharge Orders: Discharge Order (Routine); Ordered 05/12/21 Ordered By: Alan Arroyo Admission Data Admit Date/Time: 05/08/21 14:35 Attending Provider: Alan Arroyo Admit Provider: Star Dubois Primary Care Provider: [facility] Other Providers: Arash Ordoñez ; Beto Colindres. Other Interventions: Discharge Summary Assessment (RN) Last Done: 05/12/21 12:50 Coding Diagnoses Bilateral pulmonary embolism I26.99 DVT, bilateral lower limbs I82.403 Acute hypotension I95.9 UTI (urinary tract infection) N39.0 Hypothyroidism E03.9 Hypothyroidism type: unspecified Acute systolic CHF (congestive heart failure) I50.21 Pulmonary HTN I27.20 Vertigo R42 Esophagitis K20.90 Metabolic encephalopathy G93.41 Acute pulmonary embolism with acute cor pulmonale I26.09
== END 2021-05-12 15:17 | DRG 175 ==
LOC: ED 12:05 → SUATTDRO 14:35 → 1E 14:35 → 2S 05-09 19:59